=== PATIENT | female | born 1950 | race Caucasian/White ===

== ENCOUNTER 2020-10-08 16:44 | Inpatient (IN) | payer MEDICARE, SELFPAY ==
--- NOTE | ~2020-10-08 | XR_ITS ---
EXAMINATION: XR CHEST CLINICAL INFORMATION: Shortness of breath COMPARISON: Multiple prior studies. Most recent exam Chest x-ray 04/15/2019 TECHNIQUE: Frontal portable view of the chest was obtained. 1825 hours FINDINGS: There is dense left lung base silhouetting the diaphragm due to effusion and probable basilar consolidation. Lung volume is low. This is causing crowding of the bronchovascular markings and prominence of the central hilar vessels. Allowing for low inspiratory effort suspect there is underlying pulmonary vascular congestion. There is no overt pulmonary edema. XR/XR chest 1V IMPRESSION: 1. Dense left lung base due to left pleural effusion and probable basilar consolidation/atelectasis. 2. Low inspiratory effort causing prominence of the bronchovascular markings. Suspect underlying pulmonary vascular congestion as well. Follow-up PA lateral view of chest would be helpful.
--- NOTE | ~2020-10-08 | CT_ITS ---
EXAMINATION: CT ANGIOGRAM OF THE CHEST WITH AND WITHOUT CONTRAST (CT PULMONARY ANGIOGRAM FOR PE) CLINICAL INFORMATION: Reason for Exam elevated d-dimer COMPARISON: None TECHNIQUE: Prior to contrast administration, noncontrast localization images were obtained. Subsequently, multidetector volumetric imaging was performed from the thoracic inlet to below the diaphragms following the administration of 80 mL Omnipaque 350 intravenous contrast. No contrast reaction reported Sagittal, coronal, and MIP oblique sagittal reformatted images were obtained on the CT workstation, uploaded to PACS, and reviewed. This CT examination was performed using dose optimization techniques as appropriate, variously including the following: *Automated exposure control *Adjustment of mA and/or kV according to patient size (this includes techniques or standardized protocols for targeted exams where dose is matched to indication/reason for exam; i.e. extremities or head) *Use of iterative reconstruction technique Total exam dose-length product 142 mGy-cm FINDINGS: QUALITY OF STUDY/CONTRAST BOLUS: Satisfactory. PULMONARY ARTERIES: No central or segmental pulmonary emboli. THORACIC AORTA: No aneurysm or dissection. LUNG: There is mild centrilobular emphysema without acute pneumonic process. There is mild atelectatic changes in the lingula. Focal subpleural density seen in right lower lobe image 33/5 likely focal atelectasis. There is mild peribronchial thickening in the right middle lobe anterobasal segment right lower lobe and lingula. PLEURA: There is minimal bilateral posterior pleural thickening MEDIASTINUM: The heart size enlarged. There is no. A cardiac effusion. The central trachea and the bronchi widely patent. No abnormal size mediastinal or hilar lymph nodes seen. No evidence of septal bowing or right heart strain. CHEST WALL/AXILLA: No axillary or internal mammary lymphadenopathy. OSSEOUS STRUCTURES: No lytic or sclerotic process seen. UPPER ABDOMEN: Visualized liver, spleen, pancreas and bilateral adrenal glands are unremarkable. No reflux of contrast into the hepatic veins to suggest elevated right heart pressures. CT/CT angio chest PE protocol IMPRESSION: No evidence of PE. No evidence aortic dissection. Centrilobular emphysema. There is peribronchial thickening involving the right middle lobe and the right lower lobe suggestive of small airway disease or bronchitis. VTE: negative
[2020-10-08 16:54] VITALS: BP 160/85; PULSE 87; RESP 18; TEMP 36.6; O2SAT 91; BMI 25.1
--- NOTE | 2020-10-08 17:29 | ECG_ITS ---
Test Reason : SOB Blood Pressure : / mmHG Vent. Rate : 079 BPM Atrial Rate : 079 BPM P-R Int : 144 ms QRS Dur : 078 ms QT Int : 380 ms P-R-T Axes : 058 237 058 degrees QTc Int : 435 ms Normal sinus rhythm Right superior axis deviation Inferior infarct , age undetermined Anterior infarct (cited on or before 16-JUL-2016) Abnormal ECG When compared with ECG of 15-APR-2019 05:49, Questionable change in QRS axis Referred By: Sarah Daly Electronically Signed By:JOSEY RESTREPO MD
--- NOTE | 2020-10-08 17:33 | ED.SOB ---
HPI - SOB/Dyspnea General Chief Complaint: Dyspnea Stated Complaint: sob Time Seen by Provider: 10/08/20 17:18 Source: patient and EMS Mode of arrival: EMS History of Present Illness HPI Narrative: 70-year-old female with a past medical history of acquired hypothyroidism, anxiety, HTN, COPD, gastritis, paranoid schizophrenia, polycythemia, smoker, BIBA from jail for hypoxia, noted O2 to 85% on room air. Patient reports baseline O2 90-92%, denies being on oxygen chronically. Reports acute on chronic cough productive of white sputum. Denies fever, chills, chest pain, abdominal pain, nausea/vomiting, worsening LE edema, recent travel. Reports was vaccinated for COVID-19 MD elicited complaint: shortness of breath Related Data Home Medications Medication Instructions Recorded Confirmed paliperidone palmitate 234 mg/1.5 234 mg IM QMONTH 05/18/20 10/08/20 mL intramuscular syringe Previous Rx's Medication Instructions Recorded omeprazole 20 mg capsule,delayed 20 mg PO DAILY 90 Days #90 cap 04/17/20 release levothyroxine 50 mcg tablet 50 mcg PO QAM #30 tab 06/11/20 aspirin 81 mg tablet,delayed 81 mg PO DAILY #30 tab 08/03/20 release albuterol sulfate 90 mcg/actuation 2 puff INHALATION Q6H PRN #8.5 g 09/04/20 aerosol inhaler fluticasone 232 mcg-salmeterol 14 2 inh INHALATION BID 30 Days #1 ea 09/04/20 mcg/actuation breath activated powdr umeclidinium 62.5 mcg/actuation 1 inh INHALATION DAILY 30 Days #30 09/04/20 blister powder for inhalation ea Allergies Allergy/AdvReac Type Severity Reaction Status Date / Time clozapine [Clozapine] AdvReac Unknown LOW ANC Verified 09/04/20 09:28 haloperidol [From HALDOL] AdvReac Unknown TARDIVE Verified 09/04/20 09:28 DISKINESIVE Review of Systems Review of Systems: Constitutional: No Fever, No Chills, No Fatigue, No Malaise Cardiovascular: No Chest Pain, +chronic SOB, No Dyspnea on Exertion, +chronic Edema Respiratory: + Cough, + Sputum, No Wheezing, No Dyspnea Gastrointestinal: No Nausea, No Vomiting, No Diarrhea, No Constipation, No Abdominal pain Genitourinary: No Dysuria, No Hematuria Musculoskeletal: No joint pain, No Myalgias, No Joint Swelling Skin: No Skin Lesions, No rash Neuro: No Weakness, No Numbness, No Headache Yes all other systems are reviewed and are negative [facility] Past Medical History Attestation statement: The following information was validated with the patient. Medical History Acquired hypothyroidism Anxiety Benign essential hypertension COPD (chronic obstructive pulmonary disease) Gastritis Paranoid schizophrenia Polycythemia Smoker Surgical History No pertinent past surgical history Family History Family History Father CVD (cardiovascular disease) Mother Medical history unknown Family/Other FH: mental illness Social History Social History Alcohol intake: never Smoking Status: Current every day smoker Tobacco Type: Cigarette Cigarettes Per Day: 10 Advance Directives: No Advance Directives Information Provided: No Physical Exam Vital Signs: Vital Signs: Last Vital Signs Temp 97.9 F 10/08/20 18:00 Pulse 79 10/08/20 18:00 Resp 20 10/08/20 18:00 BP 154/79 H 10/08/20 18:00 Pulse Ox 93 10/08/20 18:00 Body Mass Index 25.1 Const: General: cooperative Orientation/consciousness: patient oriented x3 Limitations: no limitations HENMT: Head: Yes normal to inspection Ears: hearing grossly normal bilaterally General nose exam: Normal external nose present Face and sinus: Yes normal facial exam Eyes: General: appearance normal, both eyes and all related structures EOM: EOMs intact bilaterally Neck: Neck: Yes normal visual inspection Resp: Other: Coarse lung sounds throughout Effort & Inspection: normal respiratory effort Auscultation: rhonchi Cardio: Rate: regular rate Heart sounds: S1 normal heart sound present and S2 normal heart sound present GI: Inspection: Yes normal to inspection Palpation (GI): Soft to palpation, nontender, no guarding and not rigid Skin: Rashes: no rashes Wounds: no wounds Neuro: General: patient oriented x3 Gait exam (Neuro): Normal gait present Extrem: Other: + bilateral lower extremity pitting edema General: Yes normal to inspection Course Course Course Narrative: -190-- no leukocytosis, troponin mildly elevated 6.2 >> will obtain 3 hour repeat XR chest 1V IMPRESSION: 1. Dense left lung base due to left pleural effusion and probable basilar consolidation/atelectasis. 2. Low inspiratory effort causing prominence of the bronchovascular markings. Suspect underlying pulmonary vascular congestion as well. Follow-up PA lateral view of chest would be helpful >> IV Ceftriaxone and Azithromycin ordered. 40mg IV Lasix ordered -lactic acid negative. Plan to admit for further management MDM - SOB/Dyspnea MDM Narrative Medical decision making narrative: 70-year-old female with a past medical history of acquired hypothyroidism, anxiety, HTN, COPD, gastritis, paranoid schizophrenia, polycythemia, smoker, BIBA from jail for hypoxia, noted O2 to 85% on room air. On exam 85% on RA improved to 92% on 3L NC, coarse lung sounds throughout, trunk a cough noted on exam, bilateral lower extremity edema. Concern for pneumonia vs COPD exacerbation vs CHF. Unlikely PE or COVID-19 Plan: EKG, labs, CXR, opiate overall, reassess, anticipated admission Lab Data Result diagrams: 10/08/20 18:04 10/08/20 18:04 Labs: Lab Results 10/08/20 10/08/20 10/08/20 Range/Units 18:03 18:04 18:04 WBC 6.9 (4.8-10.8) X10*3/uL RBC 5.67 H (4.20-5.50) X10*6/uL Hgb 16.1 H (12.0-16.0) g/dl Hct 51.1 H (37-47) % MCV 90.1 (80-98) fL MCH 28.4 (27.0-33.0) pg MCHC 31.5 (31.0-35.0) g/dl RDW 14.1 (11.0-16.0) % Plt Count 295 (160-400) X10*3/uL MPV 9.3 L (9.4-12.3) fL Immature Gran % (Auto) 0.4 (0.0-0.4) % Neut % (Auto) 73.4 H (45-73) % Lymph % (Auto) 17.1 L (20-40) % [place] % (Auto) 8.3 (2-11) % Eos % (Auto) 0.4 (0-4) % Baso % (Auto) 0.4 (0-2) % Lymph # (Auto) 1.2 (1.2-4.9) X10*3/uL [place] # (Auto) 0.6 (0.1-1.2) X10*3/uL Eos # (Auto) 0.0 (0.0-0.4) X10*3/uL Baso # (Auto) 0.0 (0.0-0.2) X10*3/uL Abs Immat Gran (auto) 0.03 (0.00-0.03) X10*3/uL Absolute Neuts (auto) 5.0 (2.0-8.3) X10*3/uL Absolute Nucleated RBC 0.000 (0.0-0.012) X10*3/uL Nucleated RBC % (auto) 0.0 (0.0-0.2) /100WBC Hold Blue Top Sodium 139 (135-145) mmol/L Potassium 4.6 (3.3-5.1) mmol/L Chloride 95 L (96-108) mmol/L Carbon Dioxide 36 H (22-29) mmol/L Anion Gap 13 (12-20) BUN 6 L (9-16) mg/dL Creatinine 0.54 (0.5-1.4) mg/dL Estim Creat Clear Calc 89.4 Estimated GFR > 60 Random Glucose 94 (60-115) mg/dL Lactic Acid 1.1 (0.5-2.0) mmol/L Calcium 9.1 (8.4-10.2) mg/dL Magnesium 2.3 (1.6-2.6) mg/dL Total Bilirubin 0.8 (0.0-1.0) mg/dL Direct Bilirubin 0.2 (0.0-0.5) mg/dL AST 18 (5-31) U/L ALT 14 (0-31) U/L Alkaline Phosphatase 99 (39-117) U/L Troponin I High Sens (<3.5-17.0) ng/L B-Natriuretic Peptide (<100) pg/mL Total Protein 6.9 (6.5-8.0) g/dL Albumin 3.9 (3.5-5.0) g/dL Procalcitonin ng/mL 10/08/20 10/08/20 10/08/20 Range/Units 18:04 18:04 18:05 WBC (4.8-10.8) X10*3/uL RBC (4.20-5.50) X10*6/uL Hgb (12.0-16.0) g/dl Hct (37-47) % MCV (80-98) fL MCH (27.0-33.0) pg MCHC (31.0-35.0) g/dl RDW (11.0-16.0) % Plt Count (160-400) X10*3/uL MPV (9.4-12.3) fL Immature Gran % (Auto) (0.0-0.4) % Neut % (Auto) (45-73) % Lymph % (Auto) (20-40) % [place] % (Auto) (2-11) % Eos % (Auto) (0-4) % Baso % (Auto) (0-2) % Lymph # (Auto) (1.2-4.9) X10*3/uL [place] # (Auto) (0.1-1.2) X10*3/uL Eos # (Auto) (0.0-0.4) X10*3/uL Baso # (Auto) (0.0-0.2) X10*3/uL Abs Immat Gran (auto) (0.00-0.03) X10*3/uL Absolute Neuts (auto) (2.0-8.3) X10*3/uL Absolute Nucleated RBC (0.0-0.012) X10*3/uL Nucleated RBC % (auto) (0.0-0.2) /100WBC Hold Blue Top SEE NOTE Sodium (135-145) mmol/L Potassium (3.3-5.1) mmol/L Chloride (96-108) mmol/L Carbon Dioxide (22-29) mmol/L Anion Gap (12-20) BUN (9-16) mg/dL Creatinine (0.5-1.4) mg/dL Estim Creat Clear Calc Estimated GFR Random Glucose (60-115) mg/dL Lactic Acid (0.5-2.0) mmol/L Calcium (8.4-10.2) mg/dL Magnesium (1.6-2.6) mg/dL Total Bilirubin (0.0-1.0) mg/dL Direct Bilirubin (0.0-0.5) mg/dL AST (5-31) U/L ALT (0-31) U/L Alkaline Phosphatase (39-117) U/L Troponin I High Sens 6.2 (<3.5-17.0) ng/L B-Natriuretic Peptide 86 (<100) pg/mL Total Protein (6.5-8.0) g/dL Albumin (3.5-5.0) g/dL Procalcitonin < 0.02 ng/mL Discharge Plan Discharge Clinical Impression: Community acquired pneumonia Qualifiers: Laterality: unspecified laterality Qualified Code(s): J18.9 - Pneumonia, unspecified organism Congestive heart failure Qualifiers: Heart failure type: unspecified Heart failure chronicity: unspecified Qualified Code(s): I50.9 - Heart failure, unspecified Prescriptions: No Action omeprazole 20 mg capsule,delayed release(DR/EC) 20 mg PO DAILY 90 Days Qty: 90 RF: 3 levothyroxine 50 mcg tablet 50 mcg PO QAM Qty: 30 RF: 3 aspirin 81 mg tablet,delayed release (DR/EC) 81 mg PO DAILY Qty: 30 RF: 10 Invega Sustenna 234 mg/1.5 mL syringe 234 mg IM QMONTH RF: 0 albuterol sulfate [Ventolin HFA] 90 mcg/actuation HFA aerosol inhaler 2 puff inhalation Q6H PRN (Reason: bronchospasm) Qty: 8.5 RF: 5 Incruse Ellipta 62.5 mcg/actuation blister with device 1 inh inhalation DAILY 30 Days Qty: 30 RF: 5 fluticasone propion-salmeterol 232-14 mcg/actuation aerosol powdr breath activated 2 inh inhalation BID 30 Days Qty: 1 RF: 5
[2020-10-08 18:00] VITALS: BP 154/79; PULSE 79; RESP 20; TEMP 36.6; O2SAT 93
[2020-10-08] MEDS: Albuterol Sulfate 90 MCG 8 GM INHALER 4 PUFF INHALE (18:11)
[2020-10-08 18:13] LABS: MANUAL DIFF FLAG NO
[2020-10-08 18:17] LABS: Basophils Percent Auto 0.4 % (0-2); Eosinophils Percent Auto 0.4 % (0-4); Hematocrit 51.1 % (37-47); Hemoglobin 16.1 g/dl (12.0-16.0); Imm Gran Abs Auto 0.03 X10*3/uL (0.00-0.03); Imm Gran Pct Auto 0.4 % (0.0-0.4); Lymphocytes Absolute Auto 1.2 X10*3/uL (1.2-4.9); Lymphocytes Percent Auto 17.1 % (20-40); Mean Corpuscular HGB Conc 31.5 g/dl (31.0-35.0); Mean Corpuscular Hemoglobin 28.4 pg (27.0-33.0); Mean Corpuscular Volume 90.1 fL (80-98); Mean Platelet Volume 9.3 fL (9.4-12.3); Monocytes Absolute Auto 0.6 X10*3/uL (0.1-1.2); Monocytes Percent Auto 8.3 % (2-11); Neutrophils Percent Auto 73.4 % (45-73); Platelet Count 295 X10*3/uL (160-400); Red Blood Count 5.67 X10*6/uL (4.20-5.50); Red Cell Distribution Width 14.1 % (11.0-16.0); White Blood Count 6.9 X10*3/uL (4.8-10.8)
[2020-10-08 18:42] LABS: Lactic Acid 1.1 mmol/L (0.5-2.0)
[2020-10-08 18:51] LABS: B Type Natriuretic Peptide 86 pg/mL (<100); Troponin-I High Sensitivity 6.2 ng/L (<3.5-17.0)
[2020-10-08 18:53] LABS: Alanine Aminotransferase 14 U/L (0-31); Albumin Level 3.9 g/dL (3.5-5.0); Alkaline Phosphatase 99 U/L (39-117); Anion Gap 13 (12-20); Aspartate Amino Transferase 18 U/L (5-31); Bilirubin Direct 0.2 mg/dL (0.0-0.5); Bilirubin Total 0.8 mg/dL (0.0-1.0); Blood Urea Nitrogen 6 mg/dL (9-16); Calcium 9.1 mg/dL (8.4-10.2); Carbon Dioxide 36 mmol/L (22-29); Chloride 95 mmol/L (96-108); Creatinine Clr Calc Pharmacy 89.4; Estimated Glomerular Filt Rate > 60; Glucose Random 94 mg/dL (60-115); Magnesium 2.3 mg/dL (1.6-2.6); Potassium 4.6 mmol/L (3.3-5.1); Sodium 139 mmol/L (135-145); Total Protein 6.9 g/dL (6.5-8.0)
[2020-10-08 19:10] LABS: Procalcitonin < 0.02 ng/mL
[2020-10-08 19:27] LABS: Influenza A PCR NEGATIVE (Negative); Influenza B PCR NEGATIVE (Negative); Resp Syncy Virus RNA Qual PCR NEGATIVE (Negative); SARS COV2 PCR INHOUSE NEGATIVE (Negative)
[2020-10-08 19:36] VITALS: BP 140/96; PULSE 75; RESP 20; O2SAT 89
[2020-10-08] MEDS: Furosemide 40 MG/4 ML VIAL IVPUSH (19:43)
[2020-10-08] MEDS: cefTRIAXone sodium 2 GM in 0.9 % Sodium Chloride 50 ML IV (19:45)
[2020-10-08] MEDS: Azithromycin 500 MG in 0.9 % Sodium Chloride 250 ML 125 MG IV (20:28)
--- NOTE | 2020-10-08 21:22 | PM.IMHP ---
History of Present Illness Date of Service: 10/08/20 Chief Complaint: SOB 70-year-old female with a past medical history and med schizophrenia dizziness group hypothyroidism, anxiety, depression hypertension COPD presented to the hospital with a chief complaint of shortness of breath. Reportedly patient was having hypoxia place subsequently sent the ER for further evaluation. Patient reports intermittent cough. Denies any chest pain palpitations lightheadedness or dizziness. At the time of my interview patient mentioned she feels okay. Denies any nausea vomiting diarrhea. Denies any urinary complaints. Review of all other systems is negative except mentioned above Patient reported that she has chronic swelling. Denies any leg pains. ER course: Per ER team patient noted to have leg swelling concern for question new onset CHF. Given Lasix. Also chest x-ray showed bilateral consolidation. Given antibiotics. Patient has no wheezing. Patient was placed on L of supplemental oxygen. D-dimer pending. [facility] Medical History Acquired hypothyroidism Anxiety Benign essential hypertension COPD (chronic obstructive pulmonary disease) Gastritis Paranoid schizophrenia Polycythemia Smoker Family History Father CVD (cardiovascular disease) Mother Medical history unknown Family/Other FH: mental illness Surgical History No pertinent past surgical history Social History Household Members: None Housing: Assisted Living Facility Alcohol intake: former Smoking Status: Heavy tobacco smoker Tobacco Type: Cigarette Packs Per Day: 1 Cigarettes Per Day: 20.0 service: No Current occupational status: disabled Meds Allergies Allergy/AdvReac Type Severity Reaction Status Date / Time clozapine [Clozapine] AdvReac Unknown LOW ANC Verified 09/04/20 09:28 haloperidol [From HALDOL] AdvReac Unknown TARDIVE Verified 09/04/20 09:28 DISKINESIVE Active Medications: Current Medications Generic Name Dose Route Start Last Admin Trade Name Freq PRN Reason Stop Dose Admin Acetaminophen 650 mg 10/08/20 19:33 Acetaminophen 325 Mg Tablet PO Q6H PRN Pain, Mild (Pain Scale 1-3) Albuterol/Ipratropium 3 ml 10/08/20 19:31 Albuterol/Iprat 2.5/0.5mg 3 Ml Ampul.Neb INHALE RQ4H PRN Shortness of Breath/Wheezing Aspirin 81 mg 10/09/20 09:00 Aspirin Enteric Coated 81 Mg Tablet. PO DAILY [facility] Azithromycin 500 mg 10/09/20 20:00 Azithromycin 500 Mg Tablet PO Q24H [facility] Furosemide 20 mg 10/09/20 09:00 Furosemide 20 Mg/2 Ml Vial IVPUSH DAILY [facility] Protocol Heparin Sodium (Porcine) 5,000 unit 10/08/20 20:00 Heparin Sodium,Porcine 5,000 Unit/Ml Vial SUBCUT Q8H [facility] Ceftriaxone Sodium 1 gm/ 50 mls @ 100 mls/hr 10/09/20 20:00 Sodium Chloride IV Q24H [facility] Levothyroxine Sodium 50 mcg 10/09/20 06:30 Levothyroxine Sodium 50 Mcg Tablet PO DAILY@0630 [facility] Nitroglycerin 0.4 mg 10/08/20 19:32 Nitroglycerin 0.4 Mg Tab.Subl SUBLINGUAL Q5M PRN Chest Pain Omeprazole 20 mg 10/09/20 09:00 Omeprazole 20 Mg Capsule. PO DAILY [facility] Pharmacy Consult 1 each 10/08/20 17:29 Consult Rx Perform Med Rec MISCELLANE ONCE PRN Consult order Senna 17.2 mg 10/08/20 19:33 Sennosides 8.6 Mg Tablet PO BEDTIME PRN Constipation Sodium Chloride 3 ml 10/09/20 00:00 0.9 % Sodium Chloride Flush 3 Ml Syringe IVFLUSH QSHIFT [facility] Home Medications Medication Instructions Recorded Confirmed Last Taken Type paliperidone palmitate 234 mg/1.5 234 mg IM QMONTH 05/18/20 10/08/20 09/24/20 History mL intramuscular syringe Physical Exam Vital Signs and Narrative: Vital Signs: Last Vital Signs Temp 97.9 F 10/08/20 18:00 Pulse 75 10/08/20 19:36 Resp 20 10/08/20 19:36 BP 140/96 H 10/08/20 19:36 Pulse Ox 89 L 10/08/20 19:36 Body Mass Index 25.1 Gen: Appears be in no acute distress HEENT: NCAT, Moist mucosa. Pulmonary: Course breath sounds, fair air entry. No significant noticed. CVS: Normal S1-S2 Abdomen: BS+, Soft, Nontender Extremities: Warm well perfused; 2+ pedal edema. Neuro: Alert and awake. Grossly nonfocal. Results Labs CBC and Chem 7: 10/11/20 06:12 10/12/20 09:10 Labs: Laboratory Results - last 24 hr 10/08/20 10/08/20 10/08/20 18:03 18:04 18:04 MCV 90.1 MCH 28.4 MCHC 31.5 RDW 14.1 Plt Count 295 MPV 9.3 L Immature Gran % (Auto) 0.4 Neut % (Auto) 73.4 H Lymph % (Auto) 17.1 L [place] % (Auto) 8.3 Eos % (Auto) 0.4 Baso % (Auto) 0.4 Lymph # (Auto) 1.2 [place] # (Auto) 0.6 Eos # (Auto) 0.0 Baso # (Auto) 0.0 Abs Immat Gran (auto) 0.03 Absolute Neuts (auto) 5.0 Absolute Nucleated RBC 0.000 Nucleated RBC % (auto) 0.0 Hold Blue Top Anion Gap 13 Estim Creat Clear Calc 89.4 Estimated GFR > 60 Random Glucose 94 Lactic Acid 1.1 Calcium 9.1 Magnesium 2.3 Total Bilirubin 0.8 Direct Bilirubin 0.2 AST 18 ALT 14 Alkaline Phosphatase 99 Troponin I High Sens B-Natriuretic Peptide Total Protein 6.9 Albumin 3.9 Procalcitonin Coronavirus (PCR) Influenza Type A (PCR) Influenza Type B (PCR) RSV RNA Qual (PCR) 10/08/20 10/08/20 10/08/20 18:04 18:04 18:04 MCV MCH MCHC RDW Plt Count MPV Immature Gran % (Auto) Neut % (Auto) Lymph % (Auto) [place] % (Auto) Eos % (Auto) Baso % (Auto) Lymph # (Auto) [place] # (Auto) Eos # (Auto) Baso # (Auto) Abs Immat Gran (auto) Absolute Neuts (auto) Absolute Nucleated RBC Nucleated RBC % (auto) Hold Blue Top SEE NOTE Anion Gap Estim Creat Clear Calc Estimated GFR Random Glucose Lactic Acid Calcium Magnesium Total Bilirubin Direct Bilirubin AST ALT Alkaline Phosphatase Troponin I High Sens B-Natriuretic Peptide Total Protein Albumin Procalcitonin < 0.02 Coronavirus (PCR) NEGATIVE Influenza Type A (PCR) NEGATIVE Influenza Type B (PCR) NEGATIVE RSV RNA Qual (PCR) NEGATIVE 10/08/20 18:05 MCV MCH MCHC RDW Plt Count MPV Immature Gran % (Auto) Neut % (Auto) Lymph % (Auto) [place] % (Auto) Eos % (Auto) Baso % (Auto) Lymph # (Auto) [place] # (Auto) Eos # (Auto) Baso # (Auto) Abs Immat Gran (auto) Absolute Neuts (auto) Absolute Nucleated RBC Nucleated RBC % (auto) Hold Blue Top Anion Gap Estim Creat Clear Calc Estimated GFR Random Glucose Lactic Acid Calcium Magnesium Total Bilirubin Direct Bilirubin AST ALT Alkaline Phosphatase Troponin I High Sens 6.2 B-Natriuretic Peptide 86 Total Protein Albumin Procalcitonin Coronavirus (PCR) Influenza Type A (PCR) Influenza Type B (PCR) RSV RNA Qual (PCR) Imaging Radiologist's Impressions: Impressions Chest X-Ray 10/08/20 17:30 IMPRESSION: 1. Dense left lung base due to left pleural effusion and probable basilar consolidation/atelectasis. 2. Low inspiratory effort causing prominence of the bronchovascular markings. Suspect underlying pulmonary vascular congestion as well. Follow-up PA lateral view of chest would be helpful. Assessment and Plan (1) Community acquired pneumonia: Qualifiers: Laterality: unspecified laterality Qualified Code(s): J18.9 - Pneumonia, unspecified organism Status: Acute 70-year-old female past medical history of anxiety, depression, paranoid schizophrenia lives in a [facility] hypertension, COPD presented to the hospital with a chief shortness of breath. Shortness of breath: Likely in the setting pneumonia. Patient on 2 L of supplemental oxygen. Breathing comfortable. No signs of distress currently. COVID-19 negative. Pneumonia: Continue ceftriaxone azithromycin. ? CHF: Patient was given Lasix in the ER. Patient reports he has chronic leg edema. Will obtain echocardiogram. Will hold off on diuresis until further by Cardiology. History of COPD: No significant wheezing noticed. Stable. Duo nebs p.r.n.. Diet: Speech and swallow eval. Dysphagia screen. Patient denies any difficulty swallowing. DVT prophylaxis: Subcu heparin Code status: full code
[2020-10-08 21:32] VITALS: BP 147/75; PULSE 91; RESP 22; TEMP 36.4; O2SAT 92
[2020-10-08 22:01] LABS: D Dimer 3800 NG/ML
[2020-10-08 22:28] LABS: Magnesium 2.1 mg/dL (1.6-2.6)
[2020-10-08 22:31] LABS: Troponin-I High Sensitivity 6.3 ng/L (<3.5-17.0)
[2020-10-09] VITALS (8 sets, daily range): BP systolic 140–162; BP diastolic 66–73; PULSE 83–93; RESP 18–28; TEMP 36.1–36.5; O2SAT 90–97
[2020-10-09] MEDS: 0.9 % Sodium Chloride Flush 3 ML SYRINGE IVFLUSH ×3 (01:22→15:45)
[2020-10-09] MEDS: Heparin Sodium,Porcine 5,000 UNIT/ML VIAL 5000 UNIT SUBCUT ×3 (01:28→21:16)
[2020-10-09 06:46] LABS: MANUAL DIFF FLAG NO
[2020-10-09 06:50] LABS: Basophils Percent Auto 0.5 % (0-2); Eosinophils Percent Auto 0.6 % (0-4); Hematocrit 49.2 % (37-47); Imm Gran Abs Auto 0.04 X10*3/uL (0.00-0.03); Imm Gran Pct Auto 0.6 % (0.0-0.4); Lymphocytes Absolute Auto 0.9 X10*3/uL (1.2-4.9); Mean Corpuscular HGB Conc 30.5 g/dl (31.0-35.0); Mean Corpuscular Volume 91.8 fL (80-98); Mean Platelet Volume 9.1 fL (9.4-12.3); Monocytes Absolute Auto 0.6 X10*3/uL (0.1-1.2); Monocytes Percent Auto 8.8 % (2-11); Neutrophils Absolute Auto 4.7 X10*3/uL (2.0-8.3); Neutrophils Percent Auto 74.5 % (45-73); Platelet Count 272 X10*3/uL (160-400); Red Blood Count 5.36 X10*6/uL (4.20-5.50); Red Cell Distribution Width 13.9 % (11.0-16.0); White Blood Count 6.3 X10*3/uL (4.8-10.8)
[2020-10-09 07:35] LABS: Anion Gap 11 (12-20); Blood Urea Nitrogen 5 mg/dL (9-16); Calcium 8.3 mg/dL (8.4-10.2); Carbon Dioxide 37 mmol/L (22-29); Chloride 97 mmol/L (96-108); Creatinine Clr Calc Pharmacy 81.9; Estimated Glomerular Filt Rate > 60; Glucose Random 90 mg/dL (60-115); Potassium 4.7 mmol/L (3.3-5.1); Sodium 140 mmol/L (135-145)
[2020-10-09] MEDS: Levothyroxine Sodium 50 MCG TABLET PO (07:54)
[2020-10-09] MEDS: Aspirin Enteric Coated 81 MG TABLET.DR PO (08:48)
[2020-10-09] MEDS: Omeprazole 20 MG CAPSULE.DR PO (08:48)
--- NOTE | 2020-10-09 09:37 | MHC.CM.PN ---
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 CM ATTEMPTED TO CONTACT [facility] [employer] GUARDIAN AT 9:15AM TO REQUEST CURRENT GUARDIANSHIP PAPERWORK, PER [facility] REGISTRATION LINE ALL LOCAL [facility] PHONES ARE DOWN, CM WILL ATTEMPT TO CONTACT LATER THIS MORNING. GUARDIAN: STEPHANIE ZAMORA [phone] [facility] GIS APPLICATION DEVELOPER: TERRA PT UNABLE TO REMEMBER LAST NAME OR PHONE NUMBER
--- NOTE | 2020-10-09 10:00 | CA_ITS ---
Transthoracic Echocardiogram Patient (Last, First, Middle): Bertha Uribe E Gender: Female Date of : 1950 Age: 70 Procedure Date: 10/09/2020 Procedure Type: Transthoracic Echocardiogram Location: S3E Height: 167.64 cm Weight: 70.31 kg BSA: 1.79 m2 Heart Rate: bpm BP: 159 / 66 mmHg System Administration Manager: Referring MD: Aubrey Silverman MD Symptoms: chf Study Quality: Fair ECG Rhythm: Sinus with extra beats Conclusions: - Normal left ventricular size and systolic function. - There is moderately increased left ventricular wall thickness. - E/E prime ratio is between 8 and 15 consistent with indeterminate filling pressures. - The basal inferior segment is hypokinetic. - Normal right ventricular cavity size and systolic function. - There is a trivial pericardial effusion. - Moderately elevated right atrial pressure. - There is mild aortic valve stenosis. Findings Left Ventricle Normal left ventricular size and systolic function. There is moderately increased left ventricular wall thickness. The visually estimated ejection fraction is between 55-60%. Regional wall motion abnormalities can not be excluded due to suboptimal endocardial definition. Abnormal diastolic function is noted. Spectral Doppler is indicative of an impaired relaxation filling pattern. E/E prime ratio is between 8 and 15 consistent with indeterminate filling pressures. Wall Motion Rest Echo Findings The basal inferior segment is hypokinetic. Right Ventricle Normal right ventricular cavity size and systolic function. Atria The left atrium is moderately dilated. Aortic Valve There is a normal trileaflet aortic valve. There is mild calcification of the aortic valve. There is mild aortic valve stenosis. There is no aortic valve regurgitation. Mitral Valve Normal mitral valve structure and function. There is trace mitral valve regurgitation. There is no mitral valve stenosis. Pulmonic Valve The pulmonic valve is likely normal. Tricuspid Valve Normal tricuspid valve structure and function. There is trace tricuspid valve regurgitation. Moderately elevated right atrial pressure. There is no evidence of pulmonary hypertension. Great Vessels The visualized portions of the pulmonary artery and branches are normal. Venous The inferior vena cava is mildly dilated and collapses greater than 50% with inspiration. Pericardium/Pleural There is a trivial pericardial effusion. There are no definitive echocardiographic findings of tamponade physiology. Prior Study Comparison No prior study available for comparison. Measurements 2D Linear Measurements IVSd: 1.28 0.6-0.9/0.6-1.0 cm LVIDd: 4.81 3.9-5.3/4.2-5.9 cm LVIDd Index: 2.69 2.4-3.2/2.2-3.1 cm/m2 LVIDs: 2.77 2.0-3.6 cm LVPWd: 1.24 0.7-1.1 cm Ao Root: 3.60 2.1-3.5 cm LA Diam: 4.00 2.7-3.8/3.0-4.0 cm LAIDs Index: 2.23 1.5-2.3 cm/m2 LV Mass: 293.85 67-162/88-224 g LV Mass Index: 164.16 43-95/49-115 g/m2 LVOT Diam: 2.20 3.0+(-)1.3 cm Mitral Valve MV Pk E: 0.67 MV PK A: 1.25 MV Decel Time: 113.00 E/A: 0.50 E'Lateral: 7.16 E'Medial: 5.71 E/E' Med: 11.80 E/E' Lat: 9.40 PHT: 33.00 MVA PHT: 6.67 Decel [place]: 5.98 Aortic Valve AoV Pk Prasad: 2.01 AoV Mn Prasad: 1.30 AoV VTI: 0.35 AoV Pk Grad: 16.00 Aov Mn Grad: 8.00 SHANNAN Cont.VTI: 2.55 LVOT LVOT Pk Prasad: 1.23 LVOT Mn Prasad: 0.77 LVOT VTI: 0.24 LVOT Pk Grad: 6.00 LVOT Mn Grad: 3.00 LVOT Diam: 2.20 LVOT Area: 3.80 Diastolic Function MV Pk E: 0.67 MV Pk A: 1.25 E/A: 0.50 E'Medial: 5.71 E/E' Med: 11.80 E' Laterial: 7.16 E/E' Lat: 9.40 Tricuspid Valve TR Pk Prasad: 1.97 TR Pk Grad: 16.00 RA Press: 15.00 RVSP: 31.00 Great Vessels Aorta Ao Root-2D: 3.60 2.0-3.7 cm Pulmonary Valve PV Pk Prasad: 1.15 Peak PV Grad: 5.00 Updated in Other Vendor System with Status of Final Jacky Novak MD electronically signed on 10/10/2020 2:03:09 PM with status of Final
--- NOTE | 2020-10-09 11:21 | MHC.CM.PN ---
CM ATTEMPTED TO CONTACT PT'S GUARDIAN AT [facility] AT 11:21AM ([phone]) [facility] PHONE LINES REMAIN DOWN.
--- NOTE | 2020-10-09 11:42 | PM.CNCAR ---
History of Present Illness History of Present Illness Date of Service: 10/09/20 Requesting physician: Candido Iglesias Chief complaint: pna, ? CHF Narrative: 70-year-old female with background history of paranoid schizophrenia, tobacco abuse and currently 1 pack per day smoker and hypertension who is presenting with shortness of breath. She has been coughing. No fevers or chills. She has wheezing on exam. She is hypoxic. Denies any orthopnea. She has mild lower extremity edema. Clinical story sounds more like COPD exacerbation. Blood pressure is elevated right now. [facility] Past Medical History Medical History Acquired hypothyroidism Anxiety Benign essential hypertension COPD (chronic obstructive pulmonary disease) Gastritis Paranoid schizophrenia Polycythemia Smoker Family History Family History Father CVD (cardiovascular disease) Mother Medical history unknown Family/Other FH: mental illness Surgical History Surgical History No pertinent past surgical history Social History Social History Household Members: None Housing: Assisted Living Facility Do you presently have visiting nurse or other home services: Yes Alcohol intake: former Smoking Status: Heavy tobacco smoker Tobacco Type: Cigarette Packs Per Day: 1 Cigarettes Per Day: 20.0 Use of substances other than those prescribed or required for medical reasons: No Have you been hit, kicked, punched, or otherwise hurt by someone within the past year? If so, by whom?: No Do you feel safe in your current relationship?: No Current Relationship Is there a partner from a previous relationship who is making you feel unsafe now?: No Are you made to feel afraid or neglected: No Advance Directives: No Advance Directives Information Provided: No Do you have thoughts of harming others: None Do you have a plan to hurt others: No Plan Recently lost weight without trying: No service: No Current occupational status: disabled Meds Allergies Allergy/AdvReac Type Severity Reaction Status Date / Time clozapine [Clozapine] AdvReac Unknown LOW ANC Verified 09/04/20 09:28 haloperidol [From HALDOL] AdvReac Unknown TARDIVE Verified 09/04/20 09:28 DISKINESIVE Active Medications: Current Medications Generic Name Dose Route Start Last Admin Trade Name Tatoq PRN Reason Stop Dose Admin Acetaminophen 650 mg 10/08/20 19:33 Acetaminophen 325 Mg Tablet PO Q6H PRN Pain, Mild (Pain Scale 1-3) Albuterol/Ipratropium 3 ml 10/08/20 19:31 Albuterol/Iprat 2.5/0.5mg 3 Ml Ampul.Neb INHALE RQ4H PRN Shortness of Breath/Wheezing Aspirin 81 mg 10/09/20 09:00 10/09/20 08:48 Aspirin Enteric Coated 81 Mg Tablet. PO 81 mg DAILY LUKAS Administration Azithromycin 500 mg 10/09/20 20:00 Azithromycin 500 Mg Tablet PO Q24H LUKAS Heparin Sodium (Porcine) 5,000 unit 10/08/20 20:00 10/09/20 11:39 Heparin Sodium,Porcine 5,000 Unit/Ml Vial SUBCUT 5,000 unit Q8H LUKAS Administration Ceftriaxone Sodium 1 gm/ 50 mls @ 100 mls/hr 10/09/20 20:00 Sodium Chloride IV Q24H LUKAS Levothyroxine Sodium 50 mcg 10/09/20 06:30 10/09/20 07:54 Levothyroxine Sodium 50 Mcg Tablet PO 50 mcg DAILY@0630 LUKAS Administration Nitroglycerin 0.4 mg 10/08/20 19:32 Nitroglycerin 0.4 Mg Tab.Subl SUBLINGUAL Q5M PRN Chest Pain Omeprazole 20 mg 10/09/20 09:00 10/09/20 08:48 Omeprazole 20 Mg Capsule. PO 20 mg DAILY [facility] Administration Pharmacy Consult 1 each 10/08/20 17:29 Consult Rx Perform Med Rec MISCELLANE ONCE PRN Consult order Senna 17.2 mg 10/08/20 19:33 Sennosides 8.6 Mg Tablet PO BEDTIME PRN Constipation Sodium Chloride 3 ml 10/09/20 00:00 10/09/20 08:48 0.9 % Sodium Chloride Flush 3 Ml Syringe IVFLUSH 3 ml QSHIFT [facility] Administration Home Medications Medication Instructions Recorded Confirmed Last Taken Type paliperidone palmitate 234 mg/1.5 234 mg IM QMONTH 05/18/20 10/08/20 09/24/20 History mL intramuscular syringe Physical Exam Vital Signs: Vital Signs: Last Vital Signs Temp 96.9 F 10/09/20 11:08 Pulse 93 10/09/20 11:08 Resp 18 10/09/20 11:08 BP 162/73 H 10/09/20 11:08 Pulse Ox 91 L 10/09/20 11:08 Body Mass Index 25.1 GENERAL APPEARANCE: in no acute distress, well developed, well nourished. HEENT: unremarkable. HEAD: normocephalic, atraumatic. NECK/THYROID: no carotid bruit, no jugular venous distention. SKIN: no suspicious lesions, warm and dry. HEART: no murmurs, regular rate and rhythm, S1, S2 normal. LUNGS: Bilateral expiratory wheezes and rhonchi. ABDOMEN: normal, bowel sounds present, soft, nontender, nondistended. EXTREMITIES: no clubbing, cyanosis. Mild edema PERIPHERAL PULSES: equal. NEUROLOGIC: nonfocal, alert and oriented. PSYCH: mood/affect full range. Results Labs and Meds Result diagrams: 10/09/20 06:28 10/09/20 06:28 Lab results: Laboratory Results - last 24 hr 10/08/20 10/08/20 10/08/20 18:03 18:04 18:04 WBC 6.9 RBC 5.67 H Hgb 16.1 H Hct 51.1 H MCV 90.1 MCH 28.4 MCHC 31.5 RDW 14.1 Plt Count 295 MPV 9.3 L Immature Gran % (Auto) 0.4 Neut % (Auto) 73.4 H Lymph % (Auto) 17.1 L Ballard % (Auto) 8.3 Eos % (Auto) 0.4 Baso % (Auto) 0.4 Lymph # (Auto) 1.2 Ballard # (Auto) 0.6 Eos # (Auto) 0.0 Baso # (Auto) 0.0 Abs Immat Gran (auto) 0.03 Absolute Neuts (auto) 5.0 Absolute Nucleated RBC 0.000 Nucleated RBC % (auto) 0.0 D-Dimer Hold Blue Top Sodium 139 Potassium 4.6 Chloride 95 L Carbon Dioxide 36 H Anion Gap 13 BUN 6 L Creatinine 0.54 Estim Creat Clear Calc 89.4 Estimated GFR > 60 Random Glucose 94 Lactic Acid 1.1 Calcium 9.1 Magnesium 2.3 Total Bilirubin 0.8 Direct Bilirubin 0.2 AST 18 ALT 14 Alkaline Phosphatase 99 Troponin I High Sens B-Natriuretic Peptide Total Protein 6.9 Albumin 3.9 Procalcitonin Coronavirus (PCR) Influenza Type A (PCR) Influenza Type B (PCR) RSV RNA Qual (PCR) 10/08/20 10/08/20 10/08/20 18:04 18:04 18:04 WBC RBC Hgb Hct MCV MCH MCHC RDW Plt Count MPV Immature Gran % (Auto) Neut % (Auto) Lymph % (Auto) Ballard % (Auto) Eos % (Auto) Baso % (Auto) Lymph # (Auto) Ballard # (Auto) Eos # (Auto) Baso # (Auto) Abs Immat Gran (auto) Absolute Neuts (auto) Absolute Nucleated RBC Nucleated RBC % (auto) D-Dimer Hold Blue Top SEE NOTE Sodium Potassium Chloride Carbon Dioxide Anion Gap BUN Creatinine Estim Creat Clear Calc Estimated GFR Random Glucose Lactic Acid Calcium Magnesium Total Bilirubin Direct Bilirubin AST ALT Alkaline Phosphatase Troponin I High Sens B-Natriuretic Peptide Total Protein Albumin Procalcitonin < 0.02 Coronavirus (PCR) NEGATIVE Influenza Type A (PCR) NEGATIVE Influenza Type B (PCR) NEGATIVE RSV RNA Qual (PCR) NEGATIVE 10/08/20 10/08/20 10/08/20 18:05 21:38 21:38 WBC RBC Hgb Hct MCV MCH MCHC RDW Plt Count MPV Immature Gran % (Auto) Neut % (Auto) Lymph % (Auto) Ballard % (Auto) Eos % (Auto) Baso % (Auto) Lymph # (Auto) Ballard # (Auto) Eos # (Auto) Baso # (Auto) Abs Immat Gran (auto) Absolute Neuts (auto) Absolute Nucleated RBC Nucleated RBC % (auto) D-Dimer Hold Blue Top Sodium Potassium Chloride Carbon Dioxide Anion Gap BUN Creatinine Estim Creat Clear Calc Estimated GFR Random Glucose Lactic Acid Calcium Magnesium Total Bilirubin Direct Bilirubin AST ALT Alkaline Phosphatase Troponin I High Sens 6.2 6.0 6.3 B-Natriuretic Peptide 86 Total Protein Albumin Procalcitonin Coronavirus (PCR) Influenza Type A (PCR) Influenza Type B (PCR) RSV RNA Qual (PCR) 10/08/20 10/08/20 10/09/20 21:38 21:38 06:28 WBC RBC Hgb Hct MCV MCH MCHC RDW Plt Count MPV Immature Gran % (Auto) Neut % (Auto) Lymph % (Auto) Ballard % (Auto) Eos % (Auto) Baso % (Auto) Lymph # (Auto) Ballard # (Auto) Eos # (Auto) Baso # (Auto) Abs Immat Gran (auto) Absolute Neuts (auto) Absolute Nucleated RBC Nucleated RBC % (auto) D-Dimer 3800 Hold Blue Top Sodium 140 Potassium 4.7 Chloride 97 Carbon Dioxide 37 H Anion Gap 11 L BUN 5 L Creatinine 0.59 Estim Creat Clear Calc 81.9 Estimated GFR > 60 Random Glucose 90 Lactic Acid Calcium 8.3 L D Magnesium 2.1 Total Bilirubin Direct Bilirubin AST ALT Alkaline Phosphatase Troponin I High Sens B-Natriuretic Peptide Total Protein Albumin Procalcitonin Coronavirus (PCR) Influenza Type A (PCR) Influenza Type B (PCR) RSV RNA Qual (PCR) 10/09/20 06:28 WBC 6.3 RBC 5.36 Hgb 15.0 Hct 49.2 H MCV 91.8 MCH 28.0 MCHC 30.5 L RDW 13.9 Plt Count 272 MPV 9.1 L Immature Gran % (Auto) 0.6 H Neut % (Auto) 74.5 H Lymph % (Auto) 15.0 L Ballard % (Auto) 8.8 Eos % (Auto) 0.6 Baso % (Auto) 0.5 Lymph # (Auto) 0.9 L Ballard # (Auto) 0.6 Eos # (Auto) 0.0 Baso # (Auto) 0.0 Abs Immat Gran (auto) 0.04 H Absolute Neuts (auto) 4.7 Absolute Nucleated RBC 0.000 Nucleated RBC % (auto) 0.0 D-Dimer Hold Blue Top Sodium Potassium Chloride Carbon Dioxide Anion Gap BUN Creatinine Estim Creat Clear Calc Estimated GFR Random Glucose Lactic Acid Calcium Magnesium Total Bilirubin Direct Bilirubin AST ALT Alkaline Phosphatase Troponin I High Sens B-Natriuretic Peptide Total Protein Albumin Procalcitonin Coronavirus (PCR) Influenza Type A (PCR) Influenza Type B (PCR) RSV RNA Qual (PCR) Imaging Radiologist's impression: Impressions Chest X-Ray 10/08/20 17:30 IMPRESSION: 1. Dense left lung base due to left pleural effusion and probable basilar consolidation/atelectasis. 2. Low inspiratory effort causing prominence of the bronchovascular markings. Suspect underlying pulmonary vascular congestion as well. Follow-up PA lateral view of chest would be helpful. Assessment and Plan (1) Benign essential hypertension: Status: Acute (2) Congestive heart failure: Qualifiers: Heart failure chronicity: unspecified Heart failure type: unspecified Qualified Code(s): I50.9 - Heart failure, unspecified Status: Acute 70-year-old female with tobacco abuse. She has COPD. She is presenting with shortness of breath which is likely due to COPD exacerbation. We have been asked to comment about congestive heart failure. She has mild lower extremity edema. I really doubt that she is in heart failure. Her BNP is normal. I think we should control blood pressure and not label her as heart failure. She can have an echocardiogram as outpatient which can be arranged at discharge. She can be started on hydrochlorothiazide 12.5 mg once a day for blood pressure control. That will also improve her lower extremity edema. Thank you for allowing me to participate in the care of your patient. Please feel free to contact me if you have any questions.
[2020-10-09] MEDS: iohexoL 350 MG/ML 75 ML INFUS..BTL 70 ML IV (12:36)
--- NOTE | 2020-10-09 12:38 | HO.PM.IMPN ---
Subjective Subjective Date of Service: 10/09/20 <JOHNY Skaggs - Last Filed: 10/09/20 13:02> 10/09/20 <Candido Iglesias MD - Last Filed: 10/09/20 16:05> Interval History: f/u COPD exacerbation Seen and examined this morning Reports shortness of breath, chronic cough which she says in unchanged from her baseline. Denies fever or chills. <JOHNY Skaggs - Last Filed: 10/09/20 13:02> Review of Systems Review of Systems: Yes all other systems are reviewed and are negative <JOHNY Skaggs - Last Filed: 10/09/20 13:02> Constitutional Constitutional: Denies chills and Denies fever(s) <JOHNY Skaggs - Last Filed: 10/09/20 13:02> Cardiovascular Cardiovascular: Denies chest pain <JOHNY Skaggs - Last Filed: 10/09/20 13:02> Respiratory Respiratory: Reports cough <JOHNY Skaggs - Last Filed: 10/09/20 13:02> shortness of breath <JOHNY Skaggs - Last Filed: 10/09/20 13:02> Gastrointestinal Gastrointestinal: Denies abdominal pain <JOHNY Skaggs - Last Filed: 10/09/20 13:02> Physical Exam Vital Signs: Vital Signs: Last Vital Signs Temp 96.9 F 10/09/20 11:08 Pulse 93 10/09/20 11:08 Resp 18 10/09/20 11:08 BP 162/73 H 10/09/20 11:08 Pulse Ox 91 L 10/09/20 11:08 Body Mass Index 25.1 <JOHNY Skaggs - Last Filed: 10/09/20 13:02> Const: General: no acute distress, alert and awake <JOHNY Skaggs Last Filed: 10/09/20 13:02> Nutritional Appearance: well nourished <JOHNY Skaggs - Last Filed: 10/09/20 13:02> Orientation/consciousness: patient oriented x3 <JOHNY Skaggs - Last Filed: 10/09/20 13:02> HENMT: Head: Yes normocephalic and Yes atraumatic <JOHNY Skaggs - Last Filed: 10/09/20 13:02> Eyes: Sclerae: sclerae normal <JOHNY Skaggs - Last Filed: 10/09/20 13:02> Chest: Chest palpation & inspection: normal inspection of the chest <JOHNY Skaggs - Last Filed: 10/09/20 13:02> Resp: Other: wheezing <JOHNY Skaggs - Last Filed: 10/09/20 13:02> Effort & Inspection: normal respiratory effort and no respiratory distress <JOHNY Skaggs - Last Filed: 10/09/20 13:02> Cardio: Rate: regular rate <JOHNY Skaggs - Last Filed: 10/09/20 13:02> Rhythm: regular rhythm <JOHNY Skaggs - Last Filed: 10/09/20 13:02> GI: Palpation (GI): Soft to palpation and nontender <JOHNY Skaggs - Last Filed: 10/09/20 13:02> Neuro: General: patient oriented x3 <JOHNY Skaggs - Last Filed: 10/09/20 13:02> Cranial nerves: Yes CN's II-XII intact bilaterally and Yes Bilaterally intact EOM present <JOHNY Skaggs - Last Filed: 10/09/20 13:02> Extrem: Other: 2 + edema b/l lower extremities <JOHNY Skaggs - Last Filed: 10/09/20 13:02> General: Yes normal to inspection <JOHNY Skaggs - Last Filed: 10/09/20 13:02> Objective Data Current Medications Generic Name Dose Route Start Last Admin Trade Name Freq PRN Reason Stop Dose Admin Acetaminophen 650 mg 10/08/20 19:33 Acetaminophen 325 Mg Tablet PO Q6H PRN Pain, Mild (Pain Scale 1-3) Albuterol/Ipratropium 3 ml 10/08/20 19:31 Albuterol/Iprat 2.5/0.5mg 3 Ml Ampul.Neb INHALE RQ4H PRN Shortness of Breath/Wheezing Aspirin 81 mg 10/09/20 09:00 10/09/20 08:48 Aspirin Enteric Coated 81 Mg Tablet. PO 81 mg DAILY LUKAS Administration Azithromycin 500 mg 10/09/20 20:00 Azithromycin 500 Mg Tablet PO Q24H LUKAS Heparin Sodium (Porcine) 5,000 unit 10/08/20 20:00 10/09/20 11:39 Heparin Sodium,Porcine 5,000 Unit/Ml Vial SUBCUT 5,000 unit Q8H LUKAS Administration Ceftriaxone Sodium 1 gm/ 50 mls @ 100 mls/hr 10/09/20 20:00 Sodium Chloride IV Q24H LUKAS Iohexol 70 ml 10/09/20 12:35 10/09/20 12:36 Iohexol 350 Mg/Ml 75 Ml Infus..Btl IV 10/09/20 12:36 70 ml ONCE ONE Administration Levothyroxine Sodium 50 mcg 10/09/20 06:30 10/09/20 07:54 Levothyroxine Sodium 50 Mcg Tablet PO 50 mcg DAILY@0630 LUKAS Administration Nitroglycerin 0.4 mg 10/08/20 19:32 Nitroglycerin 0.4 Mg Tab.Subl SUBLINGUAL Q5M PRN Chest Pain Omeprazole 20 mg 10/09/20 09:00 10/09/20 08:48 Omeprazole 20 Mg Capsule. PO 20 mg DAILY LUKAS Administration Pharmacy Consult 1 each 10/08/20 17:29 Consult Rx Perform Med Rec MISCELLANE ONCE PRN Consult order Senna 17.2 mg 10/08/20 19:33 Sennosides 8.6 Mg Tablet PO BEDTIME PRN Constipation Sodium Chloride 3 ml 10/09/20 00:00 10/09/20 08:48 0.9 % Sodium Chloride Flush 3 Ml Syringe IVFLUSH 3 ml QSHIFT LUKAS Administration <JOHNY Skaggs - Last Filed: 10/09/20 13:02> Labs CBC & Chem 7: : 10/09/20 06:28 10/09/20 06:28 <JOHNY Skaggs - Last Filed: 10/09/20 13:02> Assessment and Plan (1) Community acquired pneumonia: Status: Acute <JOHNY Skaggs Last Filed: 10/09/20 13:02> (2) COPD (chronic obstructive pulmonary disease): Status: Acute <JOHNY Skaggs - Last Filed: 10/09/20 13:02> Assessment and Plan: This is a 70-year-old female with a history of anxiety, depression, schizophrenia, COPD, active smoker who was sent from correction for shortness of breath. Acute respiratory failure with hypoxia Related to underlying pneumonia/COPD Ddimer elevated, CTA pending PNA Continue ceftriaxone, azithromycin D #2 BCx pending Acute COPD exacerbation -IV solumedrol -scheduled and prn breathing treatments Leg edema Pt reports chronic leg edema. BNP 86. Less likely CHF ECHO done, report pending Seen by cardiology, rec to control BP HTN Not on BP meds at home per med rec Start HCTZ per cardiology rec -Follow BP Gerd continue omeprazole Hypothyroidism continue synthroid Tobacco dependence Smoking cessation advised -NRT Mood on Invega injections q/month Diet: Speech and swallow eval. rec ground solids, thin liquids with pills in puree DVT prophylaxis: Subcu heparin Code status: full code Attending-Dr. Iglesias <JOHNY Skaggs - Last Filed: 10/09/20 13:02> Patient seen and examined independently and I was present during coronel portion of E/M service. Agree with JOHNY Brown's history, physical, assessment, and plan. Continue CAP coverage. IV steroids and supplemental O2. Smoking cessation advised. <Candido Iglesias MD - Last Filed: 10/09/20 16:05>
[2020-10-09] MEDS: hydroCHLOROthiazide 12.5 MG TABLET PO (13:21)
[2020-10-09] MEDS: methylPREDNISolone Sod Succ 40 MG/ML VIAL 20 MG IVPUSH ×2 (13:21→21:17)
--- NOTE | 2020-10-09 15:12 | MHC.CM.PN ---
CM CONTACTED PT'S [facility] CUSTODIAL AT 3:05PM ([phone]) AND SPOKE TO STAFF EDUAR WHO IS COVERING HOUSE, PER STAFF PT'S GUARDIAN IS HER SON AYESHA ELY [phone], ON-CALL [employer] #[phone] FOR TRANSPORTATION IF D/C'D OVER WKND. CM DID REQUEST CURRENT [facility]IAN[facility] AND [facility] ORDER, STAFF REPORTS THEY WERE HACKED AND ARE UNABLE TO FAX DOCUMENTS, CM REQUESTED DOCUMENTS BE BROUGHT IN ON Monday10/12/20.
[2020-10-09] MEDS: Albuterol/Iprat 2.5/0.5MG 3 ML AMPUL.NEB INHALE ×2 (17:19→19:52)
[2020-10-09] MEDS: cefTRIAXone sodium 1 GM in 0.9 % Sodium Chloride 50 ML IV (21:15)
[2020-10-09] MEDS: Azithromycin 500 MG TABLET PO (21:16)
[2020-10-10] VITALS (11 sets, daily range): BP systolic 119–163; BP diastolic 52–75; PULSE 69–86; RESP 16–21; TEMP 36.2–37.1; O2SAT 89–95
[2020-10-10] MEDS: 0.9 % Sodium Chloride Flush 3 ML SYRINGE IVFLUSH ×4 (01:00→20:20)
[2020-10-10] MEDS: Heparin Sodium,Porcine 5,000 UNIT/ML VIAL 5000 UNIT SUBCUT ×3 (05:51→20:21)
[2020-10-10] MEDS: Levothyroxine Sodium 50 MCG TABLET PO (05:51)
[2020-10-10 08:08] LABS: Blood Urea Nitrogen 8 mg/dL (9-16); Calcium 8.9 mg/dL (8.4-10.2); Creatinine Clr Calc Pharmacy 75.4; Estimated Glomerular Filt Rate > 60; Glucose Random 168 mg/dL (60-115)
[2020-10-10] MEDS: Albuterol/Iprat 2.5/0.5MG 3 ML AMPUL.NEB INHALE ×4 (08:15→21:31)
[2020-10-10 08:29] LABS: Anion Gap 11 (12-20); Carbon Dioxide 41 mmol/L (22-29); Chloride 92 mmol/L (96-108); Potassium 4.6 mmol/L (3.3-5.1); Sodium 139 mmol/L (135-145)
[2020-10-10] MEDS: Aspirin Enteric Coated 81 MG TABLET.DR PO (08:35)
[2020-10-10] MEDS: hydroCHLOROthiazide 12.5 MG TABLET PO (08:35)
[2020-10-10] MEDS: Omeprazole 20 MG CAPSULE.DR PO (08:35)
[2020-10-10] MEDS: methylPREDNISolone Sod Succ 40 MG/ML VIAL 20 MG IVPUSH ×2 (08:35→20:20)
[2020-10-10] MEDS: Nicotine 14 MG PATCH.TD24 TRANSDERMA (08:36)
--- NOTE | 2020-10-10 09:20 | HO.PM.IMPN ---
Subjective Subjective Date of Service: 10/10/20 Interval History: f/u COPD exacerbation Seen and examined this morning Reports shortness of breath, chronic cough which she says in unchanged from her baseline. Denies fever or chills. Physical Exam Vital Signs: Vital Signs: Last Vital Signs Temp 98.0 F 10/10/20 07:52 Pulse 76 10/10/20 08:15 Resp 17 10/10/20 07:52 BP 154/75 H 10/10/20 07:52 Pulse Ox 91 L 10/10/20 07:52 Body Mass Index 25.1 Const: General: cooperative, no acute distress, alert and awake Nutritional Appearance: well nourished Orientation/consciousness: patient oriented x3 Limitations: no limitations Chest: Chest palpation & inspection: normal inspection of the chest Resp: Other: no wheezing Effort & Inspection: normal respiratory effort and no respiratory distress Auscultation: rhonchi Cardio: Rate: regular rate Rhythm: regular rhythm Heart sounds: S1 normal heart sound present and S2 normal heart sound present GI: Inspection: Yes normal to inspection Palpation (GI): Soft to palpation, nontender, no guarding and not rigid Skin: Rashes: no rashes Wounds: no wounds Neuro: General: patient oriented x3 Cranial nerves: Yes CN's II-XII intact bilaterally and Yes Bilaterally intact EOM present Gait exam (Neuro): Normal gait present Extrem: Other: 1 + edema b/l lower extremities General: Yes normal to inspection Objective Data Current Medications Generic Name Dose Route Start Last Admin Trade Name Freq PRN Reason Stop Dose Admin Acetaminophen 650 mg 10/08/20 19:33 Acetaminophen 325 Mg Tablet PO Q6H PRN Pain, Mild (Pain Scale 1-3) Albuterol/Ipratropium 3 ml 10/08/20 19:31 Albuterol/Iprat 2.5/0.5mg 3 Ml Ampul.Neb INHALE RQ4H PRN Shortness of Breath/Wheezing Albuterol/Ipratropium 3 ml 10/09/20 16:00 10/10/20 08:15 Albuterol/Iprat 2.5/0.5mg 3 Ml Ampul.Neb INHALE 3 ml RQ4H WHILE AWAKE [facility] Administration Aspirin 81 mg 10/09/20 09:00 10/10/20 08:35 Aspirin Enteric Coated 81 Mg Tablet. PO 81 mg DAILY [facility] Administration Azithromycin 500 mg 10/09/20 20:00 10/09/20 21:16 Azithromycin 500 Mg Tablet PO 500 mg Q24H [facility] Administration Heparin Sodium (Porcine) 5,000 unit 10/08/20 20:00 10/10/20 05:51 Heparin Sodium,Porcine 5,000 Unit/Ml Vial SUBCUT 5,000 unit Q8H [facility] Administration Hydrochlorothiazide 12.5 mg 10/09/20 13:00 10/10/20 08:35 Hydrochlorothiazide 12.5 Mg Tablet PO 12.5 mg DAILY [facility] Administration Protocol Ceftriaxone Sodium 1 gm/ 50 mls @ 100 mls/hr 10/09/20 20:00 10/09/20 22:51 Sodium Chloride IV Infused Q24H [facility] Infusion Levothyroxine Sodium 50 mcg 10/09/20 06:30 10/10/20 05:51 Levothyroxine Sodium 50 Mcg Tablet PO 50 mcg DAILY@0630 [facility] Administration Methylprednisolone Sodium Succinate 20 mg 10/09/20 12:45 10/10/20 08:35 Methylprednisolone Sod Succ 40 Mg/Ml Vial IVPUSH 20 mg BID [facility] Administration Nicotine 14 mg 10/09/20 13:00 10/10/20 08:36 Nicotine 14 Mg Patch.Td24 TRANSDERMA 14 mg DAILY [facility] Administration Nitroglycerin 0.4 mg 10/08/20 19:32 Nitroglycerin 0.4 Mg Tab.Subl SUBLINGUAL Q5M PRN Chest Pain Omeprazole 20 mg 10/09/20 09:00 10/10/20 08:35 Omeprazole 20 Mg Capsule.Dr PO 20 mg DAILY [facility] Administration Pharmacy Consult 1 each 10/08/20 17:29 Consult Rx Perform Med Rec MISCELLANE ONCE PRN Consult order Senna 17.2 mg 10/08/20 19:33 Sennosides 8.6 Mg Tablet PO BEDTIME PRN Constipation Sodium Chloride 3 ml 10/09/20 00:00 10/10/20 08:35 0.9 % Sodium Chloride Flush 3 Ml Syringe IVFLUSH 3 ml QSHIFT [facility] Administration Labs CBC & Chem 7: 10/09/20 06:28 10/10/20 06:44 Microbiology Microbiology Results: Microbiology 10/08/20 18:03 Blood - Venous Blood Culture - Preliminary No growth after 24 hours. 10/08/20 18:03 Blood - Venous Blood Culture - Preliminary No growth after 24 hours. Assessment and Plan (1) Community acquired pneumonia: Status: Acute Assessment and Plan: 70-year-old female with a history of anxiety, depression, schizophrenia, COPD, active smoker sent from long term for shortness of breath and found to have resp failure d/t copd, pna Acute respiratory failure with hypoxia d/t copd and pna--she is still requiring O2 and Sob with miniamal effor -continue treating underlying copd and PNA PNA--she's afebrile Continue ceftriaxone, azithromycin fro 1 more day and transition to oral by tomorrow if continue to improving BCx negative Acute COPD exacerbation--with persitent symptoms but better -IV solumedrol to oral prednisone starting today -scheduled and prn breathing treatments Leg edema Pt reports chronic leg edema. BNP 86. Less likely CHF ECHO done, report pending Seen by cardiology, rec to control BP HTN--moderlatly high, continue HCTZ, consider additional agents such as lisinopril Gerd continue omeprazole Hypothyroidism continue synthroid Tobacco dependence Smoking cessation advised -NRT Metabolic alkalosis--compensatory for chronic resp acidodis and now worse with diuretics, diamox Mood on Invega injections q/month Diet: Speech and swallow eval. rec ground solids, thin liquids with pills in puree DVT prophylaxis: Subcu heparin Need for hospitalization: Persistent hypoxia d/t pna, copd and need continuing IV Abx, IV steroid, and frequent reassessmet and djustment of O2
[2020-10-10] MEDS: acetaZOLAMIDE 250 MG TABLET PO ×2 (10:24→20:21)
[2020-10-10] MEDS: cefTRIAXone sodium 1 GM in 0.9 % Sodium Chloride 50 ML IV (20:20)
[2020-10-10] MEDS: Azithromycin 500 MG TABLET PO (20:21)
[2020-10-11] VITALS (8 sets, daily range): BP systolic 124–159; BP diastolic 54–75; PULSE 75–95; RESP 18–20; TEMP 36.2–37.1; O2SAT 90–97
[2020-10-11] MEDS: Heparin Sodium,Porcine 5,000 UNIT/ML VIAL 5000 UNIT SUBCUT ×3 (05:36→20:46)
[2020-10-11] MEDS: Levothyroxine Sodium 50 MCG TABLET PO (05:37)
[2020-10-11 06:47] LABS: Hematocrit 49.8 % (37-47); Hemoglobin 14.7 g/dl (12.0-16.0); Mean Corpuscular HGB Conc 29.5 g/dl (31.0-35.0); Mean Corpuscular Hemoglobin 27.3 pg (27.0-33.0); Mean Corpuscular Volume 92.4 fL (80-98); Mean Platelet Volume 9.4 fL (9.4-12.3); Platelet Count 325 X10*3/uL (160-400); Red Blood Count 5.39 X10*6/uL (4.20-5.50); Red Cell Distribution Width 13.6 % (11.0-16.0); White Blood Count 7.8 X10*3/uL (4.8-10.8)
[2020-10-11 07:00] LABS: Anion Gap 13 (12-20); Blood Urea Nitrogen 19 mg/dL (9-16); Calcium 9.3 mg/dL (8.4-10.2); Carbon Dioxide 37 mmol/L (22-29); Chloride 96 mmol/L (96-108); Creatinine Clr Calc Pharmacy 61.9; Estimated Glomerular Filt Rate > 60; Glucose Random 152 mg/dL (60-115); Sodium 141 mmol/L (135-145)
[2020-10-11] MEDS: 0.9 % Sodium Chloride Flush 3 ML SYRINGE IVFLUSH ×3 (08:22→20:48)
[2020-10-11] MEDS: Omeprazole 20 MG CAPSULE.DR PO (08:22)
[2020-10-11] MEDS: hydroCHLOROthiazide 12.5 MG TABLET PO (08:22)
[2020-10-11] MEDS: Aspirin Enteric Coated 81 MG TABLET.DR PO (08:23)
[2020-10-11] MEDS: methylPREDNISolone Sod Succ 40 MG/ML VIAL 20 MG IVPUSH ×2 (08:23→20:47)
[2020-10-11] MEDS: acetaZOLAMIDE 250 MG TABLET PO ×2 (08:23→20:45)
--- NOTE | 2020-10-11 10:10 | HO.PM.IMPN ---
Subjective Subjective Date of Service: 10/11/20 Interval History: f/u on copd ex, she feels better, but still remain on O2 with sat 90 to 92, she is not on home O2 ROS: Gen: no fever Resp: + no sob, no cough CV: no chest, no ESPINOSA, no leg edema GI: No n/v, no abd pain Neuro: No confusion Physical Exam Vital Signs: Vital Signs: Last Vital Signs Temp 98.0 F 10/11/20 08:00 Pulse 81 10/11/20 08:00 Resp 19 10/11/20 08:00 BP 124/60 10/11/20 08:00 Pulse Ox 92 10/11/20 08:00 Body Mass Index 25.1 Const: General: cooperative, no acute distress, alert and awake Nutritional Appearance: well nourished Orientation/consciousness: patient oriented x3 Limitations: no limitations Chest: Chest palpation & inspection: normal inspection of the chest Resp: Other: no wheezing Effort & Inspection: normal respiratory effort and no respiratory distress Auscultation: rhonchi Cardio: Rate: regular rate Rhythm: regular rhythm Heart sounds: S1 normal heart sound present and S2 normal heart sound present GI: Inspection: Yes normal to inspection Palpation (GI): Soft to palpation, nontender, no guarding and not rigid Skin: Rashes: no rashes Wounds: no wounds Neuro: General: patient oriented x3 Extrem: Other: 1 + edema b/l lower extremities General: Yes normal to inspection Objective Data Current Medications Generic Name Dose Route Start Last Admin Trade Name Freq PRN Reason Stop Dose Admin Acetaminophen 650 mg 10/08/20 19:33 Acetaminophen 325 Mg Tablet PO Q6H PRN Pain, Mild (Pain Scale 1-3) Acetazolamide 250 mg 10/10/20 09:45 10/11/20 08:23 Acetazolamide 250 Mg Tablet PO 10/13/20 21:01 250 mg BID [facility] Administration Albuterol/Ipratropium 3 ml 10/08/20 19:31 Albuterol/Iprat 2.5/0.5mg 3 Ml Ampul.Neb INHALE RQ4H PRN Shortness of Breath/Wheezing Albuterol/Ipratropium 3 ml 10/09/20 16:00 10/10/20 21:31 Albuterol/Iprat 2.5/0.5mg 3 Ml Ampul.Neb INHALE 3 ml RQ4H WHILE AWAKE [facility] Administration Aspirin 81 mg 10/09/20 09:00 10/11/20 08:23 Aspirin Enteric Coated 81 Mg Tablet. PO 81 mg DAILY [facility] Administration Azithromycin 500 mg 10/09/20 20:00 10/10/20 20:21 Azithromycin 500 Mg Tablet PO 500 mg Q24H [facility] Administration Heparin Sodium (Porcine) 5,000 unit 10/08/20 20:00 10/11/20 05:36 Heparin Sodium,Porcine 5,000 Unit/Ml Vial SUBCUT 5,000 unit Q8H [facility] Administration Hydrochlorothiazide 12.5 mg 10/09/20 13:00 10/11/20 08:22 Hydrochlorothiazide 12.5 Mg Tablet PO 12.5 mg DAILY [facility] Administration Protocol Ceftriaxone Sodium 1 gm/ 50 mls @ 100 mls/hr 10/09/20 20:00 10/10/20 20:58 Sodium Chloride IV Infused Q24H [facility] Infusion Levothyroxine Sodium 50 mcg 10/09/20 06:30 10/11/20 05:37 Levothyroxine Sodium 50 Mcg Tablet PO 50 mcg DAILY@0630 [facility] Administration Methylprednisolone Sodium Succinate 20 mg 10/09/20 12:45 10/11/20 08:23 Methylprednisolone Sod Succ 40 Mg/Ml Vial IVPUSH 20 mg BID [facility] Administration Nicotine 14 mg 10/09/20 13:00 10/11/20 08:23 Nicotine 14 Mg Patch.Td24 TRANSDERMA Not Given DAILY [facility] Nitroglycerin 0.4 mg 10/08/20 19:32 Nitroglycerin 0.4 Mg Tab.Subl SUBLINGUAL Q5M PRN Chest Pain Omeprazole 20 mg 10/09/20 09:00 10/11/20 08:22 Omeprazole 20 Mg Capsule. PO 20 mg DAILY [facility] Administration Pharmacy Consult 1 each 10/08/20 17:29 Consult Rx Perform Med Rec MISCELLANE ONCE PRN Consult order Senna 17.2 mg 10/08/20 19:33 Sennosides 8.6 Mg Tablet PO BEDTIME PRN Constipation Sodium Chloride 3 ml 10/09/20 00:00 10/11/20 08:22 0.9 % Sodium Chloride Flush 3 Ml Syringe IVFLUSH 3 ml QSHIFT [facility] Administration Labs CBC & Chem 7: 10/11/20 06:12 10/11/20 06:12 Microbiology Microbiology Results: Microbiology 10/08/20 18:03 Blood - Venous Blood Culture - Preliminary No growth after 48 hours. 10/08/20 18:03 Blood - Venous Blood Culture - Preliminary No growth after 48 hours. Assessment and Plan (1) Community acquired pneumonia: Status: Acute Assessment and Plan: 70-year-old female with a history of anxiety, depression, schizophrenia, COPD, active smoker sent from [facility] for shortness of breath and found to have resp failure d/t copd, pna Acute respiratory failure with hypoxia d/t copd and pna--she is still requiring O2 and Sob with miniamal effor -continue treating underlying copd and PNA PNA--she's afebrile DC ceftriaxone, azithromycin, add oral Ceftin BCx negative Acute COPD exacerbation--with persitent symptoms but better, persistent hypoxia and on oxygen -IV solumedrol to oral prednisone starting today -scheduled and prn breathing treatments -resp to assess for home O2, not sure if can go to assisted with O2 Leg edema Pt reports chronic leg edema. BNP 86. Less likely CHF ECHO done, report pending Seen by cardiology, rec to control BP HTN--normal, continue HCTZ, if higher add lisinopril Gerd continue omeprazole Hypothyroidism continue synthroid Tobacco dependence Smoking cessation advised -NRT Metabolic alkalosis--compensatory for chronic resp acidodis and now worse with diuretics, diamox for 1 more day Mood on Invega injections q/month Diet: Speech and swallow eval. rec ground solids, thin liquids with pills in puree DVT prophylaxis: Subcu heparin Need for hospitalization: Persistent hypoxia d/t pna, copd a, and frequent reassessmet and djustment of O2 and will need arrangement for oxygen at discharge
[2020-10-11] MEDS: Albuterol/Iprat 2.5/0.5MG 3 ML AMPUL.NEB INHALE ×2 (16:17→20:13)
[2020-10-11] MEDS: cefTRIAXone sodium 1 GM in 0.9 % Sodium Chloride 50 ML IV (20:45)
[2020-10-11] MEDS: Azithromycin 500 MG TABLET PO (20:45)
[2020-10-12] VITALS (9 sets, daily range): BP systolic 119–171; BP diastolic 58–90; PULSE 68–91; RESP 16–21; TEMP 36.1–36.8; O2SAT 88–94
[2020-10-12] MEDS: Heparin Sodium,Porcine 5,000 UNIT/ML VIAL 5000 UNIT SUBCUT ×3 (05:01→20:34)
[2020-10-12] MEDS: Levothyroxine Sodium 50 MCG TABLET PO (05:02)
[2020-10-12] MEDS: methylPREDNISolone Sod Succ 40 MG/ML VIAL 20 MG IVPUSH (07:48)
[2020-10-12] MEDS: 0.9 % Sodium Chloride Flush 3 ML SYRINGE IVFLUSH ×3 (07:48→20:35)
[2020-10-12] MEDS: acetaZOLAMIDE 250 MG TABLET PO ×2 (07:49→20:35)
[2020-10-12] MEDS: Aspirin Enteric Coated 81 MG TABLET.DR PO (07:49)
[2020-10-12] MEDS: Omeprazole 20 MG CAPSULE.DR PO (07:49)
[2020-10-12] MEDS: hydroCHLOROthiazide 12.5 MG TABLET PO (07:49)
--- NOTE | 2020-10-12 08:59 | P.PNIM_ITS ---
Subjective Subjective Date of Service: 10/12/20 Interval History: f/u on copd ex, she feels better, but still remain on O2 with sat 90 to 92, she is not on home O2 ROS: Gen: no fever Resp: + no sob, no cough CV: no chest, no ESPINOSA, no leg edema GI: No n/v, no abd pain Neuro: No confusion Physical Exam Vital Signs: Vital Signs: Last Vital Signs Temp 98.3 F 10/12/20 07:33 Pulse 91 10/12/20 07:33 Resp 21 H 10/12/20 07:33 BP 171/90 H 10/12/20 07:33 Pulse Ox 90 L 10/12/20 07:57 Body Mass Index 25.1 Const: General: cooperative, no acute distress, alert and awake Nutritional Appearance: well nourished Orientation/consciousness: patient oriented x3 Limitations: no limitations Chest: Chest palpation & inspection: normal inspection of the chest Resp: Other: no wheezing Effort & Inspection: normal respiratory effort and no respiratory distress Auscultation: rhonchi Cardio: Rate: regular rate Rhythm: regular rhythm Heart sounds: S1 normal heart sound present and S2 normal heart sound present GI: Inspection: Yes normal to inspection Palpation (GI): Soft to palpation, nontender, no guarding and not rigid Skin: Rashes: no rashes Wounds: no wounds Neuro: General: patient oriented x3 Cranial nerves: Yes CN's II-XII intact bilaterally and Yes Bilaterally intact EOM present Gait exam (Neuro): Normal gait present Extrem: Other: 1 + edema b/l lower extremities General: Yes normal to inspection Objective Data Current Medications Generic Name Dose Route Start Last Admin Trade Name Tatoq PRN Reason Stop Dose Admin Acetaminophen 650 mg 10/08/20 19:33 Acetaminophen 325 Mg Tablet PO Q6H PRN Pain, Mild (Pain Scale 1-3) Acetazolamide 250 mg 10/10/20 09:45 10/12/20 07:49 Acetazolamide 250 Mg Tablet PO 10/13/20 21:01 250 mg BID [facility] Administration Albuterol/Ipratropium 3 ml 10/08/20 19:31 Albuterol/Iprat 2.5/0.5mg 3 Ml Ampul.Neb INHALE RQ4H PRN Shortness of Breath/Wheezing Albuterol/Ipratropium 3 ml 10/09/20 16:00 10/12/20 07:42 Albuterol/Iprat 2.5/0.5mg 3 Ml Ampul.Neb INHALE Not Given RQ4H WHILE AWAKE [facility] Aspirin 81 mg 10/09/20 09:00 10/12/20 07:49 Aspirin Enteric Coated 81 Mg Tablet. PO 81 mg DAILY [facility] Administration Azithromycin 500 mg 10/09/20 20:00 10/11/20 20:45 Azithromycin 500 Mg Tablet PO 500 mg Q24H [facility] Administration Heparin Sodium (Porcine) 5,000 unit 10/08/20 20:00 10/12/20 05:01 Heparin Sodium,Porcine 5,000 Unit/Ml Vial SUBCUT 5,000 unit Q8H [facility] Administration Hydrochlorothiazide 12.5 mg 10/09/20 13:00 10/12/20 07:49 Hydrochlorothiazide 12.5 Mg Tablet PO 12.5 mg DAILY [facility] Administration Protocol Ceftriaxone Sodium 1 gm/ 50 mls @ 100 mls/hr 10/09/20 20:00 10/11/20 21:15 Sodium Chloride IV Infused Q24H [facility] Infusion Levothyroxine Sodium 50 mcg 10/09/20 06:30 10/12/20 05:02 Levothyroxine Sodium 50 Mcg Tablet PO 50 mcg DAILY@0630 [facility] Administration Methylprednisolone Sodium Succinate 20 mg 10/09/20 12:45 10/12/20 07:48 Methylprednisolone Sod Succ 40 Mg/Ml Vial IVPUSH 20 mg BID [facility] Administration Nicotine 14 mg 10/09/20 13:00 10/12/20 07:49 Nicotine 14 Mg Patch.Td24 TRANSDERMA Not Given DAILY [facility] Nitroglycerin 0.4 mg 10/08/20 19:32 Nitroglycerin 0.4 Mg Tab.Subl SUBLINGUAL Q5M PRN Chest Pain Omeprazole 20 mg 10/09/20 09:00 10/12/20 07:49 Omeprazole 20 Mg Capsule. PO 20 mg DAILY [facility] Administration Pharmacy Consult 1 each 10/08/20 17:29 Consult Rx Perform Med Rec MISCELLANE ONCE PRN Consult order Senna 17.2 mg 10/08/20 19:33 Sennosides 8.6 Mg Tablet PO BEDTIME PRN Constipation Sodium Chloride 3 ml 10/09/20 00:00 10/12/20 07:48 0.9 % Sodium Chloride Flush 3 Ml Syringe IVFLUSH 3 ml QSHIFT [facility] Administration Labs CBC & Chem 7: 10/11/20 06:12 10/11/20 06:12 Microbiology Microbiology Results: Microbiology 10/08/20 18:03 Blood - Venous Blood Culture - Preliminary No growth after 48 hours. 10/08/20 18:03 Blood - Venous Blood Culture - Preliminary No growth after 48 hours. Assessment and Plan (1) Community acquired pneumonia: Status: Acute Assessment and Plan: 70-year-old female with a history of anxiety, depression, schizophrenia, COPD, active smoker sent from [facility] for [facility]ness of breath and found to have resp failure d/t copd, pna Acute respiratory failure with hypoxia d/t copd and pna--she is still requiring O2 and Sob with miniamal effor -continue treating underlying copd and PNA PNA--she's afebrile DC ceftriaxon, Azithro, add oral ceftin BCx negative Acute COPD exacerbation--with persitent symptoms but better, persistent hypoxia and on oxygen -IV solumedrol to oral prednisone starting today -scheduled and prn breathing treatments -resp to assess for home O2, not sure if can go to [facility] with O2 Leg edema Pt reports chronic leg edema. BNP 86. Less likely CHF ECHO done, report pending Seen by cardiology, rec to control BP HTN--normal, continue HCTZ, if higher add lisinopril Gerd continue omeprazole Hypothyroidism continue synthroid Tobacco dependence Smoking cessation advised -NRT Metabolic alkalosis--compensatory for chronic resp acidodis and now worse with diuretics, diamox for 1 more day, check bicab Mood on Invega injections q/month Diet: Speech and swallow eval. rec ground solids, thin liquids with pills in puree, to be reassess for regular DVT prophylaxis: Subcu heparin Need for hospitalization: Persistent hypoxia d/t pna, copd a, and frequent reassessmet and djustment of O2 and will need arrangement for oxygen at discharge
[2020-10-12 09:56] LABS: Anion Gap 11 (12-20); Blood Urea Nitrogen 20 mg/dL (9-16); Calcium 9.5 mg/dL (8.4-10.2); Carbon Dioxide 35 mmol/L (22-29); Chloride 98 mmol/L (96-108); Creatinine Clr Calc Pharmacy 65.2; Estimated Glomerular Filt Rate > 60; Glucose Random 149 mg/dL (60-115); Potassium 3.9 mmol/L (3.3-5.1); Sodium 140 mmol/L (135-145)
--- NOTE | 2020-10-12 11:48 | MHC.CM.PN ---
PER MULTIDISCIPLINARY ROUNDS, PT WILL NEED HOME OT EVAL AND POSSIBLE D/C ON NEW HOME O2, NO DISCHARGE PLANNED FOR TODAY. CM RECEIVED CALL FROM NURSE BEASLEY AT APPROX 10:40AM WHO REPORTS THEY CAN ACCOMMODATE HOME OT AND ALSO REPORTED PT IS TYPICALLY NONCOMPLIANT WITH TX'S.
--- NOTE | 2020-10-12 12:34 | MHC.CM.PN ---
CM CALLED PT'S PENITENT[facility]ARY AT 12:32PM [phone] AND SPOKE W/STAFF REGARDING PT'S ANTIC. D/C Monday10/13/20, STAFF WOULD NOT GIVE CM HOUSE MANAGERS NUMBER AND INSTEAD REQUESTED CM'S CONTACT NUMBER, CM CONTACT INFO GIVEN. WHILE WRITING THIS NOTE MIGEL FROM [facility] CALLED BACK AND GAVE [employer] TERRA'S #[phone]
--- NOTE | 2020-10-12 12:50 | MHC.CM.PN ---
CM RECEIVED CALL BACK FROM [employer]ODUCTS MECHANICAL DESIGN ENGINEER [employer] AT 12:48PM, CM DID DISCUSS PT'S STATUS AND POSSIBLE NEED FOR HOME O2, [employer]ODUCTS MECHANICAL DESIGN ENGINEER IS AWARE OF ANTIC D/C ON 10/13/20 AND REQUESTED A D/C BETWEEN 12PM-1PM, STAFF WILL TRANSPORT PT HOME.
--- NOTE | 2020-10-12 13:01 | MHC.SLORD ---
Speech Language Pathology Order Status: SENIOR BUSINESS OBJECTS DEVELOPER checked in with RN. Per RN, patient is tolerating current diet GROUND/MECH ALTERED (NDD2) solids and THIN liquids. Recommend continue softer diet due to edentulous state. Continue aspiration precautions. Further ST intervention is no longer warranted. Please re-refer if there are any further concerns or changes.
--- NOTE | 2020-10-12 16:08 | MHC.CM.PN ---
CM CONTACTED RESPIRATORY THERAPY DUE TO WAITING ON HOME OT EVAL, PER RESPIRATORY THEY MET W/PT SHORTLY BEFORE 4PM AND PT DOES NOT QUALIFY FOR HOME O2, CM CONTACTED [facility] LINE MAINTENANCE SUPERVISOR AND MEDS NEEDING TO BE BLISTER PACKED AND STAFFING ISSUES PT WILL BE DISCHARGED TOMORROW AT 10AM, STAFF WILL TRANSPORT PT, HOSPITALIST AWARE.
[2020-10-12] MEDS: Albuterol/Iprat 2.5/0.5MG 3 ML AMPUL.NEB INHALE (19:22)
[2020-10-12] MEDS: Azithromycin 500 MG TABLET PO (20:34)
[2020-10-13 04:00] VITALS: BP 130/63; PULSE 78; RESP 18; TEMP 36.4; O2SAT 89
[2020-10-13] MEDS: Heparin Sodium,Porcine 5,000 UNIT/ML VIAL 5000 UNIT SUBCUT (05:23)
[2020-10-13] MEDS: Levothyroxine Sodium 50 MCG TABLET PO (05:24)
--- NOTE | 2020-10-13 07:53 | P.DS_ITS ---
DS: Providers Provider Date of Service: 11/09/20 Date of admission: 10/08/20 19:36 Primary care physician: Alireza Robertson MD Consults: 10/08/20 19:29 Consult to Cardiology Routine Consulting Provider: Jacky Novak Reason for consultation: CHF DS: Diagnosis Discharge Diagnosis (1) Community acquired pneumonia: Status: Acute DS: Medications Discharge Medications Home Medications: Home Medications Medication Instructions Recorded Confirmed paliperidone palmitate 234 mg/1.5 234 mg IM QMONTH 05/18/20 10/08/20 mL intramuscular syringe Previous Rx's Medication Instructions Recorded omeprazole 20 mg capsule,delayed 20 mg PO DAILY 90 Days #90 cap 04/17/20 release levothyroxine 50 mcg tablet 50 mcg PO QAM #30 tab 06/11/20 aspirin 81 mg tablet,delayed 81 mg PO DAILY #30 tab 08/03/20 release albuterol sulfate 90 mcg/actuation 2 puff INHALATION Q6H PRN #8.5 g 09/04/20 aerosol inhaler fluticasone 232 mcg-salmeterol 14 2 inh INHALATION BID 30 Days #1 ea 09/04/20 mcg/actuation breath activated powdr umeclidinium 62.5 mcg/actuation 1 inh INHALATION DAILY 30 Days #30 09/04/20 blister powder for inhalation ea DS: Summary Hospital Course Hospital Course: Chief Complaint: SOB 70-year-old female with a past medical history and med schizophrenia dizziness group hypothyroidism, anxiety, depression hypertension COPD presented to the hospital with a chief complaint of shortness of breath. Reportedly patient was having hypoxia and correction subsequently sent the ER for further evaluation. Patient reports intermittent cough. Denies any chest pain palpitations lightheadedness or dizziness. At the time of my interview patient mentioned she feels okay. ER course: Per ER team patient noted to have leg swelling concern for question new onset CHF. Given Lasix. Also chest x-ray showed bilateral consolidation. Given antibiotics. Patient has no wheezing. Patient was placed on L of supplemental oxygen and admitted Hospital course: .PNA-bilateral infiltrate seen on CXR, however afebrile and WBC normal. She was prescribed Ceftriaxone and Azithromycin and is doing better so we will give PO Ceftin at discharge for 3 more days. Cultures were negative Acute COPD exacerbation--Treated with bronchochodilators by Nebulizer and IV solumedrol and oxygen. She has longstanding COPD with likely chronic respiraoty failure. She presently has no wheezes and seem to be baseline. Her oxygen saturation is marginal around 89 to 90 upon home O2 evaluation and therefore does not require home oxygen. She should however not smoke Leg edema--she has chronic leg edema with no other signs of chf, BNP level is 86. Cardiloogy recommend controlling BP and so was started on HCTZ. Echo HTN--normal, continue HCTZ, Echo shows EF 55-60% Gerd continue omeprazole Hypothyroidism continue synthroid Tobacco dependence Smoking cessation advised and was given nicotine replacement in hospitalize, yet not interested in quitting at this time. Metabolic alkalosis--compensatory for chronic resp acidodis and now worse with diuretics, given Diamox in hosptial Mood on Invega injections q/month Time Spent with Patient Time attestation: Total time spent providing and/or coordinating discharge services: Discharge coordination time: Greater than 30 minutes Physical Exam Vital Signs: Vital Signs: Last Vital Signs Temp 97.6 F 10/13/20 04:00 Pulse 78 10/13/20 04:00 Resp 18 10/13/20 04:00 BP 130/63 10/13/20 04:00 Pulse Ox 89 L 10/13/20 04:00 Body Mass Index 25.1 DS: Data Data Completed and Pending Labs on day of discharge: Laboratory Results - last 24 hr 10/12/20 09:10 Sodium 140 Potassium 3.9 D Chloride 98 Carbon Dioxide 35 H Anion Gap 11 L BUN 20 H Creatinine 0.74 Estim Creat Clear Calc 65.2 Estimated GFR > 60 Random Glucose 149 H Calcium 9.5 Preliminary micro results at discharge 10/08/20 18:03 Blood Culture - Preliminary Blood - Venous No growth after 48 hours. 10/08/20 18:03 Blood Culture - Preliminary Blood - Venous No growth after 48 hours. Discharge Plan Discharge Anticipated Discharge Date/Time: 10/13/20 09:48 Patient Disposition: Home, Self-Care Discharge Diagnosis: Pneumonia Referrals: Alireza Robertson MD [Primary Care Provider] - Discharge Medications: New prednisone 20 mg Tablet 20 mg PO DAILY Qty: 3 RF: 0 hydrochlorothiazide 12.5 mg tablet 12.5 mg PO DAILY Qty: 30 RF: 0 Continued omeprazole 20 mg capsule,delayed release(DR/EC) 20 mg PO DAILY 90 Days Qty: 90 RF: 3 levothyroxine 50 mcg tablet 50 mcg PO QAM Qty: 30 RF: 3 aspirin 81 mg tablet,delayed release (DR/EC) 81 mg PO DAILY Qty: 30 RF: 10 paliperidone palmitate 234 mg/1.5 mL syringe 234 mg IM QMONTH RF: 0 albuterol sulfate [Ventolin HFA] 90 mcg/actuation HFA aerosol inhaler 2 puff inhalation Q6H PRN (Reason: bronchospasm) Qty: 8.5 RF: 5 Incruse Ellipta 62.5 mcg/actuation blister with device 1 inh inhalation DAILY 30 Days Qty: 30 RF: 5 fluticasone propion-salmeterol 232-14 mcg/actuation aerosol powdr breath activated 2 inh inhalation BID 30 Days Qty: 1 RF: 5 Discharge Orders: Discharge Order (Routine); Ordered 10/13/20 Ordered By: Delbert Gurrola Diet: advance to usual diet Activity on Discharge: As tolerated Stand Alone Forms: Patient Portal Discharge page Care Plan Goals: recover from copd exacerbation Health Concerns: chronic respiratory failure due to copd, and Pneumonia Plan of Treatment: Take prednisone and inhalers as directed, do not smoke, follow up with your Doctor in a week Assessment: See above Discharge Date/Time: 10/13/20 12:18
[2020-10-13 07:59] VITALS: BP 106/56; PULSE 83; RESP 19; TEMP 36.6
[2020-10-13] MEDS: Aspirin Enteric Coated 81 MG TABLET.DR PO (08:31)
[2020-10-13] MEDS: acetaZOLAMIDE 250 MG TABLET PO (08:31)
[2020-10-13] MEDS: hydroCHLOROthiazide 12.5 MG TABLET PO (08:31)
[2020-10-13] MEDS: Omeprazole 20 MG CAPSULE.DR PO (08:31)
[2020-10-13] MEDS: 0.9 % Sodium Chloride Flush 3 ML SYRINGE IVFLUSH (08:32)
[2020-10-13] MEDS: predniSONE 20 MG TABLET PO (08:32)
--- NOTE | 2020-10-13 09:05 | MHC.CM.PN ---
Addendum entered by Cary Horton RN 10/13/20 09:16: NURSE SHERLYN UPDATED AT 9:10AM ([phone]) ON D/C STATUS AND MEDICATION CHANGES, [facility] NURSE WILL SEE PT AND RECONCILE MEDS, D/C PACKET FAXED TO [phone] PER REQUEST. Original Note: PT DISCHARGING HOME TODAY, PT WILL RETURN TO [facility], STAFF TO TRANSPORT.
--- NOTE | 2020-10-13 11:44 | MHC.CM.PN ---
PER NURSING PT HAD NOT BEEN PICKED UP BY [facility] STAFF AND WHEN [facility] CALLED STAFF REPORTED THEY DIDN'Y HAVE ANYONE TO [facility] PT, CM ATTEMPTED TO CONTACT PT'S TRUCK MECHANIC TERRA ARTEAGA 11:43AM ([phone] AND [facility], CM CALLED ON-CALL MANAGER BENCH AT 11:45AM #[phone] AND WAS TOLD THEY WOULD REACH OUT TO [facility], AT 11:45AM CM WAS TOLD BY ON-CALL MANAGER BENCH STAFF WAS EN ROUTE TO [facility]. NURSING AND NURSE RAISED PRINTER AWARE.
[2020-10-13 11:54] VITALS: RESP 18
== END 2020-10-13 12:18 | disposition home or self-care (01) | DRG 190 ==
LOC: HO.ED 18:54 → HO.EDOVER 21:06 → HO.S3 10-09 00:09
PROVIDERS: Physician Assistant; Physician Assistant Medical; Admitting Provider Hospitalist; Emergency Provider Emergency Medicine; PCP Internal Medicine; Visit Provider Internal Medicine
DX: J44.0 Chronic obstructive pulmonary disease with (acute) lower respiratory infection (principal); J18.9 Pneumonia, unspecified organism; J96.01 Acute respiratory failure with hypoxia; F20.0 Paranoid schizophrenia; E87.3 Alkalosis; J44.1 Chronic obstructive pulmonary disease with (acute) exacerbation; I10 Essential (primary) hypertension; K21.9 Gastro-esophageal reflux disease without esophagitis; E03.9 Hypothyroidism, unspecified; Z20.822 Contact with and (suspected) exposure to COVID-19; F17.210 Nicotine dependence, cigarettes, uncomplicated; Z71.6 Tobacco abuse counseling; Z79.52 Long term (current) use of systemic steroids; Z79.82 Long term (current) use of aspirin; Z79.890 Hormone replacement therapy; Z79.899 Other long term (current) drug therapy
CPT/HCPCS: 0241U; 36415; 71045; 71275; 80048; 80076; 83605; 83735; 83880; 84145; 84484; 85025; 85027; 85379; 87040; 92610; 93005; 93306; 94640; 96365; 96366; 96368; 96375; 99285; J0456; J0696; J1940; J2920; Q9967

== ENCOUNTER 2021-03-17 10:51 | Outpatient (REF) | payer MEDICARE, SELFPAY ==
[2021-03-17 11:59] LABS: Venous Blood Gas Refer to POC result
[2021-03-17 14:36] LABS: VBG Base Excess 8.9 mmol/L; VBG HCO3 36 mmol/L (22-26); VBG pCO2 61 mmHg; VBG pH 7.38 (7.32-7.43); VBG pO2 34 mmHg
== END 2021-03-17 10:52 | disposition home or self-care (01) ==
LOC: HO.LAB 10:51
PROVIDERS: PCP Internal Medicine; Visit Provider Internal Medicine
DX: J44.9 Chronic obstructive pulmonary disease, unspecified (principal); J96.92 Respiratory failure, unspecified with hypercapnia; F17.210 Nicotine dependence, cigarettes, uncomplicated; Z79.899 Other long term (current) drug therapy
CPT/HCPCS: 36415; 82803; 99202

== ENCOUNTER → 2021-04-27 11:14 | Outpatient (BNVA) | payer MEDICARE, SELFPAY | PROVIDERS: PCP Internal Medicine; Visit Provider Internal Medicine | DX: J44.9 Chronic obstructive pulmonary disease, unspecified (principal); J96.92 Respiratory failure, unspecified with hypercapnia; D75.1 Secondary polycythemia; F17.200 Nicotine dependence, unspecified, uncomplicated | CPT/HCPCS: Q3014 ==

== ENCOUNTER 2021-12-22 10:03 | Outpatient (REF) | payer OTHER, SELFPAY ==
[2021-12-22 10:29] LABS: MANUAL DIFF FLAG NO
[2021-12-22 11:05] LABS: Basophils Absolute Auto 0.1 X10*3/uL (0.0-0.2); Basophils Percent Auto 1.1 % (0-2); Eosinophils Absolute Auto 0.1 X10*3/uL (0.0-0.4); Eosinophils Percent Auto 1.3 % (0-4); Hematocrit 47.8 % (37.0-47.0); Hemoglobin 15.7 g/dl (12.0-16.0); Imm Gran Abs Auto 0.04 X10*3/uL (0.00-0.03); Imm Gran Pct Auto 0.7 % (0.0-0.4); Lymphocytes Absolute Auto 1.6 X10*3/uL (1.2-4.9); Lymphocytes Percent Auto 29.5 % (20-40); Mean Corpuscular HGB Conc 32.8 g/dl (31.0-35.0); Mean Corpuscular Hemoglobin 29.7 pg (27.0-33.0); Mean Corpuscular Volume 90.4 fL (80.0-98.0); Mean Platelet Volume 9.5 fL (9.4-12.3); Monocytes Absolute Auto 0.5 X10*3/uL (0.1-1.2); Monocytes Percent Auto 8.5 % (2-11); Neutrophils Absolute Auto 3.2 x10*3/uL (2.0-8.3); Neutrophils Percent Auto 58.9 % (45-73); Platelet Count 317 X10*3/uL (160-400); Red Blood Count 5.29 X10*6/uL (4.20-5.50); Red Cell Distribution Width 12.6 % (11.0-16.0); White Blood Count 5.4 X10*3/uL (4.8-10.8)
[2021-12-22 11:51] LABS: Alanine Aminotransferase 11 U/L (0-31); Alkaline Phosphatase 93 U/L (39-117); Anion Gap 12 (12-20); Aspartate Amino Transferase 11 U/L (5-31); Bilirubin Total 0.7 mg/dL (0.0-1.0); Blood Urea Nitrogen 7 mg/dL (9-16); Calcium 9.5 mg/dL (8.4-10.2); Carbon Dioxide 30 mmol/L (22-29); Chloride 100 mmol/L (96-108); Cholesterol 218 mg/dL; Estimated Glomerular Filt Rate > 60; Glucose Fasting 101 mg/dL (60-99); HDL Cholesterol 65 mg/dL; LDL Cholesterol Calculated 126 mg/dl; Potassium 4.5 mmol/L (3.3-5.1); Sodium 137 mmol/L (135-145); Total Protein 6.5 g/dL (6.5-8.0); Triglycerides 135 mg/dL
[2021-12-22 12:02] LABS: Free T4 (Free Thyroxine) 1.23 ng/dL (0.71-1.85); Thyroid Stimulating Hormone 2.93 uIU/mL (0.32-4.0); Vitamin D 25-OH Total 4.9 ng/mL (>30)
== END 2021-12-22 10:04 | disposition home or self-care (01) ==
LOC: HO.LAB 10:03
PROVIDERS: PCP Internal Medicine; Visit Provider Internal Medicine
DX: D75.1 Secondary polycythemia (principal); I10 Essential (primary) hypertension; E03.9 Hypothyroidism, unspecified; E78.00 Pure hypercholesterolemia, unspecified; E55.9 Vitamin D deficiency, unspecified; J44.9 Chronic obstructive pulmonary disease, unspecified
CPT/HCPCS: 36415; 80053; 80061; 82306; 84439; 84443; 85025

== ENCOUNTER 2022-04-28 08:37 | Outpatient (REF) | payer OTHER, SELFPAY ==
[2022-04-28 09:05] LABS: MANUAL DIFF FLAG NO
[2022-04-28 10:47] LABS: Basophils Absolute Auto 0.1 X10*3/uL (0.0-0.2); Basophils Percent Auto 0.6 % (0-2); Eosinophils Absolute Auto 0.1 X10*3/uL (0.0-0.4); Eosinophils Percent Auto 1.4 % (0-4); Hematocrit 45.8 % (37.0-47.0); Hemoglobin 14.5 g/dl (12.0-16.0); Imm Gran Abs Auto 0.05 X10*3/uL (0.00-0.03); Imm Gran Pct Auto 0.6 % (0.0-0.4); Lymphocytes Absolute Auto 1.9 X10*3/uL (1.2-4.9); Lymphocytes Percent Auto 21.8 % (20-40); Mean Corpuscular HGB Conc 31.7 g/dl (31.0-35.0); Mean Corpuscular Hemoglobin 28.1 pg (27.0-33.0); Mean Corpuscular Volume 88.8 fL (80.0-98.0); Mean Platelet Volume 9.3 fL (9.4-12.3); Monocytes Absolute Auto 0.6 X10*3/uL (0.1-1.2); Monocytes Percent Auto 7.1 % (2-11); Neutrophils Absolute Auto 5.9 x10*3/uL (2.0-8.3); Neutrophils Percent Auto 68.5 % (45-73); Platelet Count 358 X10*3/uL (160-400); Red Blood Count 5.16 X10*6/uL (4.20-5.50); Red Cell Distribution Width 14.4 % (11.0-16.0); White Blood Count 8.7 X10*3/uL (4.8-10.8)
[2022-04-28 11:18] LABS: Alanine Aminotransferase 9 U/L (0-31); Albumin Level 3.9 g/dL (3.5-5.0); Alkaline Phosphatase 103 U/L (39-117); Anion Gap 17 (12-20); Aspartate Amino Transferase 15 U/L (5-31); Bilirubin Total 0.6 mg/dL (0.0-1.0); Blood Urea Nitrogen 7 mg/dL (9-16); Calcium 9.5 mg/dL (8.4-10.2); Carbon Dioxide 30 mmol/L (22-29); Chloride 97 mmol/L (96-108); Cholesterol 212 mg/dL; Estimated Glomerular Filt Rate > 60; Glucose Fasting 91 mg/dL (60-99); HDL Cholesterol 66 mg/dL; LDL Cholesterol Calculated 117 mg/dl; Sodium 139 mmol/L (135-145); Total Protein 6.6 g/dL (6.5-8.0); Triglycerides 146 mg/dL
[2022-04-28 11:44] LABS: Free T4 (Free Thyroxine) 1.18 ng/dL (0.71-1.85); Thyroid Stimulating Hormone 3.07 uIU/mL (0.32-4.0); Vitamin D 25-OH Total 32.7 ng/mL (>30)
== END 2022-04-28 08:38 | disposition home or self-care (01) ==
LOC: HO.LAB 08:37
PROVIDERS: PCP Internal Medicine; Visit Provider Internal Medicine
DX: E55.9 Vitamin D deficiency, unspecified (principal); I10 Essential (primary) hypertension; E78.00 Pure hypercholesterolemia, unspecified; E03.9 Hypothyroidism, unspecified; J44.9 Chronic obstructive pulmonary disease, unspecified; D75.1 Secondary polycythemia
CPT/HCPCS: 36415; 80053; 80061; 82306; 84439; 84443; 85025

== ENCOUNTER 2022-11-04 13:41 | Emergency (ER) | payer OTHER, SELFPAY ==
[2022-11-04 14:24] VITALS: BP 150/80; PULSE 77; RESP 18; TEMP 36.9; O2SAT 93; BMI 23.0
[2022-11-04 14:28] VITALS: RESP 18
--- NOTE | 2022-11-04 14:45 | PC.NURSE ---
[facility] and [facility] are willing to [facility] the pt back, just wanted pt checked for a uti and some basic lab work performed
--- NOTE | 2022-11-04 14:54 | ED_ITS ---
HPI - General Adult General Chief complaint: General Medical Stated complaint: from [facility]. non med compliant Time Seen by Provider: 11/04/22 14:25 Source: patient Mode of arrival: EMS History of Present Illness HPI narrative: This is a [place] lady from [facility] a with history of hypothyroidism , paranoid schizophrenia COPD sent for evaluation for a possible UTI I spoke with the staff at the [facility] a they say that she has been more lethargic. She appeared awake alert to me she was able to give me the telephone number the [facility] a denies SI and HI Onset (ago): day(s) (1) Radiation: non-radiation Severity: mild Pain Consistency: constant Related Data Home Medications Medication Instructions Recorded Confirmed mometasone-formoterol HFA 200 2 puff inhalation BID 05/02/22 11/09/22 mcg-5 mcg/actuation aerosol inhaler (Dulera) amantadine HCl 100 mg tablet 100 mg PO BID 08/05/22 11/09/22 paliperidone palmitate 156 mg/mL 156 mg IM Q30D 08/05/22 11/10/22 intramuscular syringe (Invega Sustenna) omeprazole 20 mg capsule,delayed 20 mg PO DAILY 11/09/22 11/09/22 release Previous Rx's Medication Instructions Recorded cholecalciferol (vitamin D3) 50 50 mcg PO DAILY 90 days #90 caps 12/29/21 mcg (2,000 unit) capsule multivitamin 1 tab PO DAILY 90 days #90 tabs 12/29/21 levothyroxine 50 mcg tablet 50 mcg PO QAM #30 tabs 03/31/22 aspirin 81 mg tablet,delayed 81 mg PO DAILY #30 tabs 06/11/22 release albuterol sulfate 90 mcg/actuation 2 puff inhalation Q6H PRN 07/21/22 aerosol inhaler (Ventolin HFA) bronchospasm #8.5 grams fluticasone 232 mcg-salmeterol 14 2 inh PO BID #1 ea 09/21/22 mcg/actuation breath activated powdr Incruse Ellipta 62.5 mcg/actuation 1 inh inhalation DAILY 30 days #30 09/22/22 powder for inhalation ea (umeclidinium) Allergies Allergy/AdvReac Type Severity Reaction Status Date / Time clozapine [Clozapine] AdvReac Unknown LOW ANC Verified 05/03/23 18:20 haloperidol [From HALDOL] AdvReac Unknown TARDIVE Verified 11/09/22 18:20 DISKINESIVE Review of Systems Constitutional: Constitutional: Reports no additional constitutional complaints Cardiovascular: Cardiovascular: Reports no additional cardiovascular complaints [facility] Past Medical History Medical History Acquired hypothyroidism Anxiety Benign essential hypertension COPD (chronic obstructive pulmonary disease) Gastritis Paranoid schizophrenia Polycythemia Respiratory failure with hypercapnia Smoker Surgical History No pertinent past surgical history Family History Family History Father CVD (cardiovascular disease) Mother Medical history unknown Family/Other FH: mental illness Other Mental health problem Social History Social History Household Members: Other Household Members Other:: Care Home Housing: Other Housing Other:: Care Home Do you presently have visiting nurse or other home services: No Unable to assess alcohol history related to: Unknown Alcohol intake: never Patient Tobacco Use Status: Current everyday Tobacco user Tobacco use type: Cigarette Cigarettes Per Day: 10 Smoked in Last 30 Days: Yes Patient Interested in Nicotine Replacement: No Patient Given Instructions on How to Stop Smoking: No Second Hand Smoke Exposure: No Use of substances other than those prescribed or required for medical reasons: Unknown Any prior treatment program specific to substance use: No Advance Directives: No Advance Directives Information Provided: No Do you have thoughts of harming others: None Do you have a plan to hurt others: No Plan Recently lost weight without trying: Unsure Nutrition Risks: No Nutritional Risk Patient : No : No service: No Current occupational status: disabled Cognitive needs: No Hearing needs: No Vision needs: No Physical Exam ED Vital Signs: Vital Signs - 24 hr 11/04/22 14:24 11/04/22 14:28 11/04/22 15:49 Temperature 98.4 F 98.1 F Pulse Rate 77 64 Respiratory Rate 18 18 16 Blood Pressure 150/80 H 136/71 Pulse Oximetry 93 98 Oxygen Delivery Method Room Air Room Air BMI result Body Mass Index 23.0 Const General: cooperative Nutritional Appearance: well nourished Orientation/consciousness: patient oriented x3 Limitations: no limitations HENMT Head: Yes normal to inspection General nose exam: Normal external nose present Face and sinus: Yes normal facial exam Mouth: Normal oral and palatal mucosa present Throat: Yes posterior oropharynx normal Neck Neck: Yes normal visual inspection and Yes full ROM Chest Chest palpation & inspection: normal inspection of the chest Resp Effort & Inspection: normal respiratory effort Auscultation: clear to auscultation bilaterally Cardio Jugular venous distension: no JVD Rate: regular rate Rhythm: regular rhythm GI Inspection: Yes normal to inspection Palpation (GI): Soft to palpation General: Yes no CVA tenderness Back/Spine/Pelvis Back: no CVA tenderness Neuro General: patient oriented x3 Cranial nerves: Yes CN's II-XII intact bilaterally Psych Other: No SI no HI Course Reevaluation(s) Reevaluation #1: Patient remains stable clinically, no sign of psychosis, nos SI no HI, I spoke with the [facility] they will take her back labs are good Time: 16:24 Medical Decision Making Medical Decision Making MDM Narrative: Patient was sent here by the [facility] a concern for UTI will get the urine labs and reassess Differential Diagnosis Differential Diagnoses: The differential diagnosis associated with the presentation includes UTI/psychosis Admission/Observation Consideration of admission/observation: Escalation of care including admission/observation considered Lab Data MDM Lab Attestation statement: I reviewed the patient's lab results. 11/04/22 15:19 11/04/22 15:19 Labs: Lab Results 11/04/22 11/04/22 11/04/22 Range/Units 15:19 15:19 15:51 WBC 7.8 (4.8-10.8) X10*3/uL RBC 5.11 (4.20-5.50) X10*6/uL Hgb 15.1 (12.0-16.0) g/dl Hct 44.2 (37.0-47.0) % MCV 86.5 (80.0-98.0) fL MCH 29.5 (27.0-33.0) pg MCHC 34.2 (31.0-35.0) g/dl RDW 13.2 (11.0-16.0) % Plt Count 259 D (160-400) X10*3/uL MPV 9.1 L (9.4-12.3) fL Immature Gran % (Auto) 0.4 (0.0-0.4) % Neut % (Auto) 71.1 (45-73) % Lymph % (Auto) 19.5 L (20-40) % [place] % (Auto) 7.7 (2-11) % Eos % (Auto) 0.8 (0-4) % Baso % (Auto) 0.5 (0-2) % Lymph # (Auto) 1.5 (1.2-4.9) X10*3/uL [place] # (Auto) 0.6 (0.1-1.2) X10*3/uL Eos # (Auto) 0.1 (0.0-0.4) X10*3/uL Baso # (Auto) 0.0 (0.0-0.2) X10*3/uL Abs Immat Gran (auto) 0.03 (0.00-0.03) X10*3/uL Absolute Neuts (auto) 5.5 (2.0-8.3) x10*3/uL Absolute Nucleated RBC 0.000 (0.0-0.012) X10*3/uL Nucleated RBC % (auto) 0.0 (0.0-0.2) /100WBC Sodium 132 L (135-145) mmol/L Potassium 4.4 (3.3-5.1) mmol/L Chloride 98 (96-108) mmol/L Carbon Dioxide 28 (22-29) mmol/L Anion Gap 10 L (12-20) BUN 6 L (9-16) mg/dL Creatinine 0.66 (0.5-1.4) mg/dL Estim Creat Clear Calc 71.1 Estimated GFR > 60 Random Glucose 118 H (60-115) mg/dL Calcium 9.0 (8.4-10.2) mg/dL Total Bilirubin 1.0 (0.0-1.0) mg/dL AST 16 (5-31) U/L ALT 14 (0-31) U/L Alkaline Phosphatase 61 (39-117) U/L Total Protein 5.7 L (6.5-8.0) g/dL Albumin 3.6 (3.5-5.0) g/dL Urine Color Yellow Urine Appearance Clear Urine pH 7.0 (5.0-9.0) Ur Specific [place] <= 1.005 (1.005-1.025) Urine Protein Negative (Neg-Trace) mg/dL Urine Glucose (UA) Negative (Negative) mg/dL Urine Ketones Trace (Negative) mg/dL Urine Blood Negative (Negative) Urine Nitrite Negative (Negative) Ur Leukocyte Esterase Small (1+) H (Negative) Urine RBC 3-5 H (0-2) /HPF Urine WBC 0-5 (0-5) /HPF Ur Squamous Epith Cells 0-2 (0-2) /HPF Urine Bacteria None Seen (None Seen) Hyaline Casts 0-2 (0-2) /LPF Discharge Plan Discharge Clinical Impression: Schizophrenia Patient Disposition: Home, Self-Care Instructions: Schizophrenia (ED) Prescriptions: No Action levothyroxine 50 mcg tablet 50 mcg PO QAM Qty: 30 6RF aspirin 81 mg tablet,delayed release (DR/EC) 81 mg PO DAILY Qty: 30 10RF albuterol sulfate [Ventolin HFA] 90 mcg/actuation HFA aerosol inhaler 2 puff inhalation Q6H PRN (Reason: bronchospasm) Qty: 8.5 6RF Rx Instructions: 2 Puffs at 8am and 8pm fluticasone propion-salmeterol 232-14 mcg/actuation aerosol powdr breath activated 2 inh PO BID Qty: 1 3RF Incruse Ellipta 62.5 mcg/actuation blister with device 1 inh inhalation DAILY 30 Days Qty: 30 12RF omeprazole 20 mg capsule,delayed release(DR/EC) 20 mg PO DAILY Dulera 200-5 mcg/actuation HFA aerosol inhaler 2 puff inhalation BID Invega Sustenna 156 mg/mL syringe 156 mg IM Q30D amantadine HCl 100 mg tablet 100 mg PO BID cholecalciferol (vitamin D3) 50 mcg (2,000 unit) capsule 50 mcg PO DAILY 90 Days Qty: 90 3RF multivitamin Tablet 1 tab PO DAILY 90 Days Qty: 90 3RF Interventions: ED Discharge Assessment Last Done: 11/04/22 18:35 Discharge Date/Time: 11/04/22 18:36
[2022-11-04 15:21] LABS: MANUAL DIFF FLAG NO
[2022-11-04 15:23] LABS: Basophils Percent Auto 0.5 % (0-2); Eosinophils Absolute Auto 0.1 X10*3/uL (0.0-0.4); Eosinophils Percent Auto 0.8 % (0-4); Hematocrit 44.2 % (37.0-47.0); Hemoglobin 15.1 g/dl (12.0-16.0); Imm Gran Abs Auto 0.03 X10*3/uL (0.00-0.03); Imm Gran Pct Auto 0.4 % (0.0-0.4); Lymphocytes Absolute Auto 1.5 X10*3/uL (1.2-4.9); Lymphocytes Percent Auto 19.5 % (20-40); Mean Corpuscular HGB Conc 34.2 g/dl (31.0-35.0); Mean Corpuscular Hemoglobin 29.5 pg (27.0-33.0); Mean Corpuscular Volume 86.5 fL (80.0-98.0); Mean Platelet Volume 9.1 fL (9.4-12.3); Monocytes Absolute Auto 0.6 X10*3/uL (0.1-1.2); Monocytes Percent Auto 7.7 % (2-11); Neutrophils Absolute Auto 5.5 x10*3/uL (2.0-8.3); Neutrophils Percent Auto 71.1 % (45-73); Platelet Count 259 X10*3/uL (160-400); Red Blood Count 5.11 X10*6/uL (4.20-5.50); Red Cell Distribution Width 13.2 % (11.0-16.0); White Blood Count 7.8 X10*3/uL (4.8-10.8)
[2022-11-04 15:42] LABS: Alanine Aminotransferase 14 U/L (0-31); Albumin Level 3.6 g/dL (3.5-5.0); Alkaline Phosphatase 61 U/L (39-117); Anion Gap 10 (12-20); Aspartate Amino Transferase 16 U/L (5-31); Blood Urea Nitrogen 6 mg/dL (9-16); Carbon Dioxide 28 mmol/L (22-29); Chloride 98 mmol/L (96-108); Creatinine Clr Calc Pharmacy 71.1; Estimated Glomerular Filt Rate > 60; Glucose Random 118 mg/dL (60-115); Potassium 4.4 mmol/L (3.3-5.1); Sodium 132 mmol/L (135-145); Total Protein 5.7 g/dL (6.5-8.0)
[2022-11-04 15:49] VITALS: BP 136/71; PULSE 64; RESP 16; TEMP 36.7; O2SAT 98
[2022-11-04 15:57] LABS: Appearance Urine Clear; Color Urine Yellow; Glucose Urine UA Negative (Negative); Leukocyte Esterase Urine Small (1+) (Negative); Nitrite Urine Negative (Negative); Specific Gravity - Urine <= 1.005 (1.005-1.025); UMIC TRIGGER UACC YES; Urine Blood Negative (Negative); Urine Ketones Trace mg/dL (Negative); Urine Protein Negative (Neg-Trace)
[2022-11-04 16:06] LABS: Bacteria Urine None Seen (None Seen); Hyaline Casts Urine 0-2 /LPF (0-2); Squamous Epithelial Cell Urine 0-2 /HPF (0-2); UACC Culture Trigger YES; WBC Urine 0-5 /HPF (0-5)
--- NOTE | 2022-11-04 16:29 | PC.NURSE ---
called the senior living to notify that the pt is ready for d/c but no answer, left a message
--- NOTE | 2022-11-04 16:40 | PC.NURSE ---
assisted called back and staff can arrive at 1800 to order picker/assembler the pt
[2022-11-04 18:00] VITALS: BP 156/82; PULSE 72; RESP 16; TEMP 36.5; O2SAT 98
--- NOTE | 2022-11-04 18:00 | MHC.EDTECH ---
pt ate 100 of dinner ,drank 240 ml fluids .
== END 2022-11-04 18:36 | disposition home or self-care (01) ==
PROVIDERS: Emergency Provider Emergency Medicine; PCP Internal Medicine
DX: F20.9 Schizophrenia, unspecified (principal); I10 Essential (primary) hypertension; E78.5 Hyperlipidemia, unspecified; F17.200 Nicotine dependence, unspecified, uncomplicated; Z91.148 Patient's other noncompliance with medication regimen for other reason; Z79.82 Long term (current) use of aspirin; Z79.899 Other long term (current) drug therapy
CPT/HCPCS: 36415; 80053; 81001; 85025; 87086; 99283; 99284

== ENCOUNTER 2022-11-09 15:31 | Inpatient (IN) | payer OTHER, SELFPAY ==
[2022-11-09 15:43] VITALS: BP 154/78; PULSE 83; RESP 16; TEMP 36.7; O2SAT 93; BMI 24.0
--- NOTE | 2022-11-09 15:57 | ECG_ITS ---
Test Reason : MED CLEARANCE Blood Pressure : / mmHG Vent. Rate : 083 BPM Atrial Rate : 083 BPM P-R Int : 134 ms QRS Dur : 084 ms QT Int : 360 ms P-R-T Axes : 045 -37 049 degrees QTc Int : 423 ms Normal sinus rhythm Left axis deviation Possible Inferior infarct (cited on or before 15-APR-2019) Anterior infarct (cited on or before 16-JUL-2016) Abnormal ECG When compared with ECG of 08-OCT-2020 18:15, No significant change was found Referred By: Steve Duff Electronically Signed By:JOSEY RESTREPO MD
[2022-11-09 16:36] LABS: COVID-19 Test Negative (Negative); IDNOW Serial# BCCEAD1C
[2022-11-09 17:42] LABS: MANUAL DIFF FLAG NO
[2022-11-09 17:44] LABS: Basophils Percent Auto 0.4 % (0-2); Eosinophils Absolute Auto 0.1 X10*3/uL (0.0-0.4); Eosinophils Percent Auto 0.9 % (0-4); Hematocrit 46.1 % (37.0-47.0); Hemoglobin 15.9 g/dl (12.0-16.0); Imm Gran Abs Auto 0.03 X10*3/uL (0.00-0.03); Imm Gran Pct Auto 0.3 % (0.0-0.4); Lymphocytes Absolute Auto 1.5 X10*3/uL (1.2-4.9); Mean Corpuscular HGB Conc 34.5 g/dl (31.0-35.0); Mean Corpuscular Hemoglobin 29.2 pg (27.0-33.0); Mean Corpuscular Volume 84.7 fL (80.0-98.0); Mean Platelet Volume 9.4 fL (9.4-12.3); Monocytes Absolute Auto 0.7 X10*3/uL (0.1-1.2); Neutrophils Absolute Auto 6.9 x10*3/uL (2.0-8.3); Neutrophils Percent Auto 74.4 % (45-73); Platelet Count 309 X10*3/uL (160-400); Red Blood Count 5.44 X10*6/uL (4.20-5.50); Red Cell Distribution Width 13.2 % (11.0-16.0); White Blood Count 9.3 X10*3/uL (4.8-10.8)
[2022-11-09 18:12] LABS: Ethanol < 10 mg/dL
[2022-11-09 18:13] LABS: Alanine Aminotransferase 15 U/L (0-31); Albumin Level 3.8 g/dL (3.5-5.0); Alkaline Phosphatase 73 U/L (39-117); Anion Gap 9 (12-20); Aspartate Amino Transferase 18 U/L (5-31); Bilirubin Total 0.6 mg/dL (0.0-1.0); Calcium 9.5 mg/dL (8.4-10.2); Carbon Dioxide 31 mmol/L (22-29); Chloride 98 mmol/L (96-108); Creatinine Clr Calc Pharmacy 73.3; Estimated Glomerular Filt Rate > 60; Glucose Random 116 mg/dL (60-115); Potassium 4.4 mmol/L (3.3-5.1); Sodium 134 mmol/L (135-145); Total Protein 6.1 g/dL (6.5-8.0)
[2022-11-09 18:22] LABS: Blood Urea Nitrogen 3 mg/dL (9-16)
[2022-11-09 19:20] LABS: Appearance Urine Clear; Color Urine Yellow; Glucose Urine UA Negative (Negative); Leukocyte Esterase Urine Trace (Negative); Nitrite Urine Negative (Negative); PH 6.5 (5.0-9.0); Specific Gravity - Urine <= 1.005 (1.005-1.025); UMIC TRIGGER UACC YES; Urine Blood Negative (Negative); Urine Ketones Negative (Negative); Urine Protein Negative (Neg-Trace)
[2022-11-09 19:23] LABS: Bacteria Urine None Seen (None Seen); Hyaline Casts Urine 0-2 /LPF (0-2); RBC Urine 0-2 /HPF (0-2); Squamous Epithelial Cell Urine 0-2 /HPF (0-2); WBC Urine 0-5 /HPF (0-5)
[2022-11-09 19:30] LABS: Amphetamine Screen Urine Not Detected (Not Detect); Barbiturates, Urine Not Detected (Not Detect); Benzodiazepines Screen Urine Not Detected (Not Detect); Cannabinoid Screen Urine Not Detected (Not Detect); Cocaine Screen Urine Not Detected (Not Detect); Fentanyl, urine Not Detected (Not Detect); Opiate Screen Urine Not Detected (Not Detect); Phencyclidine Screen Urine Not Detected (Not Detect)
--- NOTE | 2022-11-09 22:17 | ED.PSYCH ---
HPI - Psych General Chief Complaint: Psychiatric Symptoms Stated Complaint: [facility] ORD FROM [facility] PER EMS Time Seen by Provider: 11/09/22 15:59 Source: patient Mode of arrival: EMS History of Present Illness HPI Narrative: 72-year-old female who presents emergency department for evaluation of decompensation of her schizophrenia secondary to not taking her medications. The patient stop taking medications 2 days prior she does have a [facility] order but she has refused her medications apparently she has been delusional. She was able to tell me why she was here in the emergency department. She told me that she stopped taking her medications because she thought she did not need them anymore. She asked if she started taking her medications again acute [facility] I told the patient that she is on a Section 12 and needs to be evaluated by our care team and psychiatrist prior to being discharged. Related Data Home Medications Medication Instructions Recorded Confirmed mometasone-formoterol HFA 200 2 puff inhalation BID 05/02/22 11/09/22 mcg-5 mcg/actuation aerosol inhaler (Dulera) amantadine HCl 100 mg tablet 100 mg PO BID 08/05/22 11/09/22 paliperidone palmitate 156 mg/mL 156 mg IM Q30D 08/05/22 11/09/22 intramuscular syringe (Invega Sustenna) omeprazole 20 mg capsule,delayed 20 mg PO DAILY 11/09/22 11/09/22 release Previous Rx's Medication Instructions Recorded cholecalciferol (vitamin D3) 50 50 mcg PO DAILY 90 days #90 caps 12/29/21 mcg (2,000 unit) capsule multivitamin 1 tab PO DAILY 90 days #90 tabs 12/29/21 levothyroxine 50 mcg tablet 50 mcg PO QAM #30 tabs 03/31/22 aspirin 81 mg tablet,delayed 81 mg PO DAILY #30 tabs 06/11/22 release albuterol sulfate 90 mcg/actuation 2 puff inhalation Q6H PRN 07/21/22 aerosol inhaler (Ventolin HFA) bronchospasm #8.5 grams fluticasone 232 mcg-salmeterol 14 2 inh PO BID #1 ea 09/21/22 mcg/actuation breath activated powdr Incruse Ellipta 62.5 mcg/actuation 1 inh inhalation DAILY 30 days #30 09/22/22 powder for inhalation ea (umeclidinium) Allergies Allergy/AdvReac Type Severity Reaction Status Date / Time clozapine [Clozapine] AdvReac Unknown LOW ANC Verified 11/09/22 18:20 haloperidol [From HALDOL] AdvReac Unknown TARDIVE Verified 11/09/22 18:20 DISKINESIVE Review of Systems Review of Systems: Yes all other systems are reviewed and are negative [facility] Past Medical History Medical History Acquired hypothyroidism Anxiety Benign essential hypertension COPD (chronic obstructive pulmonary disease) Gastritis Paranoid schizophrenia Polycythemia Respiratory failure with hypercapnia Smoker Surgical History No pertinent past surgical history Family History Family History Father CVD (cardiovascular disease) Mother Medical history unknown Family/Other FH: mental illness Other Mental health problem Social History Social History Household Members: None Housing: Assisted Living Facility Housing Other:: detention Do you presently have visiting nurse or other home services: Yes Alcohol intake: never Patient Tobacco Use Status: Current everyday Tobacco user Cigarettes Per Day: 10 Smoked in Last 30 Days: Yes Second Hand Smoke Exposure: Yes Use of substances other than those prescribed or required for medical reasons: No Any prior treatment program specific to substance use: No Advance Directives: No Advance Directives Information Provided: No service: No Current occupational status: disabled Cognitive needs: No Hearing needs: No Vision needs: No Physical Exam Vital Signs: Vital Signs: Last Vital Signs Temp 98.0 F 11/09/22 15:43 Pulse 83 11/09/22 15:43 Resp 16 11/09/22 15:43 BP 154/78 H 11/09/22 15:43 Pulse Ox 93 11/09/22 15:43 O2 Del Method Room Air 11/09/22 16:09 BMI result Body Mass Index 24.0 Const: Other: Awake, alert, female patient, answers questions appropriately, does not appear to be in distress HEENT: Head: Yes normal to inspection, Yes normocephalic and Yes atraumatic Ears: external ears normal General nose exam: Normal external nose present Face and sinus: Yes normal facial exam Mouth: Normal oral and palatal mucosa present Throat: Yes posterior oropharynx normal Eyes: General: appearance normal, both eyes and all related structures Pupils: Equal, round and reactive pupils present Neck: Neck: Yes normal visual inspection, Yes no lymphadenopathy, Yes trachea midline and Yes supple Chest: Chest palpation & inspection: normal inspection of the chest and normal palpation of entire chest wall Resp: Effort & Inspection: normal respiratory effort and able to speak in complete sentences Auscultation: clear to auscultation bilaterally Cardio: Rate: regular rate Rhythm: regular rhythm Heart sounds: S1 normal heart sound present, S2 normal heart sound present and no murmurs GI: Inspection: Yes normal to inspection Palpation (GI): Soft to palpation, nontender and no guarding Auscultation: normal bowel sounds : General: Yes no CVA tenderness Back/Spine/Pelvis: Back: no CVA tenderness Skin: General skin exam: no rashes or lesions noted Neuro: Cranial nerves: Yes CN's II-XII intact bilaterally and Yes Equal, round and reactive pupils present Cognition (Neuro): normal cognition Motor exam (neuro): 5/5 motor strength present throughout Extrem: General: Yes normal to inspection Psych: Appearance: grossly normal Speech and movement: Normal speech and movement present Affect: normal affect Attitude: cooperative Thought content: suicidality and no homicidality Medical Decision Making Medical Decision Making [facility] Narrative: 72-year-old female with history of schizophrenia who has been [facility]compl[facility] Patient was sent into the emergency department for decompensation and for being delusional. The patient's exam was unremarkable. 1024: My interpretation patient's laboratory evaluation is as follows: CBC was normal. Sodium was low 134. Bicarb was elevated 31. Glucose elevated 116. Urinalysis trace leukocyte esterase, negative nitrates. Microscopic revealed 0-2 RBCs, 0 2 WBCs, no bacteria. Urine tox was negative. COVID-19 was negative. Start physician observation: The patient is waiting for care team evaluation. The patient will be placed in physician observation and kept in the emergency department Behavioral Health Unit until disposition can be determined. At the end of my shift, patient's care was turned over to my colleague, Dr. Alvarez Zelaya. Differential Diagnosis Differential includes was not limited to decompensation of schizophrenia, electrolyte abnormalities, depression, anxiety Admission/Observation Consideration of admission/observation: Escalation of care including admission/observation considered Lab Data [facility] Lab Attestation statement: I reviewed the patient's lab results. See MDM 11/09/22 17:36 11/09/22 17:36 Labs: Lab Results 11/09/22 11/09/22 11/09/22 Range/Units 16:05 17:36 17:36 WBC 9.3 (4.8-10.8) X10*3/uL RBC 5.44 (4.20-5.50) X10*6/uL Hgb 15.9 (12.0-16.0) g/dl Hct 46.1 (37.0-47.0) % MCV 84.7 (80.0-98.0) fL MCH 29.2 (27.0-33.0) pg MCHC 34.5 (31.0-35.0) g/dl RDW 13.2 (11.0-16.0) % Plt Count 309 (160-400) X10*3/uL MPV 9.4 (9.4-12.3) fL Immature Gran % (Auto) 0.3 (0.0-0.4) % Neut % (Auto) 74.4 H (45-73) % Lymph % (Auto) 16.0 L (20-40) % [place] % (Auto) 8.0 (2-11) % Eos % (Auto) 0.9 (0-4) % Baso % (Auto) 0.4 (0-2) % Lymph # (Auto) 1.5 (1.2-4.9) X10*3/uL [place] # (Auto) 0.7 (0.1-1.2) X10*3/uL Eos # (Auto) 0.1 (0.0-0.4) X10*3/uL Baso # (Auto) 0.0 (0.0-0.2) X10*3/uL Abs Immat Gran (auto) 0.03 (0.00-0.03) X10*3/uL Absolute Neuts (auto) 6.9 (2.0-8.3) x10*3/uL Absolute Nucleated RBC 0.000 (0.0-0.012) X10*3/uL Nucleated RBC % (auto) 0.0 (0.0-0.2) /100WBC Sodium 134 L (135-145) mmol/L Potassium 4.4 (3.3-5.1) mmol/L Chloride 98 (96-108) mmol/L Carbon Dioxide 31 H (22-29) mmol/L Anion Gap 9 L (12-20) BUN 3 L (9-16) mg/dL Creatinine 0.64 (0.5-1.4) mg/dL Estim Creat Clear Calc 73.3 Estimated GFR > 60 Random Glucose 116 H (60-115) mg/dL Calcium 9.5 (8.4-10.2) mg/dL Total Bilirubin 0.6 (0.0-1.0) mg/dL AST 18 (5-31) U/L ALT 15 (0-31) U/L Alkaline Phosphatase 73 (39-117) U/L Total Protein 6.1 L (6.5-8.0) g/dL Albumin 3.8 (3.5-5.0) g/dL Urine Color Urine Appearance Urine pH (5.0-9.0) Ur Specific [place] (1.005-1.025) Urine Protein (Neg-Trace) mg/dL Urine Glucose (UA) (Negative) mg/dL Urine Ketones (Negative) mg/dL Urine Blood (Negative) Urine Nitrite (Negative) Ur Leukocyte Esterase (Negative) Urine RBC (0-2) /HPF Urine WBC (0-5) /HPF Ur Squamous Epith Cells (0-2) /HPF Urine Bacteria (None Seen) Hyaline Casts (0-2) /LPF Urine Opiates Screen (Not Detect) Urine Fentanyl Screen (Not Detect) Ur Barbiturates Screen (Not Detect) Ur Phencyclidine Scrn (Not Detect) Ur Amphetamines Screen (Not Detect) U Benzodiazepines Scrn (Not Detect) Urine Cocaine Screen (Not Detect) U Marijuana (THC) Screen (Not Detect) Ethyl Alcohol mg/dL COVID-19 (ASHISH) Negative (Negative) COVID-19 Clin Com See Note 11/09/22 11/09/22 11/09/22 Range/Units 17:36 19:10 19:10 WBC (4.8-10.8) X10*3/uL RBC (4.20-5.50) X10*6/uL Hgb (12.0-16.0) g/dl Hct (37.0-47.0) % MCV (80.0-98.0) fL MCH (27.0-33.0) pg MCHC (31.0-35.0) g/dl RDW (11.0-16.0) % Plt Count (160-400) X10*3/uL MPV (9.4-12.3) fL Immature Gran % (Auto) (0.0-0.4) % Neut % (Auto) (45-73) % Lymph % (Auto) (20-40) % [place] % (Auto) (2-11) % Eos % (Auto) (0-4) % Baso % (Auto) (0-2) % Lymph # (Auto) (1.2-4.9) X10*3/uL [place] # (Auto) (0.1-1.2) X10*3/uL Eos # (Auto) (0.0-0.4) X10*3/uL Baso # (Auto) (0.0-0.2) X10*3/uL Abs Immat Gran (auto) (0.00-0.03) X10*3/uL Absolute Neuts (auto) (2.0-8.3) x10*3/uL Absolute Nucleated RBC (0.0-0.012) X10*3/uL Nucleated RBC % (auto) (0.0-0.2) /100WBC Sodium (135-145) mmol/L Potassium (3.3-5.1) mmol/L Chloride (96-108) mmol/L Carbon Dioxide (22-29) mmol/L Anion Gap (12-20) BUN (9-16) mg/dL Creatinine (0.5-1.4) mg/dL Estim Creat Clear Calc Estimated GFR Random Glucose (60-115) mg/dL Calcium (8.4-10.2) mg/dL Total Bilirubin (0.0-1.0) mg/dL AST (5-31) U/L ALT (0-31) U/L Alkaline Phosphatase (39-117) U/L Total Protein (6.5-8.0) g/dL Albumin (3.5-5.0) g/dL Urine Color Yellow Urine Appearance Clear Urine pH 6.5 (5.0-9.0) Ur Specific [place] <= 1.005 (1.005-1.025) Urine Protein Negative (Neg-Trace) mg/dL Urine Glucose (UA) Negative (Negative) mg/dL Urine Ketones Negative (Negative) mg/dL Urine Blood Negative (Negative) Urine Nitrite Negative (Negative) Ur Leukocyte Esterase Trace H (Negative) Urine RBC 0-2 (0-2) /HPF Urine WBC 0-5 (0-5) /HPF Ur Squamous Epith Cells 0-2 (0-2) /HPF Urine Bacteria None Seen (None Seen) Hyaline Casts 0-2 (0-2) /LPF Urine Opiates Screen Not Detected (Not Detect) Urine Fentanyl Screen Not Detected (Not Detect) Ur Barbiturates Screen Not Detected (Not Detect) Ur Phencyclidine Scrn Not Detected (Not Detect) Ur Amphetamines Screen Not Detected (Not Detect) U Benzodiazepines Scrn Not Detected (Not Detect) Urine Cocaine Screen Not Detected (Not Detect) U Marijuana (THC) Screen Not Detected (Not Detect) Ethyl Alcohol < 10 mg/dL COVID-19 (ASHISH) (Negative) COVID-19 Clin Com Independent Interpretation I performed an independent interpretation of an: EKG Interpretation: My independent interpretation the patient's 12 EKG done at 1626 is as follows: Normal sinus rhythm with a rate of 85, normal SD interval, QRS duration QTC interval, no ST segment elevation, no ST segment depression, Q-waves in lead 3, V1 through V3, no PACs, no PVCs. When compared to EKG dated 10/08/2020 there was no acute change. Discharge Plan Discharge Clinical Impression: Schizophrenia, Noncompliance with medications Patient Disposition: Still a Patient Prescriptions: No Action levothyroxine 50 mcg tablet 50 mcg PO QAM Qty: 30 6RF aspirin 81 mg tablet,delayed release (DR/EC) 81 mg PO DAILY Qty: 30 10RF albuterol sulfate [Ventolin HFA] 90 mcg/actuation HFA aerosol inhaler 2 puff inhalation Q6H PRN (Reason: bronchospasm) Qty: 8.5 6RF Rx Instructions: 2 Puffs at 8am and 8pm fluticasone propion-salmeterol 232-14 mcg/actuation aerosol powdr breath activated 2 inh PO BID Qty: 1 3RF Incruse Ellipta 62.5 mcg/actuation blister with device 1 inh inhalation DAILY 30 Days Qty: 30 12RF omeprazole 20 mg capsule,delayed release(DR/EC) 20 mg PO DAILY Dulera 200-5 mcg/actuation HFA aerosol inhaler 2 puff inhalation BID Invega Sustenna 156 mg/mL syringe 156 mg IM Q30D amantadine HCl 100 mg tablet 100 mg PO BID cholecalciferol (vitamin D3) 50 mcg (2,000 unit) capsule 50 mcg PO DAILY 90 Days Qty: 90 3RF multivitamin Tablet 1 tab PO DAILY 90 Days Qty: 90 3RF Interventions: [place]-Suicide Risk Severity Scale Last Done: 11/09/22 16:09
[2022-11-09 23:29] VITALS: BP 164/73; PULSE 98; RESP 18; TEMP 36.6; O2SAT 91
--- NOTE | 2022-11-10 06:12 | PC.NURSE ---
Patient slept through the night, no distress observed/reported, disposition per [facility] is section 12 inpatient bed search, no update on bed search, labs completed/resulted, med rec completed/pending provider's approval, Patient is COPD/SpO2 91% at RA, no respiratory distress observed/reported, behavior non concerning, will continue to monitor.
[2022-11-10 08:05] VITALS: BP 147/79; PULSE 102; RESP 18; TEMP 36.8; O2SAT 92
--- NOTE | 2022-11-10 15:20 | PC.NURSE ---
Pt signed CV.. Ambulatory. Independent in the bathroom. Took meds and meals. No dangerous behaviors noted.
[2022-11-10 16:24] VITALS: BMI 21.2
--- NOTE | 2022-11-10 18:14 | PC.ADMIT ---
Patient admitted to unit at 1600 from [facility] on CV for diagnosis of Unspecified Schizophrenia. The precipitant of admission includes evidence of thought disorder/delusions with marked decompensation. She is alert and oriented x4. Presents as agitated, uncooperative and anxious. Affect is flat. Patient uncooperative with admission process. Resides at [facility] C[facility]. Patient has legal guardian and Jacobs order for antipsychotic. Documents are on chart. Patient appears disheveled and malodorous. Attired in hospital [facility]. Past medical history includes COPD, Asthma, HtN, Hypothyroidism and GERD. Thought process is disorganized and attention is poor. Patient reports daily cigarette use of 1 pack a day. Tox screen is negative. Patient is ambulatory and is independent with ADL's. Patient has had admissions to [facility] in the past. Denies SI/HI. Patient is placed on 5 minute checks for safety.
[2022-11-11] MEDS: Levothyroxine Sodium 50 MCG TABLET PO (05:29)
--- NOTE | 2022-11-11 09:06 | PC.NURSE ---
Pt refused labs, vital signs and morning medications,
--- NOTE | 2022-11-11 12:45 | HO.PSYADMNOT ---
[facility] Date of Service: 11/11/22 Chief Complaint: psychosis Sources of Information: patient interviewed, chart reviewed and crisis/core team assessment reviewed HPI Subjective Notes: Vazquez Warning and Conditional Voluntary Narrative: The patient is a 72-year-old female, mother of adult children, with a long history of schizophrenia, with a court order for treatment and guardianship. She is a resident for the last 5 years of a custodial under the supervision of [facility]. The patient was brought to the emergency room after she refused to take her medications. According to the crisis assessment, the patient had been non compliant with her regular medications and also she had been more internally preoccupied with worsening of her ADL less and worsening of her paranoia. According to the crisis assessment, the patient has not insight into her illness, she does not feel to have the need of taking medications and apparently in the last 2 months her outpatient psychiatrist in the community has lowered his Invega Sustenna. We called the staff at the custodial under the permission of the patient, and they confirm the lowering of the dose and the worsening of the functionality of the patient. On interview, the patient adamantly denies having any psychiatric disease she stated that she have never heard voices but she looks internally preoccupied, very distrustful and paranoid at times. She adamantly denies suicidal or homicidal ideation and she was able to contract for safety in the facility. She understood Vazquez warning. Past Psychiatric History: She had several admissions into the hospital, she is under the care of [facility], she has a guardianship and she has a court order to follow treatment in the community. She has a chronic history of psychosis. Medical Evaluation Reviewed: Yes [facility] Medical History Acquired hypothyroidism Anxiety Benign essential hypertension COPD (chronic obstructive pulmonary disease) Gastritis Paranoid schizophrenia Polycythemia Respiratory failure with hypercapnia Smoker Surgical History No pertinent past surgical history Family History: Denies Social History: The patient is chronically mentally ill, resident of a custodial, her guardian is her son who is partially involved in her care. She also has a court ordered to continue with treatment against her will in the community. Substance History: Heavy smoker Trauma History: Refused to lower all Diagnostics Vital Signs (24Hr): BMI result Body Mass Index 21.2 Labs 11/09/22 17:36 11/09/22 17:36 Labs: Laboratory Results - last 48 hr 11/09/22 11/09/22 11/09/22 16:05 17:36 17:36 WBC 9.3 RBC 5.44 Hgb 15.9 Hct 46.1 MCV 84.7 MCH 29.2 MCHC 34.5 RDW 13.2 Plt Count 309 MPV 9.4 Immature Gran % (Auto) 0.3 Neut % (Auto) 74.4 H Lymph % (Auto) 16.0 L [place] % (Auto) 8.0 Eos % (Auto) 0.9 Baso % (Auto) 0.4 Lymph # (Auto) 1.5 [place] # (Auto) 0.7 Eos # (Auto) 0.1 Baso # (Auto) 0.0 Abs Immat Gran (auto) 0.03 Absolute Neuts (auto) 6.9 Absolute Nucleated RBC 0.000 Nucleated RBC % (auto) 0.0 Sodium 134 L Potassium 4.4 Chloride 98 Carbon Dioxide 31 H Anion Gap 9 L BUN 3 L Creatinine 0.64 Estim Creat Clear Calc 73.3 Estimated GFR > 60 Random Glucose 116 H Calcium 9.5 Total Bilirubin 0.6 AST 18 ALT 15 Alkaline Phosphatase 73 Total Protein 6.1 L Albumin 3.8 Urine Color Urine Appearance Urine pH Ur Specific [place] Urine Protein Urine Glucose (UA) Urine Ketones Urine Blood Urine Nitrite Ur Leukocyte Esterase Urine RBC Urine WBC Ur Squamous Epith Cells Urine Bacteria Hyaline Casts Urine Opiates Screen Urine Fentanyl Screen Ur Barbiturates Screen Ur Phencyclidine Scrn Ur Amphetamines Screen U Benzodiazepines Scrn Urine Cocaine Screen U Marijuana (THC) Screen Ethyl Alcohol COVID-19 (ASHISH) Negative COVID-19 Clin Com See Note 11/09/22 11/09/22 11/09/22 17:36 19:10 19:10 WBC RBC Hgb Hct MCV MCH MCHC RDW Plt Count MPV Immature Gran % (Auto) Neut % (Auto) Lymph % (Auto) [place] % (Auto) Eos % (Auto) Baso % (Auto) Lymph # (Auto) [place] # (Auto) Eos # (Auto) Baso # (Auto) Abs Immat Gran (auto) Absolute Neuts (auto) Absolute Nucleated RBC Nucleated RBC % (auto) Sodium Potassium Chloride Carbon Dioxide Anion Gap BUN Creatinine Estim Creat Clear Calc Estimated GFR Random Glucose Calcium Total Bilirubin AST ALT Alkaline Phosphatase Total Protein Albumin Urine Color Yellow Urine Appearance Clear Urine pH 6.5 Ur Specific [place] <= 1.005 Urine Protein Negative Urine Glucose (UA) Negative Urine Ketones Negative Urine Blood Negative Urine Nitrite Negative Ur Leukocyte Esterase Trace H Urine RBC 0-2 Urine WBC 0-5 Ur Squamous Epith Cells 0-2 Urine Bacteria None Seen Hyaline Casts 0-2 Urine Opiates Screen Not Detected Urine Fentanyl Screen Not Detected Ur Barbiturates Screen Not Detected Ur Phencyclidine Scrn Not Detected Ur Amphetamines Screen Not Detected U Benzodiazepines Scrn Not Detected Urine Cocaine Screen Not Detected U Marijuana (THC) Screen Not Detected Ethyl Alcohol < 10 COVID-19 (ASHISH) COVID-19 Clin Com Meds/Allergies Meds Home Medications Medication Instructions Recorded Confirmed Type mometasone-formoterol HFA 200 2 puff inhalation BID 05/02/22 11/09/22 History mcg-5 mcg/actuation aerosol inhaler (Dulera) amantadine HCl 100 mg tablet 100 mg PO BID 08/05/22 11/09/22 History paliperidone palmitate 156 mg/mL 156 mg IM Q30D 08/05/22 11/10/22 History intramuscular syringe (Invega Sustenna) omeprazole 20 mg capsule,delayed 20 mg PO DAILY 11/09/22 11/09/22 History release Allergies Allergies Allergy/AdvReac Type Severity Reaction Status Date / Time clozapine [Clozapine] AdvReac Unknown LOW ANC Verified 11/09/22 18:20 haloperidol [From HALDOL] AdvReac Unknown TARDIVE Verified 11/09/22 18:20 DISKINESIVE Mental Status Exam Mental Status Exam Patient Appearance: Appropriate Patient Orientation: Person and Situation Level of Consciousness: Awake and Alert Patient Behavior: Guarded and Passive Mood Description: Suspicious and Withdrawn Affect Description: Constricted Patient Cognition Impaired: Yes Ability to Follow Directions: Good Speech Pattern: Clear Hallucinations: None Delusions: Paranoid Ideation Thought Content: positive for [place], positive for Perseveration and positive for Poverty of Content Judgement: Poor Assessment & Plan Assessment & Plan (1) Schizophrenia: Status: Acute Code(s): F20.9 - Schizophrenia, unspecified (2) Noncompliance with medications: Status: Acute Code(s): Z91.148 - Patient's other noncompliance with medication regimen for other reason Plan Elderly female with a long history of schizophrenia who was admitted into the hospital for exacerbation of psychosis in the context of her lower in her Invega Sustenna that he has court order. The patient does not have any insight into her condition and she is scheduled to have her next Invega shot next week. Plan 1. Gather collateral information. 2. 15 minute checks. 3. Keep with Invega Sustenna, we will try to increased up to 230 for next week. 4. Contact outpatient providers to gather more collateral information and provide feedback of the patient's condition. Patient educated on: therapeutic strategies Informed Consent: further education needed Reason for continued inpatient stay Substantial Risk for: inability to function, rapid decompensation and med/psych decompensation Statement Statement: I have reviewed the history and physical and performed a pertinent examination on my patient. No changes have occurred unless specified. If the History and Physical was not performed prior to admission, the Hospitalist's service will be consulted for completing the admission physical. Time Spent With Patient Time: Total time managing care of this patient today _45___ minutes.
--- NOTE | 2022-11-12 16:46 | P.PNPSI_ITS ---
Subjective Subjective Date of Service: 11/12/22 Reason For Visit: psychosis Interim History: met with patient;discussed with team pt pleasant on approach. Pt has been refusing meds. She tells commercial underwriter that she does not need medications, that she's fine. However, she says maybe she needs thyroid medications and agrees to take. She asks for Diet coke and was pleased to receive. Mental Status Exam Mental Status Exam Patient Appearance: Appropriate Patient Orientation: Person and Situation Level of Consciousness: Awake and Alert Patient Behavior: Appropriate and Good Eye Contact Mood Description: Relaxed Affect Description: Calm and Relaxed Patient Cognition Impaired: Yes Ability to Follow Directions: Fair Speech Pattern: Clear Hallucinations: None Delusions: Paranoid Ideation (not clear) Thought Process: Goal Oriented Thought Content: positive for [place], positive for Perseveration and positive for Poverty of Content Judgement and Insight: impaired Diagnostics Vital Signs (24Hr): BMI result Body Mass Index 21.2 Labs 11/09/22 17:36 11/09/22 17:36 Medications Medications Current Medications Acetaminophen (Acetaminophen 325 Mg Tablet) 650 mg PO Q6H PRN PRN Reason: Headache/Pain Mild Scale (1-3) Al Hydroxide/Mg Hydroxide (Magnesium Hydrox/Alum Hydrox 30 Ml Oral.Susp) 30 ml PO Q6H PRN PRN Reason: Heartburn/Nausea Albuterol Sulfate (Albuterol Sulfate 90 Mcg 8 Gm Inhaler) 2 puff INHALE Q6H PRN PRN Reason: bronchospasm Amantadine HCl (Amantadine Hcl 100 Mg Capsule) 100 mg PO BID [facility] Last Admin: 11/12/22 09:57 Dose: Not Given Aspirin (Aspirin Enteric Coated 81 Mg Tablet.) 81 mg PO DAILY [facility] Last Admin: 11/12/22 09:57 Dose: Not Given Fluticasone/Vilanterol (Fluticasone/Vilanterol 200/25 Blst.W.Dev) 1 puff INHALE RDAILY [facility] Last Admin: 11/12/22 09:56 Dose: Not Given Hydroxyzine HCl (Hydroxyzine Hcl 25 Mg Tablet) 25 mg PO Q6H PRN PRN Reason: Anxiety Levothyroxine Sodium (Levothyroxine Sodium 50 Mcg Tablet) 50 mcg PO DAILY@0600 [facility] Last Admin: 11/12/22 05:26 Dose: Not Given Magnesium Hydroxide (Milk Of Magnesia 30 Ml Oral.Susp) 30 ml PO DAILY PRN PRN Reason: Constipation Multivitamins/Vitamin C (Multivitamin Tablet) 1 tab PO DAILY [facility] Last Admin: 11/12/22 09:58 Dose: Not Given Pt Own (Umeclidinium [Incruse Ellipta] 62.5 Mcg/Actuation Blister With D 1 inhalation INHALE RDAILY [facility] Last Admin: 11/12/22 09:56 Dose: Not Given Omeprazole (Omeprazole 20 Mg Capsule.Dr) 20 mg PO DAILY@0630 [facility] Last Admin: 11/12/22 05:26 Dose: Not Given Paliperidone Palmitate (Paliperidone Palmitate 156 Mg/Ml Syringe) 156 mg IM Q30D [facility] Trazodone HCl (Trazodone Hcl 50 Mg Tablet) 50 mg PO BEDTIME MRX1 PRN PRN Reason: Insomnia Vitamin D (Cholecalciferol (Vitamin D3) 25 Mcg Tablet) 50 mcg PO DAILY [facility] Last Admin: 11/12/22 09:58 Dose: Not Given Allergies Allergies Allergy/AdvReac Type Severity Reaction Status Date / Time clozapine [Clozapine] AdvReac Unknown LOW ANC Verified 11/09/22 18:20 haloperidol [From HALDOL] AdvReac Unknown TARDIVE Verified 11/09/22 18:20 DISKINESIVE Assessment & Plan Assessment & Plan (1) Schizophrenia: Status: Acute Code(s): F20.9 - Schizophrenia, unspecified (2) Noncompliance with medications: Status: Acute Code(s): Z91.148 - Patient's other noncompliance with medication regimen for other reason Plan Elderly female with a long history of schizophrenia who was admitted into the hospital for exacerbation of psychosis in the context of her lower in her Invega Sustenna that he has court order. The patient does not have any insight into her condition and she is scheduled to have her next Invega shot next week. Hosptial course: 5/6 pt refusing meds but agrees to take levothyroxine Plan 1. Gather collateral information. 2. 15 minute checks. 3. Keep with Invega Mixerc[employer]enna, we will try to increased up to 230 for next week. 4. Contact outpatient providers to gather more collateral information and provide feedback of the patient's condition. Patient educated on: diagnosis and medication risk/benefits Informed Consent: does not understand and further education needed Reason for continued inpatient stay Substantial Risk for: inability to function Time Spent With Patient Time: Total time managing care of this patient today ____ minutes.
[2022-11-13] MEDS: Levothyroxine Sodium 50 MCG TABLET PO (05:52)
[2022-11-13 08:00] VITALS: RESP 16
--- NOTE | 2022-11-13 18:16 | P.PNPSI_ITS ---
Subjective Subjective Date of Service: 11/13/22 Reason For Visit: psychosis Interim History: met with patient; discussed with team same presentation; asks when she'll be able to discharge but accepts to talk w/ primary team Mental Status Exam Mental Status Exam Patient Appearance: Appropriate Patient Orientation: Person and Situation Level of Consciousness: Awake and Alert Patient Behavior: Appropriate and Good Eye Contact Mood Description: Relaxed Affect Description: Calm and Relaxed Patient Cognition Impaired: Yes Ability to Follow Directions: Fair Speech Pattern: Clear Hallucinations: None Delusions: Paranoid Ideation (not clear) Thought Process: Goal Oriented Thought Content: positive for [place], positive for Perseveration and positive for Poverty of Content Judgement and Insight: impaired Diagnostics Vital Signs (24Hr): BMI result Body Mass Index 21.2 Labs 11/09/22 17:36 11/09/22 17:36 Medications Medications Current Medications Acetaminophen (Acetaminophen 325 Mg Tablet) 650 mg PO Q6H PRN PRN Reason: Headache/Pain Mild Scale (1-3) Al Hydroxide/Mg Hydroxide (Magnesium Hydrox/Alum Hydrox 30 Ml Oral.Susp) 30 ml PO Q6H PRN PRN Reason: Heartburn/Nausea Albuterol Sulfate (Albuterol Sulfate 90 Mcg 8 Gm Inhaler) 2 puff INHALE Q6H PRN PRN Reason: bronchospasm Amantadine HCl (Amantadine Hcl 100 Mg Capsule) 100 mg PO BID [facility] Last Admin: 11/13/22 09:08 Dose: Not Given Aspirin (Aspirin Enteric Coated 81 Mg Tablet.Dr) 81 mg PO DAILY [facility] Last Admin: 11/13/22 09:08 Dose: Not Given Fluticasone/Vilanterol (Fluticasone/Vilanterol 200/25 Blst.W.Dev) 1 puff INHALE RDAILY [facility] Last Admin: 11/13/22 09:07 Dose: Not Given Hydroxyzine HCl (Hydroxyzine Hcl 25 Mg Tablet) 25 mg PO Q6H PRN PRN Reason: Anxiety Levothyroxine Sodium (Levothyroxine Sodium 50 Mcg Tablet) 50 mcg PO DAILY@0600 [facility] Last Admin: 11/13/22 05:52 Dose: 50 mcg Magnesium Hydroxide (Milk Of Magnesia 30 Ml Oral.Susp) 30 ml PO DAILY PRN PRN Reason: Constipation Multivitamins/Vitamin C (Multivitamin Tablet) 1 tab PO DAILY [facility] Last Admin: 11/13/22 09:08 Dose: Not Given Pt Own (Umeclidinium [Incruse Ellipta] 62.5 Mcg/Actuation Blister With D 1 inhalation INHALE RDAILY [facility] Last Admin: 11/13/22 09:08 Dose: Not Given Omeprazole (Omeprazole 20 Mg Capsule.Dr) 20 mg PO DAILY@0630 [facility] Last Admin: 11/13/22 09:08 Dose: Not Given Paliperidone Palmitate (Paliperidone Palmitate 156 Mg/Ml Syringe) 156 mg IM Q30D [facility] Trazodone HCl (Trazodone Hcl 50 Mg Tablet) 50 mg PO BEDTIME MRX1 PRN PRN Reason: Insomnia Vitamin D (Cholecalciferol (Vitamin D3) 25 Mcg Tablet) 50 mcg PO DAILY [facility] Last Admin: 11/13/22 09:08 Dose: Not Given Allergies Allergies Allergy/AdvReac Type Severity Reaction Status Date / Time clozapine [Clozapine] AdvReac Unknown LOW ANC Verified 11/09/22 18:20 haloperidol [From HALDOL] AdvReac Unknown TARDIVE Verified 11/09/22 18:20 DISKINESIVE Assessment & Plan Assessment & Plan (1) Schizophrenia: Status: Acute Code(s): F20.9 - Schizophrenia, unspecified (2) Noncompliance with medications: Status: Acute Code(s): Z91.148 - Patient's other noncompliance with medication regimen for other reason Plan Elderly female with a long history of schizophrenia who was admitted into the hospital for exacerbation of psychosis in the context of her lower in her Invega InHiro that he has court order. The patient does not have any insight into her condition and she is scheduled to have her next Invega shot next week. Hosptial course: 5/6 pt refusing meds but agrees to take levothyroxine 11/13 continue current tx plan Plan 1. Gather collateral information. 2. 15 minute checks. 3. Keep with [email or web address], we will try to increased up to 230 for next week. 4. Contact outpatient providers to gather more collateral information and provide feedback of the patient's condition. Patient educated on: diagnosis Informed Consent: does not understand Reason for continued inpatient stay Substantial Risk for: inability to function Time Spent With Patient Time: Total time managing care of this patient today ____ minutes.
--- NOTE | 2022-11-14 08:27 | HO.PSYCHPN ---
Subjective Subjective Date of Service: 11/14/22 Reason For Visit: psychosis Subjective Notes: Conditional Voluntary Interim History: The nursing staff reported the patient took a shower yesterday, she was seen most of the time in her room seclusive, no episodes of agitation. On interview the patient denies new symptoms, she wants to be discharged as soon as possible. She remains paranoid. I explained her that she needs to get her Invega since it is court ordered and she agreed it. We discussed the case with the staff of her long-term and apparently her Invega Sustenna was lowered and she decompensated. Her next Invega Sustenna is scheduled for this week. Mental Status Exam Mental Status Exam Patient Appearance: Appropriate Patient Orientation: Person and Situation Level of Consciousness: Awake Patient Behavior: Guarded and Passive Mood Description: Withdrawn Affect Description: Constricted Patient Cognition Impaired: Yes Ability to Follow Directions: Good Speech Pattern: Clear Hallucinations: None Delusions: Paranoid Ideation Thought Process: Slowed Thinking Thought Content: positive for [place] and positive for Poverty of Content Judgement: Poor Diagnostics Vital Signs (24Hr): Vital Signs - 24 hr 11/13/22 18:00 Respiratory Rate 16 BMI result Body Mass Index 21.2 Labs 11/09/22 17:36 11/09/22 17:36 Medications Medications Current Medications Acetaminophen (Acetaminophen 325 Mg Tablet) 650 mg PO Q6H PRN PRN Reason: Headache/Pain Mild Scale (1-3) Al Hydroxide/Mg Hydroxide (Magnesium Hydrox/Alum Hydrox 30 Ml Oral.Susp) 30 ml PO Q6H PRN PRN Reason: Heartburn/Nausea Albuterol Sulfate (Albuterol Sulfate 90 Mcg 8 Gm Inhaler) 2 puff INHALE Q6H PRN PRN Reason: bronchospasm Amantadine HCl (Amantadine Hcl 100 Mg Capsule) 100 mg PO BID [facility] Last Admin: 11/13/22 22:43 Dose: Not Given Aspirin (Aspirin Enteric Coated 81 Mg Tablet.Dr) 81 mg PO DAILY [facility] Last Admin: 11/13/22 09:08 Dose: Not Given Fluticasone/Vilanterol (Fluticasone/Vilanterol 200/25 Blst.W.Dev) 1 puff INHALE RDAILY [facility] Last Admin: 11/13/22 09:07 Dose: Not Given Hydroxyzine HCl (Hydroxyzine Hcl 25 Mg Tablet) 25 mg PO Q6H PRN PRN Reason: Anxiety Levothyroxine Sodium (Levothyroxine Sodium 50 Mcg Tablet) 50 mcg PO DAILY@0600 [facility] Last Admin: 11/14/22 05:49 Dose: Not Given Magnesium Hydroxide (Milk Of Magnesia 30 Ml Oral.Susp) 30 ml PO DAILY PRN PRN Reason: Constipation Multivitamins/Vitamin C (Multivitamin Tablet) 1 tab PO DAILY [facility] Last Admin: 11/13/22 09:08 Dose: Not Given Pt Own (Umeclidinium [Incruse Ellipta] 62.5 Mcg/Actuation Blister With D 1 inhalation INHALE RDAILY [facility] Last Admin: 11/13/22 09:08 Dose: Not Given Omeprazole (Omeprazole 20 Mg Capsule.Dr) 20 mg PO DAILY@0630 [facility] Last Admin: 11/14/22 05:49 Dose: Not Given Paliperidone Palmitate (Paliperidone Palmitate 156 Mg/Ml Syringe) 156 mg IM Q30D [facility] Trazodone HCl (Trazodone Hcl 50 Mg Tablet) 50 mg PO BEDTIME MRX1 PRN PRN Reason: Insomnia Vitamin D (Cholecalciferol (Vitamin D3) 25 Mcg Tablet) 50 mcg PO DAILY [facility] Last Admin: 11/13/22 09:08 Dose: Not Given Allergies Allergies Allergy/AdvReac Type Severity Reaction Status Date / Time clozapine [Clozapine] AdvReac Unknown LOW ANC Verified 11/09/22 18:20 haloperidol [From HALDOL] AdvReac Unknown TARDIVE Verified 11/09/22 18:20 DISKINESIVE Assessment & Plan Assessment & Plan (1) Schizophrenia: Status: Acute Code(s): F20.9 - Schizophrenia, unspecified (2) Noncompliance with medications: Status: Acute Code(s): Z91.148 - Patient's other noncompliance with medication regimen for other reason Plan Elderly female with a long history of schizophrenia who was admitted into the hospital for exacerbation of psychosis in the context of her lower in her Invega Sustenna that he has court order. The patient does not have any insight into her condition and she is scheduled to have her next Invega shot next week. Plan 1. Gather collateral information. 2. 15 minute checks. 3. Keep with Invega [employer], we will try to increased up to 230 for next week. 4. Contact outpatient providers to gather more collateral information and provide feedback of the patient's condition. Apparently her Invega Sustenna was lowered to her 3 months ago when she had decompensated. 5. Invega Sustenna 234 scheduled for this week. Reason for continued inpatient stay Substantial Risk for: inability to function, rapid decompensation and med/psych decompensation Time Spent With Patient Time: Total time managing care of this patient today __20__ minutes.
[2022-11-15] MEDS: Paliperidone Palmitate 234 MG/1.5 ML SYRINGE IM (10:58)
--- NOTE | 2022-11-15 16:40 | P.PNPSI_ITS ---
Subjective Subjective Date of Service: 11/15/22 Reason For Visit: psychosis Subjective Notes: Conditional Voluntary Interim History: The nursing staff reported the patient accepted free [place] Sustenna today. She denies any side effects. On interview the patient reported that she wants to go back to the community. We will try to gather collateral information and start working on discharge planning. We are going to observe if she does not have any side effects after the injection. Mental Status Exam Mental Status Exam Patient Appearance: Appropriate Patient Orientation: Person and Situation Level of Consciousness: Awake and Appropriate Patient Behavior: Guarded and Passive Mood Description: Calm Affect Description: Constricted Patient Cognition Impaired: Yes Ability to Follow Directions: Good Speech Pattern: Clear Hallucinations: None Delusions: Not Present Thought Process: Linear Thought Content: positive for [place] Judgement: Fair Diagnostics Vital Signs (24Hr): BMI result Body Mass Index 21.2 Labs 11/09/22 17:36 11/09/22 17:36 Medications Medications Current Medications Acetaminophen (Acetaminophen 325 Mg Tablet) 650 mg PO Q6H PRN PRN Reason: Headache/Pain Mild Scale (1-3) Al Hydroxide/Mg Hydroxide (Magnesium Hydrox/Alum Hydrox 30 Ml Oral.Susp) 30 ml PO Q6H PRN PRN Reason: Heartburn/Nausea Albuterol Sulfate (Albuterol Sulfate 90 Mcg 8 Gm Inhaler) 2 puff INHALE Q6H PRN PRN Reason: bronchospasm Amantadine HCl (Amantadine Hcl 100 Mg Capsule) 100 mg PO BID [facility] Last Admin: 11/15/22 09:51 Dose: Not Given Aspirin (Aspirin Enteric Coated 81 Mg Tablet.Dr) 81 mg PO DAILY [facility] Last Admin: 11/15/22 09:51 Dose: Not Given Fluticasone/Vilanterol (Fluticasone/Vilanterol 200/25 Blst.W.Dev) 1 puff INHALE RDAILY [facility] Last Admin: 11/15/22 09:51 Dose: Not Given Hydroxyzine HCl (Hydroxyzine Hcl 25 Mg Tablet) 25 mg PO Q6H PRN PRN Reason: Anxiety Levothyroxine Sodium (Levothyroxine Sodium 50 Mcg Tablet) 50 mcg PO DAILY@0600 [facility] Last Admin: 11/15/22 06:10 Dose: Not Given Magnesium Hydroxide (Milk Of Magnesia 30 Ml Oral.Susp) 30 ml PO DAILY PRN PRN Reason: Constipation Multivitamins/Vitamin C (Multivitamin Tablet) 1 tab PO DAILY [facility] Last Admin: 11/15/22 09:52 Dose: Not Given Pt Own (Umeclidinium [Incruse Ellipta] 62.5 Mcg/Actuation Blister With D 1 inhalation INHALE RDAILY [facility] Last Admin: 11/15/22 09:51 Dose: Not Given Omeprazole (Omeprazole 20 Mg Capsule.Dr) 20 mg PO DAILY@0630 [facility] Last Admin: 11/15/22 06:10 Dose: Not Given Trazodone HCl (Trazodone Hcl 50 Mg Tablet) 50 mg PO BEDTIME MRX1 PRN PRN Reason: Insomnia Vitamin D (Cholecalciferol (Vitamin D3) 25 Mcg Tablet) 50 mcg PO DAILY [facility] Last Admin: 11/15/22 09:51 Dose: Not Given Allergies Allergies Allergy/AdvReac Type Severity Reaction Status Date / Time clozapine [Clozapine] AdvReac Unknown LOW ANC Verified 11/09/22 18:20 haloperidol [From HALDOL] AdvReac Unknown TARDIVE Verified 11/09/22 18:20 DISKINESIVE Assessment & Plan Assessment & Plan (1) Schizophrenia: Status: Acute Code(s): F20.9 - Schizophrenia, unspecified (2) Noncompliance with medications: Status: Acute Code(s): Z91.148 - Patient's other noncompliance with medication regimen for other reason Plan Elderly female with a long history of schizophrenia who was admitted into the hospital for exacerbation of psychosis in the context of her lower in her Invega Sustenna that he has court order. The patient does not have any insight into her condition and she is scheduled to have her next Invega shot next week. Plan 1. Gather collateral information. 2. 15 minute checks. 3. Keep with Invega Sustenna, we will try to increased up to 230 for next week. 4. Contact outpatient providers to gather more collateral information and provide feedback of the patient's condition. Apparently her Invega Sustenna was lowered to her 3 months ago when she had decompensated. 5. Invega Sustenna 234 scheduled for t today Reason for continued inpatient stay Substantial Risk for: inability to function, rapid decompensation and med/psych decompensation Time Spent With Patient Time: Total time managing care of this patient today __20__ minutes.
--- NOTE | 2022-11-16 13:44 | P.PNPSI_ITS ---
Subjective Subjective Date of Service: 11/16/22 Reason For Visit: psychosis Subjective Notes: Conditional Voluntary Interim History: The nursing staff reported the patient had been noncompliant with all her medications, she took her Invega Sustenna yesterday. The adoption social worker reported that we are going to have a family meeting with her [place] [facility] staff next Monday. On interview the patient denies new symptoms she feels safe in the unit and she wants to be discharged as soon as possible. Mental Status Exam Mental Status Exam Patient Appearance: Well Grooomed Patient Orientation: Person and Situation Level of Consciousness: Awake and Appropriate Patient Behavior: Guarded and Passive Mood Description: Withdrawn Affect Description: Constricted Patient Cognition Impaired: Yes Ability to Follow Directions: Good Speech Pattern: Clear Memory Description: Intact Thought Process: Linear Thought Content: positive for Circumstantial Judgement: Poor Diagnostics Vital Signs (24Hr): BMI result Body Mass Index 21.2 Labs 11/09/22 17:36 11/09/22 17:36 Medications Medications Current Medications Acetaminophen (Acetaminophen 325 Mg Tablet) 650 mg PO Q6H PRN PRN Reason: Headache/Pain Mild Scale (1-3) Al Hydroxide/Mg Hydroxide (Magnesium Hydrox/Alum Hydrox 30 Ml Oral.Susp) 30 ml PO Q6H PRN PRN Reason: Heartburn/Nausea Albuterol Sulfate (Albuterol Sulfate 90 Mcg 8 Gm Inhaler) 2 puff INHALE Q6H PRN PRN Reason: bronchospasm Amantadine HCl (Amantadine Hcl 100 Mg Capsule) 100 mg PO BID [facility] Last Admin: 11/16/22 08:43 Dose: Not Given Aspirin (Aspirin Enteric Coated 81 Mg Tablet.Dr) 81 mg PO DAILY [facility] Last Admin: 11/16/22 08:43 Dose: Not Given Fluticasone/Vilanterol (Fluticasone/Vilanterol 200/25 Blst.W.Dev) 1 puff INHALE RDAILY [facility] Last Admin: 11/16/22 08:43 Dose: Not Given Hydroxyzine HCl (Hydroxyzine Hcl 25 Mg Tablet) 25 mg PO Q6H PRN PRN Reason: Anxiety Levothyroxine Sodium (Levothyroxine Sodium 50 Mcg Tablet) 50 mcg PO DAILY@0600 [facility] Last Admin: 11/16/22 07:16 Dose: Not Given Magnesium Hydroxide (Milk Of Magnesia 30 Ml Oral.Susp) 30 ml PO DAILY PRN PRN Reason: Constipation Multivitamins/Vitamin C (Multivitamin Tablet) 1 tab PO DAILY [facility] Last Admin: 11/16/22 08:43 Dose: Not Given Pt Own (Umeclidinium [Incruse Ellipta] 62.5 Mcg/Actuation Blister With D 1 inhalation INHALE RDAILY [facility] Last Admin: 11/16/22 08:43 Dose: Not Given Omeprazole (Omeprazole 20 Mg Capsule.Dr) 20 mg PO DAILY@0630 [facility] Last Admin: 11/16/22 07:17 Dose: Not Given Trazodone HCl (Trazodone Hcl 50 Mg Tablet) 50 mg PO BEDTIME MRX1 PRN PRN Reason: Insomnia Vitamin D (Cholecalciferol (Vitamin D3) 25 Mcg Tablet) 50 mcg PO DAILY [facility] Last Admin: 11/16/22 08:43 Dose: Not Given Allergies Allergies Allergy/AdvReac Type Severity Reaction Status Date / Time clozapine [Clozapine] AdvReac Unknown LOW ANC Verified 11/09/22 18:20 haloperidol [From HALDOL] AdvReac Unknown TARDIVE Verified 11/09/22 18:20 DISKINESIVE Assessment & Plan Assessment & Plan (1) Schizophrenia: Status: Acute Code(s): F20.9 - Schizophrenia, unspecified (2) Noncompliance with medications: Status: Acute Code(s): Z91.148 - Patient's other noncompliance with medication regimen for other reason Plan Elderly female with a long history of schizophrenia who was admitted into the hospital for exacerbation of psychosis in the context of her lower in her Invega Sustenna that he has court order. The patient does not have any insight into her condition and she is scheduled to have her next Invega shot next week. Plan 1. Gather collateral information. 2. 15 minute checks. 3. Keep with Invega Sustenna, we will try to increased up to 230 for next week. 4. Contact outpatient providers to gather more collateral information and provide feedback of the patient's condition. Apparently her Invega Sustenna was lowered to her 3 months ago when she had decompensated. 5. Invega Sustenna 234 on November 15. Reason for continued inpatient stay Substantial Risk for: inability to function, rapid decompensation and med/psych decompensation Time Spent With Patient Time: Total time managing care of this patient today __20__ minutes.
[2022-11-17 08:00] VITALS: RESP 18
--- NOTE | 2022-11-17 08:26 | HO.PSYCHPN ---
Subjective Subjective Date of Service: 11/17/22 Reason For Visit: psychosis Subjective Notes: Conditional Voluntary Interim History: The nursing staff reported the patient being suspicious, refused medications and vital signs. She took her Invega Sustenna as per court order. On interview the patient denies new symptoms. Tomorrow we will have a family meeting with the social media strategist and probably will be discharged early next week. Mental Status Exam Mental Status Exam Patient Appearance: Well Grooomed and Appropriate Patient Orientation: Person and Situation Level of Consciousness: Awake and Appropriate Patient Behavior: Guarded and Passive Mood Description: Withdrawn Affect Description: Constricted Patient Cognition Impaired: Yes Ability to Follow Directions: Good Speech Pattern: Clear Hallucinations: None Delusions: Paranoid Ideation Thought Process: Slowed Thinking Thought Content: positive for [place] and positive for P[place] of Content Judgement: Fair Diagnostics Vital Signs (24Hr): BMI result Body Mass Index 21.2 Labs 11/09/22 17:36 11/09/22 17:36 Medications Medications Current Medications Acetaminophen (Acetaminophen 325 Mg Tablet) 650 mg PO Q6H PRN PRN Reason: Headache/Pain Mild Scale (1-3) Al Hydroxide/Mg Hydroxide (Magnesium Hydrox/Alum Hydrox 30 Ml Oral.Susp) 30 ml PO Q6H PRN PRN Reason: Heartburn/Nausea Albuterol Sulfate (Albuterol Sulfate 90 Mcg 8 Gm Inhaler) 2 puff INHALE Q6H PRN PRN Reason: bronchospasm Amantadine HCl (Amantadine Hcl 100 Mg Capsule) 100 mg PO BID [facility] Last Admin: 11/16/22 21:27 Dose: Not Given Aspirin (Aspirin Enteric Coated 81 Mg Tablet.Dr) 81 mg PO DAILY [facility] Last Admin: 11/16/22 08:43 Dose: Not Given Fluticasone/Vilanterol (Fluticasone/Vilanterol 200/25 Blst.W.Dev) 1 puff INHALE RDAILY [facility] Last Admin: 11/16/22 08:43 Dose: Not Given Hydroxyzine HCl (Hydroxyzine Hcl 25 Mg Tablet) 25 mg PO Q6H PRN PRN Reason: Anxiety Levothyroxine Sodium (Levothyroxine Sodium 50 Mcg Tablet) 50 mcg PO DAILY@0600 [facility] Last Admin: 11/17/22 05:50 Dose: Not Given Magnesium Hydroxide (Milk Of Magnesia 30 Ml Oral.Susp) 30 ml PO DAILY PRN PRN Reason: Constipation Multivitamins/Vitamin C (Multivitamin Tablet) 1 tab PO DAILY [facility] Last Admin: 11/16/22 08:43 Dose: Not Given Pt Own (Umeclidinium [Incruse Ellipta] 62.5 Mcg/Actuation Blister With D 1 inhalation INHALE RDAILY [facility] Last Admin: 11/16/22 08:43 Dose: Not Given Omeprazole (Omeprazole 20 Mg Capsule.Dr) 20 mg PO DAILY@0630 [facility] Last Admin: 11/17/22 05:51 Dose: Not Given Trazodone HCl (Trazodone Hcl 50 Mg Tablet) 50 mg PO BEDTIME MRX1 PRN PRN Reason: Insomnia Vitamin D (Cholecalciferol (Vitamin D3) 25 Mcg Tablet) 50 mcg PO DAILY [facility] Last Admin: 11/16/22 08:43 Dose: Not Given Allergies Allergies Allergy/AdvReac Type Severity Reaction Status Date / Time clozapine [Clozapine] AdvReac Unknown LOW ANC Verified 11/09/22 18:20 haloperidol [From HALDOL] AdvReac Unknown TARDIVE Verified 11/09/22 18:20 DISKINESIVE Assessment & Plan Assessment & Plan (1) Schizophrenia: Status: Acute Code(s): F20.9 - Schizophrenia, unspecified (2) Noncompliance with medications: Status: Acute Code(s): Z91.148 - Patient's other noncompliance with medication regimen for other reason Plan Elderly female with a long history of schizophrenia who was admitted into the hospital for exacerbation of psychosis in the context of her lower in her Invega Sustenna that he has court order. The patient does not have any insight into her condition and she is scheduled to have her next Invega shot next week. Plan 1. Gather collateral information. 2. 15 minute checks. 3. Keep with Invega Sustenna, we will try to increased up to 230 for next week. 4. Contact outpatient providers to gather more collateral information and provide feedback of the patient's condition. Apparently her Invega Sustenna was lowered to her 3 months ago when she had decompensated. 5. Invega Sustenna 234 on November 15. Reason for continued inpatient stay Substantial Risk for: inability to function, rapid decompensation and med/psych decompensation Time Spent With Patient Time: Total time managing care of this patient today __20__ minutes.
--- NOTE | 2022-11-17 14:13 | PC.NURSE ---
Pt refused vital signs and am meds.
[2022-11-17 20:37] VITALS: RESP 16
[2022-11-18] MEDS: Levothyroxine Sodium 50 MCG TABLET PO (05:47)
[2022-11-18 08:06] VITALS: RESP 18
--- NOTE | 2022-11-18 15:09 | HO.PSYCHPN ---
Subjective Subjective Date of Service: 11/18/22 Reason For Visit: psychosis Subjective Notes: Conditional Voluntary Interim History: The nursing staff reported the patient had refused vital signs and medications. The long term care social worker reported that yesterday the detention staff came and they were concerned that she was staying non compliant. On interview the patient denies new symptoms, we will try to discharge her early next week Mental Status Exam Mental Status Exam Patient Appearance: Well Grooomed and Appropriate Patient Orientation: Person and Situation Level of Consciousness: Awake and Appropriate Patient Behavior: Guarded and Passive Mood Description: Withdrawn Affect Description: Constricted Patient Cognition Impaired: Yes Ability to Follow Directions: Good Speech Pattern: Impoverished Hallucinations: None Delusions: Not Present Thought Process: Linear Thought Content: positive for [place] Judgement: Poor Diagnostics Vital Signs (24Hr): Vital Signs - 24 hr 11/17/22 20:37 11/18/22 08:06 Respiratory Rate 16 18 BMI result Body Mass Index 21.2 Labs 11/09/22 17:36 11/09/22 17:36 Medications Medications Current Medications Acetaminophen (Acetaminophen 325 Mg Tablet) 650 mg PO Q6H PRN PRN Reason: Headache/Pain Mild Scale (1-3) Al Hydroxide/Mg Hydroxide (Magnesium Hydrox/Alum Hydrox 30 Ml Oral.Susp) 30 ml PO Q6H PRN PRN Reason: Heartburn/Nausea Albuterol Sulfate (Albuterol Sulfate 90 Mcg 8 Gm Inhaler) 2 puff INHALE Q6H PRN PRN Reason: bronchospasm Amantadine HCl (Amantadine Hcl 100 Mg Capsule) 100 mg PO BID [facility] Last Admin: 11/18/22 08:08 Dose: Not Given Aspirin (Aspirin Enteric Coated 81 Mg Tablet.Dr) 81 mg PO DAILY [facility] Last Admin: 11/18/22 08:08 Dose: Not Given Fluticasone/Vilanterol (Fluticasone/Vilanterol 200/25 Blst.W.Dev) 1 puff INHALE RDAILY [facility] Last Admin: 11/18/22 08:08 Dose: Not Given Hydroxyzine HCl (Hydroxyzine Hcl 25 Mg Tablet) 25 mg PO Q6H PRN PRN Reason: Anxiety Levothyroxine Sodium (Levothyroxine Sodium 50 Mcg Tablet) 50 mcg PO DAILY@0600 [facility] Last Admin: 11/18/22 05:47 Dose: 50 mcg Magnesium Hydroxide (Milk Of Magnesia 30 Ml Oral.Susp) 30 ml PO DAILY PRN PRN Reason: Constipation Multivitamins/Vitamin C (Multivitamin Tablet) 1 tab PO DAILY [facility] Last Admin: 11/18/22 08:08 Dose: Not Given Pt Own (Umeclidinium [Incruse Ellipta] 62.5 Mcg/Actuation Blister With D 1 inhalation INHALE RDAILY [facility] Last Admin: 11/18/22 08:08 Dose: Not Given Omeprazole (Omeprazole 20 Mg Capsule.Dr) 20 mg PO DAILY@0630 [facility] Last Admin: 11/18/22 08:08 Dose: Not Given Trazodone HCl (Trazodone Hcl 50 Mg Tablet) 50 mg PO BEDTIME MRX1 PRN PRN Reason: Insomnia Vitamin D (Cholecalciferol (Vitamin D3) 25 Mcg Tablet) 50 mcg PO DAILY [facility] Last Admin: 11/18/22 08:08 Dose: Not Given Allergies Allergies Allergy/AdvReac Type Severity Reaction Status Date / Time clozapine [Clozapine] AdvReac Unknown LOW ANC Verified 11/09/22 18:20 haloperidol [From HALDOL] AdvReac Unknown TARDIVE Verified 11/09/22 18:20 DISKINESIVE Assessment & Plan Assessment & Plan (1) Schizophrenia: Status: Acute Code(s): F20.9 - Schizophrenia, unspecified (2) Noncompliance with medications: Status: Acute Code(s): Z91.148 - Patient's other noncompliance with medication regimen for other reason Plan Elderly female with a long history of schizophrenia who was admitted into the hospital for exacerbation of psychosis in the context of her lower in her Invega Sustenna that he has court order. The patient does not have any insight into her condition and she is scheduled to have her next Invega shot next week. Plan 1. Gather collateral information. 2. 15 minute checks. 3. Keep with Invega Sustenna, we will try to increased up to 230 for next week. 4. Contact outpatient providers to gather more collateral information and provide feedback of the patient's condition. Apparently her Invega Sustenna was lowered to her 3 months ago when she had decompensated. 5. Invega Sustenna 234 on November 15. 6. Discharge for next week Reason for continued inpatient stay Substantial Risk for: inability to function, rapid decompensation and med/psych decompensation Time Spent With Patient Time: Total time managing care of this patient today _20___ minutes.
[2022-11-18 18:00] VITALS: RESP 16
[2022-11-19] MEDS: Levothyroxine Sodium 50 MCG TABLET PO (06:27)
--- NOTE | 2022-11-19 12:21 | P.PNPSI_ITS ---
Subjective Subjective Date of Service: 11/19/22 Reason For Visit: psychosis Subjective Notes: Conditional Voluntary Interim History: Pt reports she continues to take her thyroid medicine and is fine- would like to not have safety tray for her food/meals Sleep ok, energy ok - well groomed Medication Compliance: No Side effects from medications: No Attending Groups: No Review of Systems Acute medical concerns: No Medical Review of Systems: unchanged Mental Status Exam Mental Status Exam Patient Appearance: Well Grooomed and Appropriate Patient Orientation: Person and Situation Level of Consciousness: Awake and Appropriate Patient Behavior: Guarded and Passive Mood Description: Withdrawn Affect Description: Constricted Patient Cognition Impaired: Yes Ability to Follow Directions: Good Speech Pattern: Impoverished Hallucinations: None Delusions: Not Present Thought Process: Linear Thought Content: positive for [place] Judgement: Poor Diagnostics Vital Signs (24Hr): Vital Signs - 24 hr 11/18/22 18:00 Respiratory Rate 16 BMI result Body Mass Index 21.2 Labs 11/09/22 17:36 11/09/22 17:36 Medications Medications Current Medications Acetaminophen (Acetaminophen 325 Mg Tablet) 650 mg PO Q6H PRN PRN Reason: Headache/Pain Mild Scale (1-3) Al Hydroxide/Mg Hydroxide (Magnesium Hydrox/Alum Hydrox 30 Ml Oral.Susp) 30 ml PO Q6H PRN PRN Reason: Heartburn/Nausea Albuterol Sulfate (Albuterol Sulfate 90 Mcg 8 Gm Inhaler) 2 puff INHALE Q6H PRN PRN Reason: bronchospasm Amantadine HCl (Amantadine Hcl 100 Mg Capsule) 100 mg PO BID [facility] Last Admin: 11/19/22 08:08 Dose: Not Given Aspirin (Aspirin Enteric Coated 81 Mg Tablet.Dr) 81 mg PO DAILY [facility] Last Admin: 11/19/22 08:09 Dose: Not Given Fluticasone/Vilanterol (Fluticasone/Vilanterol 200/25 Blst.W.Dev) 1 puff INHALE RDAILY [facility] Last Admin: 11/19/22 08:08 Dose: Not Given Hydroxyzine HCl (Hydroxyzine Hcl 25 Mg Tablet) 25 mg PO Q6H PRN PRN Reason: Anxiety Levothyroxine Sodium (Levothyroxine Sodium 50 Mcg Tablet) 50 mcg PO DAILY@0600 [facility] Last Admin: 11/19/22 06:27 Dose: 50 mcg Magnesium Hydroxide (Milk Of Magnesia 30 Ml Oral.Susp) 30 ml PO DAILY PRN PRN Reason: Constipation Multivitamins/Vitamin C (Multivitamin Tablet) 1 tab PO DAILY [facility] Last Admin: 11/19/22 08:09 Dose: Not Given Pt Own (Umeclidinium [Incruse Ellipta] 62.5 Mcg/Actuation Blister With D 1 inhalation INHALE RDAILY [facility] Last Admin: 11/19/22 08:08 Dose: Not Given Omeprazole (Omeprazole 20 Mg Capsule.Dr) 20 mg PO DAILY@0630 [facility] Last Admin: 11/19/22 08:08 Dose: Not Given Trazodone HCl (Trazodone Hcl 50 Mg Tablet) 50 mg PO BEDTIME MRX1 PRN PRN Reason: Insomnia Vitamin D (Cholecalciferol (Vitamin D3) 25 Mcg Tablet) 50 mcg PO DAILY [facility] Last Admin: 11/19/22 08:09 Dose: Not Given Allergies Allergies Allergy/AdvReac Type Severity Reaction Status Date / Time clozapine [Clozapine] AdvReac Unknown LOW ANC Verified 11/09/22 18:20 haloperidol [From HALDOL] AdvReac Unknown TARDIVE Verified 11/09/22 18:20 DISKINESIVE Assessment & Plan Assessment & Plan (1) Schizophrenia: Status: Acute Code(s): F20.9 - Schizophrenia, unspecified (2) Noncompliance with medications: Status: Acute Code(s): Z91.148 - Patient's other noncompliance with medication regimen for other reason Plan Elderly female with a long history of schizophrenia who was admitted into the hospital for exacerbation of psychosis in the context of her lower in her Invega Sustenna that he has court order. The patient does not have any insight into her condition and she is scheduled to have her next Invega shot next week. Plan 1. Gather collateral information. 2. 15 minute checks. 3. Keep with Invega Sustenna, we will try to increased up to 230 for next week. 4. Contact outpatient providers to gather more collateral information and provide feedback of the patient's condition. Apparently her Invega Sustenna was lowered to her 3 months ago when she had decompensated. 5. Invega Sustenna 234 on November 15. 6. Discharge for next week Patient educated on: medication risk/benefits Informed Consent: does not understand Reason for continued inpatient stay Substantial Risk for: rapid decompensation Time Spent With Patient Time: Total time managing care of this patient today ____ minutes.
[2022-11-20] MEDS: Levothyroxine Sodium 50 MCG TABLET PO (06:38)
--- NOTE | 2022-11-20 10:41 | HO.PSYCHPN ---
Subjective Subjective Date of Service: 11/20/22 Reason For Visit: psychosis Subjective Notes: Conditional Voluntary Healthcare Proxy: No Guardianship: Yes (diaz order) Medical Problems Affecting Mental Status: No Interim History: Patient wanted me to buy her a diet coke, happy with her regular meal tray - Medication Compliance: No (only takes thyroid med, though did get im dec) Side effects from medications: No Attending Groups: No Review of Systems Acute medical concerns: No Medical Review of Systems: unchanged Mental Status Exam Mental Status Exam Patient Appearance: Appropriate and Unkempt (hair) Patient Orientation: Person and Situation Level of Consciousness: Awake and Appropriate Patient Behavior: Guarded and Passive Mood Description: Withdrawn Affect Description: Constricted Patient Cognition Impaired: Yes Ability to Follow Directions: Good Speech Pattern: Impoverished Hallucinations: None Delusions: Not Present Thought Process: Linear Thought Content: positive for [place] Judgement: Poor Diagnostics Vital Signs (24Hr): BMI result Body Mass Index 21.2 Labs 11/09/22 17:36 11/09/22 17:36 Medications Medications Current Medications Acetaminophen (Acetaminophen 325 Mg Tablet) 650 mg PO Q6H PRN PRN Reason: Headache/Pain Mild Scale (1-3) Al Hydroxide/Mg Hydroxide (Magnesium Hydrox/Alum Hydrox 30 Ml Oral.Susp) 30 ml PO Q6H PRN PRN Reason: Heartburn/Nausea Albuterol Sulfate (Albuterol Sulfate 90 Mcg 8 Gm Inhaler) 2 puff INHALE Q6H PRN PRN Reason: bronchospasm Amantadine HCl (Amantadine Hcl 100 Mg Capsule) 100 mg PO BID [facility] Last Admin: 11/20/22 09:14 Dose: Not Given Aspirin (Aspirin Enteric Coated 81 Mg Tablet.Dr) 81 mg PO DAILY [facility] Last Admin: 11/20/22 09:14 Dose: Not Given Fluticasone/Vilanterol (Fluticasone/Vilanterol 200/25 Blst.W.Dev) 1 puff INHALE RDAILY [facility] Last Admin: 11/20/22 09:13 Dose: Not Given Hydroxyzine HCl (Hydroxyzine Hcl 25 Mg Tablet) 25 mg PO Q6H PRN PRN Reason: Anxiety Levothyroxine Sodium (Levothyroxine Sodium 50 Mcg Tablet) 50 mcg PO DAILY@0600 [facility] Last Admin: 11/20/22 06:38 Dose: 50 mcg Magnesium Hydroxide (Milk Of Magnesia 30 Ml Oral.Susp) 30 ml PO DAILY PRN PRN Reason: Constipation Multivitamins/Vitamin C (Multivitamin Tablet) 1 tab PO DAILY [facility] Last Admin: 11/20/22 09:14 Dose: Not Given Pt Own (Umeclidinium [Incruse Ellipta] 62.5 Mcg/Actuation Blister With D 1 inhalation INHALE RDAILY [facility] Last Admin: 11/20/22 09:13 Dose: Not Given Omeprazole (Omeprazole 20 Mg Capsule.Dr) 20 mg PO DAILY@0630 [facility] Last Admin: 11/20/22 06:38 Dose: Not Given Trazodone HCl (Trazodone Hcl 50 Mg Tablet) 50 mg PO BEDTIME MRX1 PRN PRN Reason: Insomnia Vitamin D (Cholecalciferol (Vitamin D3) 25 Mcg Tablet) 50 mcg PO DAILY [facility] Last Admin: 11/20/22 09:14 Dose: Not Given Allergies Allergies Allergy/AdvReac Type Severity Reaction Status Date / Time clozapine [Clozapine] AdvReac Unknown LOW ANC Verified 11/09/22 18:20 haloperidol [From HALDOL] AdvReac Unknown TARDIVE Verified 11/09/22 18:20 DISKINESIVE Assessment & Plan Assessment & Plan (1) Schizophrenia: Status: Acute Code(s): F20.9 - Schizophrenia, unspecified Assessment and Plan: baseline disorganization (2) Noncompliance with medications: Status: Acute Code(s): Z91.148 - Patient's other noncompliance with medication regimen for other reason Plan Elderly female with a long history of schizophrenia who was admitted into the hospital for exacerbation of psychosis in the context of her lower in her Invega Sustenna that he has court order. The patient does not have any insight into her condition and she is scheduled to have her next Invega shot next week. Plan 1. Gather collateral information. 2. 15 minute checks. 3. Keep with Invega Sustenna, we will try to increased up to 230 for next week. 4. Contact outpatient providers to gather more collateral information and provide feedback of the patient's condition. Apparently her Invega Sustenna was lowered to her 3 months ago when she had decompensated. 5. Invega Sustenna 234 on November 15. 6. Discharge for next week Reason for continued inpatient stay Substantial Risk for: rapid decompensation Time Spent With Patient Time: Total time managing care of this patient today ____ minutes.
[2022-11-21] MEDS: Levothyroxine Sodium 50 MCG TABLET PO (05:59)
--- NOTE | 2022-11-21 11:03 | P.DS_ITS ---
DS: Providers Provider Date of Service: 11/21/22 Date of admission: 11/10/22 14:44 Date of discharge: 11/21/22 Primary care physician: Unknown Physician DS: Diagnosis Discharge Diagnosis (1) Schizophrenia: Status: Acute (2) Noncompliance with medications: Status: Acute DS: Medications Discharge Medications Home Medications: Home Medications Medication Instructions Recorded Confirmed mometasone-formoterol HFA 200 2 puff inhalation BID 05/02/22 11/09/22 mcg-5 mcg/actuation aerosol inhaler (Dulera) amantadine HCl 100 mg tablet 100 mg PO BID 08/05/22 11/09/22 paliperidone palmitate 156 mg/mL 156 mg IM Q30D 08/05/22 11/10/22 intramuscular syringe (Invega Sustenna) omeprazole 20 mg capsule,delayed 20 mg PO DAILY 11/09/22 11/09/22 release Previous Rx's Medication Instructions Recorded cholecalciferol (vitamin D3) 50 50 mcg PO DAILY 90 days #90 caps 12/29/21 mcg (2,000 unit) capsule multivitamin 1 tab PO DAILY 90 days #90 tabs 12/29/21 levothyroxine 50 mcg tablet 50 mcg PO QAM #30 tabs 03/31/22 aspirin 81 mg tablet,delayed 81 mg PO DAILY #30 tabs 06/11/22 release albuterol sulfate 90 mcg/actuation 2 puff inhalation Q6H PRN 07/21/22 aerosol inhaler (Ventolin HFA) bronchospasm #8.5 grams fluticasone 232 mcg-salmeterol 14 2 inh PO BID #1 ea 09/21/22 mcg/actuation breath activated powdr Incruse Ellipta 62.5 mcg/actuation 1 inh inhalation DAILY 30 days #30 09/22/22 powder for inhalation ea (umeclidinium) Mental Status Exam Mental Status Exam Patient Appearance: Well Grooomed and Appropriate Patient Orientation: Person and Situation Level of Consciousness: Awake and Appropriate Patient Behavior: Guarded and Passive Mood Description: Withdrawn Affect Description: Constricted Patient Cognition Impaired: Yes Ability to Follow Directions: Good Speech Pattern: Clear Hallucinations: None Delusions: Paranoid Ideation Thought Process: Distracted and Evasive Thought Content: positive for [place] and positive for Circumstantial Judgement: Fair DS: Summary Hospital Course Hospital Course: The patient is a 72-year-old female, resident of [facility], with a long history of schizophrenia with guardianship and role years order admitted for exacerbation of psychosis in the context of lowering his Invega Sustenna. Please see the HPI of the admission note for further details. On admission, the patient adamantly denies any psychotic symptoms, she wanted to be discharged as soon as possible. While she was in the unit she was psychotic, internally preoccupied but no evidence of violence. We review her role years order on the community and she was scheduled to have her Invega Sustenna. We increased it up to 34 mg as per the [address] order. The patient usually refused her vital signs, her medications and others but she is safe in the community and in the milieu. We contacted his [facility] staff, and since there were no safety concerns discharge planning was discussed Time spent discussing smoking cessation with patient: 3 to 10 minutes Status at Discharge Functional status at discharge: independent ambulation Overall status at discharge: patient is back to baseline Time Spent with Patient Time attestation: Total time managing care of this patient today _30___ minutes. Time spent: Less than 30 minutes Discharge Plan Discharge Anticipated Discharge Date/Time: 11/21/22 11:00 Patient Disposition: Xfer Other Discharge Diagnosis: Schizophrenia Referrals: [facility]: Dr Vega [Other] - [address] [facility] Chlorogen [Other] - 11/21/22 1:00 pm (Return to [facility]. Resume services with [facility] providers and staff. ) Dr Robertson [Other] - 12/09/22 10:30 am (Follow up with Dr. Robertson December 09, 2022 @ 1030am) Discharge Medications: New Invega Sustenna 234 mg/1.5 mL syringe 234 mg IM Q30D Qty: 1.5 0RF Rx Instructions: Next dose 12/19/2022 Continued fluticasone propion-salmeterol 232-14 mcg/actuation aerosol powdr breath activated 2 inh PO BID Qty: 1 3RF multivitamin Tablet 1 tab PO DAILY 90 Days Qty: 90 3RF amantadine HCl 100 mg tablet 100 mg PO BID 30 Days Qty: 60 0RF aspirin 81 mg tablet,delayed release (DR/EC) 81 mg PO DAILY Qty: 30 10RF levothyroxine 50 mcg tablet 50 mcg PO QAM Qty: 30 6RF omeprazole 20 mg capsule,delayed release(DR/EC) 20 mg PO DAILY 30 Days Qty: 30 0RF albuterol sulfate [Ventolin HFA] 90 mcg/actuation HFA aerosol inhaler 2 puff inhalation Q6H PRN (Reason: bronchospasm) 30 Days Qty: 8.5 6RF Rx Instructions: 2 Puffs at 8am and 8pm cholecalciferol (vitamin D3) 50 mcg (2,000 unit) capsule 50 mcg PO DAILY 90 Days Qty: 90 3RF Dulera 200-5 mcg/actuation HFA aerosol inhaler 2 puff inhalation BID Qty: 8.8 0RF Incruse Ellipta 62.5 mcg/actuation blister with device 1 inh inhalation DAILY 30 Days Qty: 30 12RF Discontinued Invega Sustenna 156 mg/mL syringe 156 mg IM Q30D Discharge Orders: Discharge Order (Routine); Ordered 11/21/22 Ordered By: Guilherme Lino Diet: Advance to usual diet Activity on Discharge: As tolerated Stand Alone Forms: Patient Portal Discharge page Care Plan Goals: Care plan goals achieved in this admission Health Concerns: Continue treatment with primary care physician and and other outpatient providers Plan of Treatment: Continue treatment as per role years order, medication management by [facility]. Assessment: Elderly female with a long history of schizophrenia, chronically in stitutionalized hook was admitted for exacerbation of psychotic symptoms in the context of lowering his Invega Sustenna that was court order. Currently stable.
== END 2022-11-21 13:09 | disposition other institution (70) | DRG 885 ==
LOC: HO.ED 22:28 → HO.PGERI 11-10 15:04
PROVIDERS: Admitting Provider Psychiatry & Neurology Psychiatry; Emergency Provider Emergency Medicine Emergency Medical Services; Visit Provider Psychiatry & Neurology Psychiatry
DX: F20.9 Schizophrenia, unspecified (principal); E03.9 Hypothyroidism, unspecified; F17.210 Nicotine dependence, cigarettes, uncomplicated; Z71.6 Tobacco abuse counseling; Z20.822 Contact with and (suspected) exposure to COVID-19; Z91.148 Patient's other noncompliance with medication regimen for other reason; Z88.8 Allergy status to other drugs, medicaments and biological substances; Z79.51 Long term (current) use of inhaled steroids; Z79.82 Long term (current) use of aspirin; Z79.890 Hormone replacement therapy; Z79.899 Other long term (current) drug therapy
CPT/HCPCS: 36415; 80053; 80307; 81001; 85025; 87635; 93005; 99285; J2426

== ENCOUNTER 2023-05-01 12:43 | Outpatient (AMB) | payer OTHER, SELFPAY ==
[2023-05-01 12:46] VITALS: BP 140/82; PULSE 89; O2SAT 84; BMI 22.0
--- NOTE | 2023-05-01 12:46 | A.OFFPC_ITS ---
Vital Signs 05/01/23 12:46 Height 5 ft 6 in Weight 136 lb 6 oz BMI 22.0 BP 140/82 H Blood Pressure Location Lt brachial Position Sitting Pulse 89 Pulse Source Pulse Oximeter Pulse Oximetry (%) 84 L Oxygen Delivery Method Room Air Intake Visit Reasons: med review/ f/u COPD Communications Project Lead Required: No Accompanied by: Self / Same As Patient Allergies clozapine [Clozapine] Adverse Reaction (Unknown, Verified 05/01/23 13:28) LOW ANC haloperidol [From HALDOL] Adverse Reaction (Unknown, Verified 05/01/23 13:28) TARDIVE DISKINESIVE Medication List - Last Reconciled 05/01/23 by Alireza Robertson MD albuterol sulfate 90 mcg/actuation (Ventolin HFA) 2 puffs inhalation Q6H PRN 30 days amantadine HCl 100 mg PO BID 30 days aspirin 81 mg PO DAILY cholecalciferol (vitamin D3) 50 mcg PO DAILY 90 days fluticasone propion-salmeterol 232-14 mcg/actuation 2 inhalations PO BID fluticasone propion-salmeterol 232-14 mcg/actuation (AirDuo RespiClick) 1 inh inhalation BID guaifenesin ER (Mucinex) 600 mg PO Q12H PRN Incruse Ellipta 62.5 mcg/actuation (umeclidinium) 1 inh inhalation DAILY 30 days NS levothyroxine 50 mcg PO QAM mometasone-formoterol 200-5 mcg/actuation (Dulera) 2 puffs inhalation BID multivitamin 1 tab PO DAILY 90 days omeprazole 20 mg PO DAILY 30 days omeprazole 20 mg PO DAILY paliperidone palmitate (Invega Sustenna) 234 mg (1.5 mL) IM Q30D Tobacco use date assessed: 05/01/23 Fall risk assessment: No Falls in past year Last assessed Fall Risk: 05/01/23 Dental Screening Dental Screen Date: 05/01/23 Did you have a dental visit in the last 12 months?: No Did you have a dental problem in the last 6 months where you did not have access to dental care?: No Was dental information given to patient?: No PFSH Medical History Acquired hypothyroidism Anxiety Benign essential hypertension COPD (chronic obstructive pulmonary disease) Gastritis Paranoid schizophrenia Polycythemia Respiratory failure with hypercapnia Smoker Surgical History No pertinent past surgical history Family History Father CVD (cardiovascular disease) Mother Medical history unknown Family/Other FH: mental illness Other Mental health problem Social History Household Members: Other Household Members Other:: Detention Housing: Other Housing Other:: Detention Do you presently have visiting nurse or other home services: No Unable to assess alcohol history related to: Unknown Alcohol intake: never Patient Tobacco Use Status: Current everyday Tobacco user Tobacco use type: Cigarette Cigarettes Per Day: 10 Second Hand Smoke Exposure: No service: No Current occupational status: disabled Sexual orientation: Straight/Heterosexual Cognitive needs: No Hearing needs: No Vision needs: No Questionnaire PHQ-9 Over the last 2 weeks, how often have you been bothered by any of the following problems? 1. Little interest or pleasure in doing things: not at all 2. Feeling down, depressed, or hopeless: not at all 3. Trouble falling or staying asleep, or sleeping too much: not at all 4. Feeling tired or having little energy: not at all 5. Poor appetite or overeating: not at all 6. Feeling bad about yourself - or that you are a failure or have let yourself or your family down: not at all 7. Trouble concentrating on things, such as reading the newspaper or watching television: not at all 8. Moving or speaking so slowly that other people could have noticed. Or the opposite - being so fidgety or restless that you have been moving around a lot more than usual: not at all 9. Thoughts that you would be better off or of hurting yourself in some way: not at all Total score: 0 Depression Screening Interpretation: Negative Depression Screening Done: Yes 10460 - PHQ-9 Billing: Yes Source: Developed by Drs. Ivan Ndiaye, Jaci Campos, Amanuel Robledo and colleagues, with an educational mehul from [employer] Thrive Questionnaire Date Thrive assessed: 05/01/23 I am a: Patient What is your living situation today?: I have a steady place to live Within the past 12 months, did the food you bought not last and you didn't have the money to get more?: Never true Within the past 12 months, did you worry whether your food would run out before you got money to buy more?: Never true Do you have trouble paying for medicines?: No Do you have trouble getting transportation to medical appointments?: No Do you have trouble paying your heating and electricity bill?: No Do you have trouble taking care of your child, family member or friend?: No Do you have trouble with day-to-day activities such as bathing, preparing meals, shopping, managing finances, etc.?: No Are you currently unemployed and looking for a job?: No Are you interested in more education?: No Please select the resources that you would like help with: None Currently or been in a relationship where the following occur: no concerns reported AUDIT C Alcohol Use Questionnaire (AUDIT-C) 1. How often do you have a drink containing alcohol?: Never 3. How often do you have six or more drinks on one occasion?: Never Total Score: 0 Score Reviewed/Action Taken: Yes YANNICK-7 AMB Questionnaire YANNICK-7 Date YANNICK - 7 assessed: 05/01/23 Feeling nervous, anxious, or on edge: 0 = Not at all Not being able to stop or control worryin = Not at all Worrying too much about different things: 0 = Not at all Trouble relaxin = Not at all Being so restless that it is hard to sit still: 0 = Not at all Becoming easily annoyed or irritable: 0 = Not at all Feeling afraid as if something awful might happen: 0 = Not at all Total YANNICK-7 score (0-4 normal; 5-9 mild; 10-14 moderate; 15-21 severe): 0 Source: Developed by Drs. Ivan Ndiaye, Jaci Campos, Amanuel Robledo and colleagues, with an educational mehul from [employer] Physical exam (Primary Care) Vital Signs: Last Vital Signs Pulse 89 05/01/23 12:46 BP 140/82 H 05/01/23 12:46 Pulse Ox 84 L 05/01/23 12:46 Oxygen Delivery Method Room Air 05/01/23 12:46 BMI result Body Mass Index 22.0 Tobacco/Smoking Status: Tobacco use Status Tobacco use date assessed 05/01/23 05/01/23 12:48 Patient Tobacco Use Status Current everyday Tobacco 05/01/23 12:48 Tobacco use type Cigarette 05/01/23 12:48 PHQ-9: PHQ-9 Score PHQ-9: Total score 0 05/01/23 12:48 Depression Screening Interpretation: Negative Thrive Assessment: Date of Thrive Assessment Date Thrive assessed 05/01/23 05/01/23 12:48 Currently or been in a relationship where the following occur: no concerns reported Assessment and Plan Assessment & Plan Orders: Orders Complete Blood Count Auto Diff 3 Months I10 - Essential (primary) hypertension Comprehensive [place]. Panel Fast 3 Months E78.00 - Pure hypercholesterolemia, unspecified Lipid Panel 3 Months E78.00 - Pure hypercholesterolemia, unspecified Thyroid Stimulating Hormone 3 Months E03.9 - Hypothyroidism, unspecified Free T4 (Free Thyroxine) 3 Months E03.9 - Hypothyroidism, unspecified Vitamin D 25-OH Total 3 Months E55.9 - Vitamin D deficiency, unspecified UA CC w/rflx Micro + Cult 3 Months R30.0 - Dysuria Referrals Ophthalmology Referral R60.0 - Localized edema Pulmonary Medicine Referral J44.9 - Chronic obstructive pulmonary disease, unspecified Medications: Refilled levothyroxine 50 mcg PO QAM 30 tabs 6RF Coding
--- NOTE | 2023-05-01 12:46 | MHC.PC.OV ---
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 Accompanied by: Self / Same As Patient Allergies clozapine [Clozapine] Adverse Reaction (Unknown, Verified 09/07/24 07:49) LOW ANC haloperidol [From HALDOL] Adverse Reaction (Unknown, Verified 09/07/24 07:49) TARDIVE DISKINESIVE Medication List - Last Reconciled 05/01/23 by Alireza Robertson MD albuterol sulfate 90 mcg/actuation (Ventolin HFA) 2 puffs inhalation Q6H PRN 30 days amantadine HCl 100 mg PO BID 30 days aspirin 81 mg PO DAILY cholecalciferol (vitamin D3) 50 mcg PO DAILY 90 days fluticasone propion-salmeterol 232-14 mcg/actuation 2 inhalations PO BID fluticasone propion-salmeterol 232-14 mcg/actuation (AirDuo RespiClick) 1 inh inhalation BID guaifenesin ER (Mucinex) 600 mg PO Q12H PRN Incruse Ellipta 62.5 mcg/actuation (umeclidinium) 1 inh inhalation DAILY 30 days NS levothyroxine 50 mcg PO QAM mometasone-formoterol 200-5 mcg/actuation (Dulera) 2 puffs inhalation BID multivitamin 1 tab PO DAILY 90 days omeprazole 20 mg PO DAILY 30 days omeprazole 20 mg PO DAILY paliperidone palmitate (Invega Sustenna) 234 mg (1.5 mL) IM Q30D Tobacco use date assessed: 05/01/23 Fall risk assessment: No Falls in past year Last assessed Fall Risk: 05/01/23 Dental Screening Dental Screen Date: 05/01/23 Did you have a dental visit in the last 12 months?: No Did you have a dental problem in the last 6 months where you did not have access to dental care?: No Was dental information given to patient?: No HPI med review/ f/u COPD HPI Details Patient comes in today for her follow-up visit States that she feels okay but is concerned about some swelling around her left eye that she states she's had for a couple of weeks now She denies any eye pain or any change in her vision lately She was admitted to the psychiatry unit at [facility] for a couple weeks back in November 2022 for psychiatric decompensation when her Invega dosage was reportedly reduced While in the unit, patient reportedly did well with no behavioral issues although she remains internally preoccupied and mostly kept to herself She was eventually discharged back to her [facility] residential program, who continues to report that she has no acute behavioral issues She is supposed to be on Invega Sustenna 234 mg IM every 30 days but she has reportedly been refusing to take her medication recently Patient denies any headaches or dizziness Denies any chest pains, no increased shortness of breath No nausea/vomiting, no abdominal pain No change in bowel habits noted Needs her Levothyroxine Rx refilled She has not had any labs done recently [facility] Medical History Breast mass, right Respiratory failure with hypercapnia Smoker Paranoid schizophrenia Anxiety Gastritis Polycythemia Acquired hypothyroidism Benign essential hypertension COPD (chronic obstructive pulmonary disease) Surgical History No pertinent past surgical history Family History Father CVD (cardiovascular disease) Mother Medical history unknown Family/Other FH: mental illness Other Mental health problem Social History (Updated 09/07/24 @ 08:08 by Alireza Robertson MD) Household Members: Other Household Members Other:: Retirement Housing: Other Housing Other:: Retirement Do you presently have visiting nurse or other home services: No Unable to assess alcohol history related to: Unknown Alcohol intake: never Comment: not used for pain Patient Tobacco Use Status: Former Tobacco user Tobacco use type: Cigarette Cigarette Packs Per Day: 0.25 Cigarettes Per Day: 5 e-Cigarette/Vaping Use: Never Used Second Hand Smoke Exposure: Yes service: No Current occupational status: disabled Sexual orientation: Straight/Heterosexual Cognitive needs: No Hearing needs: No Vision needs: No Questionnaire PHQ-9 Over the last 2 weeks, how often have you been bothered by any of the following problems? 1. Little interest or pleasure in doing things: not at all 2. Feeling down, depressed, or hopeless: not at all 3. Trouble falling or staying asleep, or sleeping too much: not at all 4. Feeling tired or having little energy: not at all 5. Poor appetite or overeating: not at all 6. Feeling bad about yourself - or that you are a failure or have let yourself or your family down: not at all 7. Trouble concentrating on things, such as reading the newspaper or watching television: not at all 8. Moving or speaking so slowly that other people could have noticed. Or the opposite - being so fidgety or restless that you have been moving around a lot more than usual: not at all 9. Thoughts that you would be better off or of hurting yourself in some way: not at all Total score: 0 Depression Screening Interpretation: Negative Depression Screening Done: Yes 63171 - PHQ-9 Billing: Yes Source: Developed by Drs. Ivan Ndiaye, Jaci Campos, Amanuel Robledo and colleagues, with an educational mehul from [employer]. Thrive Questionnaire Date Thrive assessed: 05/01/23 I am a: Patient What is your living situation today?: I have a steady place to live Within the past 12 months, did the food you bought not last and you didn't have the money to get more?: Never true Within the past 12 months, did you worry whether your food would run out before you got money to buy more?: Never true Do you have trouble paying for medicines?: No Do you have trouble getting transportation to medical appointments?: No Do you have trouble paying your heating and electricity bill?: No Do you have trouble taking care of your child, family member or friend?: No Do you have trouble with day-to-day activities such as bathing, preparing meals, shopping, managing finances, etc.?: No Are you currently unemployed and looking for a job?: No Are you interested in more education?: No Please select the resources that you would like help with: None Currently or been in a relationship where the following occur: no concerns reported AUDIT C Alcohol Use Questionnaire (AUDIT-C) 1. How often do you have a drink containing alcohol?: Never 3. How often do you have six or more drinks on one occasion?: Never Total Score: 0 Score Reviewed/Action Taken: Yes YANNICK-7 AMB Questionnaire YANNICK-7 Date YANNICK - 7 assessed: 05/01/23 Feeling nervous, anxious, or on edge: 0 = Not at all Not being able to stop or control worryin = Not at all Worrying too much about different things: 0 = Not at all Trouble relaxin = Not at all Being so restless that it is hard to sit still: 0 = Not at all Becoming easily annoyed or irritable: 0 = Not at all Feeling afraid as if something awful might happen: 0 = Not at all Total YANNICK-7 score (0-4 normal; 5-9 mild; 10-14 moderate; 15-21 severe): 0 Source: Developed by Drs. Ivan Ndiaye, Jaci Campos, Amanuel Robledo and colleagues, with an educational mehul from [employer]. Review of Systems Const Denies chills, Denies fatigue, Denies fever(s) and Denies headache(s) Eyes Details: (+) mild swelling around the left eye recently ENT Denies dysphagia, Denies dizziness, Denies otalgia, Denies headache(s), Denies neck pain, Denies odynophagia and Denies sore throat Card Denies chest pain, Denies palpitations and Reports dyspnea on exertion Resp Denies chest congestion, Reports cough (on and off, with minimal thick whitish phlegm), Denies pain on inspiration, Reports dyspnea on exertion and Denies wheezing GI Denies abdominal pain, Reports constipation (at times), Denies dysphagia, Denies heartburn, Denies diarrhea, Denies nausea, Denies odynophagia and Denies vomiting Denies difficulty voiding, Denies nocturia, Denies dysuria and Denies urinary urgency Musc Denies back pain and Denies neck pain Skin/Breast Denies rash Neuro Denies behavioral changes, Denies dizziness and Denies headache(s) Psych Reports anxiety and Denies behavioral changes Endo Denies fatigue and Denies palpitations Aller/Immun Denies wheezing Physical exam (Primary Care) Vital Signs: Last Vital Signs Pulse 89 05/01/23 12:46 BP 140/82 H 05/01/23 12:46 Pulse Ox 84 L 05/01/23 12:46 Oxygen Delivery Method Room Air 05/01/23 12:46 BMI result Body Mass Index 22.0 Tobacco/Smoking Status: Tobacco use Status Tobacco use date assessed 05/01/23 05/01/23 12:48 Patient Tobacco Use Status Current everyday Tobacco 05/01/23 12:48 Tobacco use type Cigarette 05/01/23 12:48 PHQ-9: PHQ-9 Score PHQ-9: Total score 0 05/01/23 13:24 Depression Screening Interpretation: Negative Thrive Assessment: Date of Thrive Assessment Date Thrive assessed 05/01/23 05/01/23 12:48 Currently or been in a relationship where the following occur: no concerns reported Const General: no acute distress and alert HENMT Ears: TM's normal bilaterally and EAC's normal Throat: Yes posterior oropharynx normal and Yes tonsils normal (no TP congestion noted) Eyes Other: (+) mild left periorbital edema; no tenderness noted on palpation EOM: EOMs intact bilaterally Neck Neck: Yes supple and No lymphadenopathy Thyroid: Thyroid normal Resp Auscultation: no crackles, no rales, rhonchi (scattered) upper bilaterally, no wheezes and diminished lung sounds (slightly) bilateral Cardio Rate: regular rate Rhythm: regular rhythm Heart sounds: no murmurs GI Palpation (GI): Soft to palpation and nontender Auscultation: normal bowel sounds General: Yes no CVA tenderness Back/Spine/Pelvis Back: no CVA tenderness Thoracic/Lumbar Spine: No lumbar spinal tenderness Skin Rashes: no rashes Extrem General: Yes no clubbing, cyanosis or edema Coding Level of Care Code Est Pt Level 4 (87054) Diagnoses Chronic obstructive pulmonary disease, unspecified COPD type J44.9 COPD type: unspecified COPD Benign essential hypertension I10 Acquired hypothyroidism E03.9 Periorbital edema of left eye R60.0 Polycythemia D75.1 Other hyperlipidemia E78.49 Hyperlipidemia type: other hyperlipidemia Gastritis without bleeding, unspecified chronicity, unspecified gastritis type K29.70 Gastritis type: unspecified gastritis Chronicity: unspecified Gastritis bleeding: without bleeding Vitamin D deficiency E55.9 Anxiety F41.9 Paranoid schizophrenia F20.0 Smoker F17.200
== END 2023-05-01 13:40 | disposition home or self-care (01) ==
PROVIDERS: PCP Internal Medicine; Visit Provider Internal Medicine
DX: J44.9 Chronic obstructive pulmonary disease, unspecified (principal); I10 Essential (primary) hypertension; E03.9 Hypothyroidism, unspecified; R60.0 Localized edema; D75.1 Secondary polycythemia; E78.49 Other hyperlipidemia; K29.70 Gastritis, unspecified, without bleeding; E55.9 Vitamin D deficiency, unspecified; F41.9 Anxiety disorder, unspecified; F20.0 Paranoid schizophrenia; F17.200 Nicotine dependence, unspecified, uncomplicated
CPT/HCPCS: 99499

== ENCOUNTER 2023-05-17 10:50 | Outpatient (AMB) | payer OTHER, SELFPAY ==
--- NOTE | 2023-05-17 10:52 | A.OFFVIS_ITS ---
Intake Vital Signs 05/17/23 10:54 Height 5 ft 6 in Weight 141 lb BMI 22.8 BP 122/70 Blood Pressure Location Lt brachial Position Sitting Pulse 86 Pulse Source Pulse Oximeter Pulse Oximetry (%) 92 Oxygen Delivery Method Nasal Cannula Oxygen Flow Rate 2 Intake Visit Reasons: short of breath Intake Note: pt is here for follow up and states she has some mucous in am but she drinks 2 diet cokes and this gets it all out. Smokes about 10 daily. pt was at 77 oxygen on room air when rooming pt, pt was started on 2 liters cont and O2 was brought up to 92 at rest. 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 Allergies clozapine [Clozapine] Adverse Reaction (Unknown, Verified 05/17/23 11:02) LOW ANC haloperidol [From HALDOL] Adverse Reaction (Unknown, Verified 05/17/23 11:02) TARDIVE DISKINESIVE Medication List - Last Reconciled 05/17/23 by Meryl Ashton MD albuterol sulfate 90 mcg/actuation (Ventolin HFA) 2 puffs inhalation Q6H PRN 30 days amantadine HCl 100 mg PO BID 30 days aspirin 81 mg PO DAILY cholecalciferol (vitamin D3) 50 mcg PO DAILY 90 days fluticasone propion-salmeterol 232-14 mcg/actuation 2 inhalations PO BID guaifenesin ER (Mucinex) 600 mg PO Q12H PRN Incruse Ellipta 62.5 mcg/actuation (umeclidinium) 1 inh inhalation DAILY 30 days NS levothyroxine 50 mcg PO QAM multivitamin 1 tab PO DAILY 90 days omeprazole 20 mg PO DAILY 30 days paliperidone palmitate (Invega Sustenna) 234 mg (1.5 mL) IM Q30D Do you need a note to return to daycare/school/sports/work: No HPI short of breath HPI Details This 73 years old female, has chronic mental disorder, (Schizophrenic Disorder ). Lives in a care home, . Relatively independent She is a long-time smoker, in the past has smoked 1 pack a day, since 2020 cut down to 10 cigarettes a day. She is known to have chronic obstructive pulmonary disease, with chronic respiratory failure. She is noncompliant to treatment. Supposed to use AirDuo and Incruse Ellipta daily but she has not been using. Supposed to be on oxygen but she has not agree to use it. She is brought in today for follow-up by the,[facility] , scientific programmer and the care home director. There are concerned about her well-being, and finding of low O2 sats. Bertha walked into the examination room and her O2 sat was 87% . She was put on O2 2 L/minute , which initially brought the O2 sat to 90% but then I had to increase it to 3 L/minute to keep it above 90. Bertha told me to, take away the nasal cannula from her nose, . She does not like it Yamila also told me that she is not using her respiratory inhalers. [facility] Medical History Respiratory failure with hypercapnia Smoker Paranoid schizophrenia Anxiety Gastritis Polycythemia Acquired hypothyroidism Benign essential hypertension COPD (chronic obstructive pulmonary disease) Surgical History No pertinent past surgical history Family History Father CVD (cardiovascular disease) Mother Medical history unknown Family/Other FH: mental illness Other Mental health problem Social History Household Members: Other Household Members Other:: Assisted Housing: Other Housing Other:: Assisted Do you presently have visiting nurse or other home services: No Unable to assess alcohol history related to: Unknown Alcohol intake: never Patient Tobacco Use Status: Current everyday Tobacco user Tobacco use type: Cigarette Cigarettes Per Day: 10 Second Hand Smoke Exposure: No service: No Current occupational status: disabled Sexual orientation: Straight/Heterosexual Cognitive needs: No Hearing needs: No Vision needs: No Review of Systems Const All systems reviewed & are unremarkable except as noted in HPI and below Eyes Reports no additional complaints ENT Reports no additional complaints Card Denies chest pain, Denies irregular heart rhythm and Denies leg edema Resp Reports as per HPI GI Reports no additional complaints Reports no additional complaints Musc Reports no additional complaints Skin/Breast Reports system reviewed and no additional complaints, except as documented Neuro Reports no additional complaints Psych Details: Known case of Schizophrenic disorder, but controlled and stable Physical Exam Vital Signs: Last Vital Signs Pulse 86 05/17/23 10:54 BP 122/70 05/17/23 10:54 Pulse Ox 92 05/17/23 10:54 Oxygen Delivery Method Nasal Cannula 05/17/23 10:54 Oxygen Flow Rate 2 05/17/23 10:54 BMI result Body Mass Index 22.8 Const General: comfortable, no acute distress, alert and awake Orientation/consciousness: patient oriented x3 HEENT Head: Yes normal to inspection General nose exam: No nasal polyps present and No nasal discharge present Face and sinus: Yes sinuses nontender Mouth: oropharynx normal Throat: Yes posterior oropharynx normal Eyes General: appearance normal, both eyes and all related structures Neck Neck: Yes normal visual inspection, Yes no lymphadenopathy, Yes trachea midline and Yes no JVD Thyroid: Thyroid normal Chest Chest palpation & inspection: normal inspection of the chest, normal palpation of entire chest wall and no tenderness Resp Other: Percussion note is resonant, breath sounds equal on both sides but somewhat distant with prolonged expiratory phase. A few scattered inspiratory wheezes are heard in the anterior aspect of the chest. Cardio Palpation: normal PMI Rate: regular rate Rhythm: regular rhythm Heart sounds: no gallops and no murmurs GI Palpation (GI): Soft to palpation, nontender, No hepatosplenomegaly present and no masses Auscultation: normal bowel sounds Back/Spine/Pelvis Thoracic/Lumbar Spine: thoracic and lumbar spine normal to inspection Skin General skin exam: no rashes or lesions noted Neuro General: patient oriented x3 and no focal motor deficits Cranial nerves: Yes CN's II-XII intact bilaterally Extrem General: Yes normal to inspection, Yes no clubbing, cyanosis or edema and Yes no calf tenderness Psych Mental Status: mental status grossly normal Speech and movement: Normal speech and movement present Results Reviewed Results Reviewed: O2 sat, at rest and minimal walking, 87% On O2 3 L/minute, 92% Assessment & Plan Assessment & Plan (1) Smoker: Comment: She is a long-time smoker. Claims that she has cut down to 10 CIGARETTES A DAY Counseled to quit completely but not expected in her case. I do not think we can press her any further to quit completely. * discussed about Annual Lung screening program. She will absolutely not participate in. Code(s): F17.200 - Nicotine dependence, unspecified, uncomplicated (2) COPD (chronic obstructive pulmonary disease): Comment: CHRONIC OBSTRUCTIVE PULMONARY DISEASE, DEFINITELY RELATED TO HER LONG-TIME SMOKING. TX ADVISED TO CONTINUE : [place] HFA 230-14 2 PUFFS B.I.D. INCRUSE ELLIPTA 1 INHALATION DAILY VENTOLIN HFA 2 PUFFS Q 4-6 HOURS P.R.N. ALSO ADVISED TO USE MUCINEX 600 MG B.I.D IF NEEDED Code(s): J44.9 - Chronic obstructive pulmonary disease, unspecified Qualifiers: COPD type: unspecified COPD Qualified Code(s): J44.9 - Chronic obstructive pulmonary disease, unspecified (3) Respiratory failure with hypercapnia: Comment: This patient does have hypoxemia on minimal walking . She does need to use O2, but refuses . I talked to her at length and finally told her that because her O2 sat is low she may need to be sent to the emergency room for hospitalization. At this point she agree to have oxygen at home. She also agreed that she will start using her inhalers. I had detailed discussion with the [facility] program checker and care home director. Will order a O2 concentrator for her home, to use 3 L/minutes. No portable unit is ordered at this time , she will be evaluated for that at a l ater date. RESIDENTIAL FACILITY IF THE PATIENT REMAINS NON COMPLIANT TO THE TREATMENT, THERE IS NOTHING MORE THAN, THIS THAT WE CAN DO Code(s): J96.92 - Respiratory failure, unspecified with hypercapnia (4) Schizophrenia: Comment: CASE OF CHRONIC MENTAL DISORDER, AND THAT IS WHY IT IS HARD TO EXPECT MUCH COMPLIANCE FROM HER. Code(s): F20.9 - Schizophrenia, unspecified Coding Level of Care Code Est Pt Level 4 (79463) Diagnoses Smoker F17.200 Chronic obstructive pulmonary disease, unspecified COPD type J44.9 COPD type: unspecified COPD Respiratory failure with hypercapnia J96.92 Schizophrenia F20.9
[2023-05-17 10:54] VITALS: BP 122/70; PULSE 86; O2SAT 92; BMI 22.8
== END 2023-05-17 11:36 | disposition home or self-care (01) ==
PROVIDERS: PCP Internal Medicine; Visit Provider Internal Medicine
DX: F17.200 Nicotine dependence, unspecified, uncomplicated (principal); J44.9 Chronic obstructive pulmonary disease, unspecified; J96.92 Respiratory failure, unspecified with hypercapnia; F20.9 Schizophrenia, unspecified
CPT/HCPCS: 99214

== ENCOUNTER → 2023-05-17 10:50 | Outpatient (BNVA) | payer OTHER, SELFPAY | PROVIDERS: PCP Internal Medicine; Visit Provider Internal Medicine | DX: J44.9 Chronic obstructive pulmonary disease, unspecified (principal); J96.92 Respiratory failure, unspecified with hypercapnia; F20.9 Schizophrenia, unspecified; F17.210 Nicotine dependence, cigarettes, uncomplicated | CPT/HCPCS: 99212 ==

== ENCOUNTER 2023-09-19 10:55 | Outpatient (AMB) | payer OTHER, SELFPAY ==
[2023-09-19 11:00] VITALS: BP 140/70; PULSE 81; O2SAT 90; BMI 21.9
--- NOTE | 2023-09-19 11:00 | MHC.OFFVIS ---
Intake Vital Signs 09/19/23 11:00 Height 5 ft 6 in Weight 135 lb 9.349 oz BMI 21.9 BP 140/70 H Blood Pressure Location Lt brachial Position Sitting Pulse 81 Pulse Source Pulse Oximeter Pulse Oximetry (%) 90 L Oxygen Delivery Method Room Air Intake Visit Reasons: shortness of breath Intake Note: pt is here for follow up and states she gets all the stuff out of her lungs with sometimes with diet coke. Director Of Materials Required: No Allergies clozapine [Clozapine] Adverse Reaction (Unknown, Verified 09/19/23 11:16) LOW ANC haloperidol [From HALDOL] Adverse Reaction (Unknown, Verified 09/19/23 11:16) TARDIVE DISKINESIVE Medication List - Last Reconciled 09/19/23 by Meryl Ashton MD albuterol sulfate 90 mcg/actuation (Ventolin HFA) 2 puffs inhalation Q6H PRN 30 days amantadine HCl 100 mg PO BID 30 days aspirin 81 mg PO DAILY cholecalciferol (vitamin D3) 50 mcg PO DAILY 90 days fluticasone propion-salmeterol 232-14 mcg/actuation 2 inhalations PO BID guaifenesin ER (Mucinex) 600 mg PO Q12H PRN Incruse Ellipta 62.5 mcg/actuation (umeclidinium) 1 inh inhalation DAILY 30 days NS levothyroxine 50 mcg PO QAM multivitamin 1 tab PO DAILY 90 days omeprazole 20 mg PO DAILY 30 days paliperidone palmitate (Invega Sustenna) 234 mg (1.5 mL) IM Q30D Do you need a note to return to daycare/school/sports/work: No HPI shortness of breath HPI Details 73 YEARS OLD FEMALE, A CASE OF SCHIZOPHRENIC DISORDER , LIVES AT NURSING HOME. LONG-TIME SMOKER, CURRENTLY SMOKING HALF PACK OF CIGARETTES A DAY. SHE IS BEING TREATED FOR CHRONIC OBSTRUCTIVE PULMONARY DISORDER, SHE IS SUPPOSED TO BE ON INCRUSE ELLIPTA AND ADVAIR HFA TWICE A DAY. HOWEVER SINCE HER LAST VISIT SHE HAS NOT USED ANY INHALER. THERE IS ALSO EVIDENCE OF HYPOXEMIA, WITH EXERTION AND SOMETIME EVEN AT REST. SHE HAS OXYGEN AT HOME WITH PORTABLE UNIT, BUT SINCE HER LAST VISIT SHE HAS NOT USE THE OXYGEN ALSO. THE STAFF MEMBER FROM THE NURSING HOME SAY IS THAT THEY CHECK HER O2 SATS AND THERE ALWAYS ABOVE 90%. THE PATIENT IS ADAMANT TO HAVE THE O2 APPARATUS REMOVED FROM HER ROOM . [facility] Medical History Respiratory failure with hypercapnia Smoker Paranoid schizophrenia Anxiety Gastritis Polycythemia Acquired hypothyroidism Benign essential hypertension COPD (chronic obstructive pulmonary disease) Surgical History No pertinent past surgical history Family History Father CVD (cardiovascular disease) Mother Medical history unknown Family/Other FH: mental illness Other Mental health problem Social History Household Members: Other Household Members Other:: [facility]iary Housing: Other Housing Other:: [facility]itentiary Do you presently have visiting nurse or other home services: No Unable to assess alcohol history related to: Unknown Alcohol intake: never Comment: not used for pain Patient Tobacco Use Status: Current everyday Tobacco user Tobacco use type: Cigarette Cigarettes Per Day: 10 Second Hand Smoke Exposure: No service: No Current occupational status: disabled Sexual orientation: Straight/Heterosexual Cognitive needs: No Hearing needs: No Vision needs: No Review of Systems Const All systems reviewed & are unremarkable except as noted in HPI and below Eyes Reports no additional complaints ENT Reports no additional complaints Card Denies chest pain, Denies irregular heart rhythm and Denies leg edema Resp Reports as per HPI GI Reports no additional complaints Reports no additional complaints Musc Reports no additional complaints Skin/Breast Reports system reviewed and no additional complaints, except as documented Neuro Reports no additional complaints Psych Details: Known case of Schizophrenic disorder, but controlled and stable Physical Exam Vital Signs: Last Vital Signs Pulse 81 09/19/23 11:00 BP 140/70 H 09/19/23 11:00 Pulse Ox 90 L 09/19/23 11:00 Oxygen Delivery Method Room Air 09/19/23 11:00 BMI result Body Mass Index 21.9 Const General: comfortable, no acute distress, alert and awake Orientation/consciousness: patient oriented x3 HEENT Head: Yes normal to inspection General nose exam: No nasal polyps present and No nasal discharge present Face and sinus: Yes sinuses nontender Mouth: oropharynx normal Throat: Yes posterior oropharynx normal Eyes General: appearance normal, both eyes and all related structures Neck Neck: Yes normal visual inspection, Yes no lymphadenopathy, Yes trachea midline and Yes no JVD Thyroid: Thyroid normal Chest Chest palpation & inspection: normal inspection of the chest, normal palpation of entire chest wall and no tenderness Resp Other: Percussion note is resonant, breath sounds equal on both sides but somewhat distant with prolonged expiratory phase. NO WHEEZES OR RHONCHI ARE HEARD TODAY. Cardio Palpation: normal PMI Rate: regular rate Rhythm: regular rhythm Heart sounds: no gallops and no murmurs GI Palpation (GI): Soft to palpation, nontender, No hepatosplenomegaly present and no masses Auscultation: normal bowel sounds Back/Spine/Pelvis Thoracic/Lumbar Spine: thoracic and lumbar spine normal to inspection Skin General skin exam: no rashes or lesions noted Neuro General: patient oriented x3 and no focal motor deficits Cranial nerves: Yes CN's II-XII intact bilaterally Extrem General: Yes normal to inspection, Yes no clubbing, cyanosis or edema and Yes no calf tenderness Psych Mental Status: mental status grossly normal Speech and movement: Normal speech and movement present Results Reviewed Results Reviewed: 6 MINUTES WALK Assessment & Plan Assessment & Plan (1) Schizophrenia: Comment: CASE OF CHRONIC MENTAL DISORDER, AND THAT IS WHY IT IS HARD TO EXPECT MUCH COMPLIANCE FROM HER. Code(s): F20.9 - Schizophrenia, unspecified Plan: ABOVE (2) Smoker: Comment: She is a long-time smoker. Claims that she has cut down to 10 CIGARETTES A DAY Counseled to quit completely but not expected in her case. Code(s): F17.200 - Nicotine dependence, unspecified, uncomplicated Plan: I do not think we can press her any further to quit completely. * discussed about Annual Lung screening program. She will absolutely not participate in. (3) COPD (chronic obstructive pulmonary disease): Comment: CHRONIC OBSTRUCTIVE PULMONARY DISEASE, DEFINITELY RELATED TO HER LONG-TIME SMOKING. SHE CLAIMS THAT SHE IS STAYING VERY STABLE , SHE DECLINES TO USE ANY INHALERS. ALSO ADVISED TO USE MUCINEX 600 MG B.I.D IF NEEDED Code(s): J44.9 - Chronic obstructive pulmonary disease, unspecified Qualifiers: COPD type: unspecified COPD Qualified Code(s): J44.9 - Chronic obstructive pulmonary disease, unspecified Plan: TX ADVISED TO CONTINUE : ADVAIR HFA 230-14 2 PUFFS B.I.D. INCRUSE ELLIPTA 1 INHALATION DAILY VENTOLIN HFA 2 PUFFS Q 4-6 HOURS P.R.N. MUCINEX 600 MG B.I.D. P.R.N. FOR MUCUS . * IT SHOULD BE NOTED THAT SHE DECLINED TO USE THE INHALERS. I WILL INSTRUCT THE NURSING HOME STAFF TO KEEP HER INHALERS IN A SAFE PLACE , AND SHE WOULD NEED TO USE THEM IF SHE DEVELOPS INCREASED COUGH OR WHEEZING. (4) Respiratory failure with hypercapnia: Comment: This patient does have hypoxemia on minimal walking . * TESTED AGAIN TODAY AND ON MINIMAL WALKING O2 SAT FELL DOWN TO 86%, SHE WAS STARTED ON O2 2 L/MINUTE BUT SHE PULLED IT OFF She does need to use O2, but refuses . I talked to her at length and finally told her that because her O2 sat is low she may need to be sent to the emergency room for hospitalization. I told her that I would not order to remove the O2 apparatus from her room. In case of emergency, she would need to be put on oxygen, she would be sent to the emergency room. I had detailed discussion with the [facility] program arranger and detention director. Will order a O2 concentrator for her home, to use 3 L/minutes. No portable unit is ordered at this time , she will be evaluated for that at a later date. RESIDENTIAL FACILITY IF THE PATIENT REMAINS NON COMPLIANT TO THE TREATMENT, THERE IS NOTHING MORE THAN, THIS THAT WE CAN DO Code(s): J96.92 - Respiratory failure, unspecified with hypercapnia Plan: as above Coding Level of Care Code Est Pt Level 4 (25715) Diagnoses Schizophrenia F20.9 Smoker F17.200 Chronic obstructive pulmonary disease, unspecified COPD type J44.9 COPD type: unspecified COPD Respiratory failure with hypercapnia J96.92
[2023-09-19 13:56] VITALS: PULSE 83; O2SAT 91
== END 2023-09-19 11:41 | disposition home or self-care (01) ==
PROVIDERS: PCP Internal Medicine; Visit Provider Internal Medicine
DX: F20.9 Schizophrenia, unspecified (principal); F17.200 Nicotine dependence, unspecified, uncomplicated; J44.9 Chronic obstructive pulmonary disease, unspecified; J96.92 Respiratory failure, unspecified with hypercapnia
CPT/HCPCS: 94618; 99214

== ENCOUNTER → 2023-09-19 10:55 | Outpatient (BNVA) | payer OTHER, SELFPAY | PROVIDERS: PCP Internal Medicine; Visit Provider Internal Medicine | DX: J44.9 Chronic obstructive pulmonary disease, unspecified (principal); J96.92 Respiratory failure, unspecified with hypercapnia; F20.9 Schizophrenia, unspecified; F17.210 Nicotine dependence, cigarettes, uncomplicated | CPT/HCPCS: 94618; 99212 ==

== ENCOUNTER 2023-10-30 13:25 | Outpatient (AMB) | payer OTHER, SELFPAY ==
--- NOTE | 2023-10-30 13:37 | MHC.PC.OV ---
Vital Signs 10/30/23 13:41 Height 5 ft 6 in Weight 133 lb 6 oz BMI 21.5 BP 126/78 Blood Pressure Location Rt brachial Position Sitting Pulse 73 Pulse Source Pulse Oximeter Pulse Oximetry (%) 93 Oxygen Delivery Method Room Air Intake Visit Reasons: COPD, hypothyroidism, schizophrenia Intake Note: Patient is here to follow up on COPD, Hypothyroidism, Schizophernia. It Service Manager Required: No Wet Chemistry Analyst: Not Required per policy Accompanied by: Self / Same As Patient Allergies clozapine [Clozapine] Adverse Reaction (Unknown, Verified 09/07/24 07:49) LOW ANC haloperidol [From HALDOL] Adverse Reaction (Unknown, Verified 09/07/24 07:49) TARDIVE DISKINESIVE Medication List - Last Reconciled 10/30/23 by Alireza Robertson MD albuterol sulfate 90 mcg/actuation (Ventolin HFA) 2 puffs inhalation Q6H PRN 30 days amantadine HCl 100 mg PO BID 30 days aspirin 81 mg PO DAILY cholecalciferol (vitamin D3) 50 mcg PO DAILY 90 days fluticasone propion-salmeterol 232-14 mcg/actuation 2 inhalations PO BID guaifenesin ER (Mucinex) 600 mg PO Q12H PRN Incruse Ellipta 62.5 mcg/actuation (umeclidinium) 1 inh inhalation DAILY 30 days NS levothyroxine 50 mcg PO QAM multivitamin 1 tab PO DAILY 90 days paliperidone palmitate (Invega Sustenna) 234 mg (1.5 mL) IM Q30D Tobacco use date assessed: 10/30/23 Fall risk assessment: No Falls in past year Last assessed Fall Risk: 10/30/23 Dental Screening Dental Screen Date: 10/30/23 Did you have a dental visit in the last 12 months?: No Did you have a dental problem in the last 6 months where you did not have access to dental care?: No Was dental information given to patient?: No HPI COPD, hypothyroidism, schizophrenia HPI Details Patient comes in today for her follow-up visit States that she currently feels okay She denies any headaches or dizziness Denies any chest pains, no increased shortness of breath although she is noticed to be dyspneic slightly when she is talking No nausea/vomiting, no abdominal pain No change in bowel habits noted She was apparently seen by Pulmonary for follow-up last month and she continues to decline using any inhalers and refuses to use her oxygen - claims that she feels fine and does not need these even though she was noted to be hypoxemic during her evaluation Patient also has not had any follow-up labs done since April 2022 [facility] Medical History Breast mass, right Respiratory failure with hypercapnia Smoker Paranoid schizophrenia Anxiety Gastritis Polycythemia Acquired hypothyroidism Benign essential hypertension COPD (chronic obstructive pulmonary disease) Surgical History No pertinent past surgical history Family History Father CVD (cardiovascular disease) Mother Medical history unknown Family/Other FH: mental illness Other Mental health problem Social History (Updated 09/07/24 @ 08:08 by Alireza Robertson MD) Household Members: Other Household Members Other:: Long-Term Housing: Other Housing Other:: Long-Term Do you presently have visiting nurse or other home services: No Unable to assess alcohol history related to: Unknown Alcohol intake: never Comment: not used for pain Patient Tobacco Use Status: Former Tobacco user Tobacco use type: Cigarette Cigarette Packs Per Day: 0.25 Cigarettes Per Day: 5 e-Cigarette/Vaping Use: Never Used Second Hand Smoke Exposure: Yes service: No Current occupational status: disabled Sexual orientation: Straight/Heterosexual Cognitive needs: No Hearing needs: No Vision needs: No Questionnaire PHQ-9 Over the last 2 weeks, how often have you been bothered by any of the following problems? 1. Little interest or pleasure in doing things: not at all 2. Feeling down, depressed, or hopeless: not at all 3. Trouble falling or staying asleep, or sleeping too much: not at all 4. Feeling tired or having little energy: not at all 5. Poor appetite or overeating: not at all 6. Feeling bad about yourself - or that you are a failure or have let yourself or your family down: not at all 7. Trouble concentrating on things, such as reading the newspaper or watching television: not at all 8. Moving or speaking so slowly that other people could have noticed. Or the opposite - being so fidgety or restless that you have been moving around a lot more than usual: not at all 9. Thoughts that you would be better off or of hurting yourself in some way: not at all Total score: 0 Depression Screening Interpretation: Negative Depression Screening Done: Yes 52522 - PHQ-9 Billing: Yes Source: Developed by Drs. Ivan Ndiaye, Jaci Campos, Amanuel Robledo and colleagues, with an educational mehul from [employer]. Thrive Questionnaire Date Thrive assessed: 10/30/23 I am a: Patient What is your living situation today?: I have a steady place to live Within the past 12 months, did the food you bought not last and you didn't have the money to get more?: Never true Within the past 12 months, did you worry whether your food would run out before you got money to buy more?: Never true Do you have trouble paying for medicines?: No Do you have trouble getting transportation to medical appointments?: No Do you have trouble paying your heating and electricity bill?: No Do you have trouble taking care of your child, family member or friend?: No Do you have trouble with day-to-day activities such as bathing, preparing meals, shopping, managing finances, etc.?: No Are you currently unemployed and looking for a job?: No Are you interested in more education?: No Currently or been in a relationship where the following occur: no concerns reported THRIVE Score: 0 AUDIT C Alcohol Use Questionnaire (AUDIT-C) 1. How often do you have a drink containing alcohol?: Never Total Score: 0 Score Reviewed/Action Taken: Yes YANNICK-7 AMB Questionnaire YANNICK-7 Date YANNICK - 7 assessed: 10/30/23 Feeling nervous, anxious, or on edge: 0 = Not at all Not being able to stop or control worryin = Not at all Worrying too much about different things: 0 = Not at all Trouble relaxin = Not at all Being so restless that it is hard to sit still: 0 = Not at all Becoming easily annoyed or irritable: 0 = Not at all Feeling afraid as if something awful might happen: 0 = Not at all Total YANNICK-7 score (0-4 normal; 5-9 mild; 10-14 moderate; 15-21 severe): 0 Source: Developed by Drs. Ivan Ndiaye, Jaci Campos, Amanuel Robledo and colleagues, with an educational mehul from [employer]. Review of Systems Const Denies chills, Denies fatigue, Denies fever(s) and Denies headache(s) ENT Denies dysphagia, Denies dizziness, Denies otalgia, Denies headache(s), Denies neck pain, Denies odynophagia and Denies sore throat Card Denies chest pain, Denies palpitations and Reports dyspnea on exertion Resp Denies chest congestion, Reports cough (on and off, with minimal thick whitish phlegm), Reports dyspnea on exertion and Denies wheezing GI Denies abdominal pain, Denies constipation, Denies dysphagia, Denies heartburn, Denies diarrhea, Denies nausea, Denies odynophagia and Denies vomiting Denies difficulty voiding, Denies nocturia, Denies dysuria and Denies urinary urgency Musc Denies back pain and Denies neck pain Skin/Breast Denies rash Neuro Denies dizziness and Denies headache(s) Psych Reports anxiety Endo Denies fatigue and Denies palpitations Aller/Immun Denies wheezing Physical exam (Primary Care) Vital Signs: Last Vital Signs Pulse 73 10/30/23 13:41 BP 126/78 10/30/23 13:41 Pulse Ox 93 10/30/23 13:41 Oxygen Delivery Method Room Air 10/30/23 13:41 BMI result Body Mass Index 21.5 Tobacco/Smoking Status: Tobacco use Status Tobacco use date assessed 10/30/23 10/30/23 13:47 Patient Tobacco Use Status Current everyday Tobacco 10/30/23 13:47 Tobacco use type Cigarette 10/30/23 13:47 e-Cigarette/Vaping Use Never Used 10/30/23 13:47 PHQ-9: PHQ-9 Score PHQ-9: Total score 0 10/30/23 14:28 Depression Screening Interpretation: Negative Thrive Assessment: Date of Thrive Assessment Date Thrive assessed 10/30/23 10/30/23 13:47 Currently or been in a relationship where the following occur: no concerns reported Const General: no acute distress and alert HENMT Ears: TM's normal bilaterally and EAC's normal Throat: Yes posterior oropharynx normal and Yes tonsils normal (no TP congestion noted) Neck Neck: Yes supple and No lymphadenopathy Thyroid: Thyroid normal Resp Auscultation: no crackles, no rales, rhonchi (scattered) throughout, no wheezes and diminished lung sounds (significantly) bilateral Cardio Rate: regular rate Rhythm: regular rhythm Heart sounds: no murmurs GI Palpation (GI): Soft to palpation and nontender Auscultation: normal bowel sounds General: Yes no CVA tenderness Back/Spine/Pelvis Back: no CVA tenderness Thoracic/Lumbar Spine: No lumbar spinal tenderness Skin Rashes: no rashes Extrem General: Yes no clubbing, cyanosis or edema Coding Level of Care Code Est Pt Level 4 (52796) Diagnoses Chronic obstructive pulmonary disease, unspecified COPD type J44.9 COPD type: unspecified COPD Benign essential hypertension I10 Acquired hypothyroidism E03.9 Polycythemia D75.1 Other hyperlipidemia E78.49 Hyperlipidemia type: other hyperlipidemia Gastritis without bleeding, unspecified chronicity, unspecified gastritis type K29.70 Gastritis type: unspecified gastritis Chronicity: unspecified Gastritis bleeding: without bleeding Vitamin D deficiency E55.9 Anxiety F41.9 Paranoid schizophrenia F20.0 Smoker F17.200
[2023-10-30 13:41] VITALS: BP 126/78; PULSE 73; O2SAT 93; BMI 21.5
== END 2023-10-30 14:29 | disposition home or self-care (01) ==
LOC: HO.HMGH 13:30
PROVIDERS: PCP Internal Medicine; Visit Provider Internal Medicine
DX: J44.9 Chronic obstructive pulmonary disease, unspecified (principal); I10 Essential (primary) hypertension; E03.9 Hypothyroidism, unspecified; D75.1 Secondary polycythemia; E78.49 Other hyperlipidemia; K29.70 Gastritis, unspecified, without bleeding; E55.9 Vitamin D deficiency, unspecified; F41.9 Anxiety disorder, unspecified; F20.0 Paranoid schizophrenia; F17.200 Nicotine dependence, unspecified, uncomplicated
CPT/HCPCS: 99499

== ENCOUNTER 2024-02-06 10:11 | Outpatient (AMB) | payer OTHER, SELFPAY ==
--- NOTE | 2024-02-06 10:21 | A.OFFVIS_ITS ---
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5 mcg/actuation (umeclidinium) 1 inh inhalation DAILY 30 days NS levothyroxine 50 mcg PO QAM multivitamin 1 tab PO DAILY 90 days paliperidone palmitate (Invega Sustenna) 234 mg (1.5 mL) IM Q30D Do you need a note to return to daycare/school/sports/work: No HPI HPI Shortness of breath: Details: This 73 years old lady lives in a senior living and she has chronic Schizophrenic disorder . She is lifelong smoker, has severe obstructive airway disorder, has been on medications in the past including Incruse Ellipta as well as Advair HFA 2 puffs b.i.d., . And Ventolin p.r.n. Since her last visit , she has stopped using her inhalers, and claims that she is breathing okay. She still has intermittent cough, no wheezing, she does not walk around much anyway. She does have O2 concentrator but she is not using oxygen. When I talked to her about lung screening she said she does not care. [facility] Medical History Respiratory failure with hypercapnia Smoker Paranoid schizophrenia Anxiety Gastritis Polycythemia Acquired hypothyroidism Benign essential hypertension COPD (chronic obstructive pulmonary disease) Surgical History No pertinent past surgical history Family History Father CVD (cardiovascular disease) Mother Medical history unknown Family/Other FH: mental illness Other Mental health problem Social History Household Members: Other Household Members Other:: [facility] Housing: Other Housing Other:: [facility] Do you presently have visiting nurse or other home services: No Unable to assess alcohol history related to: Unknown Alcohol intake: never Comment: not used for pain Patient Tobacco Use Status: Current everyday Tobacco user Tobacco use type: Cigarette Cigarette Packs Per Day: 0.25 Cigarettes Per Day: 5 e-Cigarette/Vaping Use: Never Used Second Hand Smoke Exposure: Yes service: No Current occupational status: disabled Sexual orientation: Straight/Heterosexual Cognitive needs: No Hearing needs: No Vision needs: No Review of Systems Const All systems reviewed & are unremarkable except as noted in HPI and below Eyes Reports no additional complaints ENT Reports no additional complaints Card Denies chest pain, Denies irregular heart rhythm and Denies leg edema Resp Reports as per HPI GI Reports no additional complaints Reports no additional complaints Musc Reports no additional complaints Skin/Breast Reports system reviewed and no additional complaints, except as documented Neuro Reports no additional complaints Psych Details: Known case of Schizophrenic disorder, but controlled and stable Physical Exam Vital Signs: Last Vital Signs Pulse 82 02/06/24 10:22 BP 142/70 H 02/06/24 10:22 Pulse Ox 93 02/06/24 10:22 Oxygen Delivery Method Room Air 02/06/24 10:22 BMI result Body Mass Index 21.3 Const General: comfortable, no acute distress, alert and awake Orientation/consciousness: patient oriented x3 HEENT Head: Yes normal to inspection General nose exam: No nasal polyps present and No nasal discharge present Face and sinus: Yes sinuses nontender Mouth: oropharynx normal Throat: Yes posterior oropharynx normal Eyes General: appearance normal, both eyes and all related structures Neck Neck: Yes normal visual inspection, Yes no lymphadenopathy, Yes trachea midline and Yes no JVD Thyroid: Thyroid normal Chest Chest palpation & inspection: normal inspection of the chest, normal palpation of entire chest wall and no tenderness Resp Other: Percussion note is resonant, breath sounds equal on both sides but somewhat distant with prolonged expiratory phase. No wheezes rhonchi or crepitations are heard . Cardio Palpation: normal PMI Rate: regular rate Rhythm: regular rhythm Heart sounds: no gallops and no murmurs GI Palpation (GI): Soft to palpation, nontender, No hepatosplenomegaly present and no masses Auscultation: normal bowel sounds Back/Spine/Pelvis Thoracic/Lumbar Spine: thoracic and lumbar spine normal to inspection Skin General skin exam: no rashes or lesions noted Neuro General: patient oriented x3 and no focal motor deficits Cranial nerves: Yes CN's II-XII intact bilaterally Extrem General: Yes normal to inspection, Yes no clubbing, cyanosis or edema and Yes no calf tenderness Psych Mental Status: mental status grossly normal Speech and movement: Normal speech and movement present Affect: Anxious affect present Assessment & Plan Assessment & Plan (1) Schizophrenia: Comment: CASE OF CHRONIC MENTAL DISORDER, AND THAT IS WHY IT IS HARD TO EXPECT MUCH COMPLIANCE FROM HER. Code(s): F20.9 - Schizophrenia, unspecified Category: Medical Plan: Try to talk to her about resuming her regular medications but she does not want to use any inhalers. (2) Smoker: Comment: She is a long-time smoker. Claims that she has cut down to 10 CIGARETTES A DAY Code(s): F17.200 - Nicotine dependence, unspecified, uncomplicated Category: Social Hx Plan: Counseled to quit completely but not expected in her case. But she would not comply , and plans to continue smoking half pack a day. (3) Polycythemia: Comment: She has mild polycythemia, Hct 49.8. It is secondary to smoking . Code(s): D75.1 - Secondary polycythemia Category: Medical Plan: No specific treatment needed at this time (4) COPD (chronic obstructive pulmonary disease): Comment: CHRONIC OBSTRUCTIVE PULMONARY DISEASE, DEFINITELY RELATED TO HER LONG-TIME SMOKING. SHE CLAIMS THAT SHE IS STAYING VERY STABLE , SHE DECLINES TO USE ANY INHALERS. Code(s): J44.9 - Chronic obstructive pulmonary disease, unspecified Category: Medical Qualifiers: COPD type: unspecified COPD Qualified Code(s): J44.9 - Chronic obstructive pulmonary disease, unspecified Plan: Advise that she should use the inhalers at least when she becomes symptomatic with cough wheezing or increased shortness of breath Use Mucinex 600 mg b.i.d. p.r.n. if there is increased mucus. Again patient is not willing to comply with any medical treatment Coding Level of Care Code Est Pt Level 3 (27408) Diagnoses Schizophrenia F20.9 Smoker F17.200 Polycythemia D75.1 Chronic obstructive pulmonary disease, unspecified COPD type J44.9 COPD type: unspecified COPD
[2024-02-06 10:22] VITALS: BP 142/70; PULSE 82; O2SAT 93; BMI 21.3
== END 2024-02-06 10:42 | disposition home or self-care (01) ==
PROVIDERS: PCP Internal Medicine; Visit Provider Internal Medicine
DX: F20.9 Schizophrenia, unspecified (principal); F17.200 Nicotine dependence, unspecified, uncomplicated; D75.1 Secondary polycythemia; J44.9 Chronic obstructive pulmonary disease, unspecified
CPT/HCPCS: 99213

== ENCOUNTER → 2024-02-06 10:11 | Outpatient (BNVA) | payer OTHER, SELFPAY | PROVIDERS: PCP Internal Medicine; Visit Provider Internal Medicine | DX: J44.9 Chronic obstructive pulmonary disease, unspecified (principal); D75.1 Secondary polycythemia; F20.9 Schizophrenia, unspecified; F17.210 Nicotine dependence, cigarettes, uncomplicated; Z99.81 Dependence on supplemental oxygen; Z91.199 Patient's noncompliance with other medical treatment and regimen due to unspecified reason | CPT/HCPCS: 99212 ==

== ENCOUNTER 2024-07-17 13:16 | Inpatient (IN) | payer OTHER, SELFPAY ==
[2024-07-17] VITALS (12 sets, daily range): BP systolic 137–160; BP diastolic 53–80; PULSE 68–91; RESP 14–22; TEMP 36.6–36.7; O2SAT 85–97; BMI 27.1
--- NOTE | ~2024-07-17 | XR_ITS ---
EXAMINATION: XR CHEST 1 VIEW HISTORY: cough COMPARISON: Comparison is made with the prior examination dated 10/08/2020. FINDINGS: A single AP portable view of the chest performed at 1:54 PM is submitted. The patient is rotated to the left. Again seen is opacification of the left lung base without change, previously shown to represent lingular atelectasis. There are increased interstitial markings in the right lung, likely unchanged. There is no pleural effusion, pneumothorax, or pulmonary vascular congestion. The heart is normal in size. The aorta is calcified. There is degenerative disc disease of the spine. XR/XR chest 1V IMPRESSION: Chronic changes at the left lung base. Increased interstitial markings. No focal airspace opacity is identified. Electronically signed by: Ivan Davila MD 07/17/2024 02:46 PM LUIZ
--- NOTE | ~2024-07-17 | CT_ITS ---
CLINICAL HISTORY: hypoxia unclear etiology CT chest without contrast Comparison: CT/REG - CT ANGIO CHEST PE PROTOCOL - 10/09/20 12:21 EDT Findings: Mildly enlarged heart. Small pericardial effusion. 15 mm peripherally calcified nodule within the right lobe of the thyroid gland without change. No significant mediastinal abnormality. Prior cholecystectomy. Partial visualization of a calcification within the right kidney, likely parenchymal. There is narrowing of the origins of the lingular and left lower lobe bronchi with possible foci of occlusion. Consolidation and volume loss involving portions of both the lingula and left lower lobe, compatible with pneumonia, possibly postobstructive. Small loculated left-sided pleural effusion. Trace right pleural effusion. Two adjacent nodular foci within the posterior aspect of the right lower lobe on image 37. Similar appearance to the prior study. Partial visualization of a calcification associated with the right kidney, likely parenchymal. Prior cholecystectomy. No acute fractures. IMPRESSION: 1. There is a 5 cm lobulated mass within the lateral right breast with extension to the skin surface, significantly increased in size since the prior study. The appearance is highly suggestive of neoplasm. Recommend mammography and ultrasound correlation. 2. There is narrowing of the origins of the lingular and left lower lobe bronchi with possible foci of occlusion. Consolidation and volume loss involving portions of both the lingula and left lower lobe, compatible with pneumonia, possibly postobstructive. Consider further evaluation with bronchoscopy. 3. Small loculated left-sided pleural effusion. Trace right pleural effusion.Small pericardial effusion. This document has been electronically signed by: Nakia Bhardwaj MD on 07/21/2024 15:05:09
--- NOTE | ~2024-07-17 | XR_ITS ---
CLINICAL HISTORY: sob 1 view chest x-ray Comparison: 07/17/2024 Findings: Portions of the exam are obscured by overlying material. The overall appearance of the chest including consolidation in the left lung and possible loculated left pleural effusion, are unchanged. IMPRESSION: 1. No significant change from prior study. This document has been electronically signed by: Dre Hernandez MD on 07/21/2024 12:38:51
[2024-07-17 14:07] LABS: MANUAL DIFF FLAG NO
[2024-07-17 14:10] LABS: Basophils Absolute Auto 0.1 X10*3/uL (0.0-0.2); Basophils Percent Auto 0.6 % (0-2); Eosinophils Percent Auto 0.3 % (0-4); Hematocrit 43.5 % (37.0-47.0); Hemoglobin 13.8 g/dl (12.0-16.0); Imm Gran Abs Auto 0.17 X10*3/uL (0.00-0.03); Imm Gran Pct Auto 1.5 % (0.0-0.4); Lymphocytes Absolute Auto 1.8 X10*3/uL (1.2-4.9); Lymphocytes Percent Auto 16.5 % (20-40); Mean Corpuscular HGB Conc 31.7 g/dl (31.0-35.0); Mean Corpuscular Volume 91.4 fL (80.0-98.0); Mean Platelet Volume 9.1 fL (9.4-12.3); Monocytes Absolute Auto 0.9 X10*3/uL (0.1-1.2); Monocytes Percent Auto 7.9 % (2-11); NRBC Pct Auto 0.2 /100WBC (0.0-0.2); Neutrophils Absolute Auto 8.1 x10*3/uL (2.0-8.3); Neutrophils Percent Auto 73.2 % (45-73); Platelet Count 298 X10*3/uL (160-400); Red Blood Count 4.76 X10*6/uL (4.20-5.50); Red Cell Distribution Width 14.1 % (11.0-16.0); White Blood Count 11.1 X10*3/uL (4.8-10.8)
--- NOTE | 2024-07-17 14:25 | ED.SOB ---
HPI - SOB/Dyspnea General Chief Complaint: Dyspnea Stated Complaint: SOB,COUGH FROM CARE HOME PER EMS Time Seen by Provider: 07/17/24 14:10 Source: patient Mode of arrival: EMS Limitations: no limitations History of Present Illness ED Provider: Dr. Steve Duff HPI Narrative: 74-year-old female with a history of hypertension, hyperlipidemia, asthma, COPD not on oxygen, schizophrenia, hypothyroidism who presents emergency department for evaluation of cough and shortness of breath x1 week. The patient states she was a cough which is productive of white phlegm. She states she has been sneezing frequently over the past week. She states that over the last 2 days she has had increased shortness of breath as well as increased dyspnea on exertion. She states that this morning she was feeling more short of breath and her O2 saturation is usually 94-97% and it was 71% on room air. She states that her O2 saturation yesterday was 94% on room air. She does not wear oxygen at home. Patient was brought to emergency department by ambulance. In the emergency department her O2 saturation was 85% on room air and on 3 L her O2 saturation is 92%. The patient denied fever but states she did have chills. She denied nausea, vomiting, diarrhea, myalgias arthralgias. Related Data Home Medications ?Medication ?Instructions ?Recorded ?Confirmed guaifenesin 600 mg tablet, 600 mg PO Q12H PRN 05/01/23 02/06/24 extended release 12 hr (Mucinex) Previous Rx's ?Medication ?Instructions ?Recorded fluticasone 232 mcg-salmeterol 14 2 inh PO BID #1 ea 09/21/22 mcg/actuation breath activated powdr Incruse Ellipta 62.5 mcg/actuation 1 inh inhalation DAILY 30 days #30 11/21/22 powder for inhalation ea (umeclidinium) amantadine HCl 100 mg tablet 100 mg PO BID 30 days #60 tabs 11/21/22 aspirin 81 mg tablet,delayed 81 mg PO DAILY #30 tabs 11/21/22 release cholecalciferol (vitamin D3) 50 50 mcg PO DAILY 90 days #90 caps 11/21/22 mcg (2,000 unit) capsule multivitamin 1 tab PO DAILY 90 days #90 tabs 11/21/22 paliperidone palmitate 234 mg/1.5 234 mg (1.5 mL) IM Q30D #1.5 mL 11/21/22 mL intramuscular syringe (Invega Sustenna) levothyroxine 50 mcg tablet 50 mcg PO QAM #30 tabs 03/11/24 albuterol sulfate 90 mcg/actuation 2 puff inhalation Q6H PRN 05/08/24 aerosol inhaler (Ventolin HFA) bronchospasm 30 days #8.5 grams Allergies Allergy/AdvReac Type Severity Reaction Status Date / Time clozapine [Clozapine] AdvReac Unknown LOW ANC Verified 07/17/24 13:40 haloperidol [From HALDOL] AdvReac Unknown TARDIVE Verified 07/17/24 13:40 DISKINESIVE Review of Systems Review of Systems: Yes all other systems are reviewed and are negative [facility] Past Medical History Medical History Respiratory failure with hypercapnia Smoker Paranoid schizophrenia Anxiety Gastritis Polycythemia Acquired hypothyroidism Benign essential hypertension COPD (chronic obstructive pulmonary disease) Surgical History No pertinent past surgical history Family History Family History Father CVD (cardiovascular disease) Mother Medical history unknown Family/Other FH: mental illness Other Mental health problem Social History Social History Household Members: Other Household Members Other:: [facility] Housing: Other Housing Other:: [facility] Do you presently have visiting nurse or other home services: No Unable to assess alcohol history related to: Unknown Alcohol intake: never Comment: not used for pain Patient Tobacco Use Status: Current everyday Tobacco user Tobacco use type: Cigarette Cigarette Packs Per Day: 0.25 Cigarettes Per Day: 5 Smoked in Last 30 Days: Yes e-Cigarette/Vaping Use: Never Used Second Hand Smoke Exposure: Yes Advance Directives: No Advance Directives Information Provided: Yes Do you have a plan to hurt others: No Plan service: No Current occupational status: disabled Sexual orientation: Straight/Heterosexual Cognitive needs: No Hearing needs: No Vision needs: No Physical Exam Vital Signs: Vital Signs: Last Vital Signs Temp 98.0 F 07/17/24 13:39 Pulse 71 07/17/24 14:37 Resp 14 07/17/24 14:37 BP 137/64 07/17/24 13:39 Pulse Ox 92 07/17/24 13:47 O2 Del Method Nasal Cannula 07/17/24 13:47 O2 Flow Rate 3 07/17/24 13:47 BMI result Body Mass Index 27.1 Patient's vital signs revealed an elevated respiratory rate of 22, O2 saturation was 92% on 3 L of oxygen via nasal 5% on room air. Exam: General: Awake, alert in no distress Head: Normocephalic, atraumatic EENT: PERRL, Lids normal, sclera normal, conjunctiva normal, nose normal , ears normal, throat without erythema or exudates Neck: Supple, no adenopathy Lung: Patient had wheezing at the end of expiration, rales at the bases and diffuse rhonchi Chest: symmetric movement, nontender Heart: regular rate and rhythm, normal S1, S2 no murmurs or rubs Abdomen: soft, non-tender, nondistended, normal bowel sounds Back: no vertebral tenderness, no CVAT Extremities: no deformities, moves all extremities symmetrically, patient has 1+ pitting edema in both lower extremities Neuro: Awake, alert, oriented, normal speech, cranial nerves intact, moves all extremities symmetrically Psych: Pleasant, cooperative Medications Administered Discontinued Medications Generic Name Dose Route Start Last Admin Trade Name Freq PRN Reason Stop Dose Admin Albuterol Sulfate 5 mg/ 0 mg 07/17/24 14:28 07/17/24 14:34 Albuterol/Ipratropium 3 ml INHALE 07/17/24 14:29 7.5 each ONCE ONE Administration Furosemide 40 mg 07/17/24 14:45 07/17/24 15:02 Furosemide 40 Mg/4 Ml Vial IVPUSH 07/17/24 14:46 40 mg ONCE ONE Administration Protocol Medical Decision Making Medical Decision Making MDM Narrative: 74-year-old female with a history of hypertension, hyperlipidemia, asthma, COPD not on oxygen, schizophrenia, hypothyroidism who presents emergency department for evaluation of a productive cough and shortness of breath x1 week with increased dyspnea on exertion over the past 2 days which was worse this morning. She checked her O2 saturation at home and it was 71% on room air, patient was not wear oxygen. ED O2 saturation was 85% on room air and 92% on 3 L of oxygen via nasal cannula. Lung exam revealed wheezing rales and rhonchi. Patient was 2+ pitting edema in her lower extremities 14:40 Differential diagnosis: ?Includes but is not limited to pneumonia, bronchitis, congestive heart failure, anemia, electrolyte abnormalities Course: 14:40 My independent interpretation the patient's laboratory evaluation is as follows: WBC was elevated 11,100, 73 neutrophils and no bands. BNP was elevated 200. Serum bicarb was elevated 35, glucose elevated 120. Troponin was detectable but not elevated at 13. Repeat troponin due at 17:45 hours. My interpretation of the patient's one-view chest x-ray x-ray revealed elevated left elevated hemidiaphragm with small pleural effusion and increased interstitial infiltrates bilaterally consistent with congestive heart failure. Compared to a chest x-ray dated 10/08/2020 the elevated hemidiaphragm interstitial markings is new as well. Given the chest x-ray result in the elevated BNP, the patient's presentation is most consistent with congestive heart failure. I ordered Lasix 40 mg IV. He was also given albuterol 7.5 mg and ipratropium 0.5 mg nebulizer x1. 16:15 Patient diuresed 650 cc of urine. She states she was feeling better. Her lung exam revealed wheezing and I ordered an albuterol nebulizer 5 mg IV. Patient was also ordered to get Solu-Medrol 125 mg IV. At this time I think that the patient's hypoxia secondary to pulmonary edema and COPD exacerbation. I do not think that she has an infectious process and I do not think that she needs an antibiotic. Patient's presentation was discussed over tiger text with the covering hospitalist, Dr. Otoole and the patient will be admitted for further treatment. Admission/Observation Consideration of admission/observation: Escalation of care including admission/observation considered (Yes) Consult Healthcare Provider Management of the patient was discussed with: Hospitalist Lab Data [facility] [place] Lab Attestation statement: I reviewed the patient's lab results. 07/17/24 14:00 07/17/24 14:46 Labs: Lab Results 07/17/24 07/17/24 Range/Units 14:00 14:46 WBC 11.1 H (4.8-10.8) X10*3/uL RBC 4.76 (4.20-5.50) X10*6/uL Hgb 13.8 (12.0-16.0) g/dl Hct 43.5 (37.0-47.0) % MCV 91.4 (80.0-98.0) fL MCH 29.0 (27.0-33.0) pg MCHC 31.7 (31.0-35.0) g/dl RDW 14.1 (11.0-16.0) % Plt Count 298 (160-400) X10*3/uL MPV 9.1 L (9.4-12.3) fL Immature Gran % (Auto) 1.5 H (0.0-0.4) % Neut % (Auto) 73.2 H (45-73) % Lymph % (Auto) 16.5 L (20-40) % Bradley % (Auto) 7.9 (2-11) % Eos % (Auto) 0.3 (0-4) % Baso % (Auto) 0.6 (0-2) % Lymph # (Auto) 1.8 (1.2-4.9) X10*3/uL Bradley # (Auto) 0.9 (0.1-1.2) X10*3/uL Eos # (Auto) 0.0 (0.0-0.4) X10*3/uL Baso # (Auto) 0.1 (0.0-0.2) X10*3/uL Abs Immat Gran (auto) 0.17 H (0.00-0.03) X10*3/uL Absolute Neuts (auto) 8.1 (2.0-8.3) x10*3/uL Absolute Nucleated RBC 0.020 H (0.0-0.012) X10*3/uL Nucleated RBC % (auto) 0.2 (0.0-0.2) /100WBC Hold Blue Top SEE NOTE Sodium 141 (135-145) mmol/L Potassium 4.0 (3.3-5.1) mmol/L Chloride 99 (96-108) mmol/L Carbon Dioxide 35 H (22-29) mmol/L Anion Gap 11 L (12-20) BUN 10 (9-16) mg/dL Creatinine 0.63 (0.5-1.4) mg/dL Estim Creat Clear Calc 80.4 Estimated GFR > 60 Random Glucose 120 H (60-115) mg/dL Calcium 8.9 D (8.4-10.2) mg/dL Total Bilirubin 0.4 (0.0-1.0) mg/dL AST 17 (5-31) U/L ALT 7 (0-31) U/L Alkaline Phosphatase 77 (39-117) U/L Troponin I High Sens 13.0 (<3.5-17.0) ng/L B-Natriuretic Peptide 200 H (<100) pg/mL Total Protein 6.2 L (6.5-8.0) g/dL Albumin 3.3 L (3.5-5.0) g/dL Influenza Type A (PCR) NEGATIVE (Negative) Influenza Type B (PCR) NEGATIVE (Negative) RSV RNA Qual (PCR) NEGATIVE (Negative) SARS-CoV-2 RNA (RT-PCR) NEGATIVE (Negative) Independent Interpretation I performed an independent interpretation of an: Plain X-Ray Interpretation: Interpretation patient's one-view chest x-ray is as follows: Increased interstitial markings with elevated left hemidiaphragm which is chronic with possible small pleural effusion on the left consistent with congestive heart failure. My independent interpretation patient's 12 EKG done at 15:09 hours is as follows: Artifact in baseline which makes EKG difficult to interpret. Patient has a sinus rhythm with a rate of 82, normal CA interval, QRS duration QTC interval, no ST segment elevation, no ST segment depression no significant T-wave abnormalities, Q-waves V1 through V3. Compared to EKG dated 11/09/2022 Q-waves are present on the old EKG. Radiology Impression Discussion of test interpretation with radiology: I have reviewed the radiologist's reading. Radiologist Impression: XR chest 1V IMPRESSION: Chronic changes at the left lung base. Increased interstitial markings. No focal airspace opacity is identified. Electronically signed by: Ivan Davila MD 07/17/2024 02:46 PM [facility] Chronic Conditions Patient?s care impacted by: Hypertension and Other (COPD) Critical Care Time Critical Care Time Critical Care Time: Yes Total Critical Care Time: 45 Attestation: Critical Care: The patient was critically ill with a high probability of imminent or life threatening deterioration. I spent greater than 30 minutes of discontinuous time evaluating the patient,delivering critical care at the bedside, discussing and evaluating pertinent data with consultants. Critical care time does not include time spent performing separately billable procedures or teaching. Total time spent performing critical care was 45 minutes. Discharge Plan Discharge Clinical Impression: Congestive heart failure, Hypoxia, COPD exacerbation, Peripheral edema Patient Disposition: Admitted As Inpatient Prescriptions: No Action fluticasone propion-salmeterol 232-14 mcg/actuation aerosol powdr breath activated 2 inh PO BID Qty: 1 3RF levothyroxine 50 mcg tablet 50 mcg PO QAM Qty: 30 5RF albuterol sulfate [Ventolin HFA] 90 mcg/actuation HFA aerosol inhaler 2 puff inhalation Q6H PRN (Reason: bronchospasm) 30 Days Qty: 8.5 6RF Invega Sustenna 234 mg/1.5 mL syringe 234 mg IM Q30D Qty: 1.5 0RF Rx Instructions: Next dose 12/19/2022 multivitamin Tablet 1 tab PO DAILY 90 Days Qty: 90 3RF amantadine HCl 100 mg tablet 100 mg PO BID 30 Days Qty: 60 0RF aspirin 81 mg tablet,delayed release (DR/EC) 81 mg PO DAILY Qty: 30 10RF cholecalciferol (vitamin D3) 50 mcg (2,000 unit) capsule 50 mcg PO DAILY 90 Days Qty: 90 3RF Incruse Ellipta 62.5 mcg/actuation blister with device 1 inh inhalation DAILY 30 Days Qty: 30 12RF guaifenesin [Mucinex] 600 mg tablet extended release 12hr 600 mg PO Q12H PRN Print Language: Croatian
[2024-07-17 14:33] LABS: B Type Natriuretic Peptide 200 pg/mL (<100)
[2024-07-17] MEDS: Albuterol Sulfate 5 MG, Albuterol/Iprat 2.5/0.5MG 3 ML 3 ML INHALE (14:34)
--- NOTE | 2024-07-17 14:41 | ECG_ITS ---
Test Reason : SOB Blood Pressure : */* mmHG Vent. Rate : 82 BPM Atrial Rate : 82 BPM P-R Int : 122 ms QRS Dur : 84 ms QT Int : 392 ms P-R-T Axes : 14 226 76 degrees QTcB Int : 457 ms Artifact in tracing Sinus rhythm with Premature supraventricular complexes Anterolateral infarct (cited on or before 16-Jul-2016) Abnormal ECG When compared with ECG of 09-Nov-2022 16:26, Borderline criteria for Inferior infarct are no longer Present Serial changes of Anterior infarct Present Referred By: Steve Duff Electronically Signed By: SARAH MARCELINO
[2024-07-17 14:57] LABS: Influenza A PCR NEGATIVE (Negative); Influenza B PCR NEGATIVE (Negative); Resp Syncy Virus RNA Qual PCR NEGATIVE (Negative); SARS COV2 PCR INHOUSE NEGATIVE (Negative)
[2024-07-17] MEDS: Furosemide 40 MG/4 ML VIAL IVPUSH (15:02)
[2024-07-17 15:04] LABS: Alanine Aminotransferase 7 U/L (0-31); Albumin Level 3.3 g/dL (3.5-5.0); Alkaline Phosphatase 77 U/L (39-117); Anion Gap 11 (12-20); Aspartate Amino Transferase 17 U/L (5-31); Bilirubin Total 0.4 mg/dL (0.0-1.0); Blood Urea Nitrogen 10 mg/dL (9-16); Calcium 8.9 mg/dL (8.4-10.2); Carbon Dioxide 35 mmol/L (22-29); Chloride 99 mmol/L (96-108); Creatinine Clr Calc Pharmacy 80.4; Estimated Glomerular Filt Rate > 60; Glucose Random 120 mg/dL (60-115); Sodium 141 mmol/L (135-145); Total Protein 6.2 g/dL (6.5-8.0)
--- NOTE | 2024-07-17 15:27 | PC.NURSE ---
coming from nursing home where patient was found to be in the 70's on room air, states she does not wear oxygen at baseline and was not experiencing any respiratory distress at the time. endorses being sick for approx 1 week, denies fevers. productive cough. IV established, labs sent. plan for admission. remains on 2-3L oxygen in the low 90's. bedside commode with hat placed for I&O, patient aware to use call fitzgerald when she has to use the bathroom.
--- NOTE | 2024-07-17 15:47 | PC.NURSE ---
patient is a one assist to the commode. output approx 650mL of urine
[2024-07-17] MEDS: methylPREDNISolone Sod Succ 125 MG/2 ML VIAL IVPUSH (16:33)
--- NOTE | 2024-07-17 16:54 | PHA.MEDREC ---
Addendum entered by Amparo Artis RPh 07/17/24 17:33: Med rec was reviewed by [facility]. Original Note: Pharmacy Consult ? Medication Reconciliation Pharmacy has completed the medication reconciliation. Spoke with patient and she was able to confirm her medications with me. She stated she got her Invega injection about a week ago and doesn't need it for another month. She confirmed her Albuterol Inhaler and confirmed she uses it as needed. She confirmed she took her Levothyroxine 50mcg tablet this morning.
[2024-07-17] MEDS: Albuterol Sulfate (0.083%) 2.5 MG/3 ML VIAL.NEB 5 MG INHALE (17:06)
--- NOTE | 2024-07-17 17:27 | P.HPHOSP_ITS ---
History of Present Illness Date of Service: 07/17/24 Attending physician on admission: Magdi Otoole Chief Complaint: sob 74y/o f with pmhx of htn,hlp, asthma(mild intermittent), COPD not on oxygen, schizophrenia, hypothyroidism, current smoker- comes with cough and shortness of breath x1 week duration, has productive cough with white phlegm. she has been sneezing frequently over the past week, family members also sick? uri and she experienced 2 days of increased shortness of breath as well as increased dyspnea on exertion. She states that this morning she was feeling more short of breath and her O2 saturation is usually 94-97% and it was 71% on room air. She does not wear oxygen at baseline . in ed her O2 saturation was 85% on room air and on 3 L her O2 saturation is 92%. has mild leucocytsosis , bmp seems fine ,cxr -mild interstial changes, elevated bnp of 200 , has some edema of legs (? says similar ).unclear about any new med changes or weight changes. in ed: received nebs and steriods,lasix -admission ?chf requested. Denies any new complaint of chest pain or abdominal pain or fever or chills or nausea or vomiting Seems generalized week. Social history: Patient used to smoke lifelong 1 pack a day now she is trying to cut down 10 cigarettes a day. Denies any alcohol or recreation drug use. Review of Systems 2 Review of Systems: As above. Yes all other systems are reviewed and are negative COUNT INCLUDES [facility] Medical History Respiratory failure with hypercapnia Smoker Paranoid schizophrenia Anxiety Gastritis Polycythemia Acquired hypothyroidism Benign essential hypertension COPD (chronic obstructive pulmonary disease) Family History Father CVD (cardiovascular disease) Mother Medical history unknown Family/Other FH: mental illness Other Mental health problem Surgical History No pertinent past surgical history Social History Household Members: Other Household Members Other:: Prison Housing: Other Housing Other:: Prison Do you presently have visiting nurse or other home services: No Unable to assess alcohol history related to: Unknown Alcohol intake: never Comment: not used for pain Patient Tobacco Use Status: Current everyday Tobacco user Tobacco use type: Cigarette Cigarette Packs Per Day: 0.25 Cigarettes Per Day: 5 Smoked in Last 30 Days: Yes e-Cigarette/Vaping Use: Never Used Second Hand Smoke Exposure: Yes Advance Directives: No Advance Directives Information Provided: Yes Do you have a plan to hurt others: No Plan service: No Current occupational status: disabled Sexual orientation: Straight/Heterosexual Cognitive needs: No Hearing needs: No Vision needs: No Meds Allergies Allergy/AdvReac Type Severity Reaction Status Date / Time clozapine [Clozapine] AdvReac Unknown LOW ANC Verified 07/17/24 13:40 haloperidol [From HALDOL] AdvReac Unknown TARDIVE Verified 07/17/24 13:40 DISKINESIVE Active Medications: Current Medications Acetaminophen (Acetaminophen 325 Mg Tablet) 650 mg PO Q6H PRN PRN Reason: Pain, Mild 1-3,fever,headache Albuterol/Ipratropium (Albuterol/Iprat 2.5/0.5mg 3 Ml Ampul.Neb) 3 ml INHALE RQ4H [facility] Albuterol/Ipratropium (Albuterol/Iprat 2.5/0.5mg 3 Ml Ampul.Neb) 3 ml INHALE ONCE PRN PRN Reason: Sob Stop: 07/17/24 19:00 Calcium Carbonate (Calcium Carbonate 750 Mg Tab.Chew) 750 mg PO Q4H PRN PRN Reason: Heartburn Furosemide (Furosemide 20 Mg/2 Ml Vial) 20 mg IVPUSH BID [facility]; Protocol Heparin Sodium (Porcine) (Heparin Sodium,Porcine 5,000 Unit/Ml Vial) 5,000 unit SUBCUT Q8H [facility] Magnesium Hydroxide (Milk Of Magnesia 30 Ml Oral.Susp) 30 ml PO DAILY PRN PRN Reason: Constipation Melatonin (Melatonin 3 Mg Tablet) 6 mg PO BEDTIME PRN PRN Reason: Insomnia Nicotine (Nicotine 21 Mg Patch.Td24) 21 mg TRANSDERMA DAILY [facility] Prednisone (Prednisone 20 Mg Tablet) 40 mg PO DAILY [facility] Sodium Chloride (0.9 % Sodium Chloride Flush 3 Ml Syringe) 3 ml IVFLUSH QSHIFT [facility] Home Medications ?Medication ?Instructions ?Recorded ?Confirmed ?Last Taken ?Type levothyroxine 50 mcg tablet 50 mcg PO DAILY@0600 07/17/24 07/17/24 07/17/24 History Physical Exam 2 Vital Signs and Narrative: Vital Signs: Last Vital Signs Temp 98.1 F 07/17/24 16:36 Pulse 83 07/17/24 17:07 Resp 20 07/17/24 17:07 BP 152/60 H 07/17/24 16:36 Pulse Ox 94 07/17/24 16:36 O2 Del Method Nasal Cannula 07/17/24 16:36 O2 Flow Rate 3 07/17/24 16:36 BMI result Body Mass Index 27.1 Appearance: Alert.? Oriented X3.?somewhat sob Eyes: Pupils equal, round and reactive to light.? Sclera nonicteric.? ENT: Pharynx normal.? Moist mucous membranes. cvs: rrr, [id number]. res: air entry fair ,dimished at bases , has few rhonchii b/l. abd: no rebound or guarding ,nt, bs present. ext pulses present , no cyanosis ,? has some leg edema ( unclear if chronic). neuro: axo3 , nonfocal. Results Labs 07/17/24 14:00 07/17/24 14:46 Labs: Laboratory Results - last 24 hr 07/17/24 07/17/24 14:00 14:46 MCV 91.4 MCH 29.0 MCHC 31.7 RDW 14.1 Plt Count 298 MPV 9.1 L Immature Gran % (Auto) 1.5 H Neut % (Auto) 73.2 H Lymph % (Auto) 16.5 L [place] % (Auto) 7.9 Eos % (Auto) 0.3 Baso % (Auto) 0.6 Lymph # (Auto) 1.8 [place] # (Auto) 0.9 Eos # (Auto) 0.0 Baso # (Auto) 0.1 Abs Immat Gran (auto) 0.17 H Absolute Neuts (auto) 8.1 Absolute Nucleated RBC 0.020 H Nucleated RBC % (auto) 0.2 Hold Blue Top SEE NOTE Anion Gap 11 L Estim Creat Clear Calc 80.4 Estimated GFR > 60 Random Glucose 120 H Calcium 8.9 D Total Bilirubin 0.4 AST 17 ALT 7 Alkaline Phosphatase 77 Troponin I High Sens 13.0 B-Natriuretic Peptide 200 H Total Protein 6.2 L Albumin 3.3 L Influenza Type A (PCR) NEGATIVE Influenza Type B (PCR) NEGATIVE RSV RNA Qual (PCR) NEGATIVE SARS-CoV-2 RNA (RT-PCR) NEGATIVE Imaging Radiologist's Impressions: Impressions Chest X-Ray 07/17/24 14:00 IMPRESSION: Chronic changes at the left lung base. Increased interstitial markings. No focal airspace opacity is identified. Electronically signed by: Ivan Davila MD 07/17/2024 02:46 PM EST Assessment and Plan (1) Peripheral edema: Status: Acute (2) COPD exacerbation: Status: Acute (3) Congestive heart failure: Qualifiers: Heart failure type: unspecified Heart failure chronicity: unspecified Qualified Code(s): I50.9 - Heart failure, unspecified Status: Acute (4) Hypoxia: Status: Acute Plan 74 y/o f with pmhx of htn,hlp, asthma(mild intermittent), COPD not on oxygen, schizophrenia, hypothyroidism, current smoker- comes with cough and shortness of breath x1 week duration. acute hypoxemic respiratory failure possible sec to chf (etiology unclear) ,also hasmild copd excerebation might be constributing cbc mild leucocytosis bmo fine ,bnp elevated tropx1 neg, ekg seems similarto previous. plan: repeat troponin,RVP, moniter i/o,daily weights,bnp echo, moniter on tele started on nebs,steriods ,lasix iv, taper oxygen to keep sats around 90%. asthma(mild intermittent): stable ,already placed on nebs htn : seems flactuating -does not seems to be any meds at home. hypothyroidism : continue levothyroxine. schizophrenia: on paliperidone? active smoker : advised to cut down and stop. added nicotein patch. Above management discussed with the patient detail length she understand in agreement with the above plan, time spent 70 minute ,patient full code. Quality Stroke Does the patient have a stroke diagnosis?: No VTE Prior VTE?: No VTE Risk Level:: Medical - moderate - high VTE Device Contraindication: N/A - Device Ordered VTE Drug Contraindication: N/A - Med Ordered
[2024-07-17 19:12] LABS: Troponin-I High Sensitivity 8.8 ng/L (<3.5-17.0)
[2024-07-17] MEDS: Albuterol/Iprat 2.5/0.5MG 3 ML AMPUL.NEB INHALE ×2 (19:36→23:54)
[2024-07-17] MEDS: Furosemide 20 MG/2 ML VIAL IVPUSH (21:24)
[2024-07-18] VITALS (13 sets, daily range): BP systolic 150–165; BP diastolic 69–77; PULSE 67–91; RESP 12–20; TEMP 36.4–36.9; O2SAT 90–95; BMI 25.4
[2024-07-18] MEDS: Heparin Sodium,Porcine 5,000 UNIT/ML VIAL 5000 UNIT SUBCUT ×3 (03:16→17:44)
[2024-07-18] MEDS: Albuterol/Iprat 2.5/0.5MG 3 ML AMPUL.NEB INHALE ×6 (03:45→23:14)
[2024-07-18] MEDS: 0.9 % Sodium Chloride Flush 3 ML SYRINGE IVFLUSH ×2 (07:19→17:44)
[2024-07-18] MEDS: Levothyroxine Sodium 50 MCG TABLET PO (07:19)
--- NOTE | 2024-07-18 07:26 | PC.NURSE ---
Initial contact with pt. Meal tray provided, medicated with levothyroxine during breakfast per patient's preference.
[2024-07-18] MEDS: predniSONE 20 MG TABLET 40 MG PO (08:27)
[2024-07-18] MEDS: Furosemide 20 MG/2 ML VIAL IVPUSH ×2 (08:27→19:34)
--- NOTE | 2024-07-18 08:32 | PC.NURSE ---
Pt refused nicotine patch I'm going to quit
[2024-07-18] MEDS: Loratadine 10 MG TABLET PO (09:34)
--- NOTE | 2024-07-18 09:41 | PC.NURSE ---
operating room coordinator Tai Clay updated over the phone with patient's consent. contact info for tai is work cell # [phone]
--- NOTE | 2024-07-18 10:41 | MHC.CM.PN ---
CM attempted to speak with Guardian/Son/Frantz @ [phone], but was only able to leave a detailed message. Patient is documented to be A&O X 3, so CM met with Patient as well and gave her the original IMM to review (a copy has also been placed on the chart). Patient lives in a [facility]; Yuan @ [phone] is the Conservation Assistant of Patient's Residential. Returning to the Residential is the goal for dc and CM has initiated and will follow for dc planning. PCP is Dr. Alireza Robertson and transport is prison staff vs [facility]. CM will follow.
[2024-07-18 11:03] LABS: Anion Gap 15 (12-20); Blood Urea Nitrogen 12 mg/dL (9-16); Calcium 9.6 mg/dL (8.4-10.2); Carbon Dioxide 33 mmol/L (22-29); Chloride 94 mmol/L (96-108); Creatinine Clr Calc Pharmacy 83.4; Estimated Glomerular Filt Rate > 60; Glucose Random 121 mg/dL (60-115); Potassium 4.4 mmol/L (3.3-5.1); Sodium 138 mmol/L (135-145)
[2024-07-18 11:07] LABS: B Type Natriuretic Peptide 149 pg/mL (<100)
[2024-07-18 14:40] LABS: Adenovirus PCR Not Detected (Not Detect.); Bordetella parapertussis PCR Not Detected (Not Detect.); Bordetella pertussis PCR Not Detected (Not Detect.); Chlamydia pneumoniae PCR Not Detected (Not Detect.); Coronavirus 229E PCR Not Detected (Not Detect.); Coronavirus HKU1 PCR Not Detected (Not Detect.); Coronavirus NL63 PCR Not Detected (Not Detect.); Coronavirus OC43 PCR Not Detected (Not Detect.); Human metapneumovirus PCR Not Detected (Not Detect.); Influenza A PCR Not Detected (Not Detect.); Influenza B PCR Not Detected (Not Detect.); Mycoplasma pneumoniae PCR Not Detected (Not Detect.); Parainfluenza 1 PCR Not Detected (Not Detect.); Parainfluenza 2 PCR Not Detected (Not Detect.); Parainfluenza 3 PCR Not Detected (Not Detect.); Parainfluenza 4 PCR Not Detected (Not Detect.); RSV PCR Not Detected (Not Detect.); Rhino/Enterovirus PCR Detected (Not Detect.)
[2024-07-18 14:51] LABS: SARS-CoV-2 PCR Not Detected (Not Detect.)
--- NOTE | 2024-07-18 14:59 | P.PNIM_ITS ---
Subjective Subjective Date of Service: 07/18/24 Interval History: acute hypoxemic respiratory failure possible sec to chf (etiology unclear) Review of Systems sob seems somewaht similar has cough no fever Physical Exam 2 Vital Signs: Vital Signs: Last Vital Signs Temp 97.6 F 07/18/24 10:00 Pulse 75 07/18/24 11:02 Resp 19 07/18/24 11:02 BP 165/72 H 07/18/24 10:00 Pulse Ox 90 L 07/18/24 10:00 O2 Del Method Nasal Cannula 07/18/24 10:00 O2 Flow Rate 2 07/18/24 10:00 BMI result Body Mass Index 25.4 Appearance: Alert.? Oriented X3.?somewhat sob. cvs: rrr, [id number]. res: air entry fair ,dimished at bases , has few rhonchii b/l. abd: no rebound or guarding ,nt, bs present. ext pulses present , no cyanosis ,? has some leg edema ( unclear if chronic). neuro: axo3 , nonfocal. Objective Data Active Medications Acetaminophen (Acetaminophen 325 Mg Tablet) 650 mg PO Q6H PRN PRN Reason: Pain, Mild 1-3,fever,headache Albuterol/Ipratropium (Albuterol/Iprat 2.5/0.5mg 3 Ml Ampul.Neb) 3 ml INHALE RQ4H [facility] Last Admin: 07/18/24 11:01 Dose: 3 ml Documented By: MAYI Calcium Carbonate (Calcium Carbonate 750 Mg Tab.Chew) 750 mg PO Q4H PRN PRN Reason: Heartburn Furosemide (Furosemide 20 Mg/2 Ml Vial) 20 mg IVPUSH BID [facility]; Protocol Last Admin: 07/18/24 08:27 Dose: 20 mg Documented By: JESU Heparin Sodium (Porcine) (Heparin Sodium,Porcine 5,000 Unit/Ml Vial) 5,000 unit SUBCUT Q8H [facility] Last Admin: 07/18/24 09:20 Dose: 5,000 unit Documented By: JESU Levothyroxine Sodium (Levothyroxine Sodium 50 Mcg Tablet) 50 mcg PO DAILY@0600 [facility] Last Admin: 07/18/24 07:19 Dose: 50 mcg Documented By: JESU Loratadine (Loratadine 10 Mg Tablet) 10 mg PO DAILY [facility] Last Admin: 07/18/24 09:34 Dose: 10 mg Documented By: JESU Magnesium Hydroxide (Milk Of Magnesia 30 Ml Oral.Susp) 30 ml PO DAILY PRN PRN Reason: Constipation Melatonin (Melatonin 3 Mg Tablet) 6 mg PO BEDTIME PRN PRN Reason: Insomnia Nicotine (Nicotine 21 Mg Patch.Td24) 21 mg TRANSDERMA DAILY [facility] Last Admin: 07/18/24 08:32 Dose: Not Given Documented By: JESU Non-Admin Reason: Patient Refused Paliperidone Palmitate (Paliperidone Palmitate 234 Mg/1.5 Ml Syringe) 234 mg IM Q30D [facility] Prednisone (Prednisone 20 Mg Tablet) 40 mg PO DAILY [facility] Last Admin: 07/18/24 08:27 Dose: 40 mg Documented By: JESU Sodium Chloride (0.9 % Sodium Chloride Flush 3 Ml Syringe) 3 ml IVFLUSH QSHIFT [facility] Last Admin: 07/18/24 07:19 Dose: 3 ml Documented By: JESU Labs 07/17/24 14:00 07/18/24 10:28 Labs: Laboratory Results - last 24 hr 07/17/24 07/17/24 07/17/24 14:00 14:46 18:37 Anion Gap 11 L Estim Creat Clear Calc 80.4 Estimated GFR > 60 Random Glucose 120 H Calcium 8.9 D Total Bilirubin 0.4 AST 17 ALT 7 Alkaline Phosphatase 77 Troponin I High Sens 13.0 8.8 B-Natriuretic Peptide Total Protein 6.2 L Albumin 3.3 L Respiratory Panel [place] Adenovirus (Rapid PCR) B.pert (TEM-PCR) B.parapertussis DNA PCR C. pneumoniae DNA (PCR) Coronavirus OC43 (PCR) Coronavirus HKU1 (PCR) Coronavirus 229E (PCR) Coronavirus NL63 (PCR) Human Metapneumovir PCR Influenza A (RT-PCR) Influenza B (RT-PCR) M. pneumoniae (PCR) Parainfluenza 1 (PCR) Parainfluenza 2 (PCR) Parainfluenza 3 (PCR) Parainfluenza 4 (PCR) RSV (PCR) Entero/Rhino (PCR) SARS-CoV-2 RNA (RT-PCR) 07/18/24 07/18/24 10:28 12:55 Anion Gap 15 Estim Creat Clear Calc 83.4 Estimated GFR > 60 Random Glucose 121 H Calcium 9.6 D Total Bilirubin AST ALT Alkaline Phosphatase Troponin I High Sens B-Natriuretic Peptide 149 H Total Protein Albumin Respiratory Panel [place] See Note Adenovirus (Rapid PCR) Not Detected B.pert (TEM-PCR) Not Detected B.parapertussis DNA PCR Not Detected C. pneumoniae DNA (PCR) Not Detected Coronavirus OC43 (PCR) Not Detected Coronavirus HKU1 (PCR) Not Detected Coronavirus 229E (PCR) Not Detected Coronavirus NL63 (PCR) Not Detected Human Metapneumovir PCR Not Detected Influenza A (RT-PCR) Not Detected Influenza B (RT-PCR) Not Detected M. pneumoniae (PCR) Not Detected Parainfluenza 1 (PCR) Not Detected Parainfluenza 2 (PCR) Not Detected Parainfluenza 3 (PCR) Not Detected Parainfluenza 4 (PCR) Not Detected RSV (PCR) Not Detected Entero/Rhino (PCR) Detected A SARS-CoV-2 RNA (RT-PCR) Not Detected Assessment and Plan (1) COPD exacerbation: Status: Acute (2) Hypoxia: Status: Acute Assessment and Plan: 74 y/o f with pmhx of htn,hlp, asthma(mild intermittent), COPD not on oxygen, schizophrenia, hypothyroidism, current smoker- comes with cough and shortness of breath x1 week duration. acute hypoxemic respiratory failure possible sec to chf (etiology unclear) ,also hasmild copd excerebation with entero/rhino virus uri. cbc mild leucocytosis bmo fine ,bnp elevated tropx2 neg, ekg seems similar to previous. plan: i/o 2 liter neg. moniter i/o,daily weights,bnp improving echo, moniter on tele started on nebs,steriods ,lasix iv, taper oxygen to keep sats around 90%. asthma(mild intermittent): stable ,already placed on nebs htn : seems flactuating -does not seems to be any meds at home. hypothyroidism : continue levothyroxine. schizophrenia: on paliperidone? active smoker : advised to cut down and stop. nicotein patch. ongoing hospitlisation need-acute hypoxemic respiratory failure possible sec to chf (etiology unclear) ,also hasmild copd excerebation with entero/rhino virus uri- need iv diuretics ,i/o monitering ,oxygen tapering Quality Stroke Does the patient have a stroke diagnosis?: No VTE Prior VTE?: No VTE Risk Level:: Medical - moderate - high VTE Device Contraindication: N/A - Device Ordered VTE Drug Contraindication: N/A - Med Ordered
--- NOTE | 2024-07-18 15:42 | PC.NURSE ---
assumed care of patient at 1500, patient is awake and alert, currently on 2l NC. patient awaiting transport to [facility]. patient incontinent of urine in bedding despite purewick. patient linens changed, new pads. patient repositioned, purewick back in place. 900cc urine emptied from suction container. patient VSS at this time.
[2024-07-19] VITALS (8 sets, daily range): BP systolic 138–178; BP diastolic 75–85; PULSE 68–90; RESP 16–22; TEMP 36.4–36.9; O2SAT 89–96
[2024-07-19] MEDS: Heparin Sodium,Porcine 5,000 UNIT/ML VIAL 5000 UNIT SUBCUT ×3 (01:22→17:44)
[2024-07-19] MEDS: 0.9 % Sodium Chloride Flush 3 ML SYRINGE IVFLUSH ×4 (01:23→23:42)
[2024-07-19] MEDS: Levothyroxine Sodium 50 MCG TABLET PO (05:35)
--- NOTE | 2024-07-19 07:00 | CA_ITS ---
Transthoracic Echocardiogram Patient (Last, First, Middle): Bertha Uribe E Gender: Female Date of : 1950 Age: 74 Procedure Date: 07/19/2024 Procedure Type: Transthoracic Echocardiogram [place] [facility] [place] Height: 167.64 cm Weight: 68.49 kg BSA: 1.77 m2 Heart Rate: bpm BP: 158 / 69 mmHg Outdoor Adventure Instructor: Referring MD: Magdi Otoole MD Symptoms: Chf Study Quality: Fair, Limited/patient uncooperative ECG Rhythm: Sinus Conclusions: - The left ventricular systolic function is normal. The visually estimated ejection fraction is between 65-70%. - Limited study due to lack of co-operation from patient. Findings Procedure Information The study quality is limited by an uncooperative patient. Left Ventricle Normal left ventricular cavity size. There is moderately increased left ventricular wall thickness. The left ventricular systolic function is normal. The visually estimated ejection fraction is between 65-70%. Possible basal inferior wall hypokinesis. Aortic Valve There is mild calcification of the aortic valve. Mitral Valve The mitral valve appears normal. There is no mitral valve stenosis. Venous The inferior vena cava is normal in size and collapses greater than 50% with inspiration. Pericardium/Pleural There is a small pericardial effusion. Prior Study Comparison No significant change compared to prior study dated: 10/09/2020. Measurements 2D Linear Measurements IVSd: 1.41 0.6-0.9/0.6-1.0 cm LVIDd: 3.98 3.9-5.3/4.2-5.9 cm LVIDd Index: 2.25 2.4-3.2/2.2-3.1 cm/m2 LVIDs: 2.61 2.0-3.6 cm LVPWd: 1.36 0.7-1.1 cm LV Mass: 254.28 67-162/88-224 g LV Mass Index: 143.66 43-95/49-115 g/m2 2D Systolic Function EF 4C: 68.80 >55% EF 2C: 56.40 >55% EF BiP: 63.80 >55% Updated in Other Vendor System with Status of Final Les Domínguez MD electronically signed on 07/19/2024 4:57:16 PM with status of Final
[2024-07-19] MEDS: Albuterol/Iprat 2.5/0.5MG 3 ML AMPUL.NEB INHALE ×3 (07:51→19:59)
[2024-07-19] MEDS: Calcium Carbonate 750 MG TAB.CHEW PO ×2 (08:13→23:39)
[2024-07-19] MEDS: Loratadine 10 MG TABLET PO (08:14)
[2024-07-19] MEDS: predniSONE 20 MG TABLET 40 MG PO (08:14)
[2024-07-19] MEDS: Furosemide 20 MG/2 ML VIAL IVPUSH (08:15)
--- NOTE | 2024-07-19 10:57 | PC.NURSE ---
patient ambulated 2 assist out of room and back with a walker on o2 tank
--- NOTE | 2024-07-19 11:15 | PC.RT ---
When trying to listen to the patient, her RR increases, ten fold. She starts to breathe in the mid 30. I asked her what was wrong, considering she doesn't breathe like that any other time and she kept stating that she was fine and tried to dismiss my concern.
--- NOTE | 2024-07-19 13:51 | HO.PM.IMPN ---
Subjective Subjective Date of Service: 07/19/24 Interval History: chf ,copd Review of Systems sob seems somewhat improving but has sob with minimal excersion has cough Physical Exam Vital Signs: Vital Signs: Last Vital Signs Temp 98.4 F 07/19/24 11:25 Pulse 90 07/19/24 11:53 Resp 16 07/19/24 11:25 BP 175/84 H 07/19/24 11:53 Pulse Ox 93 07/19/24 11:53 O2 Del Method Nasal Cannula 07/19/24 11:25 O2 Flow Rate 3 07/19/24 11:25 BMI result Body Mass Index 25.4 Appearance: Alert.? Oriented X3.?somewhat sob. cvs: rrr, [id number]. res: air entry fair ,dimished at bases , has few rhonchii b/l. abd: no rebound or guarding ,nt, bs present. ext pulses present , no cyanosis ,? has some leg edema ( unclear if chronic). neuro: axo3 , nonfocal. Objective Data Active Medications Acetaminophen (Acetaminophen 325 Mg Tablet) 650 mg PO Q6H PRN PRN Reason: Pain, Mild 1-3,fever,headache Albuterol/Ipratropium (Albuterol/Iprat 2.5/0.5mg 3 Ml Ampul.Neb) 3 ml INHALE RQ4H [facility] Last Admin: 07/19/24 11:11 Dose: 3 ml Documented By: MILVIA Calcium Carbonate (Calcium Carbonate 750 Mg Tab.Chew) 750 mg PO Q4H PRN PRN Reason: Heartburn Last Admin: 07/19/24 08:13 Dose: 750 mg Documented By: RADHA Furosemide (Furosemide 20 Mg/2 Ml Vial) 20 mg IVPUSH DAILY [facility]; Protocol Last Admin: 07/19/24 08:15 Dose: 20 mg Documented By: RADHA Heparin Sodium (Porcine) (Heparin Sodium,Porcine 5,000 Unit/Ml Vial) 5,000 unit SUBCUT Q8H [facility] Last Admin: 07/19/24 01:22 Dose: 5,000 unit Documented By: CHELLY Levothyroxine Sodium (Levothyroxine Sodium 50 Mcg Tablet) 50 mcg PO DAILY@0600 [facility] Last Admin: 07/19/24 05:35 Dose: 50 mcg Documented By: CHELLY Loratadine (Loratadine 10 Mg Tablet) 10 mg PO DAILY [facility] Last Admin: 07/19/24 08:14 Dose: 10 mg Documented By: RADHA Magnesium Hydroxide (Milk Of Magnesia 30 Ml Oral.Susp) 30 ml PO DAILY PRN PRN Reason: Constipation Melatonin (Melatonin 3 Mg Tablet) 6 mg PO BEDTIME PRN PRN Reason: Insomnia Nicotine (Nicotine 21 Mg Patch.Td24) 21 mg TRANSDERMA DAILY [facility] Last Admin: 07/19/24 08:17 Dose: Not Given Documented By: RADHA Non-Admin Reason: Patient Refused Paliperidone Palmitate (Paliperidone Palmitate 234 Mg/1.5 Ml Syringe) 234 mg IM Q30D [facility] Prednisone (Prednisone 20 Mg Tablet) 40 mg PO DAILY [facility] Last Admin: 07/19/24 08:14 Dose: 40 mg Documented By: RADHA Sodium Chloride (0.9 % Sodium Chloride Flush 3 Ml Syringe) 3 ml IVFLUSH QSHIFT [facility] Last Admin: 07/19/24 08:14 Dose: 3 ml Documented By: RADHA Labs 07/17/24 14:00 07/18/24 10:28 Labs: Laboratory Results - last 24 hr 07/18/24 12:55 Respiratory Panel [place] See Note Adenovirus (Rapid PCR) Not Detected B.pert (TEM-PCR) Not Detected B.parapertussis DNA PCR Not Detected C. pneumoniae DNA (PCR) Not Detected Coronavirus OC43 (PCR) Not Detected Coronavirus HKU1 (PCR) Not Detected Coronavirus 229E (PCR) Not Detected Coronavirus NL63 (PCR) Not Detected Human Metapneumovir PCR Not Detected Influenza A (RT-PCR) Not Detected Influenza B (RT-PCR) Not Detected M. pneumoniae (PCR) Not Detected Parainfluenza 1 (PCR) Not Detected Parainfluenza 2 (PCR) Not Detected Parainfluenza 3 (PCR) Not Detected Parainfluenza 4 (PCR) Not Detected RSV (PCR) Not Detected Entero/Rhino (PCR) Detected A SARS-CoV-2 RNA (RT-PCR) Not Detected Assessment and Plan (1) COPD exacerbation: Status: Acute (2) Hypoxia: Status: Acute Assessment and Plan: 74 y/o f with pmhx of htn,hlp, asthma(mild intermittent), COPD not on oxygen, schizophrenia, hypothyroidism, current smoker- comes with cough and shortness of breath x1 week duration. acute hypoxemic respiratory failure possible sec to chf (etiology unclear) ,also hasmild copd excerebation with entero/rhino virus uri. cbc mild leucocytosis bmo fine ,bnp elevated tropx2 neg, ekg seems similar to previous. plan: i/o 4 liter negative moniter i/o,daily weights,bnp improving echo, moniter on tele. adjusted lasix to 20 mg iv daily. started on nebs,steriods ,lasix iv, taper oxygen to keep sats around 90%. asthma(mild intermittent): stable ,already placed on nebs htn : started amlodipine hypothyroidism : continue levothyroxine. schizophrenia: on paliperidone? active smoker : advised to cut down and stop. nicotein patch. ongoing hospitlisation need-acute hypoxemic respiratory failure possible sec to chf (etiology unclear) ,also hasmild copd excerebation with entero/rhino virus uri- need iv diuretics ,i/o monitering ,oxygen tapering Quality Stroke Does the patient have a stroke diagnosis?: No VTE Prior VTE?: No VTE Risk Level:: Medical - moderate - high VTE Device Contraindication: N/A - Device Ordered VTE Drug Contraindication: N/A - Med Ordered
--- NOTE | 2024-07-19 15:13 | MHC.CM.PN ---
Addendum entered by Leia Echeverria 07/19/24 15:40: PT recommends STR, this CM placed a call to pts son/guardian Frantz ([phone]) to discuss discharge plan/STR recommendation. Frantz is in agreement with his mother going to STR, and has no preference in facilities, he is agreeable to us placing a broad referral for local SNF[facility]. [facility] we will need to submit an intent to admit prior to her being able to discharge, CM director aware. Original Note: EMR reviewed and per MD rounds, pt is not medically cleared for discharge due to management of acute hypoxemic respiratory failure due to COPD exacerbation, along with entero/rhino virus.
[2024-07-19] MEDS: amLODIPine Besylate 2.5 MG TABLET PO (17:45)
[2024-07-20] VITALS (8 sets, daily range): BP systolic 137–155; BP diastolic 63–80; PULSE 67–97; RESP 16–22; TEMP 36.5–37.1; O2SAT 86–96
[2024-07-20] MEDS: Heparin Sodium,Porcine 5,000 UNIT/ML VIAL 5000 UNIT SUBCUT ×2 (02:51→19:21)
[2024-07-20] MEDS: 0.9 % Sodium Chloride Flush 3 ML SYRINGE IVFLUSH ×3 (09:34→19:25)
[2024-07-20] MEDS: Furosemide 20 MG/2 ML VIAL IVPUSH (09:34)
[2024-07-20] MEDS: predniSONE 20 MG TABLET 40 MG PO (10:36)
[2024-07-20 11:25] LABS: Anion Gap 10 (12-20); Blood Urea Nitrogen 9 mg/dL (9-16); Calcium 9.1 mg/dL (8.4-10.2); Carbon Dioxide 38 mmol/L (22-29); Chloride 94 mmol/L (96-108); Creatinine Clr Calc Pharmacy 73.4; Estimated Glomerular Filt Rate > 60; Glucose Random 92 mg/dL (60-115); Potassium 3.9 mmol/L (3.3-5.1); Sodium 138 mmol/L (135-145)
[2024-07-20] MEDS: Albuterol/Iprat 2.5/0.5MG 3 ML AMPUL.NEB INHALE ×3 (11:28→21:05)
[2024-07-20 12:05] LABS: B Type Natriuretic Peptide 65 pg/mL (<100)
--- NOTE | 2024-07-20 13:43 | P.PNIM_ITS ---
Subjective Subjective Date of Service: 07/20/24 Interval History: copd/chf Review of Systems sob seems somewhat improving, still sob with minimal excersion no chest pain Physical Exam 2 Vital Signs: Vital Signs: Last Vital Signs Temp 97.8 F 07/20/24 10:55 Pulse 84 07/20/24 11:29 Resp 18 07/20/24 11:29 BP 142/80 H 07/20/24 10:55 Pulse Ox 86 L 07/20/24 10:55 O2 Del Method Nasal Cannula 07/20/24 10:55 O2 Flow Rate 4 07/20/24 10:55 BMI result Body Mass Index 25.4 Appearance: Alert.? Oriented X3.?somewhat sob. cvs: rrr, [id number]. res: air entry fair ,dimished at bases , has few rhonchii b/l. abd: no rebound or guarding ,nt, bs present. ext pulses present , no cyanosis ,? has some leg edema ( unclear if chronic). neuro: axo3 , nonfocal. Objective Data Active Medications Acetaminophen (Acetaminophen 325 Mg Tablet) 650 mg PO Q6H PRN PRN Reason: Pain, Mild 1-3,fever,headache Albuterol/Ipratropium (Albuterol/Iprat 2.5/0.5mg 3 Ml Ampul.Neb) 3 ml INHALE RQ4H WHILE AWAKE [facility] Last Admin: 07/20/24 11:28 Dose: 3 ml Documented By: RUBA Calcium Carbonate (Calcium Carbonate 750 Mg Tab.Chew) 750 mg PO Q4H PRN PRN Reason: Heartburn Last Admin: 07/19/24 23:39 Dose: 750 mg Documented By: OLU Furosemide (Furosemide 20 Mg/2 Ml Vial) 20 mg IVPUSH DAILY [facility]; Protocol Last Admin: 07/20/24 09:34 Dose: 20 mg Documented By: DONOVAN Heparin Sodium (Porcine) (Heparin Sodium,Porcine 5,000 Unit/Ml Vial) 5,000 unit SUBCUT Q8H [facility] Last Admin: 07/20/24 09:34 Dose: Not Given Documented By: DONOVAN Non-Admin Reason: Patient Refused Levothyroxine Sodium (Levothyroxine Sodium 50 Mcg Tablet) 50 mcg PO DAILY@0600 [facility] Last Admin: 07/20/24 06:24 Dose: Not Given Documented By: OLU Non-Admin Reason: Patient Refused Loratadine (Loratadine 10 Mg Tablet) 10 mg PO DAILY [facility] Last Admin: 07/20/24 09:34 Dose: Not Given Documented By: DONOVAN Non-Admin Reason: Patient Refused Magnesium Hydroxide (Milk Of Magnesia 30 Ml Oral.Susp) 30 ml PO DAILY PRN PRN Reason: Constipation Melatonin (Melatonin 3 Mg Tablet) 6 mg PO BEDTIME PRN PRN Reason: Insomnia Nicotine (Nicotine 21 Mg Patch.Td24) 21 mg TRANSDERMA DAILY [facility] Last Admin: 07/20/24 09:34 Dose: Not Given Documented By: DONOVAN Non-Admin Reason: Patient Refused Paliperidone Palmitate (Paliperidone Palmitate 234 Mg/1.5 Ml Syringe) 234 mg IM Q30D [facility] Prednisone (Prednisone 20 Mg Tablet) 40 mg PO DAILY [facility] Last Admin: 07/20/24 10:36 Dose: 40 mg Documented By: DONOVAN Sodium Chloride (0.9 % Sodium Chloride Flush 3 Ml Syringe) 3 ml IVFLUSH QSHIFT [facility] Last Admin: 07/20/24 09:34 Dose: 3 ml Documented By: DONOVAN Labs 07/17/24 14:00 07/20/24 10:21 Labs: Laboratory Results - last 24 hr 07/20/24 10:21 Hold Purple Top SEE NOTE Anion Gap 10 L Estim Creat Clear Calc 73.4 Estimated GFR > 60 Random Glucose 92 Calcium 9.1 B-Natriuretic Peptide 65 Assessment and Plan (1) COPD exacerbation: Status: Acute (2) Hypoxia: Status: Acute Assessment and Plan: 74 y/o f with pmhx of htn,hlp, asthma(mild intermittent), COPD not on oxygen, schizophrenia, hypothyroidism, current smoker- comes with cough and shortness of breath x1 week duration. acute hypoxemic respiratory failure possible sec to chf (etiology unclear) ,also hasmild copd excerebation with entero/rhino virus uri. cbc mild leucocytosis bmo fine ,bnp elevated tropx2 neg, ekg seems similar to previous. plan: i/o 4 liter negative moniter i/o,daily weights,bnp improving echo ef 60%, moniter on tele. continue lasix to 20 mg iv daily. started on nebs,steriods ,lasix iv, taper oxygen to keep sats around 90%. asthma(mild intermittent): stable ,already placed on nebs htn : started amlodipine hypothyroidism : continue levothyroxine. schizophrenia: on paliperidone? active smoker : advised to cut down and stop. nicotein patch. ongoing hospitlisation need-acute hypoxemic respiratory failure possible sec to chf (etiology unclear) ,also hasmild copd excerebation with entero/rhino virus uri- need iv diuretics ,i/o monitering ,oxygen tapering Quality Stroke Does the patient have a stroke diagnosis?: No VTE Prior VTE?: No VTE Risk Level:: Medical - moderate - high VTE Device Contraindication: N/A - Device Ordered VTE Drug Contraindication: N/A - Med Ordered
[2024-07-21] VITALS (10 sets, daily range): BP systolic 127–161; BP diastolic 59–74; PULSE 64–90; RESP 16–26; TEMP 36.4–37.8; O2SAT 18–98
[2024-07-21] MEDS: Levothyroxine Sodium 50 MCG TABLET PO (06:17)
[2024-07-21] MEDS: Albuterol/Iprat 2.5/0.5MG 3 ML AMPUL.NEB INHALE ×3 (07:39→19:13)
[2024-07-21] MEDS: predniSONE 20 MG TABLET 40 MG PO (08:11)
[2024-07-21] MEDS: Loratadine 10 MG TABLET PO (08:12)
[2024-07-21] MEDS: 0.9 % Sodium Chloride Flush 3 ML SYRINGE IVFLUSH ×2 (08:12→17:05)
--- NOTE | 2024-07-21 11:14 | P.PNIM_ITS ---
Subjective Subjective Date of Service: 07/21/24 Interval History: copd ,chf , rhino/entro uri Review of Systems sob seems worsening edema seems improving Physical Exam 2 Vital Signs: Vital Signs: Last Vital Signs Temp 99.1 F 07/21/24 10:55 Pulse 86 07/21/24 10:55 Resp 20 07/21/24 10:55 BP 151/70 H 07/21/24 10:55 Pulse Ox 91 L 07/21/24 06:53 O2 Del Method Nasal Cannula 07/21/24 06:53 O2 Flow Rate 4 07/21/24 06:53 BMI result Body Mass Index 25.4 Appearance: Alert.? Oriented X3.?somewhat sob. cvs: rrr, [id number]. res: air entry diminshed ,has faint wheezing ,few rales scattred at bases also present abd: no rebound or guarding ,nt, bs present. ext pulses present , no cyanosis ,some leg edema . neuro: axo3 , nonfocal. Objective Data Active Medications Acetaminophen (Acetaminophen 325 Mg Tablet) 650 mg PO Q6H PRN PRN Reason: Pain, Mild 1-3,fever,headache Albuterol/Ipratropium (Albuterol/Iprat 2.5/0.5mg 3 Ml Ampul.Neb) 3 ml INHALE RQ4H WHILE AWAKE [facility] Last Admin: 07/21/24 07:39 Dose: 3 ml Documented By: RUBA Calcium Carbonate (Calcium Carbonate 750 Mg Tab.Chew) 750 mg PO Q4H PRN PRN Reason: Heartburn Last Admin: 07/19/24 23:39 Dose: 750 mg Documented By: OLU Furosemide (Furosemide 20 Mg Tablet) 20 mg PO BID@0900,1800 [facility]; Protocol Heparin Sodium (Porcine) (Heparin Sodium,Porcine 5,000 Unit/Ml Vial) 5,000 unit SUBCUT Q8H [facility] Last Admin: 07/21/24 08:12 Dose: Not Given Documented By: DONOVAN Non-Admin Reason: Patient Refused Levothyroxine Sodium (Levothyroxine Sodium 50 Mcg Tablet) 50 mcg PO DAILY@0600 [facility] Last Admin: 07/21/24 06:17 Dose: 50 mcg Documented By: CRISTY Loratadine (Loratadine 10 Mg Tablet) 10 mg PO DAILY [facility] Last Admin: 07/21/24 08:12 Dose: 10 mg Documented By: DONOVAN Magnesium Hydroxide (Milk Of Magnesia 30 Ml Oral.Susp) 30 ml PO DAILY PRN PRN Reason: Constipation Melatonin (Melatonin 3 Mg Tablet) 6 mg PO BEDTIME PRN PRN Reason: Insomnia Nicotine (Nicotine 21 Mg Patch.Td24) 21 mg TRANSDERMA DAILY [facility] Last Admin: 07/21/24 08:12 Dose: Not Given Documented By: DONOVAN Non-Admin Reason: Patient Refused Paliperidone Palmitate (Paliperidone Palmitate 234 Mg/1.5 Ml Syringe) 234 mg IM Q30D [facility] Prednisone (Prednisone 20 Mg Tablet) 40 mg PO DAILY [facility] Last Admin: 07/21/24 08:11 Dose: 40 mg Documented By: DONOVAN Sodium Chloride (0.9 % Sodium Chloride Flush 3 Ml Syringe) 3 ml IVFLUSH QSHIFT [facility] Last Admin: 07/21/24 08:12 Dose: 3 ml Documented By: DONOVAN Labs 07/17/24 14:00 07/21/24 11:26 Labs: Laboratory Results - last 24 hr 07/20/24 10:21 Anion Gap 10 L Estim Creat Clear Calc 73.4 Estimated GFR > 60 Random Glucose 92 Calcium 9.1 B-Natriuretic Peptide 65 Assessment and Plan (1) COPD exacerbation: Status: Acute (2) Hypoxia: Status: Acute Assessment and Plan: 74 y/o f with pmhx of htn,hlp, asthma(mild intermittent), COPD not on oxygen, schizophrenia, hypothyroidism, current smoker- comes with cough and shortness of breath x1 week duration. acute hypoxemic respiratory failure possible sec to chf (Hf with preserved EF) , copd excerebation with entero/rhino virus(uri). cbc mild leucocytosis tropx2 neg, ekg seems similar to previous. still sob ,oxygen demand increasing cxr seems similar , bnp pending ,vbg-ph compensated. added ct chest,added procalcitonin plan: hypoxemia slowly worsening -likely insetting of viral uri/chf i/o4.1liter negative moniter i/o,daily weights,bnp improving echo ef 60%, moniter on tele. added iv lasix 40 mg qd ,continue nebs ,steriods,added linezolid . no sepsis at present pulm eval since hypoxemia worsening with above supportive management. htn : started amlodipine hypothyroidism : continue levothyroxine. schizophrenia: on paliperidone. active smoker : advised to cut down and stop. on nicotein patch. ongoing hospitlisation need-acute hypoxemic respiratory failure possible sec to chf (etiology unclear) , copd excerebation with entero/rhino virus uri- need iv diuretics ,i/o monitering ,oxygen tapering Quality Stroke Does the patient have a stroke diagnosis?: No VTE Prior VTE?: No VTE Risk Level:: Medical - moderate - high VTE Device Contraindication: N/A - Device Ordered VTE Drug Contraindication: N/A - Med Ordered
[2024-07-21 11:39] LABS: VBG Base Excess 22.4 mmol/L; VBG HCO3 49 mmol/L (22-26); VBG pCO2 60 mmHg; VBG pH 7.52 (7.32-7.43); VBG pO2 84 mmHg
[2024-07-21 11:40] LABS: Venous Blood Gas Refer to POC result
[2024-07-21 11:49] LABS: Anion Gap 10 (12-20); Blood Urea Nitrogen 10 mg/dL (9-16); Carbon Dioxide 36 mmol/L (22-29); Chloride 93 mmol/L (96-108); Creatinine Clr Calc Pharmacy 83.4; Estimated Glomerular Filt Rate > 60; Glucose Random 137 mg/dL (60-115); Potassium 4.1 mmol/L (3.3-5.1); Sodium 135 mmol/L (135-145)
[2024-07-21] MEDS: Furosemide 40 MG/4 ML VIAL IVPUSH (12:01)
[2024-07-21 13:51] LABS: Procalcitonin 0.03 ng/mL
[2024-07-21] MEDS: cefTRIAXone sodium 2 GM VIAL IVPUSH (14:26)
[2024-07-21] MEDS: Linezolid/D5W 600 MG/300 ML PIGGYBACK 300 MG IV (14:36)
--- NOTE | 2024-07-21 15:12 | PM.CNPUL ---
History of Present Illness History of Present Illness Consult date: 07/21/24 Chief complaint: chf/copd Narrative: 74-year-old lady with underlying COPD on supplemental oxygen, schizophrenia, patient of Dr. Ashton, admitted on 07/17/2024 with dyspnea and treated empirically for congestive heart failure exacerbation with diuresis of approximately 5 L of fluid, however no significant changes in her increased oxygen requirements, still remaining at approximately [address] chest is demonstrating left basilar consolidation/atelectasis. Patient is not very engaging with examination. Review of Systems Cardiovascular: Cardiovascular: Reports dyspnea and Reports dyspnea on exertion Respiratory: Respiratory: Denies cough, Denies excessive phlegm production, Reports dyspnea and Reports dyspnea on exertion PMFSH Past Medical History Medical History Respiratory failure with hypercapnia Smoker Paranoid schizophrenia Anxiety Gastritis Polycythemia Acquired hypothyroidism Benign essential hypertension COPD (chronic obstructive pulmonary disease) Family History Family History Father CVD (cardiovascular disease) Mother Medical history unknown Family/Other FH: mental illness Other Mental health problem Surgical History Surgical History No pertinent past surgical history Social History Social History Household Members: Other Household Members Other:: Longterm Housing: Other Housing Other:: Longterm Do you presently have visiting nurse or other home services: No Unable to assess alcohol history related to: Unknown Alcohol intake: never Comment: not used for pain Patient Tobacco Use Status: Current everyday Tobacco user Tobacco use type: Cigarette Cigarette Packs Per Day: 0.25 Cigarettes Per Day: 5 e-Cigarette/Vaping Use: Never Used Second Hand Smoke Exposure: Yes service: No Current occupational status: disabled Sexual orientation: Straight/Heterosexual Cognitive needs: No Hearing needs: No Vision needs: No Meds Allergies Allergy/AdvReac Type Severity Reaction Status Date / Time clozapine [Clozapine] AdvReac Unknown LOW ANC Verified 07/17/24 13:40 haloperidol [From HALDOL] AdvReac Unknown TARDIVE Verified 07/17/24 13:40 DISKINESIVE Active Medications: Current Medications Acetaminophen (Acetaminophen 325 Mg Tablet) 650 mg PO Q6H PRN PRN Reason: Pain, Mild 1-3,fever,headache Albuterol/Ipratropium (Albuterol/Iprat 2.5/0.5mg 3 Ml Ampul.Neb) 3 ml INHALE RQ4H WHILE AWAKE [facility] Last Admin: 07/21/24 11:15 Dose: 3 ml Calcium Carbonate (Calcium Carbonate 750 Mg Tab.Chew) 750 mg PO Q4H PRN PRN Reason: Heartburn Last Admin: 07/19/24 23:39 Dose: 750 mg Ceftriaxone Sodium (Ceftriaxone Sodium 2 Gm Vial) 2 gm IVPUSH Q24H [facility] Last Admin: 07/21/24 14:26 Dose: 2 gm Furosemide (Furosemide 40 Mg/4 Ml Vial) 40 mg IVPUSH DAILY [facility]; Protocol Heparin Sodium (Porcine) (Heparin Sodium,Porcine 5,000 Unit/Ml Vial) 5,000 unit SUBCUT Q8H [facility] Last Admin: 07/21/24 08:12 Dose: Not Given Linezolid (Zyvox/D5w) 600 mg in 300 mls @ 300 mls/hr IV Q12H [facility] Last Admin: 07/21/24 14:36 Dose: 300 mls/hr Levothyroxine Sodium (Levothyroxine Sodium 50 Mcg Tablet) 50 mcg PO DAILY@0600 [facility] Last Admin: 07/21/24 06:17 Dose: 50 mcg Loratadine (Loratadine 10 Mg Tablet) 10 mg PO DAILY [facility] Last Admin: 07/21/24 08:12 Dose: 10 mg Magnesium Hydroxide (Milk Of Magnesia 30 Ml Oral.Susp) 30 ml PO DAILY PRN PRN Reason: Constipation Melatonin (Melatonin 3 Mg Tablet) 6 mg PO BEDTIME PRN PRN Reason: Insomnia Nicotine (Nicotine 21 Mg Patch.Td24) 21 mg TRANSDERMA DAILY [facility] Last Admin: 07/21/24 08:12 Dose: Not Given Paliperidone Palmitate (Paliperidone Palmitate 234 Mg/1.5 Ml Syringe) 234 mg IM Q30D [facility] Prednisone (Prednisone 20 Mg Tablet) 40 mg PO DAILY [facility] Last Admin: 07/21/24 08:11 Dose: 40 mg Sodium Chloride (0.9 % Sodium Chloride Flush 3 Ml Syringe) 3 ml IVFLUSH QSHIFT [facility] Last Admin: 07/21/24 08:12 Dose: 3 ml Home Medications ?Medication ?Instructions ?Recorded ?Confirmed ?Last Taken ?Type levothyroxine 50 mcg tablet 50 mcg PO DAILY@0600 07/17/24 07/17/24 07/17/24 History Physical Exam Vital Signs: Vital Signs: Last Vital Signs Temp 99.1 F 07/21/24 10:55 Pulse 85 07/21/24 11:17 Resp 24 H 07/21/24 11:17 BP 151/70 H 07/21/24 10:55 Pulse Ox 90 L 07/21/24 10:55 O2 Del Method Humidified O2 07/21/24 10:55 O2 Flow Rate 10 07/21/24 10:55 BMI result Body Mass Index 25.4 Const: General: no acute distress, alert and awake Eyes: Sclerae: sclerae normal EOM: EOMs intact bilaterally Neck: Neck: Yes no lymphadenopathy, Yes trachea midline and Yes supple Resp: Effort & Inspection: normal respiratory effort and no respiratory distress Auscultation: other (Poor left basilar air movement) Cardio: Rate: regular rate Rhythm: regular rhythm Heart sounds: no gallops, no murmurs and no rubs GI: Palpation (GI): Soft to palpation and Other GI palpation findings present ( Nontender) Auscultation: normal bowel sounds Extrem: General: Yes no pedal edema, No clubbing and No cyanosis Results Laboratory Findings 07/17/24 14:00 07/21/24 11:26 Abnormal lab findings: Abnormal Labs 07/17/24 07/17/24 07/18/24 14:00 14:46 10:28 WBC 11.1 H MPV 9.1 L Immature Gran % (Auto) 1.5 H Neut % (Auto) 73.2 H Lymph % (Auto) 16.5 L Abs Immat Gran (auto) 0.17 H Absolute Nucleated RBC 0.020 H VBG pH VBG HCO3 Chloride 94 L Carbon Dioxide 35 H 33 H Anion Gap 11 L Random Glucose 120 H 121 H B-Natriuretic Peptide 200 H 149 H Total Protein 6.2 L Albumin 3.3 L Entero/Rhino (PCR) 07/18/24 07/20/24 07/21/24 12:55 10:21 11:26 WBC MPV Immature Gran % (Auto) Neut % (Auto) Lymph % (Auto) Abs Immat Gran (auto) Absolute Nucleated RBC VBG pH VBG HCO3 Chloride 94 L 93 L Carbon Dioxide 38 H 36 H Anion Gap 10 L 10 L Random Glucose 137 H B-Natriuretic Peptide Total Protein Albumin Entero/Rhino (PCR) Detected A 07/21/24 11:31 WBC MPV Immature Gran % (Auto) Neut % (Auto) Lymph % (Auto) Abs Immat Gran (auto) Absolute Nucleated RBC VBG pH 7.52 H VBG HCO3 49 H Chloride Carbon Dioxide Anion Gap Random Glucose B-Natriuretic Peptide Total Protein Albumin Entero/Rhino (PCR) Assessment and Plan (1) Acute on chronic hypoxic respiratory failure: Status: Acute (2) Pulmonary atelectasis: Status: Acute (3) COPD (chronic obstructive pulmonary disease): Qualifiers: COPD type: unspecified COPD Qualified Code(s): J44.9 - Chronic obstructive pulmonary disease, unspecified Status: Acute (4) Community acquired pneumonia: Qualifiers: Laterality: unspecified laterality Qualified Code(s): J18.9 - Pneumonia, unspecified organism Status: Acute Plan Impression: 74-year-old lady with underlying COPD supplemental oxygen dependent admitted with worsening dyspnea and hypoxia. Initially treated with empiric diuresis with improvement in volume status, but no significant changes in her hypoxemia. Her CT chest is demonstrating left-sided basilar atelectasis/consolidation. May have a component of aspiration. Recommendations: Suggest switching empiric antibiotics to Levaquin. Start on chest physiotherapy to the left lower lobe with cough assist. Obtain sputum cultures if possible. No wheezing noted, consider discontinuation of systemic glucocorticoids. Procedures Date of Service Date of Service: 07/21/24
[2024-07-21] MEDS: Piperacillin Sodium/Tazobactam 4.5 GM in 0.9 % Sodium Chloride 100 ML IV (17:04)
[2024-07-21] MEDS: levoFLOXacin/D5W 750 MG/150 ML PIGGYBACK 100 MG IV (18:31)
[2024-07-22] VITALS (9 sets, daily range): BP systolic 125–179; BP diastolic 60–86; PULSE 61–93; RESP 16–20; TEMP 36.3–36.9; O2SAT 90–99
[2024-07-22] MEDS: Heparin Sodium,Porcine 5,000 UNIT/ML VIAL 5000 UNIT SUBCUT ×3 (00:59→17:45)
[2024-07-22] MEDS: 0.9 % Sodium Chloride Flush 3 ML SYRINGE IVFLUSH ×4 (01:00→23:43)
[2024-07-22 04:21] LABS: B Type Natriuretic Peptide 27 pg/mL (<100)
[2024-07-22] MEDS: Levothyroxine Sodium 50 MCG TABLET PO (05:29)
[2024-07-22] MEDS: Albuterol/Iprat 2.5/0.5MG 3 ML AMPUL.NEB INHALE ×3 (08:04→21:26)
[2024-07-22] MEDS: Loratadine 10 MG TABLET PO (08:18)
[2024-07-22] MEDS: predniSONE 20 MG TABLET 40 MG PO (08:18)
[2024-07-22] MEDS: Furosemide 40 MG/4 ML VIAL 20 MG IVPUSH (09:20)
--- NOTE | 2024-07-22 14:21 | HO.PM.IMPN ---
Subjective Subjective Date of Service: 07/22/24 [facility] sob with minimum excersion still hypoxic Physical Exam Vital Signs: Vital Signs: Last Vital Signs Temp 98.0 F 07/22/24 11:12 Pulse 61 07/22/24 11:12 Resp 17 07/22/24 11:12 BP 125/60 07/22/24 11:12 Pulse Ox 92 07/22/24 11:12 O2 Del Method Nasal Cannula 07/22/24 11:12 O2 Flow Rate 5 07/22/24 11:12 BMI result Body Mass Index 25.4 Appearance: Alert.? Oriented X3.?somewhat sob. cvs: rrr, [id number]. res: air entry diminshed ,has faint wheezing ,few rales scattred at bases also present abd: no rebound or guarding ,nt, bs present. ext pulses present , no cyanosis ,some leg edema . neuro: axo3 , nonfocal. Objective Data Active Medications Acetaminophen (Acetaminophen 325 Mg Tablet) 650 mg PO Q6H PRN PRN Reason: Pain, Mild 1-3,fever,headache Albuterol/Ipratropium (Albuterol/Iprat 2.5/0.5mg 3 Ml Ampul.Neb) 3 ml INHALE RQ4H WHILE AWAKE [facility] Last Admin: 07/22/24 11:25 Dose: Not Given Documented By: MILVIA Non-Admin Reason: Patient Refused Calcium Carbonate (Calcium Carbonate 750 Mg Tab.Chew) 750 mg PO Q4H PRN PRN Reason: Heartburn Last Admin: 07/19/24 23:39 Dose: 750 mg Documented By: OLU Furosemide (Furosemide 40 Mg/4 Ml Vial) 20 mg IVPUSH DAILY [facility]; Protocol Last Admin: 07/22/24 09:20 Dose: 20 mg Documented By: LUCITA Comments: Heparin Sodium (Porcine) (Heparin Sodium,Porcine 5,000 Unit/Ml Vial) 5,000 unit SUBCUT Q8H [facility] Last Admin: 07/22/24 08:18 Dose: 5,000 unit Documented By: LUCITA Levofloxacin (Levaquin) 750 mg in 150 mls @ 100 mls/hr IV Q24H [facility] Last Infusion: 07/21/24 20:01 Dose: Infused Documented By: FRANK Levothyroxine Sodium (Levothyroxine Sodium 50 Mcg Tablet) 50 mcg PO DAILY@0600 [facility] Last Admin: 07/22/24 05:29 Dose: 50 mcg Documented By: CEHLLY Loratadine (Loratadine 10 Mg Tablet) 10 mg PO DAILY [facility] Last Admin: 07/22/24 08:18 Dose: 10 mg Documented By: LUCITA Magnesium Hydroxide (Milk Of Magnesia 30 Ml Oral.Susp) 30 ml PO DAILY PRN PRN Reason: Constipation Melatonin (Melatonin 3 Mg Tablet) 6 mg PO BEDTIME PRN PRN Reason: Insomnia Nicotine (Nicotine 21 Mg Patch.Td24) 21 mg TRANSDERMA DAILY [facility] Last Admin: 07/22/24 08:17 Dose: Not Given Documented By: LUCITA Non-Admin Reason: Patient Refused Paliperidone Palmitate (Paliperidone Palmitate 234 Mg/1.5 Ml Syringe) 234 mg IM Q30D [facility] Prednisone (Prednisone 20 Mg Tablet) 40 mg PO DAILY [facility] Last Admin: 07/22/24 08:18 Dose: 40 mg Documented By: LUCITA Sodium Chloride (0.9 % Sodium Chloride Flush 3 Ml Syringe) 3 ml IVFLUSH QSHIFT [facility] Last Admin: 07/22/24 08:18 Dose: 3 ml Documented By: LUCITA Labs 07/17/24 14:00 07/21/24 11:26 Labs: Laboratory Results - last 24 hr 07/21/24 11:26 B-Natriuretic Peptide 27 Assessment and Plan (1) COPD exacerbation: Status: Acute (2) Hypoxia: Status: Acute Assessment and Plan: 74 y/o f with pmhx of htn,hlp, asthma(mild intermittent), COPD not on oxygen, schizophrenia, hypothyroidism, current smoker- comes with cough and shortness of breath x1 week duration. acute hypoxemic respiratory failure possible sec to chf (Hf with preserved EF) , copd excerebation with entero/rhino virus(uri). cbc mild leucocytosis tropx2 neg, ekg seems similar to previous. still sob ,oxygen demand increasing cxr seems similar , bnp pending ,vbg-ph compensated. ct chest-possible pneumonia and right side breast mass increasing,low procalcitonin plan: hypoxemia slowly worsening -likely insetting of viral uri/chf i/o4.1liter negative moniter i/o,daily weights,bnp improving echo ef 60%, moniter on tele. added iv lasix 40 mg qd ,continue nebs ,steriods,added linezolid . no sepsis at present pulm eval since hypoxemia worsening with above supportive management. she refused labs today htn : started amlodipine hypothyroidism : continue levothyroxine. schizophrenia: on paliperidone. active smoker : advised to cut down and stop. on nicotein patch. ongoing hospitlisation need-acute hypoxemic respiratory failure possible sec to chf (etiology unclear) , copd excerebation with entero/rhino virus uri- need iv diuretics ,i/o monitering ,oxygen tapering Quality Stroke Does the patient have a stroke diagnosis?: No VTE Prior VTE?: No VTE Risk Level:: Medical - moderate - high VTE Device Contraindication: N/A - Device Ordered VTE Drug Contraindication: N/A - Med Ordered
--- NOTE | 2024-07-22 14:58 | MHC.CM.PN ---
EMR reviewed and per MD rounds, pt is not medically cleared for discharge due to management of acute hypoxemic respiratory failure due to COPD exacerbation, along with entero/rhino virus. Plan is for STR once medically cleared.
[2024-07-22] MEDS: levoFLOXacin/D5W 750 MG/150 ML PIGGYBACK 100 MG IV (17:45)
[2024-07-23] VITALS (7 sets, daily range): BP systolic 130–156; BP diastolic 63–82; PULSE 72–84; RESP 14–20; TEMP 36.2–37; O2SAT 92–94
[2024-07-23] MEDS: Heparin Sodium,Porcine 5,000 UNIT/ML VIAL 5000 UNIT SUBCUT ×3 (02:44→18:59)
[2024-07-23] MEDS: Levothyroxine Sodium 50 MCG TABLET PO (06:00)
[2024-07-23] MEDS: Albuterol/Iprat 2.5/0.5MG 3 ML AMPUL.NEB INHALE ×2 (07:39→11:15)
[2024-07-23 10:15] LABS: Anion Gap 9 (12-20); Blood Urea Nitrogen 7 mg/dL (9-16); Calcium 8.5 mg/dL (8.4-10.2); Carbon Dioxide 33 mmol/L (22-29); Chloride 91 mmol/L (96-108); Creatinine Clr Calc Pharmacy 84.8; Estimated Glomerular Filt Rate > 60; Glucose Random 114 mg/dL (60-115); Potassium 3.8 mmol/L (3.3-5.1); Sodium 129 mmol/L (135-145)
--- NOTE | 2024-07-23 10:27 | HO.WOUND ---
Wound Consult: Initial 74yr old?female admitted to [facility] on 07/17/24 - See progress notes and H&P for detailed history.? Wound consult placed for Left Groin.? Patient agreeable to assessment and photo documentation.? Patient is noted to be left side lying - direct care nurse reports she was informed the patient is resistant to adjusting her position off of her left side. Attempted to educate patient on position changes she was adamant she just wanted her diet coke and to discharge to home. The left elbow was noted by the direct care nurse for redness, bright red intact blanchable redness noted, slight swelling noted, nontender to touch. TT to provider for assessment. May apply skin prep to site and off load pressure. Bilateral heels assessed for dry intact tissue. The left heel / Achilles area was noted for a dry stable scab - she is not able to report what the injury is from. Recommend skin prep and foam dressing to both heels to protect from friction and aid in pressure redistribution. Left Groin Etiology: ??MASD Wound Bed: Red moist intact tissue - mirrored edges dry desquamation noted Drainage / Odor: None Edges: ? mirrored Yesika wound: intact ? No Induration, Fluctuance or Warmth noted Goals of Treatment: ? barrier cream to protect from moisture and friciton Recommendations: 1. Turn and Reposition every 2 hours and as needed for patient comfort.? Use pillows or wedges to support off loading positions. 2. Off Load all bony prominences with use of pillows and heel boots if needed.? Apply Preventative foams where needed. ? 3. Monitor for incontinence and moisture control, use barrier creams when needed for prevention and treatment. 4. Provide adequate and supplemental nutrition.? 5. Order low air loss mattress. 6. When applicable maintain blood glucose levels per Providers order. 7. Bilateral Heels - Apply skin prep and foam dressing change every 5 days and PRN. Elevate heels off of bed surface with pillows. 8. Left Groin - Routine cleansing, pat dry. Apply barrier cream twice daily and PRN. 9. Left Elbow - Apply skin prep and off load pressure and from surface of bed with pillows. May apply foam dressing if patient is able to tolerate. Re-consult wound care Nurse for wound deterioration or wound changes.
--- NOTE | 2024-07-23 10:37 | HO.SKINPHOTO ---
Location: Left ELbow Category: Non pressure related redness TT to provider - Dr. Otoole
[2024-07-23] MEDS: predniSONE 20 MG TABLET 40 MG PO (11:00)
[2024-07-23] MEDS: Loratadine 10 MG TABLET PO (11:00)
[2024-07-23] MEDS: 0.9 % Sodium Chloride Flush 3 ML SYRINGE IVFLUSH ×2 (11:01→18:57)
--- NOTE | 2024-07-23 11:59 | P.PNIM_ITS ---
Subjective Subjective Date of Service: 07/23/24 Interval History: hyponatremia pneumonia Review of Systems sob somewhat improving ,still sob with excersion has cough, no fevers Physical Exam 2 Vital Signs: Vital Signs: Last Vital Signs Temp 98.0 F 07/23/24 07:47 Pulse 81 07/23/24 11:16 Resp 16 07/23/24 11:16 BP 135/68 07/23/24 07:47 Pulse Ox 92 07/23/24 07:47 O2 Del Method Nasal Cannula 07/23/24 07:47 O2 Flow Rate 1 07/23/24 07:47 BMI result Body Mass Index 25.4 ppearance: Alert.? Oriented X3. cvs: rrr, [id number]. res: air entry diminshed ,has faint wheezing ,few rales scattred at bases also present abd: no rebound or guarding ,nt, bs present. ext pulses present , no cyanosis ,some leg edema . neuro: axo3 , nonfocal Objective Data Active Medications Acetaminophen (Acetaminophen 325 Mg Tablet) 650 mg PO Q6H PRN PRN Reason: Pain, Mild 1-3,fever,headache Albuterol/Ipratropium (Albuterol/Iprat 2.5/0.5mg 3 Ml Ampul.Neb) 3 ml INHALE RQ4H WHILE AWAKE [facility] Last Admin: 07/23/24 11:15 Dose: 3 ml Documented By: MILVIA Calcium Carbonate (Calcium Carbonate 750 Mg Tab.Chew) 750 mg PO Q4H PRN PRN Reason: Heartburn Last Admin: 07/19/24 23:39 Dose: 750 mg Documented By: OLU Furosemide (Furosemide 20 Mg Tablet) 20 mg PO DAILY [facility]; Protocol Heparin Sodium (Porcine) (Heparin Sodium,Porcine 5,000 Unit/Ml Vial) 5,000 unit SUBCUT Q8H [facility] Last Admin: 07/23/24 11:00 Dose: 5,000 unit Documented By: MANDY Levofloxacin (Levaquin) 750 mg in 150 mls @ 100 mls/hr IV Q24H [facility] Last Infusion: 07/22/24 19:30 Dose: Infused Documented By: JB Levothyroxine Sodium (Levothyroxine Sodium 50 Mcg Tablet) 50 mcg PO DAILY@0600 [facility] Last Admin: 07/23/24 06:00 Dose: 50 mcg Documented By: JB Loratadine (Loratadine 10 Mg Tablet) 10 mg PO DAILY [facility] Last Admin: 07/23/24 11:00 Dose: 10 mg Documented By: MANDY Magnesium Hydroxide (Milk Of Magnesia 30 Ml Oral.Susp) 30 ml PO DAILY PRN PRN Reason: Constipation Melatonin (Melatonin 3 Mg Tablet) 6 mg PO BEDTIME PRN PRN Reason: Insomnia Nicotine (Nicotine 21 Mg Patch.Td24) 21 mg TRANSDERMA DAILY [facility] Last Admin: 07/23/24 11:01 Dose: Not Given Documented By: MANDY Non-Admin Reason: Patient Refused Paliperidone Palmitate (Paliperidone Palmitate 234 Mg/1.5 Ml Syringe) 234 mg IM Q30D [facility] Prednisone (Prednisone 20 Mg Tablet) 40 mg PO DAILY [facility] Last Admin: 07/23/24 11:00 Dose: 40 mg Documented By: MANDY Sodium Chloride (0.9 % Sodium Chloride Flush 3 Ml Syringe) 3 ml IVFLUSH QSHIFT [facility] Last Admin: 07/23/24 11:01 Dose: 3 ml Documented By: MANDY Labs 07/17/24 14:00 07/23/24 09:27 Labs: Laboratory Results - last 24 hr 07/23/24 09:27 Anion Gap 9 L Estim Creat Clear Calc 84.8 Estimated GFR > 60 Random Glucose 114 Calcium 8.5 Assessment and Plan (1) Acute on chronic hypoxic respiratory failure: Status: Acute (2) Pulmonary atelectasis: Status: Acute Plan 74 y/o f with pmhx of htn,hlp, asthma(mild intermittent), COPD not on oxygen, schizophrenia, hypothyroidism, current smoker- comes with cough and shortness of breath x1 week duration. acute hypoxemic respiratory failure possible sec to chf (Hf with preserved EF) , copd excerebation with entero/rhino virus(uri)and superimposed pneumonia cbc- mild leucocytosis tropx2 neg, ekg seems similar to previous. sob somewhat improving cxr seems similar , bnp improved ,vbg-ph compensated. ct chest-possible pneumonia and right side breast mass increasing,low procalcitonin plan: hypoxemia somewhat improving i/o4.1liter negative moniter i/o,daily weights,bnp improved. echo ef 60%, moniter on tele. patient received iv diuretics and iv antibiotics (levaquin -intiated on 07/21/23),added sputum cultures also,completed steriods x5 days. pulm -seen patient continue iv antibiotics ,oxygen taper Ct chest : possible breats malignancy d/w Dr ferreira , patient will need outpatient workup. hyponatremia -? multifactorial ( pneumonia , diuretics) already on fluid restrictiosn sodium drop from 135-129 ( in 2 days) added serum and urine osmolarity ,urine electrolytes nephrology eval. htn : started amlodipine hypothyroidism : continue levothyroxine. schizophrenia: on paliperidone. active smoker : advised to cut down and stop. on nicotein patch. left groin masd:see by wound care Turn and Reposition every 2 hours and as needed for patient comfort.? Use pillows or wedges to support off loading positions. Off Load all bony prominences with use of pillows and heel boots if needed.? Apply Preventative foams where needed. ? Monitor for incontinence and moisture control, use barrier creams when needed for prevention and treatment. Provide adequate and supplemental nutrition.? Order low air loss mattress. When applicable maintain blood glucose levels per Providers order. Bilateral Heels - Apply skin prep and foam dressing change every 5 days and PRN. Elevate heels off of bed surface with pillows. Left Groin - Routine cleansing, pat dry. Apply barrier cream twice daily and PRN. Left Elbow - Apply skin prep and off load pressure and from surface of bed with pillows. May apply foam dressing if patient is able to tolerate. pt-rec str ongoing hospitlisation need-acute hypoxemic respiratory failure possible sec to chf (etiology unclear) , copd excerebation with entero/rhino virus uri,pneumonia ,hyponatremia - need iv diuretics ,i/o monitering ,oxygen tapering treid to call family mutiple times for last 2 days -could not reach. Quality Stroke Does the patient have a stroke diagnosis?: No VTE Prior VTE?: No VTE Risk Level:: Medical - moderate - high VTE Device Contraindication: N/A - Device Ordered VTE Drug Contraindication: N/A - Med Ordered
[2024-07-23 13:32] LABS: Osmolality, Serum 268 mosm/kg (281-305)
--- NOTE | 2024-07-23 14:11 | PM.CNNEP ---
History of Present Illness Reason for Consult Consult date: 07/23/24 Reason for consult: Hyponatremia Chief Complaint Chief complaint: chf/copd History of Present Illness Narrative: 74y/o f with pmhx of htn,hlp, asthma(mild intermittent), COPD not on oxygen, schizophrenia, hypothyroidism, current smoker- comes with cough and shortness of breath x1 week duration, has productive cough with white phlegm. she has been sneezing frequently over the past week, family members also sick? uri and she experienced 2 days of increased shortness of breath as well as increased dyspnea on exertion. She states that this morning she was feeling more short of breath and her O2 saturation is usually 94-97% and it was 71% on room air. She does not wear oxygen at baseline . in ed her O2 saturation was 85% on room air and on 3 L her O2 saturation is 92%. has mild leucocytsosis , bmp seems fine ,cxr -mild interstial changes, elevated bnp of 200 , has some edema of legs (? says similar ).unclear about any new med changes or weight changes. She has a history of hypothyroidism. CT scan showed mass in the breast Review of Systems Review of Systems Yes Unobtainable due to mental condition PMFSH Past Medical History Medical History Respiratory failure with hypercapnia Smoker Paranoid schizophrenia Anxiety Gastritis Polycythemia Acquired hypothyroidism Benign essential hypertension COPD (chronic obstructive pulmonary disease) Family History Family History Father CVD (cardiovascular disease) Mother Medical history unknown Family/Other FH: mental illness Other Mental health problem Surgical History Surgical History No pertinent past surgical history Social History Social History Household Members: Other Household Members Other:: Jail Housing: Other Housing Other:: Jail Do you presently have visiting nurse or other home services: No Unable to assess alcohol history related to: Unknown Alcohol intake: never Comment: not used for pain Patient Tobacco Use Status: Current everyday Tobacco user Tobacco use type: Cigarette Cigarette Packs Per Day: 0.25 Cigarettes Per Day: 5 e-Cigarette/Vaping Use: Never Used Second Hand Smoke Exposure: Yes service: No Current occupational status: disabled Sexual orientation: Straight/Heterosexual Cognitive needs: No Hearing needs: No Vision needs: No Meds Allergies Allergy/AdvReac Type Severity Reaction Status Date / Time clozapine [Clozapine] AdvReac Unknown LOW ANC Verified 07/17/24 13:40 haloperidol [From HALDOL] AdvReac Unknown TARDIVE Verified 07/17/24 13:40 DISKINESIVE Active Medications: Current Medications Acetaminophen (Acetaminophen 325 Mg Tablet) 650 mg PO Q6H PRN PRN Reason: Pain, Mild 1-3,fever,headache Albuterol/Ipratropium (Albuterol/Iprat 2.5/0.5mg 3 Ml Ampul.Neb) 3 ml INHALE RQ4H WHILE AWAKE [facility] Last Admin: 07/23/24 11:15 Dose: 3 ml Calcium Carbonate (Calcium Carbonate 750 Mg Tab.Chew) 750 mg PO Q4H PRN PRN Reason: Heartburn Last Admin: 07/19/24 23:39 Dose: 750 mg Furosemide (Furosemide 20 Mg Tablet) 20 mg PO DAILY [facility]; Protocol Heparin Sodium (Porcine) (Heparin Sodium,Porcine 5,000 Unit/Ml Vial) 5,000 unit SUBCUT Q8H [facility] Last Admin: 07/23/24 11:00 Dose: 5,000 unit Levofloxacin (Levaquin) 750 mg in 150 mls @ 100 mls/hr IV Q24H [facility] Last Infusion: 07/22/24 19:30 Dose: Infused Levothyroxine Sodium (Levothyroxine Sodium 50 Mcg Tablet) 50 mcg PO DAILY@0600 [facility] Last Admin: 07/23/24 06:00 Dose: 50 mcg Loratadine (Loratadine 10 Mg Tablet) 10 mg PO DAILY [facility] Last Admin: 07/23/24 11:00 Dose: 10 mg Magnesium Hydroxide (Milk Of Magnesia 30 Ml Oral.Susp) 30 ml PO DAILY PRN PRN Reason: Constipation Melatonin (Melatonin 3 Mg Tablet) 6 mg PO BEDTIME PRN PRN Reason: Insomnia Nicotine (Nicotine 21 Mg Patch.Td24) 21 mg TRANSDERMA DAILY [facility] Last Admin: 07/23/24 11:01 Dose: Not Given Paliperidone Palmitate (Paliperidone Palmitate 234 Mg/1.5 Ml Syringe) 234 mg IM Q30D [facility] Sodium Chloride (0.9 % Sodium Chloride Flush 3 Ml Syringe) 3 ml IVFLUSH QSHIFT [facility] Last Admin: 07/23/24 11:01 Dose: 3 ml Home Medications ?Medication ?Instructions ?Recorded ?Confirmed ?Last Taken ?Type levothyroxine 50 mcg tablet 50 mcg PO DAILY@0600 07/17/24 07/17/24 07/17/24 History Physical Exam Vital Signs: Last Vital Signs Temp 97.1 F 07/23/24 12:00 Pulse 82 07/23/24 12:00 Resp 20 07/23/24 12:00 BP 130/70 07/23/24 12:00 Pulse Ox 93 07/23/24 12:00 O2 Del Method Nasal Cannula 07/23/24 12:00 O2 Flow Rate 1 07/23/24 12:00 BMI result Body Mass Index 25.4 Comfortable Neck supple no JVD. Lungs entry equal no rales. Heart S1-S2 heard no gallop or rub. Abdomen soft nontender. Neuro alert awake oriented. No asterixis. Extremities no edema. Results Lab Results 07/17/24 14:00 07/23/24 09:27 Lab results: Chemistry 07/21/24 07/23/24 11:26 09:27 Sodium 135 129 L Potassium 4.1 3.8 Carbon Dioxide 36 H 33 H BUN 10 7 L Creatinine 0.59 0.58 Calcium 9.0 8.5 Assessment and Plan (1) Hyponatremia: Status: Acute Plan Elderly woman with multiple medical problems with hyponatremia. Serum sodium has dropped from 135 down to 129 over the span of 48 hours. She has a history of hyponatremia in the past. History of hypothyroidism as well. She could have non osmotic ADH release in the setting of malignancy Clinically she appears euvolemic. Recommendations Check urine for sodium, creatinine, osmolality Check serum osmolality Check TSH. Limit oral free water intake to 1 L per 24 hours. Recheck serum sodium again today. Avoid rapid correction. Goal is to returned to 135 over the next 12 hours. No indication for hypotonic saline. She will follow along with the team Procedures Date of Service Date of Service: 07/23/24
[2024-07-23] MEDS: levoFLOXacin/D5W 750 MG/150 ML PIGGYBACK 100 MG IV (18:56)
--- NOTE | 2024-07-23 19:58 | PC.NURSE ---
pt frequently refusing care, She favors L side and refused to turn to right anytime in bed. 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 Pt refused pink foam dsg, she refused cream to reddened area of L pannus. She did get OOB to chair and used the commode several times. care provided as tolerated and pt educated on the reasons for the interventions and pt states she understands.
[2024-07-23 20:09] LABS: Chloride Urine Random < 20.0 mmol/L; Potassium Urine Random 17.6 mmol/L
[2024-07-23] MEDS: Calcium Carbonate 750 MG TAB.CHEW PO (20:25)
[2024-07-23 20:35] LABS: Osmolality Urine 137 mosm/kg (373-1093)
[2024-07-24] VITALS: BP 159/78; PULSE 65; RESP 17; TEMP 37.1; O2SAT 93
[2024-07-24] MEDS: Calcium Carbonate 750 MG TAB.CHEW PO (00:37)
[2024-07-24 07:31] VITALS: BP 131/63; PULSE 67; RESP 18; TEMP 37; O2SAT 90
[2024-07-24] MEDS: Loratadine 10 MG TABLET PO (09:37)
[2024-07-24] MEDS: 0.9 % Sodium Chloride Flush 3 ML SYRINGE IVFLUSH ×2 (09:37)
[2024-07-24] MEDS: Furosemide 20 MG TABLET PO (09:37)
[2024-07-24] MEDS: Heparin Sodium,Porcine 5,000 UNIT/ML VIAL 5000 UNIT SUBCUT (09:38)
[2024-07-24 11:14] VITALS: BP 127/58; PULSE 87; RESP 18; TEMP 36.7; O2SAT 88
--- NOTE | 2024-07-24 11:40 | HO.PM.IMPN ---
Subjective Subjective Date of Service: 07/24/24 Interval History: wants to leave hospital Physical Exam Vital Signs: Vital Signs: Last Vital Signs Temp 98.0 F 07/24/24 11:14 Pulse 87 07/24/24 11:14 Resp 18 07/24/24 11:14 BP 127/58 L 07/24/24 11:14 Pulse Ox 88 L 07/24/24 11:14 O2 Del Method Nasal Cannula 07/24/24 11:14 O2 Flow Rate 1 07/24/24 11:14 BMI result Body Mass Index 25.4 Comfortable Neck supple no JVD. Lungs entry equal no rales. Heart S1-S2 heard no gallop or rub. Abdomen soft nontender. Neuro alert awake oriented. No asterixis. Extremities no edema. Objective Data Active Medications Acetaminophen (Acetaminophen 325 Mg Tablet) 650 mg PO Q6H PRN PRN Reason: Pain, Mild 1-3,fever,headache Albuterol/Ipratropium (Albuterol/Iprat 2.5/0.5mg 3 Ml Ampul.Neb) 3 ml INHALE RQ4H WHILE AWAKE [facility] Last Admin: 07/24/24 08:05 Dose: Not Given Documented By: MILVIA Non-Admin Reason: Patient Asleep Calcium Carbonate (Calcium Carbonate 750 Mg Tab.Chew) 750 mg PO Q4H PRN PRN Reason: Heartburn Last Admin: 07/24/24 00:37 Dose: 750 mg Documented By: CHELLY Furosemide (Furosemide 20 Mg Tablet) 20 mg PO DAILY [facility]; Protocol Last Admin: 07/24/24 09:37 Dose: 20 mg Documented By: OLGA Heparin Sodium (Porcine) (Heparin Sodium,Porcine 5,000 Unit/Ml Vial) 5,000 unit SUBCUT Q8H [facility] Last Admin: 07/24/24 09:38 Dose: 5,000 unit Documented By: OLGA Levofloxacin (Levaquin) 750 mg in 150 mls @ 100 mls/hr IV Q24H [facility] Last Infusion: 07/23/24 20:26 Dose: Infused Documented By: FRANK Levothyroxine Sodium (Levothyroxine Sodium 50 Mcg Tablet) 50 mcg PO DAILY@0600 [facility] Last Admin: 07/24/24 06:21 Dose: Not Given Documented By: FRANK Non-Admin Reason: Patient Refused Loratadine (Loratadine 10 Mg Tablet) 10 mg PO DAILY [facility] Last Admin: 07/24/24 09:37 Dose: 10 mg Documented By: OLGA Magnesium Hydroxide (Milk Of Magnesia 30 Ml Oral.Susp) 30 ml PO DAILY PRN PRN Reason: Constipation Melatonin (Melatonin 3 Mg Tablet) 6 mg PO BEDTIME PRN PRN Reason: Insomnia Nicotine (Nicotine 21 Mg Patch.Td24) 21 mg TRANSDERMA DAILY [facility] Last Admin: 07/24/24 09:51 Dose: Not Given Documented By: OLGA Non-Admin Reason: Patient Refused Paliperidone Palmitate (Paliperidone Palmitate 234 Mg/1.5 Ml Syringe) 234 mg IM Q30D [facility] Sodium Chloride (0.9 % Sodium Chloride Flush 3 Ml Syringe) 3 ml IVFLUSH QSHIFT [facility] Last Admin: 07/24/24 09:37 Dose: 3 ml Documented By: OLGA Labs 07/17/24 14:00 07/23/24 09:27 Labs: Laboratory Results - last 24 hr 07/23/24 07/23/24 13:06 19:15 Osmolality 268 L Urine Osmolality 137 L Ur Random Sodium 21.0 Ur Random Potassium 17.6 Ur Random Chloride < 20.0 Assessment and Plan (1) Acute on chronic hypoxic respiratory failure: Status: Acute (2) Pulmonary atelectasis: Status: Acute Plan 74F PMH htn, HLD, asthma(mild intermittent), COPD not on oxygen, schizophrenia, hypothyroidism, current smoker- presented with cough and shortness of breath x1 week duration. acute hypoxemic respiratory failure possible sec to acute on chronic chf (Hf with preserved EF) , copd excerebation with entero/rhino virus(uri)and superimposed pneumonia ipmroved, now on po lasix levofloxacin, completed steroid course ct chest-possible pneumonia and right side breast mass increasing outpatient follow up with dr ferreira acute hyponatremia -? multifactorial ( pneumonia , diuretics) fluid restrict patient refusing labs, risks of getting labs against patient's will at this time outweight benefits, d/w guardian, will see if patient more willing another time htn started amlodipine hypothyroidism continue levothyroxine. schizophrenia on paliperidone. left groin moisture associated skin damage Turn and Reposition every 2 hours and as needed for patient comfort.? Use pillows or wedges to support off loading positions. Off Load all bony prominences with use of pillows and heel boots if needed.? Apply Preventative foams where needed. ? Monitor for incontinence and moisture control, use barrier creams when needed for prevention and treatment. Provide adequate and supplemental nutrition.? Order low air loss mattress. When applicable maintain blood glucose levels per Providers order. Bilateral Heels - Apply skin prep and foam dressing change every 5 days and PRN. Elevate heels off of bed surface with pillows. Left Groin - Routine cleansing, pat dry. Apply barrier cream twice daily and PRN. Left Elbow - Apply skin prep and off load pressure and from surface of bed with pillows. May apply foam dressing if patient is able to tolerate. pt-rec str full code dvt prophylaxis - hep sq reason for continued hospitalization:awaiting bed Quality Stroke Does the patient have a stroke diagnosis?: No VTE Prior VTE?: No VTE Risk Level:: Medical - moderate - high VTE Device Contraindication: N/A - Device Ordered VTE Drug Contraindication: N/A - Med Ordered
--- NOTE | 2024-07-24 15:34 | MHC.CM.PN ---
Addendum entered by Cary Horton RN 07/25/24 16:20: CM MET W/PT AGAIN TO DISCUSS [facility] NOT WANTING HER TO RETURN HOME D/T PT'S INABILITY TO INDEPENDENTLY CARE FOR SELF AND STAIR TO SECOND FLOOR BEDROOM, PT NOW AGREEABLE TO STR AND WOULD LIKE PLACEMENT THAT ALLOWS SMOKING IF POSSIBLE, CM DID SPEAK W/PT'S SON/GUARDIAN AYESHA AT NUMBER ON FILE AND HE IS RELIEVED PT IS AGREEABLE TO GO NOW AND AWARE CM WILL EMAIL HIM NOTICE OF INTENT TO ADMIT TO AYESHA.[email or web address] (ALL LOWERCASE). Original Note: EMR REVIEWED PT W/ARF D/T CHF, P.T. RECOMMENDING STR HOWEVER WHEN CM MET W/PT SHE IS ADAMANTLY DECLINING STR, CM CONTACTED PT'S SON/GUARDIAN AYESHA AT NUMBER ON FILE, AYESHA REPORTS HE WOULD NOT FORCE PT TO GO TO STR AND WOULD LIKE PT TO BE ABLE TO RETURN TO [facility], REFERRAL PLACED. CM ATTMEPTED TO CONTACT FILM LIBRARIAN AT [facility] AT [phone], NO ANSWER AND DETAILED MESSAGE LEFT.
[2024-07-24 15:52] VITALS: BP 130/58; PULSE 80; TEMP 36.3; O2SAT 89
[2024-07-24 20:00] VITALS: BP 156/65; PULSE 81; RESP 20; TEMP 36.3; O2SAT 91
[2024-07-25 04:00] VITALS: BP 132/82; PULSE 88; RESP 22; TEMP 36.4; O2SAT 93
[2024-07-25 08:00] VITALS: BP 125/59; PULSE 75; RESP 22; TEMP 37.3; O2SAT 90
[2024-07-25] MEDS: Furosemide 20 MG TABLET PO (10:45)
[2024-07-25] MEDS: Loratadine 10 MG TABLET PO (10:45)
[2024-07-25] MEDS: Levothyroxine Sodium 50 MCG TABLET PO (10:45)
--- NOTE | 2024-07-25 10:49 | HO.PM.IMPN ---
Subjective Subjective Date of Service: 07/25/24 Interval History: feels well wants to go home Physical Exam Vital Signs: Vital Signs: Last Vital Signs Temp 99.1 F 07/25/24 08:00 Pulse 75 07/25/24 08:00 Resp 22 H 07/25/24 08:00 BP 125/59 L 07/25/24 08:00 Pulse Ox 90 L 07/25/24 08:00 O2 Del Method Room Air 07/25/24 08:00 O2 Flow Rate 1 07/24/24 15:52 BMI result Body Mass Index 25.4 Comfortable Neck supple no JVD. Lungs entry equal no rales. Heart S1-S2 heard no gallop or rub. Abdomen soft nontender. Neuro alert awake oriented. No asterixis. Extremities no edema. Objective Data Active Medications Acetaminophen (Acetaminophen 325 Mg Tablet) 650 mg PO Q6H PRN PRN Reason: Pain, Mild 1-3,fever,headache Albuterol/Ipratropium (Albuterol/Iprat 2.5/0.5mg 3 Ml Ampul.Neb) 3 ml INHALE RQ4H WHILE AWAKE PRN PRN Reason: sob Calcium Carbonate (Calcium Carbonate 750 Mg Tab.Chew) 750 mg PO Q4H PRN PRN Reason: Heartburn Last Admin: 07/24/24 00:37 Dose: 750 mg Documented By: CHELLY Furosemide (Furosemide 20 Mg Tablet) 20 mg PO DAILY [facility]; Protocol Last Admin: 07/25/24 10:45 Dose: 20 mg Documented By: MERT Heparin Sodium (Porcine) (Heparin Sodium,Porcine 5,000 Unit/Ml Vial) 5,000 unit SUBCUT Q8H [facility] Last Admin: 07/25/24 02:00 Dose: Not Given Documented By: FARNK Non-Admin Reason: Patient Refused Levofloxacin (Levaquin) 750 mg in 150 mls @ 100 mls/hr IV Q24H [facility] Last Admin: 07/24/24 17:35 Dose: Not Given Documented By: OLGA Non-Admin Reason: Patient Refused Levothyroxine Sodium (Levothyroxine Sodium 50 Mcg Tablet) 50 mcg PO DAILY@0600 [facility] Last Admin: 07/25/24 10:45 Dose: 50 mcg Documented By: MERT Loratadine (Loratadine 10 Mg Tablet) 10 mg PO DAILY [facility] Last Admin: 07/25/24 10:45 Dose: 10 mg Documented By: MERT Magnesium Hydroxide (Milk Of Magnesia 30 Ml Oral.Susp) 30 ml PO DAILY PRN PRN Reason: Constipation Melatonin (Melatonin 3 Mg Tablet) 6 mg PO BEDTIME PRN PRN Reason: Insomnia Nicotine (Nicotine 21 Mg Patch.Td24) 21 mg TRANSDERMA DAILY [facility] Last Admin: 07/25/24 10:46 Dose: Not Given Documented By: MERT Non-Admin Reason: Patient Refused Paliperidone Palmitate (Paliperidone Palmitate 234 Mg/1.5 Ml Syringe) 234 mg IM Q30D [facility] Sodium Chloride (0.9 % Sodium Chloride Flush 3 Ml Syringe) 3 ml IVFLUSH QSHIFT [facility] Last Admin: 07/25/24 10:46 Dose: Not Given Documented By: MERT Non-Admin Reason: Patient Refused Labs 07/17/24 14:00 07/23/24 09:27 Assessment and Plan (1) Acute on chronic hypoxic respiratory failure: Status: Acute (2) Pulmonary atelectasis: Status: Acute Plan 74F PMH htn, HLD, asthma(mild intermittent), COPD not on oxygen, schizophrenia, hypothyroidism, current smoker- presented with cough and shortness of breath x1 week duration. acute hypoxemic respiratory failure possible sec to acute on chronic chf (Hf with preserved EF) , copd excerebation with entero/rhino virus(uri)and superimposed pneumonia improved, now on po lasix, room air levofloxacin ct chest-possible pneumonia and right side breast mass increasing outpatient follow up with dr ferreira acute hyponatremia -? multifactorial ( pneumonia , diuretics) fluid restrict patient refusing labs, risks of getting labs against patient's will at this time outweight benefits htn started amlodipine hypothyroidism continue levothyroxine. schizophrenia on paliperidone. left groin moisture associated skin damage Turn and Reposition every 2 hours and as needed for patient comfort.? Use pillows or wedges to support off loading positions. Off Load all bony prominences with use of pillows and heel boots if needed.? Apply Preventative foams where needed. ? Monitor for incontinence and moisture control, use barrier creams when needed for prevention and treatment. Provide adequate and supplemental nutrition.? Order low air loss mattress. When applicable maintain blood glucose levels per Providers order. Bilateral Heels - Apply skin prep and foam dressing change every 5 days and PRN. Elevate heels off of bed surface with pillows. Left Groin - Routine cleansing, pat dry. Apply barrier cream twice daily and PRN. Left Elbow - Apply skin prep and off load pressure and from surface of bed with pillows. May apply foam dressing if patient is able to tolerate. pt-rec str - patient refusing/unwilling to participate will send back to senior living full code dvt prophylaxis - hep sq reason for continued hospitalization:safe dispo Quality Stroke Does the patient have a stroke diagnosis?: No VTE Prior VTE?: No VTE Risk Level:: Medical - moderate - high VTE Device Contraindication: N/A - Device Ordered VTE Drug Contraindication: N/A - Med Ordered
--- NOTE | 2024-07-25 10:50 | PM.DS ---
DS: Providers Provider Date of Service: 07/31/24 Date of admission: 07/17/24 17:03 Date of discharge: 07/31/24 Primary care physician: Alireza Robertson MD Consults: 07/21/24 11:11 Consult to Pulmonology Routine Consulting Provider: [facility] Reason for consultation: hypoxemiemic respiratory failure Has provider been notified: No 07/23/24 04:10 Consult to Wound Care Routine Reason for consultation: MASD to L groin 07/23/24 11:58 Consult to Nephrology Routine Consulting Provider: [facility] Reason for consultation: hyponatremia DS: Diagnosis Discharge Diagnosis (1) Acute on chronic hypoxic respiratory failure: Status: Acute (2) Pulmonary atelectasis: Status: Acute DS: Summary Hospital Course Hospital Course: from initial hpi: 74y/o f with pmhx of htn,hlp, asthma(mild intermittent), COPD not on oxygen, schizophrenia, hypothyroidism, current smoker- comes with cough and shortness of breath x1 week duration, has productive cough with white phlegm. she has been sneezing frequently over the past week, family members also sick? uri and she experienced 2 days of increased shortness of breath as well as increased dyspnea on exertion. She states that this morning she was feeling more short of breath and her O2 saturation is usually 94-97% and it was 71% on room air. She does not wear oxygen at baseline . in ed her O2 saturation was 85% on room air and on 3 L her O2 saturation is 92%. has mild leucocytsosis , bmp seems fine ,cxr -mild interstial changes, elevated bnp of 200 , has some edema of legs (? says similar ).unclear about any new med changes or weight changes. in ed: received nebs and steriods,lasix -admission ?chf requested. Denies any new complaint of chest pain or abdominal pain or fever or chills or nausea or vomiting Seems generalized week. Social history: Patient used to smoke lifelong 1 pack a day now she is trying to cut down 10 cigarettes a day. Denies any alcohol or recreation drug use. hospital course: Patient was admitted for acute hypoxic respiratory failure secondary to acute on chronic CHF with preserved ejection fraction and COPD with acute decompensation due to rhino virus and possible superimposed bacterial pneumonia. She was diuresed well, given levofloxacin and steroids and weaned down to room air. Patient states she was feeling back to baseline. On her CT chest right breast mass concerning for neoplasm was noted. Patient will be referred to Oncology and surgery as outpatient. Course complicated by acute hyponatremia likely multifactorial was placed on fluid restriction. Follow-up labs were unable to be obtained as patient was refusing. Case was discussed with guardian and it was felt that the benefits of for seeing patient into getting labs did not outweigh the harms. Therefore, would continue with fluid restriction and obtain labs as outpatient if patient is willing, if change in clinical status would look for hyponatremia. Last sodium prior to discharge was 129. For hypertension initially started on amlodipine but now blood pressure controlled without medications. For hypothyroidism was continued on levothyroxine. For schizophrenia continued on paliperidone. Patient was seen by physical therapy who recommended short-term rehab. expected to require less than 30 days Time Attestation Discharge Coordination Time (in mins): 35 Quality: Safe Use of Opioids Does Pt have an Active Cancer Diagnosis on the Problem List?: No Quality: Stroke Does the patient have a stroke diagnosis?: No Physical Exam Vital Signs: Vital Signs: Last Vital Signs Temp 99.1 F 07/25/24 08:00 Pulse 75 07/25/24 08:00 Resp 22 H 07/25/24 08:00 BP 125/59 L 07/25/24 08:00 Pulse Ox 90 L 07/25/24 08:00 O2 Del Method Room Air 07/25/24 08:00 O2 Flow Rate 1 07/24/24 15:52 BMI result Body Mass Index 25.4 Comfortable Neck supple no JVD. Lungs entry equal no rales. Heart S1-S2 heard no gallop or rub. Abdomen soft nontender. Neuro alert awake oriented. No asterixis. Extremities no edema. Discharge Plan Discharge Anticipated Discharge Date/Time: 07/31/24 08:38 Patient Disposition: er [facility] Discharge Diagnosis: copd, hyponatremia, breast mass Referrals: [facility] [Outside] - 1 Week [facility] [Outside] - 2 Weeks (FOLLOWING FOR HOME SERVICES IF NEEDED ) Alireza Robertson MD [Primary Care Provider] - 1 Week Dinah Phillips MD [Physician] - 1 Week (right breast mass) Dale Stevens MD [Physician] - 1 Week (right breast mass) Discharge Medications: Continued albuterol sulfate [Ventolin HFA] 90 mcg/actuation HFA aerosol inhaler 2 puff inhalation Q6H PRN (Reason: bronchospasm) 30 Days Qty: 8.5 6RF Invega Sustenna 234 mg/1.5 mL syringe 234 mg IM Q30D Qty: 1.5 0RF levothyroxine 50 mcg tablet 50 mcg PO DAILY@0600 Discharge Orders: Discharge Order (Routine); Ordered 07/25/24 Ordered By: Juan Carlos Daugherty Diet: fluid restrict 1.5L per d Activity on Discharge: As tolerated Stand Alone Forms: Patient Portal Discharge page Print Language: Cymro Care Plan Goals: recovery Health Concerns: low sodium, copd, right breast mass Plan of Treatment: fluid restrict 1.5L per day compelte 3 more days levaquin and 5 days prednisone follow up oncology/surgery for breast mass Assessment: see above
[2024-07-25 11:56] VITALS: BP 142/66; PULSE 78; RESP 19; TEMP 36.9; O2SAT 92
[2024-07-25 15:54] VITALS: BP 132/60; PULSE 92; RESP 20; TEMP 36.6; O2SAT 93
[2024-07-25] MEDS: levoFLOXacin/D5W 750 MG/150 ML PIGGYBACK 100 MG IV (17:17)
[2024-07-25] MEDS: 0.9 % Sodium Chloride Flush 3 ML SYRINGE IVFLUSH ×2 (17:17→23:28)
[2024-07-25 19:28] VITALS: BP 120/57; PULSE 88; RESP 18; TEMP 36.4; O2SAT 94
[2024-07-25] MEDS: Calcium Carbonate 750 MG TAB.CHEW PO (22:31)
[2024-07-25 23:28] VITALS: BP 127/60; PULSE 89; RESP 16; TEMP 36; O2SAT 92
[2024-07-26 07:03] VITALS: BP 122/59; PULSE 84; RESP 20; TEMP 36.3; O2SAT 98
--- NOTE | 2024-07-26 09:02 | MHC.CM.PN ---
Addendum entered by Cary Horton RN 07/26/24 16:04: NOTICE OF INTENT TO ADMIT SUBMITTED TO [facility], AWAITING FINAL DOC, NURSE JESS MARCOS REPORTS [facility] IS LOOKING FOR COPY OF PT'S LUIS FIERRO FROM 07/18/24 THEY ONLY HAVE THE ONE ON FILE AND INSURANCE AUTH. Addendum entered by Cary Horton RN 07/26/24 12:34: [facility] OFFERING BED, AWAITING FOR GUARDIAN AYESHA TO RETURN SIGNED INTENT, AYESHA REPORTS PT'S INTELLIGENCE SUPPORT OFFICER IS JAMA RUELAS IN [place]. Original Note: EMR REVIEWED, PT MEDICALLY CLEARED FOR DC TO STR, [facility] PT, CM WILL CONT TO FOLLOW AND EMAIL PT'S SON NOTICE OF INTENT TO ADMIT.
--- NOTE | 2024-07-26 09:55 | HO.PM.IMPN ---
Subjective Subjective Date of Service: 07/26/24 Interval History: feels well wants to go home Physical Exam Vital Signs: Vital Signs: Last Vital Signs Temp 97.3 F 07/26/24 07:03 Pulse 84 07/26/24 07:03 Resp 20 07/26/24 07:03 BP 122/59 L 07/26/24 07:03 Pulse Ox 98 07/26/24 07:03 O2 Del Method Nasal Cannula 07/26/24 07:03 O2 Flow Rate 2 07/26/24 07:03 BMI result Body Mass Index 25.4 Comfortable Neck supple no JVD. Lungs entry equal no rales. Heart S1-S2 heard no gallop or rub. Abdomen soft nontender. Neuro alert awake oriented. No asterixis. Extremities no edema. Objective Data Active Medications Acetaminophen (Acetaminophen 325 Mg Tablet) 650 mg PO Q6H PRN PRN Reason: Pain, Mild 1-3,fever,headache Albuterol/Ipratropium (Albuterol/Iprat 2.5/0.5mg 3 Ml Ampul.Neb) 3 ml INHALE RQ4H WHILE AWAKE PRN PRN Reason: sob Calcium Carbonate (Calcium Carbonate 750 Mg Tab.Chew) 750 mg PO Q4H PRN PRN Reason: Heartburn Last Admin: 07/25/24 22:31 Dose: 750 mg Documented By: LUCERO Furosemide (Furosemide 20 Mg Tablet) 20 mg PO DAILY [facility]; Protocol Last Admin: 07/25/24 10:45 Dose: 20 mg Documented By: MERT Heparin Sodium (Porcine) (Heparin Sodium,Porcine 5,000 Unit/Ml Vial) 5,000 unit SUBCUT Q8H [facility] Last Admin: 07/26/24 02:27 Dose: Not Given Documented By: LUCERO Non-Admin Reason: Patient Refused Levofloxacin (Levaquin) 750 mg in 150 mls @ 100 mls/hr IV Q24H [facility] Last Infusion: 07/25/24 19:16 Dose: Infused Documented By: RADHA Levothyroxine Sodium (Levothyroxine Sodium 50 Mcg Tablet) 50 mcg PO DAILY@0600 [facility] Last Admin: 07/25/24 10:45 Dose: 50 mcg Documented By: MRET Loratadine (Loratadine 10 Mg Tablet) 10 mg PO DAILY [facility] Last Admin: 07/25/24 10:45 Dose: 10 mg Documented By: MERT Magnesium Hydroxide (Milk Of Magnesia 30 Ml Oral.Susp) 30 ml PO DAILY PRN PRN Reason: Constipation Melatonin (Melatonin 3 Mg Tablet) 6 mg PO BEDTIME PRN PRN Reason: Insomnia Nicotine (Nicotine 21 Mg Patch.Td24) 21 mg TRANSDERMA DAILY [facility] Last Admin: 07/25/24 10:46 Dose: Not Given Documented By: MERT Non-Admin Reason: Patient Refused Paliperidone Palmitate (Paliperidone Palmitate 234 Mg/1.5 Ml Syringe) 234 mg IM Q30D [facility] Sodium Chloride (0.9 % Sodium Chloride Flush 3 Ml Syringe) 3 ml IVFLUSH QSHIFT [facility] Last Admin: 07/25/24 23:28 Dose: 3 ml Documented By: COOK Labs 07/17/24 14:00 07/23/24 09:27 Assessment and Plan (1) Acute on chronic hypoxic respiratory failure: Status: Acute (2) Pulmonary atelectasis: Status: Acute Plan 74F PMH htn, HLD, asthma(mild intermittent), COPD not on oxygen, schizophrenia, hypothyroidism, current smoker- presented with cough and shortness of breath x1 week duration. acute hypoxemic respiratory failure possible sec to acute on chronic chf (Hf with preserved EF) , copd excerebation with entero/rhino virus(uri)and superimposed pneumonia improved, now on po lasix, room air levofloxacin ct chest-possible pneumonia and right side breast mass increasing outpatient follow up with dr ferreira acute hyponatremia -? multifactorial ( pneumonia , diuretics) fluid restrict patient refusing labs, risks of getting labs against patient's will at this time outweight benefits htn started amlodipine hypothyroidism continue levothyroxine. schizophrenia on paliperidone. left groin moisture associated skin damage Turn and Reposition every 2 hours and as needed for patient comfort.? Use pillows or wedges to support off loading positions. Off Load all bony prominences with use of pillows and heel boots if needed.? Apply Preventative foams where needed. ? Monitor for incontinence and moisture control, use barrier creams when needed for prevention and treatment. Provide adequate and supplemental nutrition.? Order low air loss mattress. When applicable maintain blood glucose levels per Providers order. Bilateral Heels - Apply skin prep and foam dressing change every 5 days and PRN. Elevate heels off of bed surface with pillows. Left Groin - Routine cleansing, pat dry. Apply barrier cream twice daily and PRN. Left Elbow - Apply skin prep and off load pressure and from surface of bed with pillows. May apply foam dressing if patient is able to tolerate. pt-rec str full code dvt prophylaxis - hep sq reason for continued hospitalization:safe dispo Quality Stroke Does the patient have a stroke diagnosis?: No VTE Prior VTE?: No VTE Risk Level:: Medical - moderate - high VTE Device Contraindication: N/A - Device Ordered VTE Drug Contraindication: N/A - Med Ordered
[2024-07-26 10:59] VITALS: BP 120/57; PULSE 83; RESP 20; TEMP 36.4; O2SAT 94
[2024-07-26] MEDS: Loratadine 10 MG TABLET PO (11:45)
[2024-07-26] MEDS: Heparin Sodium,Porcine 5,000 UNIT/ML VIAL 5000 UNIT SUBCUT ×2 (11:45→16:24)
[2024-07-26] MEDS: Furosemide 20 MG TABLET PO (11:45)
[2024-07-26] MEDS: Nicotine 21 MG PATCH.TD24 TRANSDERMA (11:46)
[2024-07-26] MEDS: 0.9 % Sodium Chloride Flush 3 ML SYRINGE IVFLUSH ×3 (11:46→21:59)
[2024-07-26 16:00] VITALS: BP 124/67; PULSE 88; RESP 18; TEMP 36.3; O2SAT 92
[2024-07-26] MEDS: levoFLOXacin/D5W 750 MG/150 ML PIGGYBACK 100 MG IV (16:24)
[2024-07-26 19:24] VITALS: BP 135/69; PULSE 103; RESP 16; TEMP 36.5; O2SAT 93
[2024-07-26] MEDS: Calcium Carbonate 750 MG TAB.CHEW PO (21:58)
[2024-07-27] VITALS: BP 122/68; PULSE 75; RESP 18; TEMP 36.8; O2SAT 95
[2024-07-27 04:00] VITALS: BP 134/70; PULSE 77; RESP 20; TEMP 36.3; O2SAT 94
[2024-07-27] MEDS: Levothyroxine Sodium 50 MCG TABLET PO (06:46)
[2024-07-27 08:00] VITALS: BP 133/60; PULSE 82; RESP 18; TEMP 36.2; O2SAT 98
[2024-07-27] MEDS: Loratadine 10 MG TABLET PO (09:04)
[2024-07-27] MEDS: Furosemide 20 MG TABLET PO (09:05)
[2024-07-27] MEDS: 0.9 % Sodium Chloride Flush 3 ML SYRINGE IVFLUSH ×3 (09:05→20:28)
[2024-07-27] MEDS: Heparin Sodium,Porcine 5,000 UNIT/ML VIAL 5000 UNIT SUBCUT ×2 (09:06→16:54)
--- NOTE | 2024-07-27 09:58 | P.PNIM_ITS ---
Subjective Subjective Date of Service: 07/27/24 Interval History: feels well wants to go home Physical Exam 2 Vital Signs: Vital Signs: Last Vital Signs Temp 97.2 F 07/27/24 08:00 Pulse 82 07/27/24 08:00 Resp 18 07/27/24 08:00 BP 133/60 07/27/24 08:00 Pulse Ox 98 07/27/24 08:00 O2 Del Method Nasal Cannula 07/27/24 08:00 O2 Flow Rate 2 07/27/24 08:00 BMI result Body Mass Index 25.4 Comfortable Neck supple no JVD. Lungs entry equal no rales. Heart S1-S2 heard no gallop or rub. Abdomen soft nontender. Neuro alert awake oriented. No asterixis. Extremities no edema. Objective Data Active Medications Acetaminophen (Acetaminophen 325 Mg Tablet) 650 mg PO Q6H PRN PRN Reason: Pain, Mild 1-3,fever,headache Albuterol/Ipratropium (Albuterol/Iprat 2.5/0.5mg 3 Ml Ampul.Neb) 3 ml INHALE RQ4H WHILE AWAKE PRN PRN Reason: sob Calcium Carbonate (Calcium Carbonate 750 Mg Tab.Chew) 750 mg PO Q4H PRN PRN Reason: Heartburn Last Admin: 07/26/24 21:58 Dose: 750 mg Documented By: CRISS Furosemide (Furosemide 20 Mg Tablet) 20 mg PO DAILY [facility]; Protocol Last Admin: 07/27/24 09:05 Dose: 20 mg Documented By: JOSH Heparin Sodium (Porcine) (Heparin Sodium,Porcine 5,000 Unit/Ml Vial) 5,000 unit SUBCUT Q8H [facility] Last Admin: 07/27/24 09:06 Dose: 5,000 unit Documented By: JOSH Levofloxacin (Levaquin) 750 mg in 150 mls @ 100 mls/hr IV Q24H [facility] Last Infusion: 07/26/24 19:04 Dose: Infused Documented By: MAREK Levothyroxine Sodium (Levothyroxine Sodium 50 Mcg Tablet) 50 mcg PO DAILY@0600 [facility] Last Admin: 07/27/24 06:46 Dose: 50 mcg Documented By: CRISS Loratadine (Loratadine 10 Mg Tablet) 10 mg PO DAILY [facility] Last Admin: 07/27/24 09:04 Dose: 10 mg Documented By: JOSH Magnesium Hydroxide (Milk Of Magnesia 30 Ml Oral.Susp) 30 ml PO DAILY PRN PRN Reason: Constipation Melatonin (Melatonin 3 Mg Tablet) 6 mg PO BEDTIME PRN PRN Reason: Insomnia Nicotine (Nicotine 21 Mg Patch.Td24) 21 mg TRANSDERMA DAILY [facility] Last Admin: 07/27/24 09:06 Dose: Not Given Documented By: JOSH Non-Admin Reason: Patient Refused Paliperidone Palmitate (Paliperidone Palmitate 234 Mg/1.5 Ml Syringe) 234 mg IM Q30D [facility] Sodium Chloride (0.9 % Sodium Chloride Flush 3 Ml Syringe) 3 ml IVFLUSH QSHIFT [facility] Last Admin: 07/27/24 09:05 Dose: 3 ml Documented By: JOSH Labs 07/17/24 14:00 07/23/24 09:27 Assessment and Plan (1) Acute on chronic hypoxic respiratory failure: Status: Acute (2) Pulmonary atelectasis: Status: Acute Plan 74F PMH htn, HLD, asthma(mild intermittent), COPD not on oxygen, schizophrenia, hypothyroidism, current smoker- presented with cough and shortness of breath x1 week duration. acute hypoxemic respiratory failure possible sec to acute on chronic chf (Hf with preserved EF) , copd excerebation with entero/rhino virus(uri)and superimposed pneumonia improved, now on po lasix, room air levofloxacin ct chest-possible pneumonia and right side breast mass increasing outpatient follow up with dr ferreira acute hyponatremia -? multifactorial ( pneumonia , diuretics) fluid restrict patient refusing labs, risks of getting labs against patient's will at this time outweight benefits htn started amlodipine hypothyroidism continue levothyroxine. schizophrenia on paliperidone. left groin moisture associated skin damage Turn and Reposition every 2 hours and as needed for patient comfort.? Use pillows or wedges to support off loading positions. Off Load all bony prominences with use of pillows and heel boots if needed.? Apply Preventative foams where needed. ? Monitor for incontinence and moisture control, use barrier creams when needed for prevention and treatment. Provide adequate and supplemental nutrition.? Order low air loss mattress. When applicable maintain blood glucose levels per Providers order. Bilateral Heels - Apply skin prep and foam dressing change every 5 days and PRN. Elevate heels off of bed surface with pillows. Left Groin - Routine cleansing, pat dry. Apply barrier cream twice daily and PRN. Left Elbow - Apply skin prep and off load pressure and from surface of bed with pillows. May apply foam dressing if patient is able to tolerate. pt-rec str full code dvt prophylaxis - hep sq reason for continued hospitalization:safe dispo Quality Stroke Does the patient have a stroke diagnosis?: No VTE Prior VTE?: No VTE Risk Level:: Medical - moderate - high VTE Device Contraindication: N/A - Device Ordered VTE Drug Contraindication: N/A - Med Ordered
[2024-07-27 12:00] VITALS: BP 129/61; PULSE 82; RESP 30; TEMP 36.5; O2SAT 93
[2024-07-27 16:00] VITALS: BP 133/61; PULSE 80; RESP 22; TEMP 36.6; O2SAT 95
[2024-07-27] MEDS: levoFLOXacin/D5W 750 MG/150 ML PIGGYBACK 100 MG IV (16:53)
[2024-07-27 20:00] VITALS: BP 141/67; PULSE 85; RESP 18; TEMP 36.5; O2SAT 94
[2024-07-28] VITALS: BP 142/65; PULSE 76; RESP 20; TEMP 36.4; O2SAT 97
[2024-07-28 04:00] VITALS: BP 141/68; PULSE 69; RESP 20; TEMP 37.1; O2SAT 95
[2024-07-28] MEDS: Levothyroxine Sodium 50 MCG TABLET PO (05:28)
[2024-07-28 08:00] VITALS: BP 130/62; PULSE 82; RESP 18; TEMP 36.2; O2SAT 98
--- NOTE | 2024-07-28 09:18 | P.PNIM_ITS ---
Subjective Subjective Date of Service: 07/28/24 Interval History: feels well wants to go home Physical Exam 2 Vital Signs: Vital Signs: Last Vital Signs Temp 97.2 F 07/28/24 08:00 Pulse 82 07/28/24 08:00 Resp 18 07/28/24 08:00 BP 130/62 07/28/24 08:00 Pulse Ox 98 07/28/24 08:00 O2 Del Method Humidified O2 07/28/24 08:00 O2 Flow Rate 3 07/28/24 08:00 BMI result Body Mass Index 25.4 Comfortable Neck supple no JVD. Lungs entry equal no rales. Heart S1-S2 heard no gallop or rub. Abdomen soft nontender. Neuro alert awake oriented. No asterixis. Extremities no edema. Objective Data Active Medications Acetaminophen (Acetaminophen 325 Mg Tablet) 650 mg PO Q6H PRN PRN Reason: Pain, Mild 1-3,fever,headache Albuterol/Ipratropium (Albuterol/Iprat 2.5/0.5mg 3 Ml Ampul.Neb) 3 ml INHALE RQ4H WHILE AWAKE PRN PRN Reason: sob Calcium Carbonate (Calcium Carbonate 750 Mg Tab.Chew) 750 mg PO Q4H PRN PRN Reason: Heartburn Last Admin: 07/26/24 21:58 Dose: 750 mg Documented By: CRISS Furosemide (Furosemide 20 Mg Tablet) 20 mg PO DAILY [facility]; Protocol Last Admin: 07/27/24 09:05 Dose: 20 mg Documented By: JOSH Heparin Sodium (Porcine) (Heparin Sodium,Porcine 5,000 Unit/Ml Vial) 5,000 unit SUBCUT Q8H [facility] Last Admin: 07/28/24 01:22 Dose: Not Given Documented By: BOUCHRA Non-Admin Reason: Patient Refused Levofloxacin (Levaquin) 750 mg in 150 mls @ 100 mls/hr IV Q24H [facility] Last Infusion: 07/27/24 18:25 Dose: Infused Documented By: JOSH Levothyroxine Sodium (Levothyroxine Sodium 50 Mcg Tablet) 50 mcg PO DAILY@0600 [facility] Last Admin: 07/28/24 05:28 Dose: 50 mcg Documented By: BOUCHRA Loratadine (Loratadine 10 Mg Tablet) 10 mg PO DAILY [facility] Last Admin: 07/27/24 09:04 Dose: 10 mg Documented By: JOSH Magnesium Hydroxide (Milk Of Magnesia 30 Ml Oral.Susp) 30 ml PO DAILY PRN PRN Reason: Constipation Melatonin (Melatonin 3 Mg Tablet) 6 mg PO BEDTIME PRN PRN Reason: Insomnia Nicotine (Nicotine 21 Mg Patch.Td24) 21 mg TRANSDERMA DAILY [facility] Last Admin: 07/27/24 09:06 Dose: Not Given Documented By: JOSH Non-Admin Reason: Patient Refused Paliperidone Palmitate (Paliperidone Palmitate 234 Mg/1.5 Ml Syringe) 234 mg IM Q30D [facility] Sodium Chloride (0.9 % Sodium Chloride Flush 3 Ml Syringe) 3 ml IVFLUSH QSHIFT [facility] Last Admin: 07/27/24 20:28 Dose: 3 ml Documented By: BOUCHRA Labs 07/17/24 14:00 07/23/24 09:27 Assessment and Plan (1) Acute on chronic hypoxic respiratory failure: Status: Acute (2) Pulmonary atelectasis: Status: Acute Plan 74F PMH htn, HLD, asthma(mild intermittent), COPD not on oxygen, schizophrenia, hypothyroidism, current smoker- presented with cough and shortness of breath x1 week duration. acute hypoxemic respiratory failure possible sec to acute on chronic chf (Hf with preserved EF) , copd excerebation with entero/rhino virus(uri)and superimposed pneumonia improved, now on po lasix, room air levofloxacin ct chest-possible pneumonia and right side breast mass increasing outpatient follow up with dr ferreira acute hyponatremia -? multifactorial ( pneumonia , diuretics) fluid restrict patient refusing labs, risks of getting labs against patient's will at this time outweight benefits htn started amlodipine hypothyroidism continue levothyroxine. schizophrenia on paliperidone. left groin moisture associated skin damage Turn and Reposition every 2 hours and as needed for patient comfort.? Use pillows or wedges to support off loading positions. Off Load all bony prominences with use of pillows and heel boots if needed.? Apply Preventative foams where needed. ? Monitor for incontinence and moisture control, use barrier creams when needed for prevention and treatment. Provide adequate and supplemental nutrition.? Order low air loss mattress. When applicable maintain blood glucose levels per Providers order. Bilateral Heels - Apply skin prep and foam dressing change every 5 days and PRN. Elevate heels off of bed surface with pillows. Left Groin - Routine cleansing, pat dry. Apply barrier cream twice daily and PRN. Left Elbow - Apply skin prep and off load pressure and from surface of bed with pillows. May apply foam dressing if patient is able to tolerate. pt-rec str full code dvt prophylaxis - hep sq reason for continued hospitalization:safe dispo Quality Stroke Does the patient have a stroke diagnosis?: No VTE Prior VTE?: No VTE Risk Level:: Medical - moderate - high VTE Device Contraindication: N/A - Device Ordered VTE Drug Contraindication: N/A - Med Ordered
[2024-07-28 12:00] VITALS: BP 126/60; PULSE 88; RESP 20; TEMP 36.5; O2SAT 93
[2024-07-28 16:00] VITALS: BP 129/59; PULSE 89; RESP 32; TEMP 36.3; O2SAT 92
[2024-07-28] MEDS: Heparin Sodium,Porcine 5,000 UNIT/ML VIAL 5000 UNIT SUBCUT (16:43)
[2024-07-28] MEDS: 0.9 % Sodium Chloride Flush 3 ML SYRINGE IVFLUSH (16:43)
[2024-07-28] MEDS: levoFLOXacin/D5W 750 MG/150 ML PIGGYBACK 100 MG IV (16:43)
[2024-07-28 19:45] VITALS: BP 150/70; PULSE 83; RESP 16; TEMP 36.1; O2SAT 91
[2024-07-29] VITALS (8 sets, daily range): BP systolic 113–148; BP diastolic 55–72; PULSE 79–93; RESP 16–20; TEMP 36.1–37.1; O2SAT 16–98
[2024-07-29] MEDS: Levothyroxine Sodium 50 MCG TABLET PO (06:00)
[2024-07-29] MEDS: Loratadine 10 MG TABLET PO (08:47)
[2024-07-29] MEDS: Furosemide 20 MG TABLET PO (08:47)
[2024-07-29] MEDS: Nicotine 21 MG PATCH.TD24 TRANSDERMA (08:48)
[2024-07-29] MEDS: Heparin Sodium,Porcine 5,000 UNIT/ML VIAL 5000 UNIT SUBCUT ×2 (08:48→18:04)
--- NOTE | 2024-07-29 09:44 | P.PNIM_ITS ---
Subjective Subjective Date of Service: 07/29/24 Interval History: feels well wants to go home Physical Exam 2 Vital Signs: Vital Signs: Last Vital Signs Temp 97.1 F 07/29/24 08:00 Pulse 86 07/29/24 08:00 Resp 16 07/29/24 08:00 BP 113/59 L 07/29/24 08:00 Pulse Ox 95 07/29/24 08:00 O2 Del Method Nasal Cannula 07/29/24 08:00 O2 Flow Rate 2 07/29/24 08:00 BMI result Body Mass Index 25.4 Comfortable Neck supple no JVD. Lungs entry equal no rales. Heart S1-S2 heard no gallop or rub. Abdomen soft nontender. Neuro alert awake oriented. No asterixis. Extremities no edema. Objective Data Active Medications Acetaminophen (Acetaminophen 325 Mg Tablet) 650 mg PO Q6H PRN PRN Reason: Pain, Mild 1-3,fever,headache Albuterol/Ipratropium (Albuterol/Iprat 2.5/0.5mg 3 Ml Ampul.Neb) 3 ml INHALE RQ4H WHILE AWAKE PRN PRN Reason: sob Calcium Carbonate (Calcium Carbonate 750 Mg Tab.Chew) 750 mg PO Q4H PRN PRN Reason: Heartburn Last Admin: 07/26/24 21:58 Dose: 750 mg Documented By: CRISS Furosemide (Furosemide 20 Mg Tablet) 20 mg PO DAILY [facility]; Protocol Last Admin: 07/29/24 08:47 Dose: 20 mg Documented By: JOSH Heparin Sodium (Porcine) (Heparin Sodium,Porcine 5,000 Unit/Ml Vial) 5,000 unit SUBCUT Q8H [facility] Last Admin: 07/29/24 08:48 Dose: 5,000 unit Documented By: JOSH Levothyroxine Sodium (Levothyroxine Sodium 50 Mcg Tablet) 50 mcg PO DAILY@0600 [facility] Last Admin: 07/29/24 06:00 Dose: 50 mcg Documented By: ANANT Loratadine (Loratadine 10 Mg Tablet) 10 mg PO DAILY [facility] Last Admin: 07/29/24 08:47 Dose: 10 mg Documented By: JOSH Magnesium Hydroxide (Milk Of Magnesia 30 Ml Oral.Susp) 30 ml PO DAILY PRN PRN Reason: Constipation Melatonin (Melatonin 3 Mg Tablet) 6 mg PO BEDTIME PRN PRN Reason: Insomnia Nicotine (Nicotine 21 Mg Patch.Td24) 21 mg TRANSDERMA DAILY [facility] Last Admin: 07/29/24 08:48 Dose: 21 mg Documented By: JOSH Paliperidone Palmitate (Paliperidone Palmitate 234 Mg/1.5 Ml Syringe) 234 mg IM Q30D [facility] Sodium Chloride (0.9 % Sodium Chloride Flush 3 Ml Syringe) 3 ml IVFLUSH QSHIFT [facility] Last Admin: 07/29/24 08:48 Dose: Not Given Documented By: JOSH Non-Admin Reason: No Access Labs 07/17/24 14:00 07/23/24 09:27 Assessment and Plan (1) Acute on chronic hypoxic respiratory failure: Status: Acute (2) Pulmonary atelectasis: Status: Acute Plan 74F PMH htn, HLD, asthma(mild intermittent), COPD not on oxygen, schizophrenia, hypothyroidism, current smoker- presented with cough and shortness of breath x1 week duration. acute hypoxemic respiratory failure possible sec to acute on chronic chf (Hf with preserved EF) , copd excerebation with entero/rhino virus(uri)and superimposed pneumonia improved, now on po lasix, room air levofloxacin course completed ct chest-possible pneumonia and right side breast mass increasing outpatient follow up with dr ferreira acute hyponatremia -? multifactorial ( pneumonia , diuretics) fluid restrict patient refusing labs, risks of getting labs against patient's will at this time outweight benefits htn started amlodipine hypothyroidism continue levothyroxine. schizophrenia on paliperidone. left groin moisture associated skin damage Turn and Reposition every 2 hours and as needed for patient comfort.? Use pillows or wedges to support off loading positions. Off Load all bony prominences with use of pillows and heel boots if needed.? Apply Preventative foams where needed. ? Monitor for incontinence and moisture control, use barrier creams when needed for prevention and treatment. Provide adequate and supplemental nutrition.? Order low air loss mattress. When applicable maintain blood glucose levels per Providers order. Bilateral Heels - Apply skin prep and foam dressing change every 5 days and PRN. Elevate heels off of bed surface with pillows. Left Groin - Routine cleansing, pat dry. Apply barrier cream twice daily and PRN. Left Elbow - Apply skin prep and off load pressure and from surface of bed with pillows. May apply foam dressing if patient is able to tolerate. pt-rec str full code dvt prophylaxis - hep sq reason for continued hospitalization:safe dispo Quality Stroke Does the patient have a stroke diagnosis?: No VTE Prior VTE?: No VTE Risk Level:: Medical - moderate - high VTE Device Contraindication: N/A - Device Ordered VTE Drug Contraindication: N/A - Med Ordered
--- NOTE | 2024-07-29 11:34 | MHC.CM.PN ---
EMR REVIEWED, PT MEDICALLY CLEARED FOR DC HOWEVER PT AWAITING COMPLETION OF LEVELING AND [facility] INS AUTH HOWEVER [facility] OFFICE CLOSED TODAY FOR HOLIDAY, ANTIC PT WILL BE ABLE TO DC TOMORROW 07/30, CM WILL CONT TO FOLLOW.
[2024-07-30] VITALS (7 sets, daily range): BP systolic 117–147; BP diastolic 55–68; PULSE 70–90; RESP 16–20; TEMP 36.2–36.8; O2SAT 92–99
[2024-07-30] MEDS: Nicotine 21 MG PATCH.TD24 TRANSDERMA (08:49)
[2024-07-30] MEDS: Furosemide 20 MG TABLET PO (08:50)
[2024-07-30] MEDS: Loratadine 10 MG TABLET PO (08:50)
--- NOTE | 2024-07-30 09:35 | HO.PM.IMPN ---
Subjective Subjective Date of Service: 07/30/24 Interval History: feels well wants to go home Physical Exam Vital Signs: Vital Signs: Last Vital Signs Temp 97.9 F 07/30/24 08:00 Pulse 79 07/30/24 08:00 Resp 18 07/30/24 08:00 BP 134/63 07/30/24 08:00 Pulse Ox 93 07/30/24 08:00 O2 Del Method Nasal Cannula 07/30/24 08:00 O2 Flow Rate 2 07/30/24 08:00 BMI result Body Mass Index 25.4 Comfortable Neck supple no JVD. Lungs entry equal no rales. Heart S1-S2 heard no gallop or rub. Abdomen soft nontender. Neuro alert awake oriented. No asterixis. Extremities no edema. Objective Data Active Medications Acetaminophen (Acetaminophen 325 Mg Tablet) 650 mg PO Q6H PRN PRN Reason: Pain, Mild 1-3,fever,headache Albuterol/Ipratropium (Albuterol/Iprat 2.5/0.5mg 3 Ml Ampul.Neb) 3 ml INHALE RQ4H WHILE AWAKE PRN PRN Reason: sob Calcium Carbonate (Calcium Carbonate 750 Mg Tab.Chew) 750 mg PO Q4H PRN PRN Reason: Heartburn Last Admin: 07/26/24 21:58 Dose: 750 mg Documented By: CRISS Furosemide (Furosemide 20 Mg Tablet) 20 mg PO DAILY [facility]; Protocol Last Admin: 07/30/24 08:50 Dose: 20 mg Documented By: DONOVAN Heparin Sodium (Porcine) (Heparin Sodium,Porcine 5,000 Unit/Ml Vial) 5,000 unit SUBCUT Q8H [facility] Last Admin: 07/30/24 08:47 Dose: Not Given Documented By: DONOVAN Non-Admin Reason: Patient Refused Levothyroxine Sodium (Levothyroxine Sodium 50 Mcg Tablet) 50 mcg PO DAILY@0600 [facility] Last Admin: 07/30/24 07:49 Dose: Not Given Documented By: DONOVAN Non-Admin Reason: Patient Refused Loratadine (Loratadine 10 Mg Tablet) 10 mg PO DAILY [facility] Last Admin: 07/30/24 08:50 Dose: 10 mg Documented By: DONOVAN Magnesium Hydroxide (Milk Of Magnesia 30 Ml Oral.Susp) 30 ml PO DAILY PRN PRN Reason: Constipation Melatonin (Melatonin 3 Mg Tablet) 6 mg PO BEDTIME PRN PRN Reason: Insomnia Nicotine (Nicotine 21 Mg Patch.Td24) 21 mg TRANSDERMA DAILY [facility] Last Admin: 07/30/24 08:49 Dose: 21 mg Documented By: DONOVAN Paliperidone Palmitate (Paliperidone Palmitate 234 Mg/1.5 Ml Syringe) 234 mg IM Q30D [facility] Sodium Chloride (0.9 % Sodium Chloride Flush 3 Ml Syringe) 3 ml IVFLUSH QSHIFT [facility] Last Admin: 07/30/24 08:48 Dose: Not Given Documented By: DONOVAN Non-Admin Reason: No Access Labs 07/17/24 14:00 07/23/24 09:27 Assessment and Plan (1) Acute on chronic hypoxic respiratory failure: Status: Acute (2) Pulmonary atelectasis: Status: Acute Plan 74F PMH htn, HLD, asthma(mild intermittent), COPD not on oxygen, schizophrenia, hypothyroidism, current smoker- presented with cough and shortness of breath x1 week duration. acute hypoxemic respiratory failure possible sec to acute on chronic chf (Hf with preserved EF) , copd excerebation with entero/rhino virus(uri)and superimposed pneumonia improved, now on po lasix, room air levofloxacin course completed ct chest-possible pneumonia and right side breast mass increasing outpatient follow up with dr ferreira acute hyponatremia -? multifactorial ( pneumonia , diuretics) fluid restrict patient refusing labs, risks of getting labs against patient's will at this time outweight benefits htn started amlodipine hypothyroidism continue levothyroxine. schizophrenia on paliperidone. left groin moisture associated skin damage Turn and Reposition every 2 hours and as needed for patient comfort.? Use pillows or wedges to support off loading positions. Off Load all bony prominences with use of pillows and heel boots if needed.? Apply Preventative foams where needed. ? Monitor for incontinence and moisture control, use barrier creams when needed for prevention and treatment. Provide adequate and supplemental nutrition.? Order low air loss mattress. When applicable maintain blood glucose levels per Providers order. Bilateral Heels - Apply skin prep and foam dressing change every 5 days and PRN. Elevate heels off of bed surface with pillows. Left Groin - Routine cleansing, pat dry. Apply barrier cream twice daily and PRN. Left Elbow - Apply skin prep and off load pressure and from surface of bed with pillows. May apply foam dressing if patient is able to tolerate. pt-rec str full code dvt prophylaxis - hep sq reason for continued hospitalization:safe dispo Quality Stroke Does the patient have a stroke diagnosis?: No VTE Prior VTE?: No VTE Risk Level:: Medical - moderate - high VTE Device Contraindication: N/A - Device Ordered VTE Drug Contraindication: N/A - Med Ordered
--- NOTE | 2024-07-30 11:47 | MHC.CM.PN ---
CM RECEIVED MESSAGE FROM [facility] THAT EVERYTHING IS ALL SET FOR PT TRANSFER EXCEPT [facility] ORDER, CM HAS ATTEMPTED TO CONTACT NURSE JESS Muse VIA PHONE AND BY EMAIL W/NO RESPONSE, NO RESPONSE AT PHONE, CM CONTACTED PT'S SON/GUARDIAN AYESHA WHO REPORTS PT'S [facility] DATE WAS PUSHED BACK TO 07/26 AND WILL REACH OUT TO PT'S ATTY (JAMA RUELAS) TO SEE IF HE CAN ACCESS A COPY, PT WILL ALSO NEED A LESS THAN 30DAY ON DC, HOSPITALIST MADE AWARE VIA TIGER.
[2024-07-30] MEDS: Albuterol/Iprat 2.5/0.5MG 3 ML AMPUL.NEB INHALE (20:20)
[2024-07-31 03:09] VITALS: BP 130/61; PULSE 68; RESP 16; TEMP 36.1; O2SAT 95
[2024-07-31] MEDS: Levothyroxine Sodium 50 MCG TABLET PO (05:48)
[2024-07-31 07:29] VITALS: BP 116/50; PULSE 68; RESP 20; TEMP 36.7; O2SAT 97
--- NOTE | 2024-07-31 08:32 | MHC.CM.PN ---
Addendum entered by Leia Echeverria 07/31/24 09:35: [facility] transport auth received (booking ID #[id number]). Original Note: IMM 07/31/24, LUIS [facility] RECIEVED VIA EMAIL AND FORWARDED TO [facility] VIA [facility], SON/GUARDIAN AYESHA NOTIFIED VIA EMAIL PER BOGDAN AYERS FOR TRANSPORT AT 11:30AM.
--- NOTE | 2024-07-31 10:22 | P.CDIM_ITS ---
PROVIDER RESPONSE TEXT: To clarify, the appropriate diagnosis supported by the clinical indicators: Acute hypoxemic respiratory failure: acute QUERY TEXT: PHYSICIAN'S DOCUMENTATION REQUEST Date of Query: 07/31/2024 10:01 AM EST Patient Name: Bertha Uribe Admit Date: 07/17/2024 Dear Juan Carlos Daugherty MD, A review of the medical record indicates additional documentation may be needed. Please review below and update the documentation accordingly. Clinical Indicators: Progress notes documented within the Assessment and Plan list: Acute on chronic hypoxic respiratory f ailure: Within the Plan: PMH, HLD asthma, COPD not on oxygen, current smoker-presented with cough and shortne ss of breath x 1 week duration, Acute hypoxemic respiratory failure. Respiratory consult note dated 07/21 - Underlying COPD on supplemental oxygen dependent admitted with worsening dyspnea and hypoxia. If possible, please further give clarity to the acuity of respiratory failure noted within the medica l record: Acute hypoxemic respiratory failure possible, suspected, probable etc. Acute on chronic hypoxemic respiratory failure Other (explain) Clinically unable to determine (explain) Thank you, Liliana Lee, CCS, CDIS Use of terms such as suspected, likely, concern for, or probable (associated with a specific diagnosi s that is being evaluated, monitored, or treated as if it exists) are acceptable and can be coded in the inpatient se tting, when documented at the time of discharge. Please use your independent medical judgment in providing your response. THIS QUERY IS PART OF THE PERMANENT MEDICAL RECORD
[2024-07-31 11:36] VITALS: BP 132/59; PULSE 82; RESP 20; TEMP 36.7; O2SAT 92
== END 2024-07-31 12:35 | disposition skilled nursing facility (03) | DRG 291 ==
LOC: HO.ED 16:22 → HO.EDOVER 17:25 → HO.IMC 07-18 14:11
PROVIDERS: Internal Medicine; Admitting Provider Internal Medicine; Emergency Provider Emergency Medicine Emergency Medical Services; PCP Internal Medicine; Visit Provider Internal Medicine
DX: I11.0 Hypertensive heart disease with heart failure (principal); I50.33 Acute on chronic diastolic (congestive) heart failure; J15.9 Unspecified bacterial pneumonia; J96.01 Acute respiratory failure with hypoxia; J44.1 Chronic obstructive pulmonary disease with (acute) exacerbation; F20.0 Paranoid schizophrenia; J98.11 Atelectasis; E87.1 Hypo-osmolality and hyponatremia; J44.0 Chronic obstructive pulmonary disease with (acute) lower respiratory infection; E03.9 Hypothyroidism, unspecified; J45.20 Mild intermittent asthma, uncomplicated; C50.911 Malignant neoplasm of unspecified site of right female breast; L24.A0 Irritant contact dermatitis due to friction or contact with body fluids, unspecified; B97.10 Unspecified enterovirus as the cause of diseases classified elsewhere; B97.89 Other viral agents as the cause of diseases classified elsewhere; F17.210 Nicotine dependence, cigarettes, uncomplicated; Z71.6 Tobacco abuse counseling; Z20.822 Contact with and (suspected) exposure to COVID-19; Z79.890 Hormone replacement therapy; Z79.899 Other long term (current) drug therapy
CPT/HCPCS: 0241U; 36415; 71045; 71250; 80048; 80053; 82436; 82803; 83880; 83930; 83935; 84133; 84145; 84300; 84484; 85025; 87633; 93005; 93308; 94640; 97116; 97162; 99285; J0696; J1644; J1940; J1956; J2020; J2543; J2919; Q9957

== ENCOUNTER → 2024-07-17 14:00 | Outpatient (BNV) | payer OTHER, SELFPAY | PROVIDERS: Emergency Provider Emergency Medicine Emergency Medical Services; PCP Internal Medicine; Visit Provider Radiology Diagnostic Radiology | DX: R06.02 Shortness of breath (principal); R05.9 Cough, unspecified | CPT/HCPCS: 71045 ==

== ENCOUNTER → 2024-07-17 14:41 | Outpatient (BNV) | payer OTHER, SELFPAY | PROVIDERS: Admitting Provider Internal Medicine; Emergency Provider Emergency Medicine Emergency Medical Services; PCP Internal Medicine; Visit Provider Internal Medicine | DX: R06.02 Shortness of breath (principal); R94.31 Abnormal electrocardiogram [ECG] [EKG]; I49.49 Other premature depolarization | CPT/HCPCS: 93010 ==

== ENCOUNTER 2024-07-17 17:03 | Outpatient (BNV) | payer OTHER, SELFPAY | END 2024-07-19 07:00 | PROVIDERS: Admitting Provider Internal Medicine; Emergency Provider Emergency Medicine Emergency Medical Services; PCP Internal Medicine; Visit Provider Internal Medicine | DX: I35.8 Other nonrheumatic aortic valve disorders (principal); I31.39 Other pericardial effusion (noninflammatory); I50.9 Heart failure, unspecified | CPT/HCPCS: 93308 ==

== ENCOUNTER 2024-07-17 17:03 | Outpatient (BNV) | payer OTHER, SELFPAY | END 2024-07-21 12:25 | PROVIDERS: Admitting Provider Internal Medicine; Emergency Provider Emergency Medicine Emergency Medical Services; PCP Internal Medicine; Visit Provider Specialist | DX: R09.02 Hypoxemia (principal); J44.1 Chronic obstructive pulmonary disease with (acute) exacerbation; R06.02 Shortness of breath | CPT/HCPCS: 71045; 71250 ==

== ENCOUNTER → 2024-07-17 17:03 | Outpatient (BNV) | payer OTHER, SELFPAY | PROVIDERS: Admitting Provider Internal Medicine; Emergency Provider Emergency Medicine Emergency Medical Services; PCP Internal Medicine; Visit Provider Internal Medicine | DX: J44.1 Chronic obstructive pulmonary disease with (acute) exacerbation (principal); J96.01 Acute respiratory failure with hypoxia | CPT/HCPCS: 99222; 99231; 99232 ==

== ENCOUNTER → 2024-07-17 17:03 | Outpatient (BNV) | payer OTHER, SELFPAY | PROVIDERS: Admitting Provider Internal Medicine; Emergency Provider Emergency Medicine Emergency Medical Services; PCP Internal Medicine; Visit Provider Internal Medicine Pulmonary Disease | DX: J96.21 Acute and chronic respiratory failure with hypoxia (principal); J98.11 Atelectasis; J44.9 Chronic obstructive pulmonary disease, unspecified; J18.9 Pneumonia, unspecified organism | CPT/HCPCS: 99222 ==

== ENCOUNTER → 2024-07-17 17:03 | Outpatient (BNV) | payer OTHER, SELFPAY | PROVIDERS: Admitting Provider Internal Medicine; Emergency Provider Emergency Medicine Emergency Medical Services; PCP Internal Medicine; Visit Provider Internal Medicine Hypertension Specialist | DX: E87.1 Hypo-osmolality and hyponatremia (principal) | CPT/HCPCS: 99223 ==

== ENCOUNTER → 2024-08-13 14:47 | Outpatient (BNVA) | payer OTHER, SELFPAY | PROVIDERS: PCP Internal Medicine; Visit Provider Surgery | DX: N63.11 Unspecified lump in the right breast, upper outer quadrant (principal) | CPT/HCPCS: 99202 ==

== ENCOUNTER 2024-09-06 14:29 | Outpatient (AMB) | payer OTHER, SELFPAY ==
[2024-09-06 14:31] VITALS: BP 126/84; PULSE 96; O2SAT 92; BMI 26.8
--- NOTE | 2024-09-06 14:31 | MHC.PC.OV ---
Vital Signs 09/06/24 14:31 Height 5 ft 3 in Weight 151 lb 4 oz BMI 26.8 BP 126/84 Blood Pressure Location Lt brachial Position Sitting Pulse 96 Pulse Source Pulse Oximeter Pulse Oximetry (%) 92 Oxygen Delivery Method Room Air Intake Visit Reasons: COPD, hypothyroidism, schizophrenia Fugitive Detective Required: No Accompanied by: Self / Same As Patient Allergies clozapine [Clozapine] Adverse Reaction (Unknown, Verified 09/07/24 07:49) LOW ANC haloperidol [From HALDOL] Adverse Reaction (Unknown, Verified 09/07/24 07:49) TARDIVE DISKINESIVE Medication List - Last Reconciled 09/07/24 by Alireza Robertson MD acetaminophen 650 mg PO Q6H PRN albuterol sulfate 90 mcg/actuation (Ventolin HFA) 2 puffs inhalation Q6H PRN 30 days bisacodyl (Dulcolax (bisacodyl)) 10 mg OK DAILY PRN levothyroxine 50 mcg PO DAILY@0600 magnesium hydroxide (Milk of Magnesia) 30 mL PO BEDTIME paliperidone palmitate (Invega Sustenna) 234 mg (1.5 mL) IM Q30D sodium phosphates 19-7 gram/118 mL (Fleet Enema) 118 mL OK BEDTIME PRN Tobacco use date assessed: 09/06/24 Fall risk assessment: No Falls in past year Last assessed Fall Risk: 09/06/24 Dental Screening Dental Screen Date: 09/06/24 Did you have a dental visit in the last 12 months?: No Did you have a dental problem in the last 6 months where you did not have access to dental care?: No Was dental information given to patient?: No HPI COPD, hypothyroidism, schizophrenia HPI Details Patient comes in today for her follow-up visit She was just discharged from [facility] a couple of weeks ago, where she spent about 3 weeks in short-term rehab following a hospital admission wherein she was admitted for 2 weeks at [facility] [place] for acute respiratory failure and hypoxia Patient states that she is currently doing okay but she is worried about the lesion that was noted on her right breast on recent imaging studies She is scheduled to have a right breast lumpectomy done in a couple of weeks on 09/18/2024 but has an upcoming appointment for pulmonary clearance and oncology visit next week on 09/11/2024 States that she is no longer smoking She denies any headaches or dizziness Denies any chest pains, no increased shortness of breath No nausea/vomiting, no abdominal pain No change in bowel habits noted [facility] Medical History Breast mass, right Respiratory failure with hypercapnia Smoker Paranoid schizophrenia Anxiety Gastritis Polycythemia Acquired hypothyroidism Benign essential hypertension COPD (chronic obstructive pulmonary disease) Surgical History No pertinent past surgical history Family History Father CVD (cardiovascular disease) Mother Medical history unknown Family/Other FH: mental illness Other Mental health problem Social History (Updated 09/07/24 @ 08:08 by Alireza Robertson MD) Household Members: Other Household Members Other:: [facility] Housing: Other Housing Other:: [facility] Do you presently have visiting nurse or other home services: No Unable to assess alcohol history related to: Unknown Alcohol intake: never Comment: not used for pain Patient Tobacco Use Status: Former Tobacco user Tobacco use type: Cigarette Cigarette Packs Per Day: 0.25 Cigarettes Per Day: 5 e-Cigarette/Vaping Use: Never Used Second Hand Smoke Exposure: Yes service: No Current occupational status: disabled Sexual orientation: Straight/Heterosexual Cognitive needs: No Hearing needs: No Vision needs: No Questionnaire PHQ-9 Over the last 2 weeks, how often have you been bothered by any of the following problems? 1. Little interest or pleasure in doing things: not at all 2. Feeling down, depressed, or hopeless: not at all 3. Trouble falling or staying asleep, or sleeping too much: not at all 4. Feeling tired or having little energy: not at all 5. Poor appetite or overeating: not at all 6. Feeling bad about yourself - or that you are a failure or have let yourself or your family down: not at all 7. Trouble concentrating on things, such as reading the newspaper or watching television: not at all 8. Moving or speaking so slowly that other people could have noticed. Or the opposite - being so fidgety or restless that you have been moving around a lot more than usual: not at all 9. Thoughts that you would be better off or of hurting yourself in some way: not at all Total score: 0 Depression Screening Interpretation: Negative Depression Screening Done: Yes 91019 - PHQ-9 Billing: Yes Source: Developed by Drs. Ivan Ndiaye, Jaci Campos, Amanuel Robledo and colleagues, with an educational mehul from [employer]. Thrive Questionnaire Date Thrive assessed: 09/06/24 I am a: Patient What is your living situation today?: I have a steady place to live Within the past 12 months, did the food you bought not last and you didn't have the money to get more?: Never true Within the past 12 months, did you worry whether your food would run out before you got money to buy more?: Never true Do you have trouble paying for medicines?: No Do you have trouble getting transportation to medical appointments?: No Do you have trouble paying your heating and electricity bill?: No Do you have trouble taking care of your child, family member or friend?: No Do you have trouble with day-to-day activities such as bathing, preparing meals, shopping, managing finances, etc.?: No Are you currently unemployed and looking for a job?: No Are you interested in more education?: No Please select the resources that you would like help with: None Currently or been in a relationship where the following occur: No concerns reported THRIVE Score: 0 AUDIT C Alcohol Use Questionnaire (AUDIT-C) 1. How often do you have a drink containing alcohol?: Never 3. How often do you have six or more drinks on one occasion?: Never Total Score: 0 Score Reviewed/Action Taken: Yes YANNICK-7 AMB Questionnaire YANNICK-7 Date YANNICK - 7 assessed: 09/06/24 Feeling nervous, anxious, or on edge: 0 = Not at all Not being able to stop or control worryin = Not at all Worrying too much about different things: 0 = Not at all Trouble relaxin = Not at all Being so restless that it is hard to sit still: 0 = Not at all Becoming easily annoyed or irritable: 0 = Not at all Feeling afraid as if something awful might happen: 0 = Not at all Total YANNICK-7 score (0-4 normal; 5-9 mild; 10-14 moderate; 15-21 severe): 0 Source: Developed by Drs. Ivan Ndiaye, Jaci Campos, Amanuel Robledo and colleagues, with an educational mehul from [employer]. Review of Systems Const Denies chills, Denies fatigue, Denies fever(s) and Denies headache(s) ENT Denies dysphagia, Denies dizziness, Denies otalgia, Denies headache(s), Denies neck pain, Denies odynophagia and Denies sore throat Card Denies chest pain, Denies palpitations and Reports dyspnea on exertion Resp Denies chest congestion, Reports cough (on and off, with minimal thick whitish phlegm), Reports dyspnea on exertion and Denies wheezing GI Denies abdominal pain, Denies constipation, Denies dysphagia, Denies heartburn, Denies diarrhea, Denies nausea, Denies odynophagia and Denies vomiting Denies difficulty voiding, Denies nocturia, Denies dysuria and Denies urinary urgency Musc Denies back pain, Reports muscle weakness (of both legs, at times when she is walking - better lately) and Denies neck pain Skin/Breast Denies rash Neuro Denies dizziness and Denies headache(s) Psych Reports anxiety Endo Denies fatigue and Denies palpitations Aller/Immun Denies wheezing Physical exam (Primary Care) Vital Signs: Last Vital Signs Pulse 96 09/06/24 14:31 BP 126/84 09/06/24 14:31 Pulse Ox 92 09/06/24 14:31 Oxygen Delivery Method Room Air 09/06/24 14:31 BMI result Body Mass Index 26.8 Tobacco/Smoking Status: Tobacco use Status Tobacco use date assessed 09/06/24 09/06/24 14:33 Patient Tobacco Use Status Current everyday Tobacco 09/06/24 14:33 Tobacco use type Cigarette 09/06/24 14:33 e-Cigarette/Vaping Use Never Used 09/06/24 14:33 PHQ-9: PHQ-9 Score PHQ-9: Total score 0 09/06/24 15:17 Depression Screening Interpretation: Negative Thrive Assessment: Date of Thrive Assessment Date Thrive assessed 09/06/24 09/06/24 14:33 Currently or been in a relationship where the following occur: No concerns reported Const General: no acute distress and alert HENMT Ears: TM's normal bilaterally and EAC's normal Throat: Yes posterior oropharynx normal and Yes tonsils normal (no TP congestion noted) Neck Neck: Yes supple and No lymphadenopathy Thyroid: Thyroid normal Resp Auscultation: no crackles, no rales, rhonchi (occasional) upper bilaterally, no wheezes and diminished lung sounds bilateral Cardio Rate: regular rate Rhythm: regular rhythm Heart sounds: no murmurs GI Palpation (GI): Soft to palpation and nontender Auscultation: normal bowel sounds General: Yes no CVA tenderness Back/Spine/Pelvis Back: no CVA tenderness Thoracic/Lumbar Spine: No lumbar spinal tenderness Skin Rashes: no rashes Extrem General: Yes no clubbing, cyanosis or edema Coding Level of Care Code Est Pt Level 4 (00939) Diagnoses Chronic obstructive pulmonary disease, unspecified COPD type J44.9 COPD type: unspecified COPD Mass of upper outer quadrant of right breast N63.11 Breast mass location: upper outer quadrant Acquired hypothyroidism E03.9 Vitamin D deficiency E55.9 Gastritis without bleeding, unspecified chronicity, unspecified gastritis type K29.70 Gastritis type: unspecified gastritis Chronicity: unspecified Gastritis bleeding: without bleeding Constipation, unspecified constipation type K59.00 Constipation type: unspecified constipation type Anxiety F41.9 Paranoid schizophrenia F20.0 Additional Codes PHQ-9 - 83304 - PHQ-9 Billing: Yes ([id number]) Assessment & Plan Assessment & Plan (1) COPD (chronic obstructive pulmonary disease): Comment: CHRONIC OBSTRUCTIVE PULMONARY DISEASE, DEFINITELY RELATED TO HER LONG-TIME SMOKING. SHE CLAIMS THAT SHE IS STAYING VERY STABLE , SHE DECLINES TO USE ANY INHALERS. Code(s): J44.9 - Chronic obstructive pulmonary disease, unspecified Category: Medical Qualifiers: COPD type: unspecified COPD Qualified Code(s): J44.9 - Chronic obstructive pulmonary disease, unspecified Plan: S/P recent hospital admission for acute on chronic respiratory failure and hypoxia She spent about 3 weeks in short-term rehab and was just discharged from rehab a couple of weeks ago back to her residential program at [facility] [place] She declines the use of any inhalers She also has oxygen to use but per [facility] [place] program staff, patient refuses to use her oxygen regularly as instructed Patient did indicate today that she has finally succeeded in quitting smoking completely Follow-up with pulmonary as scheduled - she has an upcoming appointment on 09/12/2023 for pulmonary clearance for her planned right breast lumpectomy later next month (2) Breast mass, right: Code(s): N63.10 - Unspecified lump in the right breast, unspecified quadrant Category: Medical Qualifiers: Breast mass location: upper outer quadrant Qualified Code(s): N63.11 - Unspecified lump in the right breast, upper outer quadrant Plan: This was seen on recent imaging study (chest CT) done during her recent hospital admission in July 2024 - (+) 5 cm lobulated mass within the lateral right breast with extension to the skin surface, significantly increased in size since prior study. The appearance is highly suggestive of neoplasm Patient is currently scheduled for right breast lumpectomy on 09/18/2024 but has an upcoming appointment early next week with Oncology as well as with Pulmonary for preop clearance (3) Acquired hypothyroidism: Code(s): E03.9 - Hypothyroidism, unspecified Category: Medical Plan: Continue Levothyroxine 50 mcg QD Patient has not had her TFTs checked since April 2022 despite her tests being ordered repeatedly (4) Vitamin D deficiency: Code(s): E55.9 - Vitamin D deficiency, unspecified Category: Medical Plan: Her Vitamin D level was corrected as of April 2022 but she also has not had her Vitamin D level checked since and she has also stopped taking her Vitamin D supplements a couple of years ago (5) Gastritis: Code(s): K29.70 - Gastritis, unspecified, without bleeding Category: Medical Qualifiers: Gastritis type: unspecified gastritis Chronicity: unspecified Gastritis bleeding: without bleeding Qualified Code(s): K29.70 - Gastritis, unspecified, without bleeding Plan: Patient used to take Omeprazole 20 mg QD for some GI symptoms but has not taken this in a couple of years now States that her stomach feels fine and she does not think she needs to take any medications for her stomach at this time (6) Constipation: Code(s): K59.00 - Constipation, unspecified Category: Medical Qualifiers: Constipation type: unspecified constipation type Qualified Code(s): K59.00 - Constipation, unspecified Plan: Patient has MOM to take at 30 ml Q HS and Dulcolax 10 mg suppositories QD PRN for constipation She also has a standing order for Fleet enema Q HS PRN if no bowel movements in several days despite use of her routine laxatives and stool softeners (7) Anxiety: Code(s): F41.9 - Anxiety disorder, unspecified Category: Medical Plan: Patient used to follow up with psychiatry on staff at [facility] [place] but unclear at this time whether she is still seeing them or not She has consistently refused to take any medications for her psychiatric issues over the years (8) Paranoid schizophrenia: Code(s): F20.0 - Paranoid schizophrenia Category: Medical Plan: Patient also has Invega Sustenna 234 mg IM every 30 days but per [facility] [place] staff, she has been refusing to take her medications for a while now and that there is nothing they can do if patient refuses to take her medication It is unclear at this time whether patient is even still being seen by psychiatry at her [facility] residential program regularly or not Plan Follow up in 3 months
--- OUTSIDE RECORDS SUMMARY | 2024-09-06 16:40 | XMS_ITS | Clinical Summary ---
Author Organization [address] [facility] Address [address] [place] [address] Phone Care Team Providers Care Director Of Cardiac Rehabilitation Name Role Phone Alireza Robertson MD Primary Care Provider [phone] Allergies Active Allergy Reactions Criticality Noted Date Comments Clozapine Low 05/02/2022 Haloperidol Medium 05/02/2022 Medications varenicline (CHANTIX) 1 mg tablet Take 1 Tablet by mouth 2 times daily. Active umeclidinium (Incruse Ellipta) 62.5 mcg/actuation inhalation Inhale into the lungs. Active paliperidone palmitate (Invega Sustenna) 234 mg/1.5 mL syringe Inject into the muscle. Active omeprazole (PRILOSEC) 20 mg tablet,delayed release (DR/EC) Take by mouth. Active levothyroxine (SYNTHROID, LEVOTHROID) 50 mcg tablet Take 1 Tablet by mouth daily. Active ketoconazole (NIZORAL) 2 % cream Apply topically 2 times daily. Active hydroCHLOROthiazi de 12.5 mg tablet Take 1 Tablet by mouth daily. Active guaiFENesin (MUCINEX) 600 mg 12 hr tablet Take 2 Tablets by mouth 2 times daily. Active fluticasone propion-salmetero L (AIRDUO RESPICLICK) 232-14 mcg/actuation aerosol powdr breath activated inhaler Inhale into the lungs. Active ammonium lactate (LAC-HYDRIN) 12 % lotion Apply to soles of feet daily. At night wear socks to bed 2 Active aspirin 81 mg EC tablet Take 1 Tablet by mouth daily. Active cholecalciferol (VITAMIN D-3) 50 mcg (2,000 unit) capsule Take by mouth. Activ e albuterol sulfate (ProAir RespiClick) 90 mcg/actuation aerosol powdr breath activated Inhale into the lungs. Active multivit-min/iron /folic acid/K (ADULTS MULTIVITAMIN ORAL) Take by mouth. - Oral Active Active Problems Problem Noted Date Diagnosed Date Anxiety 07/08/2022 Benign essential hypertension 07/08/2022 COPD (chronic obstructive pulmonary disease) Hypothyroidism 07/08/2022 Paranoid schizophrenia 07/08/2022 Polycythemia 07/08/2022 Respiratory failure with hypercapnia 07/08/2022 Smoker 07/08/2022 Surgical History Surgery Date Site/Laterality Comments OTHER SURGICAL HISTORY PROCEDURE: DENIES PREVIOUS SURGERY Medical History Medical History Date Comments Hypothyroidism 07/08/2022 DX:Hypothyroidis m Anxiety 07/08/2022 DX:Anxiety Benign essential hypertension 07/08/2022 DX :Benign essential hypertension COPD (chronic obstructive pu lmonary disease) (CMS/HCC) 07/08/2022 DX:COPD (chronic obstructive pulmonary disease) (HCC) Paranoid schizophrenia (CMS/HCC) 07/08/2022 DX:Paranoid schizophrenia (HCC) Polycythemia 07/08/2022 DX:Polycythemia Respiratory failure with hyp ercapnia (CMS/HCC) 07/08/2022 DX:Respiratory failure with hypercapnia (HCC) Smoker 07/08/2022 DX:Smoker Social History Tobacco Use Types Packs/Day Years Used Date Smoking Tobacco: Never Assessed Comments Unknown Sex and Gender Information Value Date Recorded Sex Assigned at Not on file Legal Sex Female 4:22 PM EST Gender Identity Not on file Sexual Orientation Not on file Obstetrics History Last Filed Vital Signs Vital Sign Reading Time Taken Comments Blood Pressure - - Pulse - - Temperature - - Respiratory Rate - - Oxygen Saturation - - Inhaled Oxygen Concentration - - Weight 70.3 kg (155 lb) 04/18/2024 10:14 AM EDT Height 167.6 cm (5' 6 ) 04/18/2024 10:14 AM EDT Body Mass Index 25.02 04/18/2024 10:14 AM EDT Plan of Treatment Health Maintenance Due Date Last Done Comments DTaP,Tdap,and Td Vaccines (1 - Tdap) 1968 Pneumococcal Vaccine: 50+ Ye ars (1 of 2 - PCV) 1968 Zoster Vaccines (1 of 2) 1999 Cholesterol Screening (Lipid Panel) 06/19/2022 Colorectal Cancer Screening: Colonoscopy 06/19/2022 Depression Screening 06/19/2022 Falls Risk Assessment 06/19/2022 Hepatitis C Screening 06/19/2022 Osteoporosis Screening (Bone Density Screening) 06/19/2022 Social Influencers of Health Screening 06/19/2022 Hypertension/CHF/CAD Annual BMP Blood Test 08/11/2023 COVID-19 Vaccine ( - 2023-2 5 season) 2024 Influenza Vaccine (#1) 2024 RSV Immunization Patients 60 + Years Old (1 - 1-dose 75+ series) 2024 HIB Vaccines Aged Out No longer eligi ble based on patient's age to complete this topic HPV Vaccines Aged Out No longer eligi ble based on patient's age to complete this topic Hepatitis A Vaccines Aged Out No long er eligible based on patient's age to complete this topic Hepatitis B Vaccines Aged Out No long er eligible based on patient's age to complete this topic IPV Vaccines Aged Out No longer eligi ble based on patient's age to complete this topic MMR Vaccines Aged Out No longer eligi ble based on patient's age to complete this topic Meningococcal ACWY Vaccine Aged Out N o longer eligible based on patient's age to complete this topic Meningococcal B Vacine Aged Out No lo nger eligible based on patient's age to complete this topic RSV Immunization Patients Un flaco 20 months Aged Out No longer eligible b ased on patient's age to complete this topic Varicella Vaccines Aged Out No longer eligible based on patient's age to complete this topic Care Teams Director Of Cardiac Rehabilitation Relationship Specialty Start Date End Date Alireza Robertson MD [address] [place] [address] Dr [address] STEPHANIE Scherer PCP - General Internal Medicine 04/28/22
--- OUTSIDE RECORDS SUMMARY | 2024-09-06 16:40 | XMS_ITS ---
Author Organization [facility] Address Unknown Allergies, Adverse Reactions, Alerts Substance Reaction Status Noted Date Resolved Date KlonoPIN active 07/31/2024 Haldol active 07/31/2024 Medications Medication Dose Frequency Directions Start Date End Shlomo e Ventolin HFA Inhalation Aerosol Solution 108 (90 Base) MCG/ACT 2 2 puff inhale orally every 6 hours as needed for Bhronchospasm 07/31/2024 Levothyroxine Sodium Oral Tablet 50 MCG 1 {tbl} Give 1 tablet by adrian th in the morning for Hypothyroid 08/01/2024 Invega Sustenna Intramuscular Suspension Prefilled Syringe 234 MG/1.5ML 1 24 h Inject 1 syringe intramuscularly one time a day every 1 month(s) starting on the for 28 day(s) for Schizo 08/06/2024 Fleet Enema Enema 7-19 GM/118ML 1 {Dose} Insert 1 dose rectal ly as needed for Constipation (Step 3) as needed if no bowel movement for 8 hours after bisacodyl suppository. 07/31/2024 Milk of Magnesia Suspension 400 MG/5ML 30 mL Give 30 ml by mout h as needed for Constipation (Step 1) As needed if no bowel movement for three days. (Do not use for Hemodialysis patients). 07/31/2024 Acetaminophen Tablet 325 MG 2 {tbl} Give 2 tablet by adrian th every 6 hours as needed for Pain Pain Total dosage for acetaminophen and medications that contain acetaminophen should not exceed 3 grams / 24 hours. 07/31/2024 Acetaminophen Tablet 325 MG 2 {tbl} Give 2 tablet by adrian th every 6 hours as needed for Fever greater than 100.0F Total dosage for acetaminophen and medications that contain acetaminophen should not exceed 3 grams / 24 hours. 07/31/2024 Bisacodyl Suppository 10 MG 1 Insert 1 suppository rectally as needed for If no bowel movement for 8 hours after Milk of Magnesia 08/01/2024 Medications Administered Medication Dose Frequency Status Start Date End Date Ventolin HFA Inhalation Aero karmen Solution 108 (90 Base) MCG/ACT 2 07/31/2024 Levothyroxine Sodium Oral Ta blet 50 MCG 1 {tbl} 08/30/2024 Invega Sustenna Intramuscula r Suspension Prefilled Syringe 234 MG/1.5ML 1 24 h Drug Refused 08/30/2024 Fleet Enema Enema 7-19 GM/118ML 1 {Dose} 07/31/2024 Milk of Magnesia Suspension 400 MG/5ML 30 mL 07/31/2024 Acetaminophen Tablet 325 MG 2 {tbl} Acetaminophen Tablet 325 MG 2 {tbl} Bisacodyl Suppository 10 MG 1 Problems Problem Status Start Date End Date ACUTE ON CHRONIC SYSTOLIC (C ONGESTIVE) HEART FAILURE (Primary) (I50.23 - ICD-10-CM) ACTIVE 07/31/2024 ACUTE AND CHRONIC RESPIRATOR Y FAILURE WITH HYPOXIA (J96.21 - ICD-10-CM) ACTIVE 08/01/2024 ATELECTASIS (J98.11 - ICD-10-CM) ACTIVE 07/31/19 25 CHRONIC OBSTRUCTIVE PULMONAR Y DISEASE, UNSPECIFIED (J44.9 - ICD-10-CM) ACTIVE 08/01/2024 HYPO-OSMOLALITY AND HYPONATREMIA (E87.1 - ICD-10-CM) A CTIVE 07/31/2024 ESSENTIAL (PRIMARY) HYPERTENSION (I10 - ICD-10-CM) ACT JORGE 08/01/2024 HYPOTHYROIDISM, UNSPECIFIED (E03.9 - ICD-10-CM) ACTIVE 08/01/2024 SCHIZOPHRENIA, UNSPECIFIED (F20.9 - ICD-10-CM) ACTIVE 07/31/2024 MUSCLE WEAKNESS (GENERALIZED) (M62.81 - ICD-10-CM) ACT JORGE 07/31/2024 DYSPHAGIA, OROPHARYNGEAL PHASE (R13.12 - ICD-10-CM) AC TIVE 07/31/2024 UNSTEADINESS ON FEET (R26.81 - ICD-10-CM) ACTIVE 07/31/2024 OTHER ABNORMALITIES OF GAIT AND MOBILITY (R26.89 - ICD-10-CM) ACTIVE 07/31/2024 UNSPECIFIED LACK OF COORDINATION (R27.9 - ICD-10-CM) A CTIVE 07/31/2024 NICOTINE DEPENDENCE, CIGARET ALBERTO, UNCOMPLICATED (F17.210 - ICD-10-CM) ACTIVE 07/31/2024 HYPERLIPIDEMIA, UNSPECIFIED (E78.5 - ICD-10-CM) ACTIVE 08/01/2024 MILD INTERMITTENT ASTHMA, UN COMPLICATED (J45.20 - ICD-10-CM) ACTIVE 08/01/2024 Encounters Encounter Performer Performer Role Encounter Diagnoses Location Date Discharge - Discharged to home or self care - Board and care/assisted living/shelter [facility] 12:21 pm EST - 02:11 pm EST Social History Vital Signs Vital Sign Reading Time Taken painLevel 0 {score} 08/30/2024 02:51 pm EST painLevel 0 {score} 08/29/2024 11:38 pm EST painLevel 0 {score} 08/29/2024 04:11 pm EST painLevel 0 {score} 08/29/2024 02:34 pm EST painLevel 0 {score} 08/28/2024 11:39 pm EST painLevel 0 {score} 08/28/2024 04:07 pm EST painLevel 0 {score} 08/28/2024 09:53 am EST painLevel 0 {score} 08/27/2024 11:21 pm EST painLevel 0 {score} 08/27/2024 03:38 pm EST painLevel 0 {score} 08/27/2024 10:25 am EST painLevel 0 {score} 08/26/2024 11:44 pm EST oxygenSaturation 97 % 08/30/2024 07:5 5 am EST oxygenSaturation 97 % 08/30/2024 07:5 3 am EST oxygenSaturation 93 % 08/30/2024 05:3 7 am EST oxygenSaturation 93 % 08/30/2024 05:3 7 am EST oxygenSaturation 94 % 08/29/2024 06:4 8 pm EST oxygenSaturation 96 % 08/29/2024 08:5 4 am EST oxygenSaturation 96 % 08/29/2024 08:5 4 am EST oxygenSaturation 95 % 08/28/2024 11:4 4 pm EST oxygenSaturation 95 % 08/28/2024 11:4 4 pm EST oxygenSaturation 95 % 08/28/2024 07:3 6 pm EST oxygenSaturation 97 % 08/28/2024 02:5 9 pm EST oxygenSaturation 96 % 08/28/2024 02:5 9 pm EST oxygenSaturation 94 % 08/27/2024 11:2 1 pm EST oxygenSaturation 94 % 08/27/2024 11:2 1 pm EST oxygenSaturation 95 % 08/27/2024 07:1 2 pm EST oxygenSaturation 96 % 08/27/2024 07:3 2 am EST oxygenSaturation 96 % 08/27/2024 07:3 1 am EST oxygenSaturation 94 % 08/26/2024 11:5 0 pm EST oxygenSaturation 94 % 08/26/2024 11:5 0 pm EST oxygenSaturation 94 % 08/26/2024 07:1 2 pm EST oxygenSaturation 94 % 08/26/2024 07:1 2 pm EST respirations 18 /min 08/30/2024 07:53 am EST respirations 18 /min 08/30/2024 05:37 am EST respirations 18 /min 08/29/2024 08:54 am EST respirations 18 /min 08/28/2024 11:44 pm EST respirations 18 /min 08/28/2024 02:59 pm EST respirations 18 /min 08/27/2024 11:21 pm EST respirations 18 /min 08/27/2024 07:32 am EST respirations 18 /min 08/26/2024 11:50 pm EST respirations 18 /min 08/26/2024 07:12 pm EST weight 142.4 [lb_av] 08/30/2024 05:28 am EST weight 142.3 [lb_av] 08/29/2024 05:53 am EST weight 141.2 [lb_av] 08/28/2024 05:33 am EST weight 143 [lb_av] 08/27/2024 05:32 am EST heartrate 76 /min 08/27/2024 07:32 am EST temperature 97.3 [degF] 08/27/2024 07:32 am EST systolicValue 151 mm[Hg] 08/27/2024 07:32 am EST diastolicValue 74 mm[Hg] 08/27/2024 07:32 am EST
== END 2024-09-06 15:19 | disposition home or self-care (01) ==
PROVIDERS: PCP Internal Medicine; Visit Provider Internal Medicine
DX: J44.9 Chronic obstructive pulmonary disease, unspecified (principal); F20.0 Paranoid schizophrenia; N63.11 Unspecified lump in the right breast, upper outer quadrant; E03.9 Hypothyroidism, unspecified; E55.9 Vitamin D deficiency, unspecified; K29.70 Gastritis, unspecified, without bleeding; K59.00 Constipation, unspecified; F41.9 Anxiety disorder, unspecified

== ENCOUNTER → 2024-09-06 14:29 | Outpatient (BNVA) | payer OTHER, SELFPAY | PROVIDERS: PCP Internal Medicine; Visit Provider Internal Medicine | DX: J44.9 Chronic obstructive pulmonary disease, unspecified (principal); E03.9 Hypothyroidism, unspecified; E55.9 Vitamin D deficiency, unspecified; N63.11 Unspecified lump in the right breast, upper outer quadrant; K29.70 Gastritis, unspecified, without bleeding; K59.00 Constipation, unspecified; F20.0 Paranoid schizophrenia; F41.9 Anxiety disorder, unspecified | CPT/HCPCS: 96127; 99212 ==

== ENCOUNTER 2024-09-11 10:53 | Outpatient (REF) | payer OTHER, SELFPAY ==
--- NOTE | ~2024-09-11 | XR_ITS ---
EXAMINATION: XR CHEST 2 VIEWS HISTORY: J44.9 - Chronic obstructive pulmonary disease, unspecified COMPARISON: Comparison is made with the prior examination dated 07/21/2024. FINDINGS: PA and lateral views of the chest are submitted. The previously seen small left pleural effusion is smaller in size. The lungs are clear. There is no right pleural effusion, pneumothorax, or pulmonary vascular congestion. The heart is normal in size. The aorta is calcified. There is degenerative disc disease of the spine. XR/XR chest 2V IMPRESSION: Interval decrease in size of the previously seen small left pleural effusion. Electronically signed by: Ivan Davila MD 09/13/2024 03:04 PM LUIZ
--- OUTSIDE RECORDS SUMMARY | 2024-09-11 14:23 | XMS_ITS | Clinical Summary ---
Author Organization [address] [facility] Address [address] [place] [address] Phone Care Team Providers Care Ring Maker Name Role Phone Alireza Robertson MD Primary Care Provider Allergies Active Allergy Reactions Criticality Noted Date [...] Upcoming Encounters Date Type Department Care Team ([facility] st Contact Info) Description 10/08/2024 1:45 PM EDT Office Visit Orthopedic Surgery - [address] [phone] Conner Funk DPM [address] [facility] [address] [place] [address] Health Maintenance Due Date Last Done Comments [...] topic Insurance [place] - [place] Care Teams Ring Maker Relationship Specialty Start Date End Date Alireza Robertson MD [address] [place] [address] Dr [address] [place] PCP - General Internal Medicine 04/28/22
== END 2024-09-11 10:54 | disposition home or self-care (01) ==
LOC: HO.XRAY 10:53
PROVIDERS: PCP Internal Medicine; Visit Provider Internal Medicine
DX: J44.9 Chronic obstructive pulmonary disease, unspecified (principal); J98.11 Atelectasis; F17.200 Nicotine dependence, unspecified, uncomplicated
CPT/HCPCS: 71046; 99212

== ENCOUNTER 2024-09-11 10:53 | Outpatient (AMB) | payer OTHER, SELFPAY ==
[2024-09-11 11:17] VITALS: BP 120/62; PULSE 102; O2SAT 93; BMI 26.9
--- NOTE | 2024-09-11 11:17 | A.OFFVIS_ITS ---
Vital Signs 09/11/24 11:17 Height 5 ft 3 in Weight 152 lb 1.903 oz BMI 26.9 BP 120/62 Blood Pressure Location Lt brachial Position Sitting Pulse 102 H Pulse Source Pulse Oximeter Pulse Oximetry (%) 93 Oxygen Delivery Method Room Air Intake Visit Reasons: Pre-operative H&P Intake Note: pt is here for pre-op clearance for breast surgery by general surgery. she states she is feeling good/ breathing is good. pt was in rehab for a while. Manager Filter Required: No Allergies clozapine [Clozapine] Adverse Reaction (Unknown, Verified 09/11/24 11:40) LOW ANC haloperidol [From HALDOL] Adverse Reaction (Unknown, Verified 09/11/24 11:40) TARDIVE DISKINESIVE Medication List - Last Reconciled 09/11/24 by Meryl Ashton MD acetaminophen 650 mg PO Q6H PRN albuterol sulfate 90 mcg/actuation (Ventolin HFA) 2 puffs inhalation Q6H PRN 30 days bisacodyl (Dulcolax (bisacodyl)) 10 mg OH DAILY PRN levothyroxine 50 mcg PO DAILY@0600 magnesium hydroxide (Milk of Magnesia) 30 mL PO BEDTIME paliperidone palmitate (Invega Sustenna) 234 mg (1.5 mL) IM Q30D sodium phosphates 19-7 gram/118 mL (Fleet Enema) 118 mL OH BEDTIME PRN HPI HPI Pre-operative H&P: Details: THIS 74 YEARS OLD FEMALE WITH CHALLENGED MENTAL STATUS, HAS BEEN A SMOKER THROUGHOUT HER ADULT LIFE, NOW CUT DOWN TO ABOUT. 5 CIGARETTES A DAY SHE WAS TREATED IN THE HOSPITAL COUPLE MONTHS AGO FOR RESPIRATORY FAILURE MAINLY DUE TO ATELECTASIS IN THE LEFT LOWER LOBE, WHICH HAS GRADUALLY IMPROVED. SHE HAS FEATURES OF RESTRICTIVE AND OBSTRUCTIVE LUNG DISEASE. USES ALBUTEROL INHALER ONLY P.R.N.. SHE HAS HAD HYPOXEMIA IN THE PAST BUT LATELY O2 SATS ARE OKAY AND SHE DOES NOT USE ANY OXYGEN. SHE HAS SPENT ABOUT 2 MONTHS IN THE REHAB FACILITY AND THAT HAS HELPED. NOW SHE IS LIVING AT HOME. SHE AMBULATES WITHIN THE HOUSE BUT DOES NOT DO ANY EXERCISES OR. GO OUT OF THE HOUSE MUCH HAS ONLY MINIMAL COUGH , DENIES ANY WHEEZING FORMERLY [facility], [facility] Medical History (Updated 09/11/24 @ 13:24 by Maryjane Spicer) Retained gallstones following laparoscopic cholecystectomy Breast mass, right Respiratory failure with hypercapnia Smoker Paranoid schizophrenia Anxiety Gastritis Polycythemia Acquired hypothyroidism Benign essential hypertension COPD (chronic obstructive pulmonary disease) Surgical History No pertinent past surgical history Family History Father CVD (cardiovascular disease) Mother Medical history unknown Family/Other FH: mental illness Other Mental health problem Social History (Updated 09/11/24 @ 13:20 by Maryjane Spicer) Household Members: Other Household Members Other:: Correction Housing: Other Housing Other:: Correction Do you presently have visiting nurse or other home services: No Unable to assess alcohol history related to: Unknown Alcohol intake: never Comment: not used for pain Patient Tobacco Use Status: Former Tobacco user Tobacco use type: Cigarette Cigarette Packs Per Day: 0.25 Cigarettes Per Day: 5 e-Cigarette/Vaping Use: Never Used Second Hand Smoke Exposure: Yes Use of substances other than those prescribed or required for medical reasons: No Do you have thoughts of harming others: None Do you have a plan to hurt others: No Plan service: No Current occupational status: disabled Sexual orientation: Straight/Heterosexual Cognitive needs: No Hearing needs: No Vision needs: No Review of Systems Const All systems reviewed & are unremarkable except as noted in HPI and below Eyes Reports no additional complaints ENT Reports no additional complaints Card Denies chest pain, Denies irregular heart rhythm and Denies leg edema Resp Reports as per HPI GI Reports no additional complaints Reports no additional complaints Musc Reports no additional complaints Skin/Breast Reports system reviewed and no additional complaints, except as documented Neuro Reports no additional complaints Psych Details: Known case of Schizophrenic disorder, but controlled and stable Physical Exam Vital Signs: Last Vital Signs Pulse 102 H 09/11/24 11:17 BP 120/62 09/11/24 11:17 Pulse Ox 93 09/11/24 11:17 Oxygen Delivery Method Room Air 09/11/24 11:17 BMI result Body Mass Index 26.9 Const General: comfortable, no acute distress, alert and awake Orientation/consciousness: patient oriented x3 HEENT Head: Yes normal to inspection General nose exam: No nasal polyps present and No nasal discharge present Face and sinus: Yes sinuses nontender Mouth: oropharynx normal Throat: Yes posterior oropharynx normal Eyes General: appearance normal, both eyes and all related structures Neck Neck: Yes normal visual inspection, Yes no lymphadenopathy, Yes trachea midline and Yes no JVD Thyroid: Thyroid normal Chest Chest palpation & inspection: normal inspection of the chest, normal palpation of entire chest wall and no tenderness Resp Other: Percussion note is resonant, breath sounds equal on both sides but somewhat distant with prolonged expiratory phase. No wheezes rhonchi or crepitations are heard . Cardio Palpation: normal PMI Rate: regular rate Rhythm: regular rhythm Heart sounds: no gallops and no murmurs GI Palpation (GI): Soft to palpation, nontender, No hepatosplenomegaly present and no masses Auscultation: normal bowel sounds Back/Spine/Pelvis Thoracic/Lumbar Spine: thoracic and lumbar spine normal to inspection Skin General skin exam: no rashes or lesions noted Neuro General: patient oriented x3 and no focal motor deficits Cranial nerves: Yes CN's II-XII intact bilaterally Extrem General: Yes normal to inspection, Yes no calf tenderness and Yes edema (DOES HAVE MILD CHRONIC EDEMA OF THE LEGS.) Psych Mental Status: mental status grossly normal Speech and movement: Normal speech and movement present Affect: Anxious affect present Assessment & Plan Assessment & Plan (1) COPD (chronic obstructive pulmonary disease): Comment: CHRONIC OBSTRUCTIVE PULMONARY DISEASE, DEFINITELY RELATED TO HER LONG-TIME SMOKING. SHE CLAIMS THAT SHE IS STAYING VERY STABLE , SHE DECLINES TO USE ANY INHALERS. SHE DOES HAVE ALBUTEROL HFA ON HAND BUT HAS NOT BEEN USING IT Code(s): J44.9 - Chronic obstructive pulmonary disease, unspecified Category: Medical Qualifiers: COPD type: unspecified COPD Qualified Code(s): J44.9 - Chronic obstructive pulmonary disease, unspecified Plan: STRESSED THAT SHE CAN USE ALBUTEROL INHALER P.R.N. FOR ANY RESPIRATORY DISTRESS (2) Smoker: Comment: She is a long-time smoker. Claims that she has cut down to 5 CIGARETTES A DAY Code(s): F17.200 - Nicotine dependence, unspecified, uncomplicated Category: Social Hx Plan: Encouraged to cut down the cigarettes to if only 1 or 2 per day and the best thing is to just quit completely. (3) Pulmonary atelectasis: Comment: Patient has had atelectasis of the left lower lobe, She seems to have improved aeration of the left lower lobe. Code(s): J98.11 - Atelectasis Category: Medical Plan: Chest x-ray is ordered to see if there is any interval radiologic change. Orders: Orders XR chest 2V 09/11/24 J44.9 - Chronic obstructive pulmonary disease, unspecified, J98.11 - Atelectasis Coding Level of Care Code Est Pt Level 3 (52641) Diagnoses Chronic obstructive pulmonary disease, unspecified COPD type J44.9 COPD type: unspecified COPD Smoker F17.200 Pulmonary atelectasis J98.11
--- OUTSIDE RECORDS SUMMARY | 2024-09-11 13:04 | XMS_ITS | Clinical Summary ---
Author Organization [address] [facility] Address [address] [place] [address] Phone Care Team Providers Care Estimator And Drafter Name Role Phone Alireza Robertson MD Primary Care Provider [phone] Allergies Active Allergy Reactions Criticality Noted Date [...] 04/18/2024 10:14 AM EDT Plan of Treatment Upcoming Encounters Date Type Department Care Team ([facility] st Contact Info) Description 10/08/2024 1:45 PM EDT Office Visit Orthopedic Surgery - [address] [id number] Conner Funk DPM [address] [facility] [address] [place] [address] Health Maintenance Due Date Last Done Comments [...] Annual BMP Blood Test 08/11/2023 COVID-19 Vaccine (2023-2 5 season) 2024 Influenza Vaccine (#1) 2024 [...] on patient's age to complete this topic Insurance MEDICAID - [place] Care Teams Estimator And Drafter Relationship Specialty Start Date End Date Alireza Robertson MD [address] [place] [address] Dr [address] [place] PCP - General Internal Medicine 04/28/22
== END 2024-09-11 11:49 | disposition home or self-care (01) ==
PROVIDERS: PCP Internal Medicine; Visit Provider Internal Medicine
DX: J44.9 Chronic obstructive pulmonary disease, unspecified (principal); F17.200 Nicotine dependence, unspecified, uncomplicated; J98.11 Atelectasis
CPT/HCPCS: 99213

== ENCOUNTER → 2024-09-11 11:57 | Outpatient (BNV) | payer OTHER, SELFPAY | PROVIDERS: PCP Internal Medicine; Visit Provider Radiology Diagnostic Radiology | DX: J44.9 Chronic obstructive pulmonary disease, unspecified (principal); J90 Pleural effusion, not elsewhere classified | CPT/HCPCS: 71046 ==

== ENCOUNTER 2024-09-18 12:59 | Outpatient (REF) | payer OTHER, SELFPAY ==
--- NOTE | ~2024-09-18 | US_ITS ---
EXAMINATION: US DIAGNOSTIC ULTRASOUND BREAST, RIGHT CLINICAL INFORMATION: Palpable mass right breast, 10:00 axis, with skin ulceration and retraction. 74-year-old female with no prior mammography. COMPARISON: None available. TECHNIQUE: Ultrasound of the right breast is performed with real-time hill scale imaging and color Doppler. Attention was given to the 10:00 axis palpable mass. FINDINGS: Within the 10:00 axis, 5 cm from nipple, correlating with the palpable mass and focus of skin ulceration/retraction, there is a large irregular hypoechoic lobular shadowing mass, with internal vascularity, measuring an estimated 3.7 x 3.5 x 3.2 cm. There is a laterally immediately adjacent satellite nodule with similar properties measuring 1.1 x 0.8 cm. This extends to the level of the skin with a localized skin ulceration. Imaging of the right axilla demonstrates no definite abnormal lymph nodes. US/US breast RT limited IMPRESSION: 1. Large, lobular, hypoechoic vascular shadowing mass measuring approximately 3.7 x 3.5 x 3.2 cm 10:00 axis right breast, correlating with the palpable focus of concern. This is highly suspicious. 2. Immediately laterally adjacent satellite nodule measuring 1.1 x 0.8 cm, suspicious. 3. No definite abnormal lymphadenopathy right axilla. ASSESSMENT: BI-RADS 5: Highly Suggestive of Malignancy RECOMMENDATION: Ultrasound-guided right breast biopsy. Electronically signed by: Jae Scherer MD 09/19/2024 07:49 AM EDT
--- NOTE | ~2024-09-18 | US_ITS ---
PROCEDURE: US GUIDED BREAST BIOPSY, RIGHT CLINICAL INFORMATION: Highly suspicious lobular mass right breast o'clock axis with skin ulceration or retraction. COMPARISON: Right breast targeted ultrasound earlier same day. Patient has no prior mammography. PROCEDURAL DETAILS: The details of the procedure, as well as the risks, benefits, and alternatives to the procedure were explained to the patient's healthcare proxy via phone call in detail, and all of his questions were answered. Written informed consent was obtained from the patient's proxy. Site and side were confirmed. Prior to the procedure, sonography revealed the large lobular 10:00 hypoechoic shadowing mass. A time-out was performed, the lesion intended for biopsy was targeted, and the skin of the right breast was then marked, prepped and draped in the usual sterile fashion. Using sonographic guidance, sterile technique, and 1% lidocaine without epinephrine for local anesthesia, multiple core biopsies were obtained through the targeted area with a 14G spring loaded Paradigmera core biopsy device. There was real-time confirmation of appropriate needle passage. Sampling was documented. At the completion of tissue sampling, a single butterfly shaped metallic clip was deposited at the biopsy site. There was no evidence of immediate complication. SPECIMEN: 3 well formed core samples were obtained US/US breast ndl core biopsy RT IMPRESSION: 1. No immediate complication from ultrasound-guided percutaneous biopsy right breast 10:00 axis ulcerated mass. 2. Ultrasound was used to localize and guide marker clip placement. 3. Postprocedural mammography not performed, as patient was unable to tolerate positioning for mammography. 4. Final pathology results are pending. A separate report with final recommendations will be issued once these results are made available. Electronically signed by: Jae Scherer MD 09/19/2024 07:52 AM EDT
[2024-09-18] MEDS: Sodium Bicarbonate 8.4% 50 MEQ/50 ML VIAL SUBCUT (14:39)
[2024-09-18] MEDS: Lidocaine HCl 1 % 20 ML VIAL 7 ML SUBCUT (14:40)
--- OUTSIDE RECORDS SUMMARY | 2024-09-18 15:05 | XMS_ITS ---
Author Organization [facility] Care Team Providers Care Injection Molding Supervisor Name Role Phone Oleg Malone Unavailable Unavailable Estrellita Colon Unavailable Unavailable Allergies and adverse reactions Code CodeSystem Substance Reaction Severity StartDate Concern Status 2598 RXNORM KlonoPIN Unknown 07/31/2024 active 5093 RXNORM Haldol Unknown 07/31/2024 active Care Team Name Role Address Phone Organization Dates Estrellita Colon PCP [address] [facility] [address], [place], [address], [facility] (Office): : [facility] 07/31/2024 - 08/30/2024 Oleg Malone Attending Physician [place], [facility] 07/31/2024 - 08/30/2024 Goals Section Description Status Target Date Bertha will adhere to fluid restriction a/o with N a+ wnl. Active 11/07/2024 Bertha will attend programs of choice and will be open to room visits through next review date. Active 11/07/2024 Bertha will have improved mood state happier, calmer appearance, no s/sx of depression, anxiety or sadness through the review date. Active 11/07/2024 Bertha's discharge goals are: return to the [facility]. Active 11/07/2024 The resident will be free fr om complications of cardiac problems through the review date. Active 11/07/2024 The resident will be free of falls through the r eview date. Active 11/07/2024 The resident will have fewer episodes of behavio r by review date. Active 11/07/2024 The resident will have no s/ sx of poor oxygen absorption through the review date. Active 11/07/2024 The resident will improve cu rrent level of function in through the review date. Active 11/07/2024 The resident will maintain n ormal breathing pattern as evidenced by normal respirations, normal skin color, and regular respiratory rate/pattern through the review date. Active 11/07/2024 The resident will not have a n interruption in normal activities due to pain through the review date. Active 11/07/2024 The resident will remain maximino e of complications related to altered hematological status through the review date. Active 11/08/19 the resident/HCP/Guardian's Advanced Directives will be honored through next review Active 11/07/2024 Functional Status Code Name Recorded Time Value Entered By Chair/oin-yz-iaxnm transfer 08/30/2024 Independent mlavalley Eating 08/30/2024 Setup or clean-up assistance mlavalley Lower body dressing 08/30/2024 Setup or clean-up ass istance mlavalley Lying to sitting on side of bed 08/30/2024 Independe nt mlavalley Oral hygiene 08/30/2024 Setup or clean-up assistance mlavalley Personal hygiene 08/30/2024 Setup or clean-up assist ance mlavalley Roll left and right 08/30/2024 Independent mlavalle y Shower/bathe self 08/30/2024 Setup or clean-up chelsielizabeth castellonce mlavalley Sit to lying 08/30/2024 Independent mlavalley Sit to stand 08/30/2024 Independent mlavalley Toilet transfer 08/30/2024 Independent mlavalley Toileting hygiene 08/30/2024 Independent mlavalley Upper body dressing 08/30/2024 Setup or clean-up ass istance mlavalley Wheel 150 feet 08/30/2024 Not assessed mlavalley Wheel 50 feet with two turns 08/30/2024 Not assessed mlavalley Medications Section Medication Name Status Code CodeSystem Dose Route Frequency Admin Type Sig Text Start Date End Date Ventolin HFA Inhalation Aerosol Solution 108 (90 Base) MCG/ACT active 396112 RXNORM 2 puff Inhalat ion as needed PRN 2 puff inhale orally every 6 hours as needed for Bhronc hospas m 2024 - Levothyroxine Sodium Oral Tablet 50 MCG active 891293 RXNORM 1 tablet Oral in the morning Routine Give 1 tablet by mouth in the mornin g for Hypoth yroid 2024 - levoFLOXacin Oral Tablet 500 MG complete d 457870 RXNORM 1 tablet Oral one time a day Routine Give 1 tablet by mouth one time a day for COPD exacer bation for 3 Days 08/04 Invega Sustenna Intramuscular Suspension Prefilled Syringe 234 MG/1.5ML active 338617 RXNORM 1 syring e Intramu scular one time a day Routine Inject 1 syring e intram uscula rly one time a day every 1 month( s) starti ng on the for 28 day(s) for Schizo 2024 - Fleet Enema Enema 7-19 GM/118ML active 908189 RXNORM 1 dose Rectal as needed PRN Insert 1 dose rectal ly as needed for Consti pation (Step 3) as needed if no bowel moveme nt for 8 hours after bisaco dyl suppos itory. 2024 - Milk of Magnesia Suspension 400 MG/5ML active 859475 RXNORM 30 ml Oral as needed PRN Give 30 ml by mouth as needed for Consti pation (Step 1) As needed if no bowel moveme nt for three days. (Do not use for Hemodi alysis patien ts). 2024 - predniSONE Oral Tablet 20 MG complete d 673658 RXNORM 40 mg Oral one time a day Routine Give 40 mg by mouth one time a day for COPD exacer bation for 5 Days 08/06 Acetaminophen Tablet 325 MG active 010234 RXNORM 2 tablet Oral as needed PRN Give 2 tablet by mouth every 6 hours as needed for Pain Pain Total dosage for acetam inophe n and medica tions that contai n acetam inophe n should not exceed 3 grams / 24 hours. AND Give 2 tablet by mouth every 6 hours as needed for Fever greate r than 100.0F Total dosage for acetam inophe n and medica tions that contai n acetam inophe n should not exceed 3 grams / 24 hours. 2024 - 051980 RXNORM 2 tablet Oral as needed PRN Give 2 tablet by mouth every 6 hours as needed for Pain Pain Total dosage for acetam inophe n and medica tions that contai n acetam inophe n should not exceed 3 grams / 24 hours. AND Give 2 tablet by mouth every 6 hours as needed for Fever greate r than 100.0F Total dosage for acetam inophe n and medica tions that contai n acetam inophe n should not exceed 3 grams / 24 hours. 2024 - Fleet Enema Enema 7-19 GM/118ML aborted 426499 RXNORM 1 dose Rectal as needed PRN Insert 1 dose rectal ly as needed for Consti pation (Step 3) as needed if no bowel moveme nt for 8 hours after bisaco dyl suppos itory. 08/04 Milk of Magnesia Suspension 400 MG/5ML aborted 180522 RXNORM 30 ml Oral as needed PRN Give 30 ml by mouth as needed for Consti pation (Step 1) As needed if no bowel moveme nt for three days. (Do not use for Hemodi alysis patien ts). 08/04 Acetaminophen Tablet 325 MG aborted 034440 RXNORM 2 tablet Oral as needed PRN Give 2 tablet by mouth every 6 hours as needed for Pain Pain Total dosage for acetam inophe n and medica tions that contai n acetam inophe n should not exceed 3 grams / 24 hours. AND Give 2 tablet by mouth every 6 hours as needed for Fever greate r than 100.0F Total dosage for acetam inophe n and medica tions that contai n acetam inophe n should not exceed 3 grams / 24 hours. 08/04 257277 RXNORM 2 tablet Oral as needed PRN Give 2 tablet by mouth every 6 hours as needed for Pain Pain Total dosage for acetam inophe n and medica tions that contai n acetam inophe n should not exceed 3 grams / 24 hours. AND Give 2 tablet by mouth every 6 hours as needed for Fever greate r than 100.0F Total dosage for acetam inophe n and medica tions that contai n acetam inophe n should not exceed 3 grams / 24 hours. 08/04 Bisacodyl Suppository 10 MG active RXNORM 1 suppos itory Rectal as needed PRN Insert 1 suppos itory rectal ly as needed for If no bowel moveme nt for 8 hours after Milk of Magnes ia 2024 - Mental Status Section Date Assessment Total Score Description 08/06/2024 BIMS 15 cognitively int act CAM 2 Delirium indica juan 08/06/2024 BIMS 15 cognitively int act CAM 2 Delirium indica juan Problems Problem # Description Date of onset Resolved Date Code CodeSystem Concern Status 1 ACUTE AND CHRONIC RESPIRATORY FAILURE WITH HYPOXIA 08/01/[address] active 2 CHRONIC OBSTRUCTIVE PULMONARY DISEASE, UNSPECIFIED 08/01/[address] active 3 ESSENTIAL (PRIMARY) HYPERTENSION 08/01/[address] active 4 HYPERLIPIDEMIA, UNSPECIFIED 08/01/[address] active 5 HYPOTHYROIDISM, UNSPECIFIED 08/01/[address] active 6 MILD INTERMITTENT ASTHMA, UNCOMPLICATED 08/01/[address] active 7 ACUTE ON CHRONIC SYSTOLIC (CONGESTIVE) HEART FAILURE 07/31/[address] active 8 ATELECTASIS 07/31/[address] active 9 DYSPHAGIA, OROPHARYNGEAL PHASE 07/31/[address] active 10 HYPO-OSMOLALITY AND HYPONATREMIA 07/31/[address] active 11 MUSCLE WEAKNESS (GENERALIZED) 07/31/[address] active 12 NICOTINE DEPENDENCE, CIGARETTES, UNCOMPLICATED 07/31/[address] active 13 OTHER ABNORMALITIES OF GAIT AND MOBILITY 07/31/[address] active 14 SCHIZOPHRENIA, UNSPECIFIED 07/31/[address] active 15 UNSPECIFIED LACK OF COORDINATION 07/31/[address] active 16 UNSTEADINESS ON FEET 07/31/[address] active Reason for Referral No Reasons for Referral Entered Social History Social History Observation Description Start Date End Date Code Code System Current Smoking Status Tobacco smoking consumption unknown 530546312 SNOMED CT Sex Assigned At Female 1950 82202-1 [facility] Vital Signs Code Code System Vitals Name Values and Units Timing Information 47934-8 [facility] O2 % BldC Oximetry Value=97.0 Units= % 08/30/2024 9279-1 [facility] Respiratory Rate Value=18.0 Units=/m in 08/30/2024 12280-9 [facility] Weight Bansm=480.4 Units=Lbs 66286-4 [facility] Pain Level Value=0.0 08/30/2024 8462-4 [facility] Blood Pressure-Diastolic Value=74 Un its=mmHg 08/27/2024 8480-6 [facility] Blood Pressure-Systolic Nlrzo=183 Un its=mmHg 08/27/2024 8310-5 [facility] Body Temperature Value=97.3 Units=?? F 08/27/2024 8867-4 [facility] Heart rate Value=76.0 Units=/min 8302-2 [facility] Height Value=63.0 Units=Inches 08/01/2024
--- OUTSIDE RECORDS SUMMARY | 2024-09-18 15:05 | XMS_ITS | Clinical Summary ---
Author Organization [address] [facility] Address [address] [place] [address] Phone Care Team Providers Care Outside Operator Name Role Phone Alireza Robertson MD Primary [...] Upcoming Encounters Date Type Department Care Team ([facility] st Contact Info) Description 10/08/2024 1:45 PM EDT Office Visit Orthopedic Surgery - [address] [address] Conner Funk DPM [address] [facility] [address] [place] [address] Health Maintenance Due Date Last Done Comments [...] topic Insurance MEDICAID - [place] Care Teams Outside Operator Relationship Specialty Start Date End Date Alireza Robertson MD [address] [place] [address] Dr [address] [place] PCP - General Internal Medicine 04/28/22
== END 2024-09-18 13:00 | disposition home or self-care (01) ==
LOC: HO.MAMMO 12:59
PROVIDERS: Pathology Cytopathology; PCP Internal Medicine; Visit Provider Surgery
DX: N63.11 Unspecified lump in the right breast, upper outer quadrant (principal)
CPT/HCPCS: 19083; 36415; 76642; 88305; 88342; 88360; 88374; A4648; C1894; J2003

== ENCOUNTER → 2024-09-18 13:00 | Outpatient (BNV) | payer OTHER, SELFPAY | PROVIDERS: PCP Internal Medicine; Visit Provider Radiology Diagnostic Radiology | DX: N63.11 Unspecified lump in the right breast, upper outer quadrant (principal) | CPT/HCPCS: 19083; 76642 ==

== ENCOUNTER 2024-09-20 11:52 | Emergency (ER) | payer OTHER, SELFPAY ==
[2024-09-20 11:58] VITALS: BP 140/90; PULSE 93; O2SAT 94
[2024-09-20 12:07] VITALS: BP 121/62; PULSE 75; RESP 18; TEMP 36.3; O2SAT 95; BMI 24.4
--- NOTE | 2024-09-20 12:21 | ED_ITS ---
HPI - General Adult General Chief complaint: General Medical Stated complaint: BLEEDING CYST FROM [facility] PER EMS Time Seen by Provider: 09/20/24 12:20 Source: patient and EMS Mode of arrival: EMS Limitations: no limitations History of Present Illness ED Provider: Madeleine Dsouza PA-C HPI narrative: Patient is a 74 year old assigned female at with a history of COPD, HTN, schizophrenia, and right breast mass s/p biopsy on 09/18 presenting to the emergency department today with continued bleeding from biopsy site. Patient states that 2 days ago she had a biopsy performed on her right breast mass and was told if it continues to bleed after 2 days - she should come to the ER. Patient denies any dizziness, lightheadedness, abdominal pain, nausea, vomiting, fever, chills, blurry vision, double vision, loss of vision, chest pain, difficulty breathing, shortness of breath, back pain, night sweats, pain with urination, increased urinary frequency, increased urinary urgency, blood in her urine or stool, syncope or a near syncopal episode, recent trauma or falls, bowel incontinence, bladder incontinence, or any other complaints at this time. Onset (ago): day(s) (2) Location: right (breast) Relieving factors: none Exacerbating factors: none Associated symptoms: denies other symptoms Treatments prior to arrival: none Related Data Home Medications ?Medication ?Instructions ?Recorded ?Confirmed levothyroxine 50 mcg tablet 50 mcg PO DAILY@0600 07/17/24 09/11/24 Previous Rx's ?Medication ?Instructions ?Recorded paliperidone palmitate 234 mg/1.5 234 mg (1.5 mL) IM Q30D #1.5 mL 11/21/22 mL intramuscular syringe (Invega Sustenna) albuterol sulfate 90 mcg/actuation 2 puff inhalation Q6H PRN 05/08/24 aerosol inhaler (Ventolin HFA) bronchospasm 30 days #8.5 grams Allergies Allergy/AdvReac Type Severity Reaction Status Date / Time clozapine [Clozapine] AdvReac Unknown LOW ANC Verified 09/20/24 12:08 haloperidol [From HALDOL] AdvReac Unknown TARDIVE Verified 09/20/24 12:08 DISKINESIVE Review of Systems 2 Constitutional: Constitutional: Reports no additional constitutional complaints, Denies chills, Denies fever(s) and Denies night sweats Eyes: Eyes: Reports no additional eye complaints, Denies blurry vision, Denies change in vision, Denies diplopia, Denies eye discharge, Denies loss of vision and Denies eye pain ENT: Denies dizziness Cardiovascular: Cardiovascular: Reports no additional cardiovascular complaints, Denies chest pain, Denies lightheadedness, Denies Loss of Consciousness and Denies dyspnea Respiratory: Respiratory: Reports no additional respiratory complaints and Denies dyspnea Gastrointestinal: Gastrointestinal: Reports no additional gastrointestinal complaints, Denies abdominal pain, Denies melena, Denies hematochezia, Denies change in bowel habits and Denies change in stool character Genitourinary: Genitourinary: Denies hematuria, Denies urinary frequency, Denies dysuria, Denies urinary incontinence, Denies urinary hesitancy and Denies urinary urgency Musculoskeletal: Musculoskeletal: Reports no additional musculoskeletal complaints, Denies numbness and Denies tingling Integumentary/Breasts: Comments: oozing of blood from right breast mass biopsy site Neurologic: Denies dizziness, Denies loss of vision, Denies numbness and Denies tingling Psychiatric: Psychiatric: Reports no additional psychiatric complaints Endocrine: Endocrine: Reports no additional endocrine complaints Hematologic/Lymphatic: Hematologic/Lymphatic: Reports no additional hematologic/lymphatic complaints Allergic/Immunologic: Allergic/Immunologic: Reports no additional allergic/immunologic complaints PMFSH Past Medical History Attestation statement: The following information was validated with the patient. Source: old records reviewed and nursing notes reviewed Medical History Retained gallstones following laparoscopic cholecystectomy Breast mass, right Respiratory failure with hypercapnia Smoker Paranoid schizophrenia Anxiety Gastritis Polycythemia Acquired hypothyroidism Benign essential hypertension COPD (chronic obstructive pulmonary disease) Surgical History No pertinent past surgical history Family History Family History Father CVD (cardiovascular disease) Mother Medical history unknown Family/Other FH: mental illness Other Mental health problem Social History Social History Household Members: Other Household Members Other:: Correction Housing: Other Housing Other:: Correction Do you presently have visiting nurse or other home services: No Unable to assess alcohol history related to: Unknown Alcohol intake: never Comment: not used for pain Patient Tobacco Use Status: Former Tobacco user Tobacco use type: Cigarette Cigarette Packs Per Day: 0.25 Cigarettes Per Day: 5 e-Cigarette/Vaping Use: Never Used Second Hand Smoke Exposure: Yes Advance Directives: Yes Advance Directives on File: Yes Advance Directives Date on File: 11/22/22 Do you have a plan to hurt others: No Plan service: No Current occupational status: disabled Sexual orientation: Straight/Heterosexual Cognitive needs: No Hearing needs: No Vision needs: No Physical Exam ED Vital Signs: Vital Signs - 24 hr 09/20/24 12:07 09/20/24 14:25 Temperature 97.3 F 97.3 F Pulse Rate 75 75 Respiratory Rate 18 18 Blood Pressure 121/62 121/62 Pulse Oximetry 95 95 BMI result Body Mass Index 24.4 Const General: cooperative, no acute distress, alert and awake Nutritional Appearance: well nourished Orientation/consciousness: patient oriented x3 Limitations: no limitations HENMT Head: Yes normal to inspection and Yes atraumatic Ears: hearing grossly normal bilaterally and external ears normal General nose exam: Normal external nose present, no nasal discharge noted and no epistaxis Face and sinus: Yes normal facial exam, No abrasion and No laceration Mouth: Normal oral and palatal mucosa present, no drooling and no muffled voice Eyes General: appearance normal, both eyes and all related structures Periorbital: periorbital findings normal Eyelids: Yes eyelids normal Conjunctivae: conjunctivae normal Pupils: Equal, round and reactive pupils present EOM: EOMs intact bilaterally Neck Neck: Yes normal visual inspection, Yes full ROM and Yes no lymphadenopathy Chest Chest/axillae images: 2 1. breast mass - very light oozing of blood from pin point biopsy site. Resp Effort & Inspection: normal respiratory effort and able to speak in complete sentences GI Inspection: Yes normal to inspection Neuro General: patient oriented x3, moves all extremities and CN's II-XI intact bilaterally Cranial nerves: Yes Equal, round and reactive pupils present Cognition (Neuro): normal cognition Extrem General: Yes normal to inspection, Yes full ROM and Yes capillary refill normal Psych Appearance: grossly normal Mental Status: mental status grossly normal Affect: normal affect Attitude: cooperative Thought process: Normal thought process present Thought content: Normal thought content present Insight: Good insight present (Psych) Medical Decision Making Medical Decision Making MDM Narrative: Patient is a 74 year old assigned female at with a history of COPD, HTN, schizophrenia, and right breast mass s/p biopsy on 09/18 presenting to the emergency department today with continued bleeding from biopsy site. Patient's physical exam was as noted in the physical exam portion of this note. I spoke to Dr. Stevens who recommended apply surgicell to the area. I explained my physical exam findings to the patient. I answered all questions asked by the patient. I applied surgicell to the oozing area, without incident. I stressed the importance of the patient taking her medication as directed (either prescribed or as the over the counter packaging recommends). I stressed the importance of the patient following up with her primary care provider and general surgeon. I stressed the importance of the patient returning to the emergency department immediately if her symptoms were to worsen or if she were to develop any dizziness, shortness of breath, difficulty breathing, chest pain, blurry vision, loss of vision, nausea, vomiting, abdominal pain, fever, chills, back pain, or any other complaints. Patient verbalized agreement and understanding with this treatment plan and discharge. Differential Diagnosis Differential Diagnoses: The differential diagnosis associated with the presentation includes Right breast biopsy site bleeding Admission/Observation Consideration of admission/observation: Escalation of care including admission/observation considered Patient would have been admitted to the hospital had her clinical presentation warranted hospital admission. Consult Healthcare Provider Management of the patient was discussed with: Quality System Manager (spoke to Dr. Stevens, the general surgeon, as noted in eh MDM Rationale portion of this note.) Independent Historian Clinical information obtained from an independent historian. History obtained from or confirmed by: EMS (EMS provided additional history and confirmed the history provided by the patient. ) Discharge Plan Discharge Clinical Impression: S/P breast biopsy, right Patient Disposition: Home, Self-Care Additional Instructions: Follow up with your primary care provider and the general surgeon. Leave the bandage in place for at least 3 days. Return to the emergency department immediately if your symptoms worsen or if you develop any numbness, tingling, dizziness, shortness of breath, difficulty breathing, chest pain, blurry vision, loss of vision, nausea, vomiting, abdominal pain, fever, chills, back pain, or any other complaints. Please see the information below about our Patient Portal. If you are not yet enrolled in the [facility] Patient Portal, you will receive an enrollment email invitation following your visit to any [facility] setting. You may also self-enroll in the Patient Portal by visiting our website: [email or web address] The following information is required to access the Patient Portal: - Your [facility] Medical Record Number - Your personal home email address (must match what is in your electronic medical record, Registration staff can assist with this) - Name - Date of Capabilities of the Patient Portal: - Message some providers - View upcoming appointments - Access your health summary, medical history, and visit history - View current conditions and allergies - View procedure and lab results - View your medications, including guidelines, side effects, and precautions - Complete pre-appointment questionnaires requested by your provider - Ready summary reports of your office visits and procedures To access the Patient Portal Mobile Marcie, follow these directions: - Search [employer] in the Marcie Store or Genome Store - Download the Marcie - Search for [facility] - Enter your login/password Prescriptions: No Action albuterol sulfate [Ventolin HFA] 90 mcg/actuation HFA aerosol inhaler 2 puff inhalation Q6H PRN (Reason: bronchospasm) 30 Days Qty: 8.5 6RF Invega Sustenna 234 mg/1.5 mL syringe 234 mg IM Q30D Qty: 1.5 0RF levothyroxine 50 mcg tablet 50 mcg PO DAILY@0600 Referrals: Alireza Robertson MD [Primary Care Provider] - Interventions: ED Discharge Assessment Last Done: 09/20/24 14:25 Discharge Date/Time: 09/20/24 14:26 Print Language: Panamanian
--- OUTSIDE RECORDS SUMMARY | 2024-09-20 13:54 | XMS_ITS | Clinical Summary ---
Author Organization [address] [facility] Address [address] [place] [address] Phone Care Team Providers Care Stationary Engineer Apprentice Name Role Phone Alireza Robertson MD Primary Care Provider [phone] Allergies Active Allergy Reactions Criticality Noted Date [...] Upcoming Encounters Date Type Department Care Team ([facility] st Contact Info) Description 10/08/2024 1:45 PM EDT Office Visit Orthopedic Surgery - [address] [id number] Conenr Funk DPM [address] [facility] [address] [place] [address] Health Maintenance Due Date Last Done Comments [...] topic Insurance MEDICAID - [place] Care Teams Stationary Engineer Apprentice Relationship Specialty Start Date End Date Alireza Robertson MD [address] [place] [address] [address] [place], [place] PCP - General Internal Medicine 04/28/22
--- NOTE | 2024-09-20 14:09 | PC.NURSE ---
@nd attempt at calling [facility] for turkey picker
[2024-09-20 14:25] VITALS: BP 121/62; PULSE 75; RESP 18; TEMP 36.3; O2SAT 95
--- NOTE | 2024-09-20 14:26 | PC.NURSE ---
Patient to waiting room for hospital shuttle
== END 2024-09-20 14:26 | disposition home or self-care (01) ==
PROVIDERS: Emergency Provider Emergency Medicine; PCP Internal Medicine
DX: N63.10 Unspecified lump in the right breast, unspecified quadrant (principal); Z79.899 Other long term (current) drug therapy
CPT/HCPCS: 99282

== ENCOUNTER → 2024-10-04 10:20 | Outpatient (BNV) | payer OTHER, SELFPAY | PROVIDERS: PCP Internal Medicine; Visit Provider Internal Medicine | DX: C50.411 Malignant neoplasm of upper-outer quadrant of right female breast (principal) | CPT/HCPCS: 99205; G2211 ==

== ENCOUNTER 2024-10-18 05:20 | Emergency (ER) | payer OTHER, SELFPAY ==
[2024-10-18 05:33] VITALS: BP 171/80; PULSE 81; PULSE 94; RESP 22; TEMP 36.4; O2SAT 93; O2SAT 94; BMI 23.6
[2024-10-18 05:36] VITALS: BP 171/80; PULSE 81; RESP 22; TEMP 36.4; O2SAT 94
[2024-10-18 05:46] LABS: MANUAL DIFF FLAG NO
[2024-10-18 05:48] LABS: Basophils Absolute Auto 0.1 X10*3/uL (0.0-0.2); Basophils Percent Auto 0.8 % (0-2); Eosinophils Absolute Auto 0.1 X10*3/uL (0.0-0.4); Eosinophils Percent Auto 2.2 % (0-4); Hematocrit 44.5 % (37.0-47.0); Hemoglobin 14.3 g/dl (12.0-16.0); Imm Gran Abs Auto 0.03 X10*3/uL (0.00-0.03); Imm Gran Pct Auto 0.5 % (0.0-0.4); Lymphocytes Absolute Auto 2.5 X10*3/uL (1.2-4.9); Lymphocytes Percent Auto 39.3 % (20-40); Mean Corpuscular HGB Conc 32.1 g/dl (31.0-35.0); Mean Corpuscular Volume 90.3 fL (80.0-98.0); Mean Platelet Volume 8.9 fL (9.4-12.3); Monocytes Absolute Auto 0.5 X10*3/uL (0.1-1.2); Monocytes Percent Auto 8.1 % (2-11); Neutrophils Absolute Auto 3.2 x10*3/uL (2.0-8.3); Neutrophils Percent Auto 49.1 % (45-73); Platelet Count 276 X10*3/uL (160-400); Red Blood Count 4.93 X10*6/uL (4.20-5.50); Red Cell Distribution Width 14.1 % (11.0-16.0); White Blood Count 6.4 X10*3/uL (4.8-10.8)
[2024-10-18 06:00] VITALS: BP 156/83; PULSE 73; RESP 16; O2SAT 96
[2024-10-18 06:08] LABS: Alanine Aminotransferase 6 U/L (0-31); Albumin Level 3.4 g/dL (3.5-5.0); Alkaline Phosphatase 72 U/L (39-117); Anion Gap 12 (12-20); Aspartate Amino Transferase 19 U/L (5-31); Bilirubin Total 0.7 mg/dL (0.0-1.0); Blood Urea Nitrogen 7 mg/dL (9-16); Calcium 8.7 mg/dL (8.4-10.2); Carbon Dioxide 29 mmol/L (22-29); Chloride 102 mmol/L (96-108); Estimated Glomerular Filt Rate > 60; Glucose Random 103 mg/dL (60-115); Potassium 4.4 mmol/L (3.3-5.1); Sodium 139 mmol/L (135-145)
--- NOTE | 2024-10-18 07:17 | ED.GENADULT ---
HPI - General Adult General Chief complaint: General Medical Stated complaint: bleeding from right breast Time Seen by Provider: 10/18/24 07:02 History of Present Illness HPI narrative: Patient is 74 years old with a history of COPD schizophrenia history of having a breast mass to the right breast at the right upper corner. Patient had a biopsy done on September 18. Came to the ED prior for bleeding from the wound. Been having bleeding on and off. Had bleeding earlier which stopped on arrival. Denies any dizziness nausea vomiting chest pain shortness of breath. Has a history of leg swelling to the left side in the past. Patient claims he had been worked up in the past. Related Data Home Medications ?Medication ?Instructions ?Recorded ?Confirmed levothyroxine 50 mcg tablet 50 mcg PO DAILY@0600 07/17/24 10/04/24 magnesium hydroxide 2,400 mg/10 mL 2,400 mg PO DAILY 10/04/24 10/04/24 oral suspension (Milk Of Magnesia Concentrated) Previous Rx's ?Medication ?Instructions ?Recorded paliperidone palmitate 234 mg/1.5 234 mg (1.5 mL) IM Q30D #1.5 mL 11/21/ mL intramuscular syringe (Invega Sustenna) albuterol sulfate 90 mcg/actuation 2 puff inhalation Q6H PRN 05/08/24 aerosol inhaler (Ventolin HFA) bronchospasm 30 days #8.5 grams letrozole 2.5 mg tablet 2.5 mg PO QAM #30 tabs 10/04/24 Allergies Allergy/AdvReac Type Severity Reaction Status Date / Time clozapine [Clozapine] AdvReac Unknown LOW ANC Verified 10/18/24 05:35 haloperidol [From HALDOL] AdvReac Unknown TARDIVE Verified 10/18/24 05:35 DISKINESIVE Review of Systems Review of Systems: Positive shortness of breath Yes all other systems are reviewed and are negative PMFSH Past Medical History Attestation statement: The following information was validated with the patient. Medical History Retained gallstones following laparoscopic cholecystectomy Breast mass, right Respiratory failure with hypercapnia Smoker Paranoid schizophrenia Anxiety Gastritis Polycythemia Acquired hypothyroidism Benign essential hypertension COPD (chronic obstructive pulmonary disease) Surgical History No pertinent past surgical history Family History Family History Father CVD (cardiovascular disease) Mother Medical history unknown Family/Other FH: mental illness Other Mental health problem Social History Social History Household Members: Other Household Members Other:: Skilled Nursing Housing: Other Housing Other:: Skilled Nursing Do you presently have visiting nurse or other home services: No Unable to assess alcohol history related to: Unknown Alcohol intake: never Comment: not used for pain Patient Tobacco Use Status: Former Tobacco user Tobacco use type: Cigarette Cigarette Packs Per Day: 0.25 Smoked in Last 30 Days: Yes e-Cigarette/Vaping Use: Never Used Second Hand Smoke Exposure: Yes Use of substances other than those prescribed or required for medical reasons: No Advance Directives: Yes Advance Directives on File: Yes Advance Directives Date on File: 11/22/22 service: No Current occupational status: disabled Sexual orientation: Straight/Heterosexual Cognitive needs: No Hearing needs: No Vision needs: No Physical Exam ED Vital Signs: Vital Signs - 24 hr 10/18/24 05:33 10/18/24 05:36 10/18/24 06:00 Temperature 97.5 F 97.5 F Pulse Rate 81 81 73 Respiratory Rate 22 H 22 H 16 Blood Pressure 171/80 H 171/80 H 156/83 H Pulse Oximetry 94 94 96 Oxygen Delivery Method Nasal Cannula Nasal Cannula Nasal Cannula Oxygen Flow Rate 4 BMI result Body Mass Index 23.6 Appearance: Alert. Oriented X3. No acute distress. Eyes: Pupils equal, round and reactive to light. ENT: Pharynx normal. Neck: Normal inspection. Neck supple. No lymph nodes noted. No crepitus CVS: Normal heart rate and rhythm. Pulses normal. Normal S1 and S2 Respiratory: No respiratory distress. Breath sounds normal. No Wheezing. No rales Examination of the right breast was done with nurse Draper present. The right upper quadrant mass seems to be fixed to the skin it is proximally 3 cm x 3 cm in size. Hard. There is no gross discharge noted. There is no ulceration noted. Surrounding tissue seems to be intact. There is no gross lymph node that was noted. Abdomen: Soft and nontender. No rigidity. No distention. good BS x4 Skin: Skin warm and dry. Normal skin color. Normal skin turgor. Extremities: No lower extremity edema. Neurovascular intact to all extremities. No Lacerations. No Rash Neuro: Oriented X 3. No motor deficit. No sensory deficit. Moving all extermities. No slurred speech Medical Decision Making Medical Decision Making [facility] Narrative: Patient fair appearing not acute distress. Hemoglobin is 14.3 this is approximately baseline. Bleeding has stopped. Had a history of the same. Had a discussion with patient. Will contact surgery. Have patient follow-up on an outpatient basis. In stable condition. Differential Diagnosis Differential Diagnoses: The differential diagnosis associated with the presentation includes Breast mass Admission/Observation Consideration of admission/observation: Escalation of care including admission/observation considered Consult Healthcare Provider Management of the patient was discussed with: Skidder Loader (Surgery. [place] comfortable with discharge close follow-up on an outpatient basis) Lab Data [facility] Lab Attestation statement: I reviewed the patient's lab results. 10/18/24 05:43 10/18/24 05:43 Labs: Lab Results 10/18/24 Range/Units 05:43 WBC 6.4 (4.8-10.8) X10*3/uL RBC 4.93 (4.20-5.50) X10*6/uL Hgb 14.3 (12.0-16.0) g/dl Hct 44.5 (37.0-47.0) % MCV 90.3 (80.0-98.0) fL MCH 29.0 (27.0-33.0) pg MCHC 32.1 (31.0-35.0) g/dl RDW 14.1 (11.0-16.0) % Plt Count 276 (160-400) X10*3/uL MPV 8.9 L (9.4-12.3) fL Immature Gran % (Auto) 0.5 H (0.0-0.4) % Neut % (Auto) 49.1 (45-73) % Lymph % (Auto) 39.3 (20-40) % [place] % (Auto) 8.1 (2-11) % Eos % (Auto) 2.2 (0-4) % Baso % (Auto) 0.8 (0-2) % Lymph # (Auto) 2.5 (1.2-4.9) X10*3/uL [place] # (Auto) 0.5 (0.1-1.2) X10*3/uL Eos # (Auto) 0.1 (0.0-0.4) X10*3/uL Baso # (Auto) 0.1 (0.0-0.2) X10*3/uL Abs Immat Gran (auto) 0.03 (0.00-0.03) X10*3/uL Absolute Neuts (auto) 3.2 (2.0-8.3) x10*3/uL Absolute Nucleated RBC 0.000 (0.0-0.012) X10*3/uL Nucleated RBC % (auto) 0.0 (0.0-0.2) /100WBC Sodium 139 (135-145) mmol/L Potassium 4.4 (3.3-5.1) mmol/L Chloride 102 (96-108) mmol/L Carbon Dioxide 29 (22-29) mmol/L Anion Gap 12 (12-20) BUN 7 L (9-16) mg/dL Creatinine 0.65 (0.5-1.4) mg/dL Estim Creat Clear Calc 70.0 Estimated GFR > 60 Random Glucose 103 (60-115) mg/dL Calcium 8.7 (8.4-10.2) mg/dL Total Bilirubin 0.7 (0.0-1.0) mg/dL AST 19 (5-31) U/L ALT 6 (0-31) U/L Alkaline Phosphatase 72 (39-117) U/L Total Protein 6.0 L (6.5-8.0) g/dL Albumin 3.4 L (3.5-5.0) g/dL External Record Review External record reviewed: Inpatient record and Office record Chronic Conditions History of COPD history of schizophrenia Social Determinants Patient?s care significantly limited by Social Determinants of Health including: Problems related to primary support group Discharge Plan Discharge Clinical Impression: Breast cancer Patient Disposition: Home, Self-Care Instructions: Breast Cancer in Women (DC) Prescriptions: No Action albuterol sulfate [Ventolin HFA] 90 mcg/actuation HFA aerosol inhaler 2 puff inhalation Q6H PRN (Reason: bronchospasm) 30 Days Qty: 8.5 6RF Invega Sustenna 234 mg/1.5 mL syringe 234 mg IM Q30D Qty: 1.5 0RF levothyroxine 50 mcg tablet 50 mcg PO DAILY@0600 magnesium hydroxide [Milk Of Magnesia Concentrated] 2,400 mg/10 mL Suspension 2,400 mg PO DAILY letrozole 2.5 mg Tablet 2.5 mg PO QAM Qty: 30 3RF Referrals: Dale Stevens MD [Physician] - 10/21/24 Print Language: Serbian
--- NOTE | 2024-10-18 07:51 | PC.NURSE ---
Called long-term to pick patient up. shift supervisor melting staff stating that they will let day shift staff know and will call back around 8:30am
[2024-10-18 09:05] VITALS: BP 156/83; PULSE 73; RESP 16; TEMP 36.6; O2SAT 96
== END 2024-10-18 09:06 | disposition home or self-care (01) ==
PROVIDERS: Emergency Provider Emergency Medicine Emergency Medical Services; PCP Internal Medicine
DX: N63.0 Unspecified lump in unspecified breast (principal); Z79.899 Other long term (current) drug therapy
CPT/HCPCS: 36415; 80053; 85025; 99283; 99284

== ENCOUNTER → 2024-11-01 13:00 | Outpatient (BNV) | payer OTHER, SELFPAY | PROVIDERS: PCP Internal Medicine; Visit Provider Radiology Diagnostic Radiology | DX: E28.39 Other primary ovarian failure (principal) | CPT/HCPCS: 77080 ==

== ENCOUNTER 2024-11-01 13:11 | Outpatient (REF) | payer OTHER, SELFPAY ==
--- NOTE | ~2024-11-01 | MM_ITS ---
EXAMINATION: DXA BONE DENSITY AXIAL HISTORY: ? Osteoporosis TECHNIQUE: [employer] Dual energy absorptiometry (DEXA) of the lumbar spine, total left hip, and femoral neck was performed. COMPARISON: Comparison is made with the prior examination dated 05/21/2013. FINDINGS: The bone mineral density of the lumbar spine is 0.853 with a T-score of -2.7, and a Z-score of -1.1. This is indicative of osteoporosis. This represents a BMD change of -19.7% compared to the prior exam. This is statistically significant. The bone mineral density of the left total hip is 0.793 with a T-score of -1.7, and a Z-score of 0.0. This is indicative of osteopenia. This represents a BMD change of -24.3% compared to the prior exam. This is statistically significant. The bone mineral density of the left femoral neck is 0.680 with a T-score of -2.6, and a Z-score of -0.7. This is indicative of osteoporosis. This represents a BMD change of -24.6% compared to the prior exam. MM/XR DEXA axial skeleton IMPRESSION: Based on bone mineral density, and according to World Health Organization (WHO) criteria, the diagnosis is consistent with osteoporosis. All bone density values are in grams per centimeter squared (g/cm2). Statistically, 68% of repeat scans fall within 1 SD (+/- 0.010 g/cm2 for AP spine L1-L4) and 1 SD (+/- 0.012 g/cm2 for femur total) FRAX is a trademark of the [employer], a World Health Organization (WHO) Collaborating Center. Electronically signed by: Ivan Davila MD 11/01/2024 02:44 PM EDT
--- OUTSIDE RECORDS SUMMARY | 2024-11-01 13:54 | XMS_ITS | Clinical Summary ---
Author Organization 175 [facility] Address [address] [place] [address] Phone Care Team Providers Care Icicle Machine Operator Name Role Phone Alireza Robertson MD [...] ORAL) Take by mouth. - Oral Active ammonium lactate (AmLactin) 12 % lotion Apply topically if needed for dry skin. 400 g 2 5 10/09/19 26 Active Active Problems Problem Noted Date Diagnosed Date Anxiety 07/08/2022 Benign essential hypertension 07/08/2022 COPD (chronic obstructive pu lmonary disease) ([facility] V24, [facility] V28) 07/08/2022 Hypothyroidism 07/08/2022 Paranoid schizophrenia ([facility] V24, [facility] V28 ) 07/08/2022 Polycythemia 07/08/2022 Respiratory failure with hyp ercapnia ([facility] V24, [facility] V28) 07/08/2022 Smoker 07/08/2022 Encounters Date Type Department Care Team Description 10/08/2024 1:45 PM EDT Office Visit Orthopedic Surgery - [address] [address] Conner Funk, NICHOLAS Pain in toes of both feet (Primary Dx); PVD (peripheral vascular disease) ([facility] V24); Arthritis of both feet; Dermatophytosis, nail; Xerosis cutis from Last 3 Months Surgical History Surgery Date Site/Laterality Comments OTHER SURGICAL HISTORY PROCEDURE: DENIES PREVIOUS SURGERY Medical History Medical History Date Comments Hypothyroidism 07/08/2022 DX:Hypothyroidis m Anxiety 07/08/2022 DX:Anxiety Benign essential hypertension 07/08/2022 DX :Benign essential hypertension COPD (chronic obstructive pu lmonary disease) ([facility] V24, [facility] V28) 07/08/2022 DX:COPD (chronic o bstructive pulmonary disease) (HCC) Paranoid schizophrenia ([facility] V24, [facility] V28) 07/08/2022 DX:Paranoid schizophrenia (H CC) Polycythemia 07/08/2022 DX:Polycythemia Respiratory failure with hyp ercapnia ([facility] V24, [facility] V28) 07/08/2022 DX:Respiratory failure with hypercapnia (HCC) Smoker [...] - - Weight 70.3 kg (155 lb) 10/08/2024 1:56 PM EDT Height 167.6 cm (5' 5.98 ) 10/08/2024 1:56 PM ED T Body Mass Index 25.03 10/08/2024 1:56 PM EDT Plan of Treatment Upcoming Encounters Date Type Department Care Team (Late st Contact Info) Description 01/14/2025 11:00 AM EDT Office Visit Orthopedic Surgery - [place] [id number] [address] Conner Funk, DPKatherine [address] [address] Health Maintenance Due Date Last Done Comments DTaP,Tdap,and Td Vaccines (1 - Tdap) 1968 Pneumococcal Vaccine: 50+ Years (1 of 2 - PCV) 1968 Zoster Vaccines (1 of 2) 1999 Cholesterol Screening (Lipid Panel) 06/19/2022 Colorectal Cancer Screening: Colonoscopy 06/19/2022 Depression Screening 06/19/2022 Falls Risk Assessment 06/19/2022 Hepatitis C Screening 06/19/2022 Osteoporosis Screening (Bone Density Screening) 06/19/2022 Social Influencers of Health Screening 06/19/2022 Hypertension/CHF/CAD Annual BMP Blood Test 08/11/2023 COVID-19 Vaccine ( season) 2024 08/26/2020, 08/05/2020 RSV Immunization Adult Patients (1 - 1-dose 75+ series) 2024 Influenza Vaccine (Season Ended) 2025 05/02/2022, 05/11/2021, 05/18/2020, Additional history exists HIB Vaccines Aged Out No longer eligi [...] age to complete this topic Meningococcal B Vaccine Aged Out No l onger eligible based on patient's age to complete this topic RSV Immunization Patients Under 20 months Aged Out No longer eligible based on patient's age to complete this topic Varicella Vaccines Aged Out No longer eligible based on patient's age to complete this topic Insurance MEDICAID - [place] Care Teams Icicle Machine Operator Relationship Specialty Start Date End Date Alireza Robertson MD [address] [place] [address] [address] [place] PCP - General Internal Medicine 04/28/22
== END 2024-11-01 13:12 | disposition home or self-care (01) ==
LOC: HO.MAMMO 13:11
PROVIDERS: PCP Internal Medicine; Visit Provider Internal Medicine
DX: M81.0 Age-related osteoporosis without current pathological fracture (principal)
CPT/HCPCS: 77080

== ENCOUNTER 2024-11-14 11:12 | Outpatient (AMB) | payer OTHER, SELFPAY ==
[2024-11-14 11:22] VITALS: BP 132/70; PULSE 78; O2SAT 90; BMI 24.0
--- NOTE | 2024-11-14 11:22 | MHC.OFFVIS ---
Vital Signs 11/14/24 11:22 Height 5 ft 6 in Weight 148 lb 12.992 oz BMI 24.0 BP 132/70 Blood Pressure Location Rt brachial Position Sitting Pulse 78 Pulse Source Pulse Oximeter Pulse Oximetry (%) 90 L Oxygen Delivery Method Room Air Intake Visit Reasons: COPD Intake Note: pt is here for follow up and is feeling good. Otolaryngology Surgeon Required: No Allergies clozapine [Clozapine] Adverse Reaction (Unknown, Verified 11/14/24 11:39) LOW ANC haloperidol [From HALDOL] Adverse Reaction (Unknown, Verified 11/14/24 11:39) TARDIVE DISKINESIVE Medication List - Last Reconciled 11/14/24 by Meryl Ashton MD albuterol sulfate 90 mcg/actuation (Ventolin HFA) 2 puffs inhalation Q6H PRN 30 days letrozole 2.5 mg PO QAM levothyroxine 50 mcg PO DAILY@0600 magnesium hydroxide (Milk Of Magnesia Concentrated) 2,400 mg PO DAILY paliperidone palmitate (Invega Sustenna) 234 mg (1.5 mL) IM Q30D Do you need a note to return to daycare/school/sports/work: No HPI HPI COPD: Details: THIS 74 YEARS OLD FEMALE WITH CHALLENGED MENTAL STATUS, HAS BEEN A SMOKER THROUGHOUT HER ADULT LIFE, NOW CUT DOWN TO ABOUT. 5 CIGARETTES A DAY H/O BEING TREATED IN THE HOSPITAL LAST YEAR FOR RESPIRATORY FAILURE MAINLY DUE TO ATELECTASIS IN THE LEFT LOWER LOBE, WHICH HAS GRADUALLY IMPROVED. SHE HAS FEATURES OF RESTRICTIVE AND OBSTRUCTIVE LUNG DISEASE. USES ALBUTEROL INHALER ONLY P.R.N.. SHE HAS HAD HYPOXEMIA IN THE PAST BUT LATELY O2 SATS ARE OKAY AND SHE DOES NOT USE ANY OXYGEN. SHE SPENT ABOUT 2 MONTHS IN THE REHAB FACILITY AND THAT HAS HELPED. AFTER THAT SHE HAS BEEN LIVING IN A HALFWAY. SHE AMBULATES WITHIN THE HOUSE BUT DOES NOT DO ANY EXERCISES OR. GO OUT OF THE HOUSE MUCH HAS ONLY MINIMAL COUGH , DENIES ANY WHEEZING , DOES HAVE ALBUTEROL INHALER AT HOME BUT HAS NEVER USED AT. [facility] Medical History Retained gallstones following laparoscopic cholecystectomy Breast mass, right Respiratory failure with hypercapnia Smoker Paranoid schizophrenia Anxiety Gastritis Polycythemia Acquired hypothyroidism Benign essential hypertension COPD (chronic obstructive pulmonary disease) Surgical History No pertinent past surgical history Family History Father CVD (cardiovascular disease) Mother Medical history unknown Family/Other FH: mental illness Other Mental health problem Social History Household Members: Other Household Members Other:: [facility] Housing: Other Housing Other:: [facility] Do you presently have visiting nurse or other home services: No Unable to assess alcohol history related to: Unknown Alcohol intake: never Comment: not used for pain Patient Tobacco Use Status: Current everyday Tobacco user Tobacco use type: Cigarette Cigarette Packs Per Day: 0.25 Cigarettes Per Day: 5 e-Cigarette/Vaping Use: Never Used Second Hand Smoke Exposure: Yes Advance Directives Date on File: 11/22/22 service: No Current occupational status: disabled Sexual orientation: Straight/Heterosexual Cognitive needs: No Hearing needs: No Vision needs: No Review of Systems Const All systems reviewed & are unremarkable except as noted in HPI and below Eyes Reports no additional complaints ENT Reports no additional complaints Card Denies chest pain, Denies irregular heart rhythm and Denies leg edema Resp Reports as per HPI GI Reports no additional complaints Reports no additional complaints Musc Reports no additional complaints Skin/Breast Reports system reviewed and no additional complaints, except as documented Neuro Reports no additional complaints Psych Details: Known case of Schizophrenic disorder, but controlled and stable Physical Exam Vital Signs: Last Vital Signs Pulse 78 11/14/24 11:22 BP 132/70 11/14/24 11:22 Pulse Ox 90 L 11/14/24 11:22 Oxygen Delivery Method Room Air 11/14/24 11:22 BMI result Body Mass Index 24.0 Const General: comfortable, no acute distress, alert and awake Orientation/consciousness: patient oriented x3 HEENT Head: Yes normal to inspection General nose exam: No nasal polyps present and No nasal discharge present Face and sinus: Yes sinuses nontender Mouth: oropharynx normal Throat: Yes posterior oropharynx normal Eyes General: appearance normal, both eyes and all related structures Neck Neck: Yes normal visual inspection, Yes no lymphadenopathy, Yes trachea midline and Yes no JVD Thyroid: Thyroid normal Chest Chest palpation & inspection: normal inspection of the chest, normal palpation of entire chest wall and no tenderness Resp Other: Percussion note is resonant, breath sounds equal on both sides but somewhat distant with prolonged expiratory phase. No wheezes rhonchi or crepitations are heard . Cardio Palpation: normal PMI Rate: regular rate Rhythm: regular rhythm Heart sounds: no gallops and no murmurs GI Palpation (GI): Soft to palpation, nontender, No hepatosplenomegaly present and no masses Auscultation: normal bowel sounds Back/Spine/Pelvis Thoracic/Lumbar Spine: thoracic and lumbar spine normal to inspection Skin General skin exam: no rashes or lesions noted Neuro General: patient oriented x3 and no focal motor deficits Cranial nerves: Yes CN's II-XII intact bilaterally Extrem General: Yes normal to inspection, Yes no calf tenderness and Yes edema (DOES HAVE MILD CHRONIC EDEMA OF THE LEGS.) Psych Mental Status: mental status grossly normal Speech and movement: Normal speech and movement present Affect: Anxious affect present Assessment & Plan Assessment & Plan (1) Smoker: Comment: She is a long-time smoker. Claims that she has cut down to 5 CIGARETTES A DAY , AND CLAIMS THAT SHE IS GOING TO TRY QUITTING COMPLETELY. Code(s): F17.200 - Nicotine dependence, unspecified, uncomplicated Category: Social Hx Plan: ENCOURAGED TO CUT DOWN TO 3 CIGARETTES A DAY AND THEN TRY TO QUIT COMPLETELY. (2) COPD (chronic obstructive pulmonary disease): Comment: CHRONIC OBSTRUCTIVE PULMONARY DISEASE, DEFINITELY RELATED TO HER LONG-TIME SMOKING. SHE CLAIMS THAT SHE IS STAYING VERY STABLE , SHE DECLINES TO USE ANY INHALERS. SHE DOES HAVE ALBUTEROL HFA ON HAND BUT HAS NOT BEEN USING IT Code(s): J44.9 - Chronic obstructive pulmonary disease, unspecified Category: Medical Qualifiers: COPD type: unspecified COPD Qualified Code(s): J44.9 - Chronic obstructive pulmonary disease, unspecified Plan: ADVISED THAT SHE CAN USE ALBUTEROL 2 PUFFS Q 4-6 HOURS IF SHE STARTS HAVING BOUTS OF COUGH OR IF SHE FEELS CONGESTED (3) Respiratory failure with hypercapnia: Comment: THIS PATIENT DOES HAVE HISTORY OF HYPOXEMIA ON EXERCISE. BUT SHE CATEGORICALLY REFUSES TO USE O2. CLINICALLY SHE IS STABLE AT THIS TIME. Code(s): J96.92 - Respiratory failure, unspecified with hypercapnia Category: Medical Plan: WILL BE WATCHED CLOSELY AND IF SHE STARTS HAVING FREQUENT PERIODS OF SHORTNESS OF BREATH WITH LOW O2 SAT THEN WE WILL TRY TO CONVINCE HER TO USE OXYGEN, AT THAT POINT. Coding Level of Care Code Est Pt Level 3 (29649) Diagnoses Smoker F17.200 Chronic obstructive pulmonary disease, unspecified COPD type J44.9 COPD type: unspecified COPD Respiratory failure with hypercapnia J96.92
--- OUTSIDE RECORDS SUMMARY | 2024-11-14 12:41 | XMS_ITS | Clinical Summary ---
Author Organization 175 [facility] Address [address] [place] [address] Phone Care Team Providers Care Stockroom Associate Name Role Phone Alireza Robertson MD Primary Care Provider [phone] Allergies Active Allergy Reactions Criticality Noted Date [...] 07/08/2022 COPD (chronic obstructive pu lmonary disease) ([facility] V24, [facility] V28) 07/08/2022 Hypothyroidism 07/08/2022 Paranoid schizophrenia ([facility] V24, [facility] V28 ) 07/08/2022 Polycythemia 07/08/2022 Respiratory failure with hyp ercapnia ([facility] V24, [facility] V28) 07/08/2022 Smoker 07/08/2022 Encounters Date Type Department Care Team Description 10/08/2024 1:45 PM EDT Office Visit Orthopedic Surgery - [address] [address] Conner Funk, NICHOLAS Pain in toes of both feet (Primary Dx); PVD (peripheral vascular disease) ([facility] V24); Arthritis of both feet; Dermatophytosis, nail; Xerosis cutis from Last 3 Months Surgical History Surgery Date Site/Laterality Comments OTHER SURGICAL HISTORY PROCEDURE: DENIES PREVIOUS SURGERY Medical History Medical History Date Comments Hypothyroidism 07/08/2022 DX:Hypothyroidis m Anxiety 07/08/2022 DX:Anxiety Benign essential hypertension 07/08/2022 DX :Benign essential hypertension COPD (chronic obstructive pu lmonary disease) ([facility] V24, [facility] V28) 07/08/2022 DX:COPD (chronic o bstructive pulmonary disease) (HCC) Paranoid schizophrenia ([facility] V24, [facility] V28) 07/08/2022 DX:Paranoid schizophrenia (H CC) Polycythemia 07/08/2022 DX:Polycythemia Respiratory failure with hyp ercapnia ([facility] V24, [facility] V28) 07/08/2022 DX:Respiratory failure with hypercapnia (HCC) [...] AM EDT Office Visit Orthopedic Surgery - [place] [id number] [address] Conner Funk, DPKatherine [address] [address] Health Maintenance Due Date Last Done Comments [...] topic Insurance MEDICAID - [place] Care Teams Stockroom Associate Relationship Specialty Start Date End Date Alireza Robertson MD [address] [place] [address] Dr [address] [place] PCP - General Internal Medicine 04/28/22
== END 2024-11-14 11:39 | disposition home or self-care (01) ==
LOC: HO.HPS 11:12
PROVIDERS: PCP Internal Medicine; Visit Provider Internal Medicine
DX: F17.200 Nicotine dependence, unspecified, uncomplicated (principal); J44.9 Chronic obstructive pulmonary disease, unspecified; J96.92 Respiratory failure, unspecified with hypercapnia
CPT/HCPCS: 99213

== ENCOUNTER → 2024-11-14 11:12 | Outpatient (BNVA) | payer OTHER, SELFPAY | PROVIDERS: PCP Internal Medicine; Visit Provider Internal Medicine | DX: J44.9 Chronic obstructive pulmonary disease, unspecified (principal); J96.92 Respiratory failure, unspecified with hypercapnia; F17.210 Nicotine dependence, cigarettes, uncomplicated | CPT/HCPCS: 99212 ==